=== PATIENT | male | born 1970 | race Caucasian/White ===

== ENCOUNTER 2016-10-31 03:50 | Inpatient (IN) | payer BC ==
[~2016-10-31] VITALS: Ht 185.4 cm; Wt 98.5 kg
[2016-10-31] VITALS (13 sets, daily range): BP systolic 110–151; BP diastolic 73–96; PULSE 68–102; RESP 16–20; TEMP 98.3–99.1; O2SAT 96–99
[~2016-10-31 03:50] MED LIST: BENZ100 PO; LISI-519 PO; METO-309 PO; NICO21DI2 T-DERMAL; TYLELIQ PO; VENTAER2 INH; ZITHTAB PO
--- NOTE | 2016-10-31 04:39 | PD ---
HPI Chief Complaint: right leg pain Time Seen by Provider: 04:28 Travel History International Travel<30 days: No Contact w/Intl Traveler<30days: No Traveled to known affect area: No History of Present Illness HPI The patient is a 46-year-old male that complains of progressive pain and numbness in the right lower extremity below the knee for approximately 24 hours. He is a pack and half smoker. He has never had similar episodes before. He also noted that he cannot wiggle his toes on the right foot. His pain is an 8/10 and a burning sensation. On the calf it is a cramp. PFSH Past Medical History Heart Rhythm Problems: No Cancer: No Cardiovascular Problems: Yes High Cholesterol: No Chemotherapy: No Chest Pain: No Congestive Heart Failure: No Endocrine: No Genitourinary: No Hypertension: Yes Immune Disorder: No Musculoskeletal: No Neurologic: No Psychiatric: No Reproductive: No Respiratory: No Radiation Therapy: No Sickle Cell Disease: No Social History Tobacco Use: Yes Substance Use: No Allergies-Medications (Allergen,Severity, Reaction): Coded Allergies: No Known Allergies (Unverified , 10/31/16) Reported Meds & Prescriptions Reported Meds & Active Scripts Active Lopressor (Metoprolol Tartrate) 50 Mg Tab 50 Mg PO BID 30 Days Review of Systems Except as stated in HPI: all other systems reviewed are Neg Physical Exam Narrative GENERAL: The patient is alert, oriented 3, he smells strongly of tobacco, in moderate apparent distress with his right lower leg pain. His vital signs are normal. SKIN: Focused skin assessment warm/dry. The skin is cool and pale below the knee. HEAD: Atraumatic. Normocephalic. EYES: Pupils equal and round. No scleral icterus. No injection or drainage. ENT: No nasal bleeding or discharge. Mucous membranes pink and moist. NECK: Trachea midline. No JVD. CARDIOVASCULAR: Regular rate and rhythm. No murmur appreciated. RESPIRATORY: No accessory muscle use. Clear to auscultation. Breath sounds equal bilaterally. GASTROINTESTINAL: Abdomen soft, non-tender, nondistended. Hepatic and splenic margins not palpable. MUSCULOSKELETAL: No obvious deformities. No clubbing. No cyanosis. No edema. NEUROLOGICAL: Awake and alert. No obvious cranial nerve deficits. Motor grossly normal except the patient cannot move his right toes and has somewhat limited movement of his ankle.. Normal speech. PSYCHIATRIC: Appropriate mood and affect; insight and judgment normal. Data Data Last Documented VS Vital Signs Date Time Temp Pulse Resp B/P Pulse Ox O2 Delivery O2 Flow Rate FiO2 10/31/16 05:24 78 18 129/75 Nasal Cannula 2 10/31/16 05:00 96 10/31/16 03:58 98.4 Orders Cta Runoff W Iv Contrast W 3d (10/31/16 ) Electrocardiogram (10/31/16 04:31) Complete Blood Count With Diff (10/31/16 04:31) Comprehensive Metabolic Panel (10/31/16 04:31) Prothrombin Time / Inr (Pt) (10/31/16 04:31) Act Partial Throm Time (Ptt) (10/31/16 04:31) Magnesium (Mg) (10/31/16 04:31) Sodium Chlor 0.9% 1000 Ml Inj (Ns 1000 M (10/31/16 04:45) Ondansetron Inj (Zofran Inj) (10/31/16 05:00) Hydromorphone Pf Inj (Dilaudid Pf Inj) (10/31/16 05:00) Prednisone (Deltasone) (10/31/16 05:15) Heparin Infusion LISA.Q1H (10/31/16 05:34) Heparin Inj (Heparin Inj) (10/31/16 05:45) Heparin-D5w Inj (Heparin-D5w Inj) (10/31/16 05:45) Cbc No Diff, Includes Plts (11/03/16 06:00) Ecg Monitoring (10/31/16 05:36) Iv Access Insert/Monitor (10/31/16 05:36) Oximetry (10/31/16 05:36) Sodium Chloride 0.9% Flush (Ns Flush) (10/31/16 05:45) Type And Screen (10/31/16 05:36) Admit Order (Ed Use Only) (10/31/16 05:38) Labs Laboratory Tests Test 10/31/16 04:35 White Blood Count 9.3 TH/MM3 Red Blood Count 4.84 MIL/MM3 Hemoglobin 15.3 GM/DL Hematocrit 46.2 % Mean Corpuscular Volume 95.5 FL Mean Corpuscular Hemoglobin 31.7 PG Mean Corpuscular Hemoglobin 33.2 % Concent Red Cell Distribution Width 14.0 % Platelet Count 113 TH/MM3 Mean Platelet Volume 9.4 FL Neutrophils (%) (Auto) 77.6 % Lymphocytes (%) (Auto) 14.7 % Monocytes (%) (Auto) 6.6 % Eosinophils (%) (Auto) 0.4 % Basophils (%) (Auto) 0.7 % Neutrophils # (Auto) 7.2 TH/MM3 Lymphocytes # (Auto) 1.4 TH/MM3 Monocytes # (Auto) 0.6 TH/MM3 Eosinophils # (Auto) 0.0 TH/MM3 Basophils # (Auto) 0.1 TH/MM3 CBC Comment DIFF FINAL Differential Comment Prothrombin Time 10.8 SEC Prothromb Time International 1.0 RATIO Ratio Activated Partial 22.7 SEC Thromboplast Time Sodium Level 141 MEQ/L Potassium Level 4.5 MEQ/L Chloride Level 106 MEQ/L Carbon Dioxide Level 20.8 MEQ/L Anion Gap 14 MEQ/L Blood Urea Nitrogen 15 MG/DL Creatinine 0.98 MG/DL Estimat Glomerular Filtration 82 ML/MIN Rate Random Glucose 105 MG/DL Calcium Level 8.3 MG/DL Magnesium Level 1.8 MG/DL Total Bilirubin 0.6 MG/DL Aspartate Amino Transf 77 U/L (AST/SGOT) Alanine Aminotransferase 66 U/L (ALT/SGPT) Alkaline Phosphatase 49 U/L Total Protein 6.9 GM/DL Albumin 3.7 GM/DL [facility] Medical Decision Making Medical Screen Exam Complete: Yes Emergency Medical Condition: Yes Medical Record Reviewed: Yes Differential Diagnosis Acute arterial occlusion, cardiac dysrhythmia, electrolyte disorder Narrative Course The CTA with runoff shows occlusion at the SFA on the right. This is just above the popliteal artery. This could've been initially an embolus but now is likely thrombotic. The patient is a admitted to the [facility] service, put on heparin bolus and drip and the vascular surgeon was consulted and will take the patient to surgery. Diagnosis Primary Impression: Arterial embolism and thrombosis of lower extremity Additional Impression: Paroxysmal atrial fibrillation Admitting Information Admitting Physician Requests: Luis Moore MD Oct 31, 2016 04:39
[2016-10-31] MEDS ORDERED: SODIUM CHLOR 0.9% 1000 ML INJ 1,000 ML IV SCH (04:45)
[2016-10-31] MEDS ORDERED: predniSONE 20 MG TAB PO ONE ×2 (04:45→05:15)
[2016-10-31 04:51] LABS: AUTOMATED NEUTROPHIL # 7.2 TH/MM3 (1.8-7.7); BASOPHIL # 0.1 TH/MM3 (0-0.2); BASOPHIL % 0.7 % (0.0-2.0); EOSINOPHIL % 0.4 % (0.0-4.0); HEMATOCRIT 46.2 % (39.0-51.0); LYMPH % 14.7 % (9.0-44.0); LYMPHOCYTE # 1.4 TH/MM3 (1.0-4.8); MEAN CELL VOLUME 95.5 FL (80.0-100.0); MEAN CORPUSCULAR HEMOGLOBIN 31.7 PG (27.0-34.0); MEAN CORPUSCULAR HGB CONC 33.2 % (32.0-36.0); MONO % 6.6 % (0.0-8.0); NEUT % 77.6 % (16.0-70.0); PLATELET COUNT 113 TH/MM3 (150-450); RED BLOOD COUNT 4.84 MIL/MM3 (4.50-5.90); WHITE BLOOD COUNT 9.3 TH/MM3 (4.0-11.0)
[2016-10-31 04:57] LABS: HEMO FLAGS DIFF FINAL
[2016-10-31 04:58] LABS: CHLORIDE 106 MEQ/L (98-107); POTASSIUM 4.5 MEQ/L (3.5-5.1); SODIUM (NA) 141 MEQ/L (136-145)
[2016-10-31] MEDS ORDERED: ONDANSETRON HCL 4 MG/2 ML VIAL IVP ONE (05:00)
[2016-10-31] MEDS ORDERED: HYDROmorphone HCL PF 1 MG/ML VIAL IVS ONE (05:00)
[2016-10-31 05:02] LABS: ANION GAP 14 MEQ/L (5-15); BICARBONATE 20.8 MEQ/L (21.0-32.0)
[2016-10-31 05:03] LABS: BLOOD UREA NITROGEN 15 MG/DL (7-18); MAGNESIUM 1.8 MG/DL (1.5-2.5)
[2016-10-31 05:06] LABS: ALT (GPT) 66 U/L (12-78); APTT (PATIENT) 22.7 SEC (24.3-30.1); AST (GOT) 77 U/L (15-37); GLOMERULAR FILTRATION RATE 82 ML/MIN (>89); PROTHROMBIN TIME - PATIENT 10.8 SEC (9.8-11.6)
[2016-10-31 05:07] LABS: TOTAL BILIRUBIN ADULT 0.6 MG/DL (0.2-1.0)
[2016-10-31 05:08] LABS: ALKALINE PHOSPHATASE 49 U/L (45-117)
[2016-10-31] MEDS ORDERED: NALOXONE HCL 0.4 MG/ML AMP IV PRN (05:45)
[2016-10-31] MEDS ORDERED: HEPARIN SODIUM - IV 10,000 UNITS/10 ML VIAL IV ONE ×3 (05:45→09:38)
[2016-10-31] MEDS ORDERED: HEPARIN-D5W INJ 250 ML IV SCH (05:45)
[2016-10-31] MEDS ORDERED: SODIUM CHLORIDE 0.9% FLUSH 10 ML FLUSH IVF PRN (05:45)
[2016-10-31] MEDS ORDERED: SODIUM CHLORIDE 0.9% FLUSH 10 ML FLUSH IV FLUSH PRN ×2 (05:45→11:30)
[2016-10-31] MEDS ORDERED: IOHEXOL 350 MG/ML 10 ML VIAL (for RAD DIAG) IV ONE (06:21)
--- NOTE | 2016-10-31 06:40 | RADHPO ---
EXAM DATE/TIME: 10/31/2016 05:00 [place] COMPARISON: No previous studies available for comparison. INDICATIONS : Right foot pain with numbness and cold. IV CONTRAST: 100 cc Omnipaque 350 (iohexol) IV RADIATION DOSE: 12.0 CTDIvol (mGy) MEDICAL HISTORY : Hypertension. SURGICAL HISTORY : None. ENCOUNTER: Initial ACUITY: 2 days PAIN SCALE: 6/10 LOCATION: Right lower extremity. TECHNIQUE: Volumetric scanning was performed using a multi-row detector CT scanner. The data was post processed with a variety of visualization algorithms including full volume maximum intensity projection, multi -planar sliding thin slab reformation, curved planar reformation, and surface rendering techniques. Using automated exposure control and adjustment of the mA and/or kV according to patient size, radiat ion dose was kept as low as reasonably achievable to obtain optimal diagnostic quality images. FINDINGS: ABDOMINAL AORTA: Atherosclerotic changes are noted throughout the abdominal aorta. No aneurysmal dilatation. The bandar c artery, SMA and renal arteries are patent. BIFURCATION: Atherosclerotic changes at the bifurcation. RIGHT PELVIS: The right common iliac, internal iliac, and external iliac vessels are patent with atherosclerotic ch anges. No high-grade stenosis.. LEFT PELVIS: The left common iliac, internal iliac, and external iliac vessels are patent and with atherosclerotic changes. No high-grade stenosis.. RIGHT LEG: The right common femoral artery is patent. The proximal right SFA is patent. However, there is a comp lete arterial occlusion involving the distal right SFA at the level of the adductor canal. No distal runoff is seen beyond this point. LEFT LEG: The left common femoral artery is patent. The left SFA is patent throughout its extent. There are pilar e mild atherosclerotic changes. The left popliteal artery is patent. However there appears to be some focal moderate stenosis involving the left popliteal artery. There is a three-vessel runoff down to the left ankle. There is fatty infiltration liver. 6.1 cm left renal cyst along the upper pole. 2 cm cyst midpole right kidney. Scattered diverticulosis of the descending and sigmoid colon without inflammatory changes. CONCLUSION: 1. There is a complete arterial occlusion involving the distal right SFA at the level of the adductor canal. 2. Focal moderate stenosis involving the left popliteal artery. There is a good runoff down to the le ft ankle. Alber Rubio MD on October 31, 2016 at 6:29 Board Certified Radiologist. This report was verified electronically.
[2016-10-31] MEDS ORDERED: DEXAMETHASONE SOD PHOS 4 MG/ML VIAL ONE (07:38)
[2016-10-31] MEDS ORDERED: FAMOTIDINE 20 MG/2 ML VIAL ONE (07:38)
[2016-10-31] MEDS ORDERED: VANCOMYCIN HCL 1000 MG VIAL ONE (07:51)
[2016-10-31] MEDS ORDERED: HEPARIN SODIUM - IV 10,000 UNITS/10 ML VIAL ONE (07:51)
[2016-10-31] MEDS ORDERED: BUPIVACAINE/EPINEPHRINE 0.5% PF 30 ML VIAL ONE (07:51)
--- NOTE | 2016-10-31 08:12 | PD.VS.CON ---
History of Present Illness Chief Complaint: 24 hour history of right calf pain that has progressed with numbness of the right foot. Consult Requested by: Dr. Pisano History of Present Illness This is a 46 year old white male with a hx of right calf pain that started yesterday morning. He denies ever having calf pain before this. His hx included hypertension and 30 pack yr smoking history. Found to have afib upon presentation by Dr. Pisano. Past/Family/Social History Past Medical History hypertension Past Surgical History Denies Social History 30 pack year Home Medications Active Scripts Metoprolol Tartrate (Lopressor)50 Mg Tab50 Mg PO BID 30 Days Prov:No High MD 05/19/16 Discontinued Scripts Lmnolxczjdoliyan-Lygfowydqogmq-Qntocbdz Liq (Tylenol Cold Multi-Symptom Liq)10-5 -325 Mg/15 Ml Liq15 Ml PO Q4H PRN (COUGH AND/OR COLD SYMPTOMS) #1 BOTTLE Ref 0 Prov:No High MD 05/19/16 Azithromycin (Zithromax Z-Sesar)250 Mg Lnna385 Mg PO DIRECTED #1 DSPK Ref 0 500 MG (2 tabs) day 1, then 1 tab days 2-5. Prov:No High MD 05/19/16 Albuterol 18 GM Inh (Albuterol Hfa 18 GM Inh)90 Mcg/Act Aer1 Puff INH Q4H PRN ( SHORTNESS OF BREATH) #1 INHALER Ref 0 Prov:No High MD 05/19/16 Benzonatate (Tessalon Perles)100 Mg [id number] Mg PO TID PRN (COUGH) #20 CAP Ref 0 Prov:No High MD 05/19/16 Nicotine Patch 21 Mg/24 Hr Patch21 Mg T-DERMAL DAILY #30 PATCH Ref 0 Prov:No High MD 05/19/16 Lisinopril 5 Mg Tab5 Mg PO DAILY 30 Days Prov:No High MD 05/19/16 Coded Allergies: No Known Allergies (Unverified , 10/31/16) Physical Exam Vitals/I&O Date Time Temp Pulse Resp B/P Pulse Ox O2 Delivery O2 Flow Rate FiO2 10/31/16 06:32 98.8 70 16 140/86 96 Room Air 10/31/16 06:15 78 20 110/78 96 10/31/16 05:55 78 17 110/78 96 Room Air 10/31/16 05:24 78 18 129/75 Nasal Cannula 2 10/31/16 05:15 78 20 10/31/16 05:00 76 20 129/80 96 Room Air 10/31/16 04:55 68 18 118/77 96 Room Air 10/31/16 04:34 68 18 129/80 96 Room Air 10/31/16 03:58 98.4 75 18 129/83 97 Room Air 10/31/16 10/31/16 10/31/16 07:00 15:00 23:00 Intake Total 500 ml Balance 500 ml Neuro: CN2-12 intact. Minimal dorisflexion and toe movement right lower extremity. Paresthesias right foot from ankle down. Right calf tender with dorsiflexion (writhing in pain) Neck: supple no carotids Heart: no murmurs. Lungs: CTA bilaterally. Vascular: palpable bilateral femoral and left DP. Absent pulses right pedal. Extremities: right foot cool. minimal dorsiflexion. Laboratory Tests Test 10/31/16 10/31/16 10/31/16 04:35 05:49 06:00 White Blood Count 9.3 Red Blood Count 4.84 Hemoglobin 15.3 Hematocrit 46.2 Mean Corpuscular Volume 95.5 Mean Corpuscular Hemoglobin 31.7 Mean Corpuscular Hemoglobin 33.2 Concent Red Cell Distribution Width 14.0 Platelet Count 113 Mean Platelet Volume 9.4 Neutrophils (%) (Auto) 77.6 Lymphocytes (%) (Auto) 14.7 Monocytes (%) (Auto) 6.6 Eosinophils (%) (Auto) 0.4 Basophils (%) (Auto) 0.7 Neutrophils # (Auto) 7.2 Lymphocytes # (Auto) 1.4 Monocytes # (Auto) 0.6 Eosinophils # (Auto) 0.0 Basophils # (Auto) 0.1 CBC Comment DIFF FINAL Differential Comment Prothrombin Time 10.8 Prothromb Time International 1.0 Ratio Activated Partial 22.7 Thromboplast Time Sodium Level 141 Potassium Level 4.5 Chloride Level 106 Carbon Dioxide Level 20.8 Anion Gap 14 Blood Urea Nitrogen 15 Creatinine 0.98 Estimat Glomerular Filtration 82 Rate Random Glucose 105 Calcium Level 8.3 Magnesium Level 1.8 Total Bilirubin 0.6 Aspartate Amino Transf 77 (AST/SGOT) Alanine Aminotransferase 66 (ALT/SGPT) Alkaline Phosphatase 49 Total Protein 6.9 Albumin 3.7 Blood Type A POSITIVE A POSITIVE Antibody Screen NEGATIVE Crossmatch Leukocyte-Reduced Red Blood Cells Blood Bank Comment Last 48 hours Impressions Aorta w/Runoff CTA 10/31/16 0000 Signed Impressions: Service Date/Time: Monday, October 31, 2016 05:00 - CONCLUSION: 1. There is a complete arterial occlusion involving the distal right SFA at the level of the adductor canal. 2. Focal moderate stenosis involving the left popliteal artery. There is a good runoff down to the left ankle. Alber Rubio MD Assessment and Plan Assessment: (1) Arterial embolism and thrombosis of lower extremity Status: Acute Plan This is a 46 year old male with a threatened right lower extremity with substantial paresthesias and pain with coolness. In ER, [facility], was not able to move toes prior to heparinization. I supsect acute arterial occlusion. Will perform arterial embolectomy and fasciotomies (symptoms for 24 hours). This appears to be an acute arterial occlusion from embolic source. Appears to have some contralateral disease in the area of his popliteal artery so may be progression to an acute arterial occlusion from chronic disease as well. Discussed risk of limb loss, foot drop and CT, stroke and as well with parents and the patient. Ward Blanchard DO, FACS [employer] Tender of Vascular Surgery /Ward Pacheco DO Oct 31, 2016 08:12
--- NOTE | 2016-10-31 10:28 | EKG ---
Date Performed: 10/31/2016 Time Performed: 04:47:50 PTAGE: 46 years EKG: Atrial fibrillation. Poor R wave progression - probable normal variant High lateral ST-T ch anges may be due to myocardial ischemia Possible inferior infarct, age undetermined Abnormal ECG PREVIOUS TRACING : 05/18/2016 06.48 Compared to previous tracing, atrial fibrillation has repla darrick Sinus rhythm , high lateral T wave inversion is more pronounced. DOCTOR: Eugenio Zambrano Interpretating Date/Time 10/31/2016 10:27:18
[2016-10-31] MEDS ORDERED: THROMBIN (TOPICAL) 20,000 UNIT SPRAY KIT ONE (10:30)
[2016-10-31] MEDS ORDERED: DO NOT ADM ANY ANTICOAGULANT DRUGS PRN (11:23)
--- NOTE | 2016-10-31 11:27 | HHI.PR ---
Immediate Post Op Note Procedure Date: Oct 31, 2016 Pre Op Diagnosis: (1) Arterial embolism and thrombosis of lower extremity Post Op Diagnosis: (1) Arterial embolism and thrombosis of lower extremity Surgeon: Ward Blanchard Chief Chemist(s): Sierra Ocampo Procedure: Right lower extremity embolectomy and fasciotomy Findings: Copious clot from SFA/POP. Complications: None Specimen(s) removed: Clot Right lower extremity Estimated blood loss: 450 cc Anesthesia: General Drains: None Fluids: 1500 cc xl IVF Tourniquet time (min at mmHg) NA Patient to: PACU Patient Condition: Fair Implant/Devices: Other Date/Time of Procedure: Other Ward Blanchard DO Oct 31, 2016 11:27
[2016-10-31] MEDS ORDERED: POTASSIUM CHLOR 20 MEQ PREMIX 100 ML IV PRN (11:30)
[2016-10-31] MEDS ORDERED: ONDANSETRON HCL 4 MG/2 ML VIAL IV PUSH PRN ×2 (11:30→14:45)
[2016-10-31] MEDS ORDERED: Post-op Orders (for Pharmacy) MISC OTHER ONE (11:30)
[2016-10-31] MEDS ORDERED: MAGNESIUM SULFATE 1 GM PREMIX 200 ML IV PRN (11:30)
[2016-10-31] MEDS ORDERED: POTASSIUM PHOSPHATE INJ 21 MMOL in SODIUM CHLOR 0.9% 250 ML INJ 250 ML IV PRN (11:30)
[2016-10-31] MEDS: HEPARIN-D5W INJ 250 ML IV SCH (11:50)
[2016-10-31] MEDS ORDERED: NEOSTIGMINE 3 MG/3 ML SYR IV ONE (12:00)
[2016-10-31] MEDS ORDERED: PROPOFOL 200 MG/20 ML AMP IV ONE (12:00)
[2016-10-31] MEDS ORDERED: SODIUM CHLOR 0.9% 250 ML INJ 500 ML IV ONE (12:00)
[2016-10-31] MEDS ORDERED: PHENYLEPHRINE HCL 10 MG/ML VIAL IV ONE (12:00)
[2016-10-31] MEDS ORDERED: LACTATED RINGER'S 1000 ML INJ 2,000 ML IV ONE (12:00)
[2016-10-31] MEDS ORDERED: PHENYLEPH/NS 1000 MCG/10 ML SYR IV ONE (12:00)
[2016-10-31] MEDS ORDERED: ONDANSETRON HCL 4 MG/2 ML VIAL IV PUSH ONE (12:00)
[2016-10-31] MEDS ORDERED: MIDAZOLAM HCL 2 MG/2 ML VIAL ONE (12:05)
[2016-10-31] MEDS ORDERED: fentaNYL CITRATE 250 MCG/5 ML AMP ONE (12:05)
[2016-10-31] MEDS: ASPIRIN EC 81 MG TABEC PO SCH (12:49)
--- NOTE | 2016-10-31 13:05 | HHI.HP ---
[facility] Service [facility] Primary Care Physician No Primary Care Physician Admission Diagnosis acute arterial occlusion right leg Diagnoses: Chief Complaint: Right leg pain Travel History International Travel<30 Days: No Contact w/Intl Traveler <30 Da: No Traveled to Known Affected Are: No History of Present Illness This is a pleasant 46 y/o male with CAD, Severe Tobacco dependence and Alcohol abuse, as per patient he continue Smoking 1 and a half packs of cigarettes daily, recent admission due to Atypical chest pain and Shortness of breath in April last year with diagnosis of STEMI he had recent Cardiac Catheterization by Doctor Becky with no Stents, as we know he has Hypertension on this opportunity came due to Progressive pain and numbness in the right lower extremity below the knee, for the last 24 hours never had similar episodes in the past, He also noted that he cannot wiggle his toes on the right foot. His pain is an 8/10 and a burning sensation. On the calf it is a cramp. I came early to see the patient but he was in Operating room at this time he is in Recovery room and Dewaxer will take the case for today and will sign out for tomorrow. performed an Aorta with Runoff Showed complete Arterial Occlusion involving the distal Right SFA at the level of the adductor canal, Focal moderate Stenosis involving the left popliteal artery. had Atrial Fibrillation on presentation from Emergency medicine, With Diagnosis of Arterial Embolism and Thrombosis of the lower extremity, started on Heparin drip and performed Embolectomy and Fasciotomies, 10/31/16 by Doctor Ward Blanchard. Past Family Social History Past Medical History Hypertension CAD Past Surgical History Tonsillectomy PCI and no stents. Reported Medications Reported Meds & Active Scripts Active Lopressor (Metoprolol Tartrate) 50 Mg Tab 50 Mg PO BID 30 Days Allergies: Coded Allergies: No Known Allergies (Unverified , 10/31/16) Active Ordered Medications Current Medications Medications (Trade) Dose Ordered Sig/Santos Route Start Time Stop Time Status Last Admin (NS Flush) 2 ml UNSCH PRN IV FLUSH 10/31/16 05:45 (NS Flush) 2 ml BID IV FLUSH 10/31/16 09:00 Naloxone HCl 0.4 mg 0.4 mg UNSCH PRN IV 10/31/16 05:45 Potassium Chloride 100 ml @ 50 mls/hr UNSCH PRN IV 10/31/16 11:30 Potassium Phosphate 21 mmol/ Sodium Chloride 257 ml @ 41.7 mls/hr UNSCH PRN IV 10/31/16 11:30 (Magnesium Sulfate 1 Gm Premix) 200 ml @ 100 mls/hr UNSCH PRN IV 10/31/16 11:30 (Zofran Inj) 4 mg Q6H PRN IV PUSH 10/31/16 11:30 (Fields 5-325 Mg) 1 tab Q4H PRN PO 10/31/16 11:30 (Roxicodone) 7.5 mg Q4H PRN PO 10/31/16 11:30 (Morphine Inj) 2 mg Q1H PRN IV 10/31/16 11:30 (Morphine Inj) 4 mg Q1H PRN IV 10/31/16 11:30 Aspirin 81 mg 81 mg DAILY PO 10/31/16 12:00 Vancomycin HCl 1000 mg/Sodium Chloride 250 ml @ 250 mls/hr Q12H IV 10/31/16 20:00 11/01/16 08:59 (Heparin-D5W Inj) 250 ml @ 0 mls/hr TITRATE IV 10/31/16 12:30 Family History Father and Sister with Hypertension Mother with Breast Cancer. Social History Tobacco dependence Alcohol abuse Physical Exam Vital Signs Vital Signs Date Time Temp Pulse Resp B/P Pulse Ox O2 Delivery O2 Flow Rate FiO2 10/31/16 12:30 98.3 85 14 131/97 96 Nasal Cannula 3 10/31/16 12:15 100 18 145/86 96 Nasal Cannula 3 10/31/16 12:00 84 15 142/74 94 Nasal Cannula 3 10/31/16 11:45 82 14 129/71 93 Nasal Cannula 3 10/31/16 11:30 81 14 116/79 95 Simple Mask 6 10/31/16 11:25 99.9 80 12 123/78 95 Simple Mask 6 10/31/16 06:32 98.8 70 16 140/86 96 Room Air 10/31/16 06:15 78 20 110/78 96 10/31/16 05:55 78 17 110/78 96 Room Air 10/31/16 05:24 78 18 129/75 Nasal Cannula 2 10/31/16 05:15 78 20 10/31/16 05:00 76 20 129/80 96 Room Air 10/31/16 04:55 68 18 118/77 96 Room Air 10/31/16 04:34 68 18 129/80 96 Room Air 10/31/16 03:58 98.4 75 18 129/83 97 Room Air Physical Exam GENERAL: The patient is alert, oriented 3, he smells strongly of tobacco, in moderate apparent distress with his right lower leg pain. His vital signs are normal. SKIN: Focused skin assessment warm/dry. The skin is cool and pale below the knee. HEAD: Atraumatic. Normocephalic. EYES: Pupils equal and round. No scleral icterus. No injection or drainage. ENT: No nasal bleeding or discharge. Mucous membranes pink and moist. NECK: Trachea midline. No JVD. CARDIOVASCULAR: Regular rate and rhythm. No murmur appreciated. RESPIRATORY: No accessory muscle use. Clear to auscultation. Breath sounds equal bilaterally. GASTROINTESTINAL: Abdomen soft, non-tender, nondistended. Hepatic and splenic margins not palpable. MUSCULOSKELETAL: No obvious deformities. No clubbing. No cyanosis. No edema. NEUROLOGICAL: Awake and alert. No obvious cranial nerve deficits. Motor grossly normal except the patient cannot move his right toes and has somewhat limited movement of his ankle.. Normal speech. PSYCHIATRIC: Appropriate mood and affect; insight and judgment normal. Acute arterial occlusion, cardiac dysrhythmia, electrolyte disorder Laboratory Laboratory Tests Test 10/31/16 10/31/16 10/31/16 04:35 05:49 06:00 White Blood Count 9.3 Red Blood Count 4.84 Hemoglobin 15.3 Hematocrit 46.2 Mean Corpuscular Volume 95.5 Mean Corpuscular Hemoglobin 31.7 Mean Corpuscular Hemoglobin 33.2 Concent Red Cell Distribution Width 14.0 Platelet Count 113 Mean Platelet Volume 9.4 Neutrophils (%) (Auto) 77.6 Lymphocytes (%) (Auto) 14.7 Monocytes (%) (Auto) 6.6 Eosinophils (%) (Auto) 0.4 Basophils (%) (Auto) 0.7 Neutrophils # (Auto) 7.2 Lymphocytes # (Auto) 1.4 Monocytes # (Auto) 0.6 Eosinophils # (Auto) 0.0 Basophils # (Auto) 0.1 CBC Comment DIFF FINAL Differential Comment Prothrombin Time 10.8 Prothromb Time International 1.0 Ratio Activated Partial 22.7 Thromboplast Time Sodium Level 141 Potassium Level 4.5 Chloride Level 106 Carbon Dioxide Level 20.8 Anion Gap 14 Blood Urea Nitrogen 15 Creatinine 0.98 Estimat Glomerular Filtration 82 Rate Random Glucose 105 Calcium Level 8.3 Magnesium Level 1.8 Total Bilirubin 0.6 Aspartate Amino Transf 77 (AST/SGOT) Alanine Aminotransferase 66 (ALT/SGPT) Alkaline Phosphatase 49 Total Protein 6.9 Albumin 3.7 Blood Type A POSITIVE A POSITIVE Antibody Screen NEGATIVE Crossmatch Leukocyte-Reduced Red Blood Cells Blood Bank Comment Result Diagram: 10/31/16 0435 10/31/16 0435 Imaging Last Impressions Aorta w/Runoff CTA 10/31/16 0000 Signed Impressions: Service Date/Time: Thursday, October 31, 2016 05:00 - CONCLUSION: 1. There is a complete arterial occlusion involving the distal right SFA at the level of the adductor canal. 2. Focal moderate stenosis involving the left popliteal artery. There is a good runoff down to the left ankle. Alber Rubio MD Assessment and Plan Assessment and Plan 1. Acute Arterial Embolism and Thrombosis of the Right lower extremity Aorta with Runoff Showed complete Arterial Occlusion involving the distal Right SFA at the level of the adductor canal, Focal moderate Stenosis involving the left popliteal artery. Status post Embolectomy and Fasciotomies 10/31/16 [address] Ward Blanchard Receiving Heparin Drip. will go to Intensive Care Unit at this time Dewaxer Doctor Ivan in to evaluate the patient. perioperative Vancomycin given Complete laboratory ANCA, ANTELMO, Anti-Thrombin III, Anti-phospholipid antibodies, Protein C Protein S, CRP. 2. Atrial Fibrillation continue Beta Blockers will get Echocardiogram, Cardiology consult he is well known to Doctor Julian Ramos 3. Severe Tobacco dependence strongly recommended to stop smoking, may be associated with his actual pathology, No Nicotine replacement at this time due to Atrial Fibrillation. 4. Alcohol abuse strongly recommended to stop this behavior 5. Hypertension will continue Beta Blockers, DVT prophylaxis on Heparin Drip at this time will go to intensive Care unit and follow recommendations. by Dewaxer and Vascular sales recruitment specialist. Code Status Full Code. Discussed Condition With Patient and Collarette Separator Doctor Moncho Physician Certification 2 Midnight Certification Type: Admission for Inpatient Services Order for Inpatient Services The services are ordered in accordance with Medicare regulations or non- Medicare payer requirements, as applicable. In the case of services not specified as inpatient-only, they are appropriately provided as inpatient services in accordance with the 2-midnight benchmark. Estimated LOS (days): 4 days is the estimated time the patient will need to remain in the hospital, assuming treatment plan goals are met and no additional complications. Post-Hospital Plan: Home Hermann Ribeiro MD Oct 31, 2016 13:05
[2016-10-31] MEDS: SODIUM CHLOR 0.9% 1000 ML INJ 1,000 ML IV SCH ×2 (14:00→22:00)
--- NOTE | 2016-10-31 14:33 | PD.CONS ---
[facility] Service Critical Care Medicine Consult Requested By Ward Blanchard M.D. Reason for Consult HTN, new onset Afib, S/P Embolectomy RLE Primary Care Physician No Primary Care Physician History of Present Illness 46-year-old male that presented to the ED with complaints of paresthesia, pain and paralysis of the right lower extremity. The patient was also noted to be in atrial fibrillation. The patient's past medical history significant for uncontrolled hypertension secondary to noncompliance, and tobacco abuse in which he smokes 1.5 packs a day for greater than 20 years. Imaging studies performed revealed a complete arterial occlusion of the right SFA at the level of the adductor canal and moderate stenosis in the left popliteal artery. Today the patient underwent an embolectomy and fasciotomy of the right lower extremity. Upon examining the patient in PACU, right lower extremity noted to be pink with brisk capillary refill less than 2 seconds, good motor movement, palpable pulses dorsalis pedis and posterior tibial. The patient is noted to be in atrial fibrillation with a heart rate of 70. Critical care medicine has been consulted. Review of Systems Cardiovascular: COMPLAINS OF: Palpitations, Lower Extremity Edema Past Family Social History Allergies: Coded Allergies: No Known Allergies (Unverified , 10/31/16) Past Medical History Hypertension with diastolic dysfunction Past Surgical History Cardiac catheterization Reported Medications see MAR Active Ordered Medications see MAR Social History Tobacco-smoke 1.5 packs/day 20 years, denies alcohol or illicit drug use Physical Exam Vital Signs Vital Signs Date Time Temp Pulse Resp B/P Pulse Ox O2 Delivery O2 Flow Rate FiO2 10/31/16 13:00 79 14 133/89 94 Nasal Cannula 3 10/31/16 12:30 98.3 85 14 131/97 96 Nasal Cannula 3 10/31/16 12:15 100 18 145/86 96 Nasal Cannula 3 10/31/16 12:00 84 15 142/74 94 Nasal Cannula 3 10/31/16 11:45 82 14 129/71 93 Nasal Cannula 3 10/31/16 11:30 81 14 116/79 95 Simple Mask 6 10/31/16 11:25 99.9 80 12 123/78 95 Simple Mask 6 10/31/16 06:32 98.8 70 16 140/86 96 Room Air 10/31/16 06:15 78 20 110/78 96 10/31/16 05:55 78 17 110/78 96 Room Air 10/31/16 05:24 78 18 129/75 Nasal Cannula 2 10/31/16 05:15 78 20 10/31/16 05:00 76 20 129/80 96 Room Air 10/31/16 04:55 68 18 118/77 96 Room Air 10/31/16 04:34 68 18 129/80 96 Room Air 10/31/16 03:58 98.4 75 18 129/83 97 Room Air Physical Exam GENERAL: Well-developed well-nourished male sitting semi-recumbent in bed in PACU, lethargic SKIN: Warm and dry. HEAD: Atraumatic. Normocephalic. EYES: Pupils equal and round. No scleral icterus. No injection or drainage. ENT: No nasal bleeding or discharge. Mucous membranes pink and moist. NECK: Trachea midline. No JVD. CARDIOVASCULAR: Normal rate, telemetry showing irregular rhythm. RESPIRATORY: No accessory muscle use. Clear to auscultation. Breath sounds equal bilaterally. GASTROINTESTINAL: Abdomen soft, non-tender, nondistended. No guarding. MUSCULOSKELETAL: Extremities without clubbing, cyanosis, or edema. Right lower extremity dressing clean dry and intact. Dorsalis pedis and posterior tibial pulses intact, capillary refill brisk, movement of toes NEUROLOGICAL: Awake and alert. RASS 0. No gross focal/sensory deficits. Follows commands in all 4 extremities. Laboratory Laboratory Tests Test 10/31/16 10/31/16 10/31/16 04:35 05:49 06:00 White Blood Count 9.3 Red Blood Count 4.84 Hemoglobin 15.3 Hematocrit 46.2 Mean Corpuscular Volume 95.5 Mean Corpuscular Hemoglobin 31.7 Mean Corpuscular Hemoglobin 33.2 Concent Red Cell Distribution Width 14.0 Platelet Count 113 Mean Platelet Volume 9.4 Neutrophils (%) (Auto) 77.6 Lymphocytes (%) (Auto) 14.7 Monocytes (%) (Auto) 6.6 Eosinophils (%) (Auto) 0.4 Basophils (%) (Auto) 0.7 Neutrophils # (Auto) 7.2 Lymphocytes # (Auto) 1.4 Monocytes # (Auto) 0.6 Eosinophils # (Auto) 0.0 Basophils # (Auto) 0.1 CBC Comment DIFF FINAL Differential Comment Prothrombin Time 10.8 Prothromb Time International 1.0 Ratio Activated Partial 22.7 Thromboplast Time Sodium Level 141 Potassium Level 4.5 Chloride Level 106 Carbon Dioxide Level 20.8 Anion Gap 14 Blood Urea Nitrogen 15 Creatinine 0.98 Estimat Glomerular Filtration 82 Rate Random Glucose 105 Calcium Level 8.3 Magnesium Level 1.8 Total Bilirubin 0.6 Aspartate Amino Transf 77 (AST/SGOT) Alanine Aminotransferase 66 (ALT/SGPT) Alkaline Phosphatase 49 Total Protein 6.9 Albumin 3.7 Blood Type A POSITIVE A POSITIVE Antibody Screen NEGATIVE Crossmatch Leukocyte-Reduced Red Blood Cells Blood Bank Comment Result Diagram: 10/31/16 0435 10/31/16 0435 Imaging Last Impressions Aorta w/Runoff CTA 10/31/16 0000 Signed Impressions: Service Date/Time: Monday, October 31, 2016 05:00 - CONCLUSION: 1. There is a complete arterial occlusion involving the distal right SFA at the level of the adductor canal. 2. Focal moderate stenosis involving the left popliteal artery. There is a good runoff down to the left ankle. Alber Rubio MD Septic Shock Reassessment Heart: Regular rate and rhythm Lungs: Clear Skin: Warm Peripheral Pulses: Bounding Right Radial Bounding Left Radial Bounding Right Dorsalis Pedis Bounding Left Dorsalis Pedis Bounding Right Posterior Tibial Bounding Left Posterior Tibial Capillary Refill: <2 seconds Assessment and Plan Assessment and Plan Plan by systems: Neurologic: Postoperative pain GCS 15 Utilize Multimodal pain analgesia Ofirmev 1 g every 6 hours 24 hours, Roxicodone, morphine, and [place] Neurochecks per ICU protocol-monitor right lower extremity Respiratory: Tobacco abuse Nicotine patch-21 mg/high dose x 7days Patient counseled on smoking cessation Incentive spirometry Bronchodilators every 4 hours when necessary Cardiovascular: Atrial fibrillation Arterial occlusive disease Hypertension Diastolic dysfunction Heparin infusion protocol Continue metoprolol 50 mg twice a day (home med) Cardiology consulted Last admission 05/20/16-EKG normal sinus rhythm 05/20/16 ECHO-EF 6065 percent severe LVH, no RWMA, LAE moderately dilated, tricuspid valve trace regurgitation, mitral valve with trace regurgitation. PA peak press 45 mmHg 05/18/16-cardiac catheterization-EF 60%, diastolic dysfunction, normal coronary arteries, RCA dominant-mid and distal 40% plaque, left circ-OM1 80% lesion noted Renal: Monitor BMP DC Mcrae -- Strict I/Os FEN/GI: Heart healthy diet Zofran for nausea No GI prophylaxis indicated Heme/ID: Hypercoagulable state Monitor CBC Hematology consult-appreciate recommendations Hypercoagulable labs [id number] results Endocrine: Glucose monitoring per ICU protocol -- SSI Prophylaxis: GI Prophylaxis The patient does not meet criteria for GI prophylaxis DVT Prophylaxis -- SCDs Heparin infusion Lines: Peripheral IVs Dispo: This patient remains critically ill with one or more organ systems which are or may become a threat to life. I have spent in excess of 47 minutes discontinuously in the care and management of this patient. This time is exclusive of procedures, and includes, but is not limited to, evaluation of the patient, review of the medical record, discussions with family, consultants, nursing staff, or respiratory therapy, and documentation in the medical record. Code Status Full Discussed Condition With Patient and [employer] Karen Ivan MD Oct 31, 2016 14:33
[2016-10-31] MEDS ORDERED: RESP: ALBUTEROL 2.5 MG/IPRATROPIUM 0.5 MG NEB (PRN) NEB (14:45)
[2016-10-31] MEDS ORDERED: GLUCAGON 1 MG/ML VIAL OTHER PRN (14:45)
[2016-10-31] MEDS ORDERED: DEXTROSE 50% IN WATER 50 ML VIAL(D50) IV PUSH PRN (14:45)
[2016-10-31] MEDS ORDERED: ACETAMINOPHEN 1000 MG/100 ML VIAL IV SCH (15:00)
--- NOTE | 2016-10-31 15:04 | EC ---
Study Study Date:10/31/2016 STUDY CONCLUSIONS SUMMARY - Procedure narrative: Transthoracic echocardiography. Image quality was fair. Scanning was performed from the parasternal, apical, and subcostal acoustic windows. - Left ventricle: The cavity size was normal. Wall thickness was increased in a pattern of moderate LVH. Systolic function was normal. The estimated ejection fraction was in the range of 60% to 65%. Wall motion was normal; there were no regional wall motion abnormalities. - Mitral valve: Trace regurgitation. If LV function is below 40, please consider prescribing an ACEI or ARB or document rationale for non-use. PROCEDURE DATA STUDY STATUS: Elective. Procedure: Transthoracic echocardiography. Image quality was fair. Scanning was performed from the parasternal, apical, and subcostal acoustic windows. Study completion: The patient tolerated the procedure well. Transthoracic echocardiography. M-mode, complete 2D, complete spectral Doppler, and color Doppler. Height: Height: 73in. Weight: Weight: 225.5lb. Body mass index: BMI: 29.8kg/m^2. Body surface area: BSA: 2.27m^2. Patient status: Inpatient. CARDIAC ANATOMY LEFT VENTRICLE: The cavity size was normal. Wall thickness was increased in a pattern of moderate LVH. Systolic function was normal. The estimated ejection fraction was in the range of 60% to 65%. Wall motion was normal; there were no regional wall motion abnormalities. AORTIC VALVE: Trileaflet; normal thickness leaflets. Doppler: Transvalvular velocity was within the normal range. There was no stenosis. No regurgitation. Valve area: 1.56cm^2 (Vmax). Indexed valve area: 0.69cm^2/m^2 (Vmax). Peak gradient: 37mm Hg (S). AORTA: Aortic root: The aortic root was normal in size. MITRAL VALVE: Structurally normal valve. Doppler: Transvalvular velocity was within the normal range. There was no evidence for stenosis. Trace regurgitation. LEFT ATRIUM: The atrium was normal in size. RIGHT VENTRICLE: The cavity size was normal. Wall thickness was normal. PULMONIC VALVE: Doppler: Transvalvular velocity was within the normal range. There was no evidence for stenosis. No regurgitation. TRICUSPID VALVE: Structurally normal valve. Doppler: Transvalvular velocity was within the normal range. No regurgitation. PULMONARY ARTERY: The main pulmonary artery was normal-sized. Systolic pressure was within the normal range. RIGHT ATRIUM: The atrium was normal in size. PERICARDIUM: There was no pericardial effusion. SYSTEMIC VEINS: Inferior vena cava: The vessel was normal in size. Patient weight: 225.5lb _Ejection fraction:_ 65-75% _Fractional shortening:_ 32% up to 5Kg 5-11.5Kg 11.6-22.9Kg 23-45Kg 45-57Kg Aortic Root 7-13 <17 13-22 17-27 17-27 LA diam 6-13 <23 24-38 33-47 37-40 RVID 10-17 7-15 7-15 7-18 8-17 LVIDd 12-22 <32 24-38 33-47 37-40 LVPW 2-4 3-6 5-7 6-8 7-8 IVS 2-4 3-6 5-7 6-8 7-8 BASIC MEASUREMENTS ADULT NORMAL Left ventricle LV internal dimension, ED, chordal 47.7 mm 43-52 level, PLAX LV internal dimension, ES, chordal 36.5 mm 23-38 level, PLAX Fractional shortening, chordal level, *23 % >29 PLAX LV posterior wall thickness, ED 11.4 mm IVS/LVPW ratio, ED 1 <1.3 Ventricular septum Septal thickness, ED 11.4 mm Aortic valve Leaflet separation 20 mm 15-26 BASIC MEASUREMENTS ADULT NORMAL Aortic valve Leaflet separation 20 mm 15-26 Aorta Root diameter, ED 36 mm 20-37 Left atrium Anterior-posterior dimension, ES *44 mm 19-40 Anterior-posterior dimension index, ES 1.94 cm/m^2 <2.2 LA/aortic root ratio 1.22 DOPPLER MEASUREMENTS ADULT NORMAL Aortic valve Peak velocity, S 306 cm/s Peak gradient, S 37 mm Hg Valve area, Vmax 1.56 cm^2 Valve area index, Vmax 0.69 cm^2/m^2 Mitral valve Maximal regurgitant velocity 616 cm/s Pulmonic valve Peak velocity, S 149 cm/s LEGEND: Mean values are shown as u=mean value. Asterisk (*) gil values outside specified normal range. Prepared and signed by Eugenio Zambrano [id number]
--- NOTE | 2016-10-31 15:19 | PD.VS.PN ---
Subjective Subjective/Hospital Course status post right lower extremity embolectomy and fasciotomies. Objective Vitals/I&O Date Time Temp Pulse Resp B/P Pulse Ox O2 Delivery O2 Flow Rate FiO2 10/31/16 14:00 85 14 149/86 95 Nasal Cannula 3 10/31/16 13:00 79 14 133/89 94 Nasal Cannula 3 10/31/16 12:30 98.3 85 14 131/97 96 Nasal Cannula 3 10/31/16 12:15 100 18 145/86 96 Nasal Cannula 3 10/31/16 12:00 84 15 142/74 94 Nasal Cannula 3 10/31/16 11:45 82 14 129/71 93 Nasal Cannula 3 10/31/16 11:30 81 14 116/79 95 Simple Mask 6 10/31/16 11:25 99.9 80 12 123/78 95 Simple Mask 6 10/31/16 06:32 98.8 70 16 140/86 96 Room Air 10/31/16 06:15 78 20 110/78 96 10/31/16 05:55 78 17 110/78 96 Room Air 10/31/16 05:24 78 18 129/75 Nasal Cannula 2 10/31/16 05:15 78 20 10/31/16 05:00 76 20 129/80 96 Room Air 10/31/16 04:55 68 18 118/77 96 Room Air 10/31/16 04:34 68 18 129/80 96 Room Air 10/31/16 03:58 98.4 75 18 129/83 97 Room Air 10/31/16 10/31/16 10/31/16 07:00 15:00 23:00 Intake Total 500 ml 1605 ml Output Total 950 ml Balance 500 ml 655 ml Physical Exam Right dressing with some drainage medial aspect. Right DP palpable and right PT biphasic. Foot is warm. Motor intact but proprioreception below the ankle is decreased. Laboratory Laboratory Tests Test 10/31/16 10/31/16 10/31/16 04:35 05:49 06:00 White Blood Count 9.3 Red Blood Count 4.84 Hemoglobin 15.3 Hematocrit 46.2 Mean Corpuscular Volume 95.5 Mean Corpuscular Hemoglobin 31.7 Mean Corpuscular Hemoglobin 33.2 Concent Red Cell Distribution Width 14.0 Platelet Count 113 Mean Platelet Volume 9.4 Neutrophils (%) (Auto) 77.6 Lymphocytes (%) (Auto) 14.7 Monocytes (%) (Auto) 6.6 Eosinophils (%) (Auto) 0.4 Basophils (%) (Auto) 0.7 Neutrophils # (Auto) 7.2 Lymphocytes # (Auto) 1.4 Monocytes # (Auto) 0.6 Eosinophils # (Auto) 0.0 Basophils # (Auto) 0.1 CBC Comment DIFF FINAL Differential Comment Prothrombin Time 10.8 Prothromb Time International 1.0 Ratio Activated Partial 22.7 Thromboplast Time Sodium Level 141 Potassium Level 4.5 Chloride Level 106 Carbon Dioxide Level 20.8 Anion Gap 14 Blood Urea Nitrogen 15 Creatinine 0.98 Estimat Glomerular Filtration 82 Rate Random Glucose 105 Calcium Level 8.3 Magnesium Level 1.8 Total Bilirubin 0.6 Aspartate Amino Transf 77 (AST/SGOT) Alanine Aminotransferase 66 (ALT/SGPT) Alkaline Phosphatase 49 Total Protein 6.9 Albumin 3.7 Blood Type A POSITIVE A POSITIVE Antibody Screen NEGATIVE Crossmatch Leukocyte-Reduced Red Blood Cells Blood Bank Comment Imaging Last 48 hours Impressions Aorta w/Runoff CTA 10/31/16 0000 Signed Impressions: Service Date/Time: Monday, October 31, 2016 05:00 - CONCLUSION: 1. There is a complete arterial occlusion involving the distal right SFA at the level of the adductor canal. 2. Focal moderate stenosis involving the left popliteal artery. There is a good runoff down to the left ankle. Alber Rubio MD Assessment and Plan Assessment: (1) Arterial embolism and thrombosis of lower extremity Status: Acute Plan Acute arterial emboli status post embolectomy and fasciotomy (right lower extremity) Previously untreated afib. 1. On anticoagulation. 2. Advance diet. 3. Wet-to-dry dressing with possible closure of fasciotomy sites early next week ? 4. Discontinue waddell in am. 5. Critical care consulted. 6 Cardiology consulted (source of emboli)/Cardiac function. 7. COPD (IS) and nebs prn. Ward Blanchard DO, FACS [facility] [employer] [facility] ANDRA/Ward Pacheco DO Oct 31, 2016 15:19
[2016-10-31] MEDS: INSULIN NovoLIN REGULAR SUPPLEMENTAL SCALE SQ SCH ×2 (17:24→20:48)
--- NOTE | 2016-10-31 17:40 | MB ---
cc: MONIE COTTRELL M.D. DATE OF CONSULTATION: 10/31/2016 REASON FOR CONSULTATION: Atrial fibrillation. HISTORY OF PRESENT ILLNESS The patient is a 46-year-old white male, previously evaluated by Dr. Julian Pena last fall, with a history of pericarditis, hypertension, peripheral vascular disease who presented to the hospital with severe right lower extremity pain. Workup revealed occlusion of the distal right superficial femoral artery and he underwent embolectomy and fasciotomy. The patient states his right lower extremity pain has markedly improved. He denies palpitations, chest pain, shortness of breath, pedal edema. Two days ago he did feel "weird" mainly with lightheadedness throughout the day. He also denies paroxysmal nocturnal dyspnea, orthopnea, fevers. PAST MEDICAL HISTORY 1. Hypertension 2. Pericarditis April 2016. During that admission he did undergo cardiac catheterization showing normal coronary arteries with ejection fraction of 60%. 3. Peripheral vascular disease with CT angiogram early this morning showing complete arterial occlusion of the distal right superficial femoral artery and focal moderate stenosis involving the left popliteal artery. CURRENT CARDIAC MEDICATIONS 1. Metoprolol 50 mg p.o. b.i.d. 2. Heparin drip. 3. Aspirin 81 mg p.o. daily. ALLERGIES NO KNOWN DRUG ALLERGIES. FAMILY HISTORY There is no significant family history of early myocardial infarction. The patient's brother and father have hypertension. His mother has breast cancer. SOCIAL HISTORY The patient smokes about a pack and half of cigarettes per day. He also has three to five drinks, three nights a week on average. REVIEW OF SYSTEMS As in the history of present illness otherwise negative or noncontributory. He also denies headache, visual changes, unilateral weakness or numbness, speech disturbances, melena, dyspepsia, bright red blood per rectum. PHYSICAL EXAMINATION VITAL SIGNS: Blood pressure 142/71 with a pulse of 89, respirations 14. IN GENERAL: In general he is a well-developed, well-nourished white male in no acute distress HEAD, EYES, EARS, NOSE, AND THROAT: Jugular venous pressure is normal. Carotid pulses are 2+ bilaterally and without bruits. CHEST: Examination of the chest reveals clear lung arciniega CARDIAC: On cardiac examination he has an irregularly irregular rhythm without S3 or murmur. ABDOMEN: On abdominal examination he has a soft, nontender abdomen. Bowel sounds are present. There is no definite hepatosplenomegaly. EXTREMITIES: Examination of the extremities reveals no clubbing, cyanosis or edema. His right lower extremity below the knee is in wraps. LABORATORY DATA: Laboratory data includes WBC 9.3, platelets 113, hemoglobin 15.3, potassium 4.5, BUN 15, creatinine 0.98, CK 311 with 2.3% MB fraction. Troponin 0.07, INR 1.0. RADIOLOGIC: Chest x-ray shows pulmonary venous congestion. EKG shows atrial fibrillation, poor R-wave progression, high lateral ST and T-wave abnormalities consider ischemia, possible inferior infarct age undetermined. IMPRESSION Newly diagnosed atrial fibrillation, probable embolic phenomenon to the right lower extremity in this 46-year-old white male with a history of hypertension, pericarditis, peripheral vascular disease. At this time he remains in atrial fibrillation with controlled heart rates on oral metoprolol. He has no significant cardiac symptoms at present. I suspect his right superficial femoral artery occlusion is due to thromboembolic phenomenon. The nature of atrial fibrillation, potential treatment options, thromboembolic risks were discussed with the patient and his family. Overall there is no definite evidence for acute coronary syndrome. The slightly elevated troponin level could be due to the arrhythmia. He had normal coronary arteries with normal ejection fraction on cardiac catheterization 05/18/2016. RECOMMENDATIONS 1. Continue oral metoprolol. 2. In the future he could be considered for ablation of the atrial fibrillation. 3. Consider changing his anticoagulation therapy to oral Xarelto 20 mg daily. MD ANA Holder/zohra /5:17 PM /5:30 PM CHUCHO
[2016-10-31 18:08] LABS: APTT (PATIENT) 77.7 SEC (24.3-30.1)
[2016-10-31] MEDS: VANCOMYCIN INJ 1,000 MG in SODIUM CHLOR 0.9% 250 ML INJ 250 ML IV SCH (20:47)
[2016-10-31] MEDS: METOPROLOL TARTRATE 50 MG TAB PO SCH (20:47)
[2016-10-31] MEDS: ACETAMINOPHEN/HYDROcodone 325 MG/5 MG TAB PO PRN (20:53)
[2016-10-31] MEDS: SODIUM CHLORIDE 0.9% FLUSH 10 ML FLUSH IV FLUSH SCH (21:00)
[2016-10-31] MEDS: REMOVE OLD NICODERM (NICOTINE) PATCH T-DERMAL SCH (21:00)
[2016-10-31] MEDS: ACETAMINOPHEN 1000 MG/100 ML VIAL IV SCH (23:00)
[2016-11-01] VITALS (14 sets, daily range): BP systolic 111–152; BP diastolic 65–98; PULSE 70–89; RESP 18–22; TEMP 97.7–98.7; O2SAT 94–99
[2016-11-01 00:49] LABS: APTT (PATIENT) 54.1 SEC (24.3-30.1)
[2016-11-01] MEDS: HEPARIN-D5W INJ 250 ML IV SCH (03:05)
[2016-11-01] MEDS: ACETAMINOPHEN 1000 MG/100 ML VIAL IV SCH ×2 (04:05→11:00)
[2016-11-01] MEDS: SODIUM CHLOR 0.9% 1000 ML INJ 1,000 ML IV SCH ×3 (06:00→20:34)
[2016-11-01] MEDS: INSULIN NovoLIN REGULAR SUPPLEMENTAL SCALE SQ SCH ×4 (06:13→20:33)
--- NOTE | 2016-11-01 06:20 | MB ---
cc: REBECCA RAMEY Corrected Copy: 11/13/16 DATE OF CONSULTATION: 10/31/2016 DATE OF : 1970 REASON FOR CONSULTATION: Patient with unprovoked acute arterial thrombosis involving the right SSA and partial thrombus in the left popliteal artery. CHIEF COMPLAINT Her MCV is an leg and pain in the right lower extremity. HISTORY OF PRESENT ILLNESS: This is a 46-year-old male who presented to the emergency department with complaints of right lower extremity pain and paresthesias and unable to bear weight on the leg due to pain. PAST MEDICAL HISTORY: His past medical history includes; Uncontrolled hypertension due to the noncompliance Tobacco abuse of greater than 30 pack-years. He was found to be in atrial fibrillation however his rate was in the 70s to 80s on presentation. He had imaging studies. Including an earlier CTA, there was a complete arterial occlusion involving the distal right SFA at the level of the adductor canal. There was also moderate stenosis involving the left popliteal artery. The patient underwent embolectomy and fasciotomy in the right lower extremity. He is currently in Post-Anesthesia Care Unit. His pain in the right lower extremity has resolved. He has good capillary refill in the right lower extremity. This thrombotic event appeared to have occurred in a unprovoked situation. He does not have any known history of underlying hypercoagulable disorder. He is relatively young. He does not have any family history of thrombotic disorders either. He has had cardiac workup in the past including a cardiac cath which did not require any intervention. I have been consulted to make recommendations in this patient who has an arterial thrombosis without any underlying cause other than the fact that the patient has a history of tobacco abuse. REVIEW OF SYSTEMS A comprehensive 14-point review of systems was completed which is negative except as described in the HPI. PAST MEDICAL HISTORY 1. Hypertension 2. Tobacco abuse. PAST SURGICAL HISTORY 1. Embolectomy and fasciotomy of right lower extremity. 2. Cardiac catheterization. MEDICATIONS: 1. Medications were reviewed in the EMR he is currently on nicotine patches 2. metoprolol 50 mg tablet p.o. b.i.d. 3. vancomycin 1000 mg IV q.12 h, 4. sliding scale insulin 5. Zofran 4 mg IV q.6 h p.r.n. 6. DuoNeb's q.6 h p.r.n., 7. aspirin 81 mg p.o. daily 8. [place] 5-FU 25 1 tablet p.o. q.4 h p.r.n. 9. Oxycodone 7.5 mg tablet p.o. q.4 h 10. Currently on heparin GTT. ALLERGIES NO KNOWN DRUG ALLERGIES. PHYSICAL EXAMINATION VITAL SIGNS: Blood pressure is 128/96, pulse is in the 80s, temperature is 99, O2 sat showed an oxygen saturation of 96% on 2 liters of nasal cannula. IN GENERAL: Well-developed, well-nourished male in no apparent distress. HEAD, EYES, EARS, NOSE, AND THROAT: Pupils are equal, round, reactive to light. EOMI. No oral thrush. No oral lesions. NECK: Neck is supple. No JVD, no bruits. No lymphadenopathy. CHEST: Clear to auscultation bilaterally. CARDIAC: Irregularly irregular. No murmurs heard. ABDOMEN: Soft, nontender, nondistended. Bowel sounds are present. EXTREMITIES: No edema, erythema or cyanosis. Right lower extremity dressing in place. NEUROLOGIC: No focal deficits. PSYCHIATRIC: Psychiatric mood and affect is appropriate. LABORATORY DATA WBCs 9.3, hemoglobin 15.3, platelet count is 113, hematocrit is 46.2. Serum chemistries show sodium 141, potassium 4.5, chloride 106, CO2 20.8, anion gap is 14, BUN is 15, creatinine 0.98, GFR is 82, glucose is 105, calcium is 8.3, magnesium is 1.8, total bilirubin is 0.6, AST 77, ALT 66, alk phos 49, CRP is 0.61, total protein is 6.9, albumin is 3.7. IMAGING STUDIES Was reviewed in the EMR ASSESSMENT/PLAN This is a 46-year-old male with a past medical history of uncontrolled hypertension and tobacco abuse of greater than 30 pack-years who presents with right lower extremity pain, paresthesias and weakness. He was found to have an extensive thrombosis in the distal right SFA a as well as partial thrombosis in the left popliteal artery. Additional right SFA thrombosis / left popliteal moderate stenosis. He has undergone embolectomy, his symptoms of paresthesias and pain have resolved. He has thrombosis in an unprovoked situation. He does have risk factors which include tobacco abuse. I agree with obtaining a hypercoagulable workup. This will not change our management. This patient will require indefinite anticoagulation. He is currently on heparin. I would recommend starting him on oral anticoagulants. I discussed the risks and benefits of these agents. He is agreeable to starting treatment with Xarelto. I would recommend starting Xarelto 15 mg p.o. b.i.d. times 21 days followed by Xarelto 20 mg p.o. daily. We can start Xarelto a.m. Heparin GTT will be discontinued. If the patient continues to do well. He can be discharged with followup in the hematology clinic. Thank you for allowing me to participate in the care of this patient. I will continue to follow this patient along. MD BENOIT Flowers/zohra /12:25 AM /9:18 AM
[2016-11-01 06:29] LABS: REVIEW FLAG FINAL
[2016-11-01 06:46] LABS: BICARBONATE 29.5 MEQ/L (21.0-32.0); MAGNESIUM 1.9 MG/DL (1.5-2.5)
[2016-11-01 06:51] LABS: APTT (PATIENT) 54.5 SEC (24.3-30.1)
[2016-11-01] MEDS ORDERED: REMOVE OLD PATCH T-DERMAL SCH (09:00)
[2016-11-01] MEDS ORDERED: NICOTINE 21 MG/24 HR PATCH T-DERMAL SCH (09:00)
[2016-11-01] MEDS: VANCOMYCIN INJ 1,000 MG in SODIUM CHLOR 0.9% 250 ML INJ 250 ML IV SCH (09:25)
[2016-11-01] MEDS: SODIUM CHLORIDE 0.9% FLUSH 10 ML FLUSH IV FLUSH SCH ×2 (09:27→20:33)
[2016-11-01] MEDS: ASPIRIN EC 81 MG TABEC PO SCH (09:27)
[2016-11-01] MEDS: METOPROLOL TARTRATE 50 MG TAB PO SCH ×2 (09:27→20:33)
[2016-11-01] MEDS: NICOTINE 21 MG/24 HR PATCH T-DERMAL SCH (09:28)
--- NOTE | 2016-11-01 09:29 | PD.VS.PN ---
Subjective POD #: 1 Procedure(s): R LE embolectomy, fasciotomy Subjective/Hospital Course Doing well, "pins and needles" in leg but foot feels ok Pain controlled. Objective Vitals/I&O Date Time Temp Pulse Resp B/P Pulse Ox O2 Delivery O2 Flow Rate FiO2 11/01/16 08:23 94 Nasal Cannula 2.00 11/01/16 03:00 75 11/01/16 03:00 98 Nasal Cannula 2.00 11/01/16 03:00 97.7 75 20 136/87 98 152/86 10/31/16 23:00 96 Nasal Cannula 2.00 10/31/16 23:00 99.1 75 20 126/73 97 132/78 10/31/16 23:00 75 10/31/16 19:00 96 Nasal Cannula 2.00 10/31/16 19:00 82 10/31/16 19:00 99.0 91 18 128/96 96 137/74 10/31/16 17:00 98.3 102 18 151/80 99 10/31/16 15:57 97 Nasal Cannula 2.00 10/31/16 15:30 98.3 97 18 134/83 97 10/31/16 15:30 97 10/31/16 15:30 97 Nasal Cannula 2.00 10/31/16 15:00 89 14 142/71 96 Nasal Cannula 2 10/31/16 14:00 85 14 149/86 95 Nasal Cannula 3 10/31/16 13:00 79 14 133/89 94 Nasal Cannula 3 10/31/16 12:30 98.3 85 14 131/97 96 Nasal Cannula 3 10/31/16 12:15 100 18 145/86 96 Nasal Cannula 3 10/31/16 12:00 84 15 142/74 94 Nasal Cannula 3 10/31/16 11:45 82 14 129/71 93 Nasal Cannula 3 10/31/16 11:30 81 14 116/79 95 Simple Mask 6 10/31/16 11:27 10/31/16 11:25 99.9 80 12 123/78 95 Simple Mask 6 11/01/16 11/01/16 11/01/16 07:00 15:00 23:00 Intake Total 1462 ml Output Total 1450 ml Balance 12 ml Exam: R LE wound taken down today - fasciotomoies viable, mild oozing Pulses: palpable DP Laboratory Laboratory Tests Test 10/31/16 10/31/16 10/31/16 11/01/16 14:47 17:40 23:30 05:49 C-Reactive Protein 0.61 Activated Partial 77.7 54.1 Thromboplast Time Hemoglobin 12.3 Hematocrit 36.0 Sodium Level 140 Potassium Level 4.0 Chloride Level 104 Carbon Dioxide Level 29.5 Anion Gap 7 Blood Urea Nitrogen 12 Creatinine 0.82 Estimat Glomerular Filtration 101 Rate Random Glucose 131 Calcium Level 8.0 Phosphorus Level 3.3 Magnesium Level 1.9 Test 11/01/16 06:00 Activated Partial 54.5 Thromboplast Time Assessment and Plan Assessment: (1) Arterial embolism and thrombosis of lower extremity Status: Acute Plan Successful embolectomy, palpable DP 1. Likely cardiac etiology; needs TTE; await pathology from embolus extracted; continue anticoagulation and will need outpatient anticoagulation 2. BID W to D wound care 3. PT/OOB; WBAT on RLE 4. Ok to transfer from ICU Tavo Waters MD FACS director of reservations [facility] - Heart [facility] V[facility] at [facility] Tavo Waters MD Nov 01, 2016 09:29
--- NOTE | 2016-11-01 09:47 | PD.CARD.PN ---
Subjective Subjective Remarks Right leg pain improving overall. No CP, dyspnea, palpitations, dizziness. Objective Medications Item Value Date Time Metoprolol 50 mg 10/31/16 2100 Tartrate BID/PO 11/01/16 0927 (Lopressor) Heparin Sodium/ 250 ml @ 0 mls/hr 10/31/16 1230 Dextrose TITRATE/IV 11/01/16 0305 Aspirin 81 mg 10/31/16 1200 (Ecotrin Ec) DAILY/PO 11/01/16 0927 Vital Signs / I&O Vital Signs Date Time Temp Pulse Resp B/P Pulse Ox O2 Delivery O2 Flow Rate FiO2 11/01/16 08:23 94 Nasal Cannula 2.00 11/01/16 03:00 75 11/01/16 03:00 98 Nasal Cannula 2.00 11/01/16 03:00 97.7 75 20 136/87 98 152/86 10/31/16 23:00 96 Nasal Cannula 2.00 10/31/16 23:00 99.1 75 20 126/73 97 132/78 10/31/16 23:00 75 10/31/16 19:00 96 Nasal Cannula 2.00 10/31/16 19:00 82 10/31/16 19:00 99.0 91 18 128/96 96 137/74 10/31/16 17:00 98.3 102 18 151/80 99 10/31/16 15:57 97 Nasal Cannula 2.00 10/31/16 15:30 98.3 97 18 134/83 97 10/31/16 15:30 97 10/31/16 15:30 97 Nasal Cannula 2.00 10/31/16 15:00 89 14 142/71 96 Nasal Cannula 2 10/31/16 14:00 85 14 149/86 95 Nasal Cannula 3 10/31/16 13:00 79 14 133/89 94 Nasal Cannula 3 10/31/16 12:30 98.3 85 14 131/97 96 Nasal Cannula 3 10/31/16 12:15 100 18 145/86 96 Nasal Cannula 3 10/31/16 12:00 84 15 142/74 94 Nasal Cannula 3 10/31/16 11:45 82 14 129/71 93 Nasal Cannula 3 10/31/16 11:30 81 14 116/79 95 Simple Mask 6 10/31/16 11:27 10/31/16 11:25 99.9 80 12 123/78 95 Simple Mask 6 I/O 10/31/16 10/31/16 10/31/16 11/01/16 11/01/16 11/01/16 07:00 15:00 23:00 07:00 15:00 23:00 Intake Total 500 ml 1605 ml 1263 ml 1462 ml Output Total 950 ml 900 ml 1450 ml Balance 500 ml 655 ml 363 ml 12 ml Intake Oral 30 ml 1040 ml 720 ml IV Total 500 ml 75 ml 223 ml 742 ml Other 1500 ml Output Urine Total 500 ml 900 ml 1450 ml Estimated Blood Loss 450 ml # Bowel Movements 0 Physical Exam GENERAL: Well developed, well nourished. No acute distress. HEENT: Jugular venous pressure is normal. CHEST: Lungs clear to auscultation bilaterally. Unlabored respiratory effort. CARDIAC: Irregular rate and rhythm without S3, S4, or murmur. ABDOMEN: Soft, nontender, no hepatosplenomegaly. Bowel sounds present. EXTREMITIES: No clubbing, cyanosis, or edema. Right lower leg in wraps. Laboratory Laboratory Tests Test 10/31/16 10/31/16 10/31/16 11/01/16 14:47 17:40 23:30 05:49 C-Reactive Protein 0.61 MG/DL Activated Partial 77.7 SEC 54.1 SEC Thromboplast Time Hemoglobin 12.3 GM/DL Hematocrit 36.0 % Sodium Level 140 MEQ/L Potassium Level 4.0 MEQ/L Chloride Level 104 MEQ/L Carbon Dioxide Level 29.5 MEQ/L Anion Gap 7 MEQ/L Blood Urea Nitrogen 12 MG/DL Creatinine 0.82 MG/DL Estimat Glomerular Filtration 101 ML/MIN Rate Random Glucose 131 MG/DL Calcium Level 8.0 MG/DL Phosphorus Level 3.3 MG/DL Magnesium Level 1.9 MG/DL Test 11/01/16 06:00 Activated Partial 54.5 SEC Thromboplast Time Assessment and Plan Problem List: (1) Arterial embolism and thrombosis of lower extremity Assessment and Plan: Stable s/p embolectomy, fasciotomy of right leg. Continues on heparin. Agree with transition to Xarelto. (2) Paroxysmal atrial fibrillation Assessment and Plan: Remains in atrial fib, controlled HR's, no associated symptoms. Agree with Xarelto. Can stop aspirin from a cardiac standpoint. Continue metoprolol. Consider ablation procedure in the future. (3) History of pericarditis Code Status full code Discussed Condition With patient Eugenio Zambrano MD Nov 01, 2016 09:47
--- NOTE | 2016-11-01 10:22 | PD.ONC.PN ---
Subjective Subjective Remarks resting comfortable no pain. LE swelling better Objective Data Date Time Temp Pulse Resp B/P Pulse Ox O2 Delivery O2 Flow Rate FiO2 11/01/16 08:23 94 Nasal Cannula 2.00 11/01/16 03:00 75 11/01/16 03:00 98 Nasal Cannula 2.00 11/01/16 03:00 97.7 75 20 136/87 98 152/86 10/31/16 23:00 96 Nasal Cannula 2.00 10/31/16 23:00 99.1 75 20 126/73 97 132/78 10/31/16 23:00 75 10/31/16 19:00 96 Nasal Cannula 2.00 10/31/16 19:00 82 10/31/16 19:00 99.0 91 18 128/96 96 137/74 10/31/16 17:00 98.3 102 18 151/80 99 10/31/16 15:57 97 Nasal Cannula 2.00 10/31/16 15:30 98.3 97 18 134/83 97 10/31/16 15:30 97 10/31/16 15:30 97 Nasal Cannula 2.00 10/31/16 15:00 89 14 142/71 96 Nasal Cannula 2 10/31/16 14:00 85 14 149/86 95 Nasal Cannula 3 10/31/16 13:00 79 14 133/89 94 Nasal Cannula 3 10/31/16 12:30 98.3 85 14 131/97 96 Nasal Cannula 3 10/31/16 12:15 100 18 145/86 96 Nasal Cannula 3 10/31/16 12:00 84 15 142/74 94 Nasal Cannula 3 10/31/16 11:45 82 14 129/71 93 Nasal Cannula 3 10/31/16 11:30 81 14 116/79 95 Simple Mask 6 10/31/16 11:27 10/31/16 11:25 99.9 80 12 123/78 95 Simple Mask 6 11/01/16 11/01/16 11/01/16 07:00 15:00 23:00 Intake Total 1462 ml Output Total 1450 ml Balance 12 ml Result Diagram: 11/01/16 0549 11/01/16 0549 Laboratory Results Laboratory Tests Test 10/31/16 10/31/16 10/31/16 11/01/16 14:47 17:40 23:30 05:49 C-Reactive Protein 0.61 MG/DL Activated Partial 77.7 SEC 54.1 SEC Thromboplast Time Hemoglobin 12.3 GM/DL Hematocrit 36.0 % Sodium Level 140 MEQ/L Potassium Level 4.0 MEQ/L Chloride Level 104 MEQ/L Carbon Dioxide Level 29.5 MEQ/L Anion Gap 7 MEQ/L Blood Urea Nitrogen 12 MG/DL Creatinine 0.82 MG/DL Estimat Glomerular Filtration 101 ML/MIN Rate Random Glucose 131 MG/DL Calcium Level 8.0 MG/DL Phosphorus Level 3.3 MG/DL Magnesium Level 1.9 MG/DL Test 11/01/16 06:00 Activated Partial 54.5 SEC Thromboplast Time Administered Medications Medications (Trade) Dose Ordered Sig/Santos Route PRN Reason Start Time Stop Time Status Last Admin Dose Admin Sodium Chloride (NS Flush) 2 ml BID IV FLUSH 10/31/16 09:00 11/01/16 09:27 Acetaminophen/ Hydrocodone Bitart (Tubac 5-325 Mg) 1 tab Q4H PRN PO PAIN LESS THAN 5 ON SCALE 10/31/16 11:30 10/31/16 20:53 Aspirin 81 mg 81 mg DAILY PO 10/31/16 12:00 11/01/16 09:27 Heparin Sodium/ Dextrose (Heparin-D5W Inj) 250 ml @ 0 mls/hr TITRATE IV 10/31/16 12:30 11/01/16 03:05 Metoprolol Tartrate 50 mg 50 mg BID PO 10/31/16 21:00 11/01/16 09:27 Sodium Chloride (NS 1000 ml Inj) 1,000 ml @ 125 mls/hr Q8H IV 10/31/16 14:00 10/31/16 14:00 Nicotine (Habitrol 21 Mg Patch.24 Hr) 1 patch DAILY T-DERMAL 11/01/16 09:00 11/01/16 09:28 Miscellaneous Information 1 HS T-DERMAL 10/31/16 21:00 10/31/16 21:00 Acetaminophen (Ofirmev Inj) 1,000 mg Q6H IV 10/31/16 23:00 11/01/16 11:01 11/01/16 04:05 Objective Remarks GENERAL: Well-nourished, well-developed patient. SKIN: Warm and dry. HEAD: Normocephalic. EYES: No scleral icterus. No injection or drainage. NECK: Supple, trachea midline. No JVD or lymphadenopathy. LYMPHATIC: No adenopathy. CARDIOVASCULAR: Regular rate and rhythm without murmurs. RESPIRATORY: Breath sounds equal bilaterally. No accessory muscle use. GASTROINTESTINAL: Abdomen soft, non-tender, nondistended. EXTREMITIES: No cyanosis, or edema. MUSCULOSKELETAL: Adequate muscle tone. NEUROLOGICAL: No obvious focal deficit. Awake, alert, and oriented x3. PSYCHIATRIC: Appropriate mood and affect; insight and judgment normal. Assessment/Plan Problem List: (1) Chest pain Status: Acute (2) Arterial embolism and thrombosis of lower extremity Status: Acute (3) Paroxysmal atrial fibrillation Status: Acute Assessment 46-year-old male with a past medical history of uncontrolled hypertension and tobacco abuse of greater than 30 pack-years who presents with right lower extremity pain, paresthesias and weakness. He was found to have an extensive thrombosis in the distal right SFA a as well as partial thrombosis in the left popliteal artery. Right SFA thrombosis / left popliteal moderate stenosis. s/p embolectomy. - starting Xarelto 15 mg p.o. b.i.d. times 21 days followed by Xarelto 20 mg p.o. daily. - Stop Heparin GTT - indefinite anticoagulation - F/U in outpatient clinic in 4-6 weeks. - Hypercoagulable w/u pending. - OK to d/c from hematology standpoint - d/w Theodore Browning MD Nov 01, 2016 10:22
[2016-11-01] MEDS: RIVAROXABAN 15 MG TAB PO SCH ×2 (10:30→20:33)
--- NOTE | 2016-11-01 11:13 | HHI.CCPN ---
Subjective Remarks/Hospital Course 46-year-old male that presented to the ED with complaints of paresthesia, pain and paralysis of the right lower extremity. The patient was also noted to be in atrial fibrillation. The patient's past medical history significant for uncontrolled hypertension secondary to noncompliance, and tobacco abuse in which he smokes 1.5 packs a day for greater than 20 years. Imaging studies performed revealed a complete arterial occlusion of the right SFA at the level of the adductor canal and moderate stenosis in the left popliteal artery. Today the patient underwent an embolectomy and fasciotomy of the right lower extremity. Upon examining the patient in PACU, right lower extremity noted to be pink with brisk capillary refill less than 2 seconds, good motor movement, palpable pulses dorsalis pedis and posterior tibial. The patient is noted to be in atrial fibrillation with a heart rate of 70. Critical care medicine has been consulted. Subjective 11/01: The patient states he's regaining full movement of right foot however he still is experiencing paresthesias. Pulses strong and palpable. Fasciotomy site draining. Patient continues on heparin cardiology has been consulted regarding the atrial fibrillation that is rate controlled. Objective Vital Signs Date Time Temp Pulse Resp B/P Pulse Ox O2 Delivery O2 Flow Rate FiO2 11/01/16 08:23 94 Nasal Cannula 2.00 11/01/16 03:00 75 11/01/16 03:00 97.7 20 136/87 152/86 Intake and Output 10/31/16 10/31/16 11/01/16 08:00 16:00 00:00 Intake Total 500 ml 1605 ml 1263 ml Output Total 950 ml 900 ml Balance 500 ml 655 ml 363 ml Result Diagram: 11/01/16 0549 11/01/16 0549 Imaging Last Impressions Aorta w/Runoff CTA 10/31/16 0000 Signed Impressions: Service Date/Time: Monday, October 31, 2016 05:00 - CONCLUSION: 1. There is a complete arterial occlusion involving the distal right SFA at the level of the adductor canal. 2. Focal moderate stenosis involving the left popliteal artery. There is a good runoff down to the left ankle. Alber Rubio MD Objective Remarks GENERAL: Well-developed well-nourished male sitting semi-recumbent in bed SKIN: Warm and dry. HEAD: Atraumatic. Normocephalic. EYES: Pupils equal and round. No scleral icterus. No injection or drainage. ENT: No nasal bleeding or discharge. Mucous membranes pink and moist. NECK: Trachea midline. No JVD. CARDIOVASCULAR: Normal rate, telemetry showing irregular rhythm. RESPIRATORY: No accessory muscle use. Clear to auscultation. Breath sounds equal bilaterally. GASTROINTESTINAL: Abdomen soft, non-tender, nondistended. No guarding. MUSCULOSKELETAL: Extremities without clubbing, cyanosis, or edema. Right lower extremity dressing clean dry and intact. Dorsalis pedis and posterior tibial pulses intact, capillary refill brisk, movement of toes NEUROLOGICAL: Awake and alert. RASS 0. No gross focal/sensory deficits. Follows commands in all 4 extremities. A/P Assessment and Plan Plan by systems: Neurologic: Postoperative pain GCS 15 Utilize Multimodal pain analgesia Roxicodone, morphine, and [place]-pain well controlled Neurochecks per ICU protocol-monitor right lower extremity Respiratory: Tobacco abuse Nicotine patch-21 mg/high dose x 7days Patient counseled on smoking cessation Incentive spirometry Bronchodilators every 4 hours when necessary Cardiovascular: Atrial fibrillation Arterial occlusive disease Hypertension Diastolic dysfunction Heparin infusion protocol Continue metoprolol 50 mg twice a day (home med) Cardiology Dr. Zambrano. Plan for transition to Xarelto Last admission 05/20/16-EKG normal sinus rhythm 05/20/16 ECHO-EF 6065 percent severe LVH, no RWMA, LAE moderately dilated, tricuspid valve trace regurgitation, mitral valve with trace regurgitation. PA peak press 45 mmHg 05/18/16-cardiac catheterization-EF 60%, diastolic dysfunction, normal coronary arteries, RCA dominant-mid and distal 40% plaque, left circ-OM1 80% lesion noted Renal: Monitor BMP -- Strict I/Os FEN/GI: Heart healthy diet Zofran for nausea No GI prophylaxis indicated Heme/ID: Hypercoagulable state Monitor CBC Hematology consult-appreciate recommendations Hypercoagulable labs [id number] results Endocrine: Glucose monitoring per ICU protocol -- SSI Prophylaxis: GI Prophylaxis The patient does not meet criteria for GI prophylaxis DVT Prophylaxis -- SCDs Heparin infusion Lines: Peripheral IVs Dispo: Patient will be transferred to the floor, progressing well. Critical care medicine will sign off. Thank you for the consult. Level 3 Discussed with SENIOR ADMINISTRATIVE ASSISTANT and patient. Physician Karen Montaño MD Nov 01, 2016 11:13
--- NOTE | 2016-11-01 15:22 | MP ---
cc: JOSEPHINE BLANCHARD DATE OF SURGERY 11/01/[address] 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 POSTOPERATIVE DIAGNOSIS Acute ischemia right lower extremity. Procedure 1. Right lower extremity embolectomy (Popliteal, SFA and tibial vessels) 2. 4 compartment fasciotomies FINDINGS Clot. PROCEDURE The patient was prepped, draped in the sterile fashion from the umbilicus down to the toes. It should be noted that due to the patient having a history of reaction to penicillin in the past so we gave the patient 1 gram of IV vancomycin. The patient was under general endotracheal anesthesia. IV FLUIDS 1500 cc of crystalloid. ESTIMATED BLOOD LOSS 450 cc. URINE OUTPUT 400 cc. PROCEDURE IN DETAIL The patient after he was prepped from the umbilicus down to the lower extremities. It should be noted clot in the right SFA. Incision was made over the medial aspect of the calf below the level of the knee. Showed that this was made about two fingerbreadths posterior to the tibia. This was made with a scalpel and electrocautery. The saphenous vein was divided with medium clips superiorly and inferiorly. I cut through the fascia over the gastroc and soleus. Then I used electrocautery to dissect down through the deep muscle layers. I found the popliteal artery and a takeoff of the anterior tibial artery. It should be noted I divided one of the inferior posterior tibial veins and one of the anterior tibial veins and crossing over the level where the anterior tibial veins crossed over the anterior tibial artery. I used 2-0 ties and medium and small clips as needed for side branches. I then isolated the popliteal artery which was non-pulsatile. I then mobilized the tibioperoneal trunk and the anterior tibial artery trunks. I then heparinized the patient to an ACT of greater than 200 and then placed vessel loops around the anterior tibial and posterior tibioperoneal trunk as well as the popliteal artery for control. I made a transverse arteriotomy with an 11 blade. The Marshall ____ I initially used a 3-0 Vidhya balloon and advanced it down the anterior tibial artery, I got no clot, but initially there was no blood return and after I passed the catheter I was Able to get blood turn. I was not able to pass the Vidhya balloon more than a few centimeters around the turn into the tibioperoneal trunk as it appeared to be caught on something. Based on this I removed that and then I used 4-0 and then a 6-0 Vidhya balloon proximally, initially with my 4-0 Vidhya balloon. There was really only a small piece of fragmented clot and not a good pulsatile flow. Then whenever I advanced my 6-0 Vidhya balloon proximally. It took me three attempts to remove clot as there was clot on each one and then essentially there was pulsatile flow afterwards. I then irrigated the area proximally and distally with heparinized saline and then I closed it with interrupted 5-0 Prolene sutures. Afterwards there was a strong signal of my dorsalis pedis but the posterior tibial did not have an absent signal. I then isolated the takeoff of the peroneal and posterior tibial vessels. It should be noted that what I believed was the peroneal artery I was able to advance the balloon but i would not advance more than a centimeter then I used a #1 coronary dilator and I was able to advance that, approximately 2 to 3 cm. There was no clot that came back but there was a blood return with the posterior tibial I was able to with some resistance advance the 2-0 Vidhya balloon and was able to get a blood return as well. It should be noted that this arteriotomy was made with an 11-blade and Marshall scissors in a babita fashion right over the takeoff of the two vessels. I closed it with a running interrupted 5-0 Prolene suture. Afterwards there was a least a monophasic signal in the right posterior tibial distribution. It should be noted that I did use Gelfoam and Surgicel at the end and then packed the area. It should be noted I did extend my incision underneath the skin along the fascial plane to further open up the fascia distally with Foster scissors. It should be noted that then I made an incision laterally by one to two fingerbreadths below the tibia with scalpel and electrocautery I dissected down and identified the anterior and lateral compartments. I advanced my Foster scissors proximally and distally. It should be noted that the posterior compartment had much more extensive swelling than the anterior and lateral compartments, although, the tissue appeared to be viable in both. I irrigated the areas with heparinized saline. I closed with Kerlix and ABD pads that were impregnated in povidone solution. It should be noted that I used a Kerlix over this area. ___ for compartment fasciotomy as well. The patient tolerated the procedure well, was extubated at the end of the case. DO IVONE Viveros/ABBY /11:05 AM /2:51 PM [id number]
[2016-11-01 19:32] LABS: HEMATOCRIT 32.8 % (39.0-51.0); MEAN CELL VOLUME 97.8 FL (80.0-100.0); MEAN CORPUSCULAR HEMOGLOBIN 33.4 PG (27.0-34.0); MEAN CORPUSCULAR HGB CONC 34.1 % (32.0-36.0); PLATELET COUNT 100 TH/MM3 (150-450); RED BLOOD COUNT 3.35 MIL/MM3 (4.50-5.90); RED CELL DISTRIBUTION WIDTH 14.7 % (11.6-17.2); REVIEW FLAG FINAL; WHITE BLOOD COUNT 9.7 TH/MM3 (4.0-11.0)
[2016-11-01] MEDS: REMOVE OLD NICODERM (NICOTINE) PATCH T-DERMAL SCH (20:33)
[2016-11-01] MEDS: MORPHINE SULFATE 4 MG/ML INJ IV PRN (21:22)
[2016-11-01] MEDS: ACETAMINOPHEN/HYDROcodone 325 MG/5 MG TAB PO PRN (21:51)
[2016-11-02] VITALS (28 sets, daily range): BP systolic 112–151; BP diastolic 66–93; PULSE 55–82; RESP 16–20; TEMP 97.8–98.8; O2SAT 93–99
[2016-11-02] MEDS: SODIUM CHLOR 0.9% 1000 ML INJ 1,000 ML IV SCH ×4 (04:04→23:54)
[2016-11-02] MEDS: INSULIN NovoLIN REGULAR SUPPLEMENTAL SCALE SQ SCH ×4 (06:17→21:00)
--- NOTE | 2016-11-02 08:10 | HHI.PR ---
Subjective Remarks This is a pleasant 46 y/o male with CAD, Severe Tobacco dependence and Alcohol abuse, as per patient he continue Smoking 1 and a half packs of cigarettes daily, recent admission due to Atypical chest pain and Shortness of breath in April last year with diagnosis of STEMI he had recent Cardiac Catheterization by Doctor Pena with no Stents, as we know he has Hypertension on this opportunity came due to Progressive pain and numbness in the right lower extremity below the knee, for the last 24 hours never had similar episodes in the past, He also noted that he cannot wiggle his toes on the right foot. His pain is an 8/10 and a burning sensation. On the calf it is a cramp. I came early to see the patient but he was in Operating room at this time he is in Recovery room and Md Physician Dermatologist will take the case for today and will sign out for tomorrow. performed an Aorta with Runoff Showed complete Arterial Occlusion involving the distal Right SFA at the level of the adductor canal, Focal moderate Stenosis involving the left popliteal artery. had Atrial Fibrillation on presentation from Emergency medicine, With Diagnosis of Arterial Embolism and Thrombosis of the lower extremity, started on Heparin drip and performed Embolectomy and Fasciotomies, 10/31/16 [address] Doctor Ward Blanchard. Md Physician Dermatologist notes: 11/01: The patient states he's regaining full movement of right foot however he still is experiencing paresthesias. Pulses strong and palpable. Fasciotomy site draining. Patient continues on heparin cardiology has been consulted regarding the atrial fibrillation that is rate controlled. Hospitalist Notes: 11/02: seen in his bedroom in the presence of nurse Miss Sierra, no nausea, vomit or diarrhea, as per Vascular contract law specialist probable Vacuum in am tomorrow. Objective Vital Signs Date Time Temp Pulse Resp B/P Pulse Ox O2 Delivery O2 Flow Rate FiO2 11/02/16 06:00 67 11/02/16 05:00 64 11/02/16 04:00 64 11/02/16 04:00 98.8 62 18 119/75 97 11/02/16 03:00 62 11/02/16 02:00 64 11/02/16 01:00 64 11/02/16 00:00 67 11/02/16 00:00 98.1 76 20 112/80 93 11/01/16 23:00 70 11/01/16 22:00 74 11/01/16 21:00 80 11/01/16 20:00 98.6 77 22 143/98 97 11/01/16 20:00 70 11/01/16 19:00 72 11/01/16 18:00 85 11/01/16 17:00 78 11/01/16 16:00 75 20 150/89 99 11/01/16 16:00 75 11/01/16 16:00 99 Room Air 11/01/16 14:30 98.7 89 18 112/66 98 11/01/16 11:47 98.7 89 18 118/77 98 11/01/16 11:00 74 11/01/16 11:00 98 Nasal Cannula 2.00 11/01/16 08:23 94 Nasal Cannula 2.00 I/O 11/01/16 11/01/16 11/01/16 11/02/16 11/02/16 11/02/16 07:00 15:00 23:00 07:00 15:00 23:00 Intake Total 1462 ml 480 ml Output Total 1450 ml 950 ml Balance 12 ml -470 ml Intake Oral 720 ml 480 ml IV Total 742 ml 0 ml Output Urine Total 1450 ml 950 ml # Bowel Movements 1 Result Diagram: 11/01/16 1918 11/01/16 0549 Imaging Last Impressions Aorta w/Runoff CTA 10/31/16 0000 Signed Impressions: Service Date/Time: Monday, October 31, 2016 05:00 - CONCLUSION: 1. There is a complete arterial occlusion involving the distal right SFA at the level of the adductor canal. 2. Focal moderate stenosis involving the left popliteal artery. There is a good runoff down to the left ankle. Alber Rubio MD Procedures Status post Embolectomy and Fasciotomies 10/31/16 by Doctor Ward Blanchard Other Results Laboratory Tests Test 10/31/16 10/31/16 10/31/16 11/01/16 04:35 06:00 14:47 05:49 Neutrophils (%) (Auto) 77.6 % Lymphocytes (%) (Auto) 14.7 % Monocytes (%) (Auto) 6.6 % Eosinophils (%) (Auto) 0.4 % Basophils (%) (Auto) 0.7 % Neutrophils # (Auto) 7.2 TH/MM3 Lymphocytes # (Auto) 1.4 TH/MM3 Monocytes # (Auto) 0.6 TH/MM3 Eosinophils # (Auto) 0.0 TH/MM3 Basophils # (Auto) 0.1 TH/MM3 CBC Comment DIFF FINAL Differential Comment Prothrombin Time 10.8 SEC Prothromb Time International 1.0 RATIO Ratio Total Bilirubin 0.6 MG/DL Aspartate Amino Transf 77 U/L (AST/SGOT) Alanine Aminotransferase 66 U/L (ALT/SGPT) Alkaline Phosphatase 49 U/L Total Protein 6.9 GM/DL Albumin 3.7 GM/DL Blood Type A POSITIVE Antibody Screen NEGATIVE Crossmatch Leukocyte-Reduced Red Blood Cells Blood Bank Comment C-Reactive Protein 0.61 MG/DL Sodium Level 140 MEQ/L Potassium Level 4.0 MEQ/L Chloride Level 104 MEQ/L Carbon Dioxide Level 29.5 MEQ/L Anion Gap 7 MEQ/L Blood Urea Nitrogen 12 MG/DL Creatinine 0.82 MG/DL Estimat Glomerular Filtration 101 ML/MIN Rate Random Glucose 131 MG/DL Calcium Level 8.0 MG/DL Phosphorus Level 3.3 MG/DL Magnesium Level 1.9 MG/DL Test 11/01/16 11/01/16 06:00 19:18 Activated Partial 54.5 SEC Thromboplast Time White Blood Count 9.7 TH/MM3 Red Blood Count 3.35 MIL/MM3 Hemoglobin 11.2 GM/DL Hematocrit 32.8 % Mean Corpuscular Volume 97.8 FL Mean Corpuscular Hemoglobin 33.4 PG Mean Corpuscular Hemoglobin 34.1 % Concent Red Cell Distribution Width 14.7 % Platelet Count 100 TH/MM3 Mean Platelet Volume 9.8 FL Objective Remarks GENERAL: No acute distress. SKIN: Warm and dry. HEAD: Atraumatic. Normocephalic. EYES: Pupils equal and round. No scleral icterus. No injection or drainage. ENT: No nasal bleeding or discharge. Mucous membranes pink and moist. NECK: Trachea midline. No JVD. CARDIOVASCULAR: Normal rate, telemetry showing irregular rhythm. RESPIRATORY: No accessory muscle use. Clear to auscultation. Breath sounds equal bilaterally. GASTROINTESTINAL: Abdomen soft, non-tender, nondistended. No guarding. MUSCULOSKELETAL: Extremities without clubbing, cyanosis, or edema. Right lower extremity dressing clean dry and intact. Dorsalis pedis and posterior tibial pulses intact, capillary refill brisk, movement of toes NEUROLOGICAL: Awake and alert. RASS 0. No gross focal/sensory deficits. Follows commands in all 4 extremities. Medications and IVs Current Medications Medications (Trade) Dose Ordered Sig/Santos Route Start Time Stop Time Status Last Admin (NS Flush) 2 ml UNSCH PRN IV FLUSH 10/31/16 05:45 (NS Flush) 2 ml BID IV FLUSH 10/31/16 09:00 11/01/16 20:33 Naloxone HCl 0.4 mg 0.4 mg UNSCH PRN IV 10/31/16 05:45 Potassium Chloride 100 ml @ 50 mls/hr UNSCH PRN IV 10/31/16 11:30 Potassium Phosphate 21 mmol/ Sodium Chloride 257 ml @ 41.7 mls/hr UNSCH PRN IV 10/31/16 11:30 (Magnesium Sulfate 1 Gm Premix) 200 ml @ 100 mls/hr UNSCH PRN IV 10/31/16 11:30 ([place] 5-325 Mg) 1 tab Q4H PRN PO 10/31/16 11:30 11/01/16 21:51 (Roxicodone) 7.5 mg Q4H PRN PO 10/31/16 11:30 (Morphine Inj) 2 mg Q1H PRN IV 10/31/16 11:30 (Morphine Inj) 4 mg Q1H PRN IV 10/31/16 11:30 11/01/16 21:22 (Ecotrin Ec) 81 mg DAILY PO 10/31/16 12:00 11/01/16 09:27 Metoprolol Tartrate 50 mg 50 mg BID PO 10/31/16 21:00 11/01/16 20:33 (NS 1000 ml Inj) 1,000 ml @ 125 mls/hr Q8H IV 10/31/16 14:00 10/31/16 14:00 (Zofran Inj) 4 mg Q6HR PRN IV PUSH 10/31/16 14:45 (D50w (Vial) Inj) 25 ml UNSCH PRN IV PUSH 10/31/16 14:45 (Glucagon Inj) 1 mg UNSCH PRN OTHER 10/31/16 14:45 (Habitrol 21 Mg Patch.24 Hr) 1 patch DAILY T-DERMAL 11/01/16 09:00 11/07/16 08:59 11/01/16 09:28 Miscellaneous Information 1 HS T-DERMAL 10/31/16 21:00 11/07/16 20:59 11/01/16 20:33 (Xarelto) 15 mg BID PO 11/01/16 10:30 11/01/16 20:33 A/P Assessment and Plan 1. Acute Arterial Embolism and Thrombosis of the Right lower extremity Aorta with Runoff Showed complete Arterial Occlusion involving the distal Right SFA at the level of the adductor canal, Focal moderate Stenosis involving the left popliteal artery. Status post Embolectomy and Fasciotomies 10/31/16 [address] Doctor Ward Blanchard Receiving Heparin Drip. will go to Intensive Care Unit at this time Md Physician Dermatologist Doctor Moncho in to evaluate the patient. perioperative Vancomycin given foreclosure specialist consulted and cleared for discharge. may have a Vacuum placement by tomorrow. 2. Atrial Fibrillation/Arterial Occlusive disease continue Beta Blockers will get Echocardiogram, Cardiology consult he is well known to Doctor Julian Ramos, on Heparin Infusion protocol, Transition to Xarelto by nail specialist, Diastolic dysfunction 05/20/16 ECHO-EF 6065 percent severe LVH, no RWMA, LAE moderately dilated, tricuspid valve trace regurgitation, mitral valve with trace regurgitation. PA peak press 45 mmHg 05/18/16-cardiac catheterization-EF 60%, diastolic dysfunction, normal coronary arteries, RCA dominant-mid and distal 40% plaque, left circ-OM1 80% lesion noted nail specialist following. recommended to stop Aspirin and continue Xarelto 3. Severe Tobacco dependence strongly recommended to stop smoking, may be associated with his actual pathology, No Nicotine replacement at this time due to Atrial Fibrillation. 4. Alcohol abuse strongly recommended to stop this behavior 5. Hypertension will continue Beta Blockers, DVT prophylaxis on Xarelto. Code Status Full Code. Discussed Condition With Discharge Planning Expected in one to two days. Hermann Ribeiro MD Nov 02, 2016 08:10
[2016-11-02] MEDS: NICOTINE 21 MG/24 HR PATCH T-DERMAL SCH (09:00)
[2016-11-02] MEDS: SODIUM CHLORIDE 0.9% FLUSH 10 ML FLUSH IV FLUSH SCH ×2 (09:00→21:00)
[2016-11-02 09:01] LABS: HEMATOCRIT 31.5 % (39.0-51.0)
[2016-11-02 09:04] LABS: REVIEW FLAG FINAL
[2016-11-02] MEDS: METOPROLOL TARTRATE 50 MG TAB PO SCH ×2 (09:09→21:43)
[2016-11-02] MEDS: ASPIRIN EC 81 MG TABEC PO SCH (09:09)
[2016-11-02] MEDS: RIVAROXABAN 15 MG TAB PO SCH ×2 (09:09→21:43)
[2016-11-02] MEDS: ACETAMINOPHEN/HYDROcodone 325 MG/5 MG TAB PO PRN ×3 (09:10→17:37)
--- NOTE | 2016-11-02 09:47 | PD.CARD.PN ---
Subjective Subjective Remarks Mild right leg pain. No CP, dizziness, palpitations, dyspnea. Objective Medications Item Value Date Time Rivaroxaban 15 mg 11/01/16 1030 (Xarelto) BID/PO 11/02/16 0909 Metoprolol 50 mg 10/31/16 2100 Tartrate BID/PO 11/02/16 0909 (Lopressor) Aspirin 81 mg 10/31/16 1200 (Ecotrin Ec) DAILY/PO 11/02/16 0909 Vital Signs / I&O Vital Signs Date Time Temp Pulse Resp B/P Pulse Ox O2 Delivery O2 Flow Rate FiO2 11/02/16 08:00 97.8 73 16 140/93 97 11/02/16 08:00 55 11/02/16 06:00 67 11/02/16 05:00 64 11/02/16 04:00 64 11/02/16 04:00 98.8 62 18 119/75 97 11/02/16 03:00 62 11/02/16 02:00 64 11/02/16 01:00 64 11/02/16 00:00 67 11/02/16 00:00 98.1 76 20 112/80 93 11/01/16 23:00 70 11/01/16 22:00 74 11/01/16 21:00 80 11/01/16 20:00 98.6 77 22 143/98 97 11/01/16 20:00 70 11/01/16 19:00 72 11/01/16 18:00 85 11/01/16 17:00 78 11/01/16 16:00 75 20 150/89 99 11/01/16 16:00 75 11/01/16 16:00 99 Room Air 11/01/16 14:30 98.7 89 18 112/66 98 11/01/16 11:47 98.7 89 18 118/77 98 11/01/16 11:00 74 11/01/16 11:00 98 Nasal Cannula 2.00 I/O 11/01/16 11/01/16 11/01/16 11/02/16 11/02/16 11/02/16 07:00 15:00 23:00 07:00 15:00 23:00 Intake Total 1462 ml 480 ml Output Total 1450 ml 950 ml Balance 12 ml -470 ml Intake Oral 720 ml 480 ml IV Total 742 ml 0 ml Output Urine Total 1450 ml 950 ml # Bowel Movements 1 Physical Exam GENERAL: Well developed, well nourished. No acute distress. HEENT: Jugular venous pressure is normal. CHEST: Lungs clear to auscultation bilaterally. Unlabored respiratory effort. CARDIAC: Irregular rate and rhythm without S3, S4, or murmur. ABDOMEN: Soft, nontender, no hepatosplenomegaly. Bowel sounds present. EXTREMITIES: No clubbing, cyanosis, or edema. Right lower leg in wraps. Laboratory Laboratory Tests Test 11/01/16 11/02/16 19:18 07:38 White Blood Count 9.7 TH/MM3 Red Blood Count 3.35 MIL/MM3 Hemoglobin 11.2 GM/DL 10.5 GM/DL Hematocrit 32.8 % 31.5 % Mean Corpuscular Volume 97.8 FL Mean Corpuscular Hemoglobin 33.4 PG Mean Corpuscular Hemoglobin 34.1 % Concent Red Cell Distribution Width 14.7 % Platelet Count 100 TH/MM3 Mean Platelet Volume 9.8 FL Assessment and Plan Problem List: (1) Arterial embolism and thrombosis of lower extremity Assessment and Plan: Stable s/p embolectomy, fasciotomy of right leg. Agree with Xarelto as ordered. (2) Paroxysmal atrial fibrillation Assessment and Plan: Remains in atrial fib, controlled HR's, no associated symptoms. Agree with Xarelto. Can stop aspirin from a cardiac standpoint. Continue metoprolol. Consider ablation procedure in the future. (3) History of pericarditis Code Status full code Discussed Condition With patient Eugenio Zambrano MD Nov 02, 2016 09:47
--- NOTE | 2016-11-02 11:00 | PD.VS.PN ---
Subjective POD #: 2 Procedure(s): R LE embolectomy, fasciotomy Subjective/Hospital Course walking with walker getting wound care on anticoagulation. Objective Vitals/I&O Date Time Temp Pulse Resp B/P Pulse Ox O2 Delivery O2 Flow Rate FiO2 11/02/16 10:10 18 11/02/16 08:00 97.8 73 16 140/93 97 11/02/16 08:00 55 11/02/16 06:00 67 11/02/16 05:00 64 11/02/16 04:00 64 11/02/16 04:00 98.8 62 18 119/75 97 11/02/16 03:00 62 11/02/16 02:00 64 11/02/16 01:00 64 11/02/16 00:00 67 11/02/16 00:00 98.1 76 20 112/80 93 11/01/16 23:00 70 11/01/16 22:00 74 11/01/16 21:00 80 11/01/16 20:00 98.6 77 22 143/98 97 11/01/16 20:00 70 11/01/16 19:00 72 11/01/16 18:00 85 11/01/16 17:00 78 11/01/16 16:00 75 20 150/89 99 11/01/16 16:00 75 11/01/16 16:00 99 Room Air 11/01/16 14:30 98.7 89 18 112/66 98 11/01/16 11:47 98.7 89 18 118/77 98 11/01/16 11:00 74 11/01/16 11:00 98 Nasal Cannula 2.00 11/02/16 11/02/16 11/02/16 07:00 15:00 23:00 Intake Total 480 ml Output Total 950 ml Balance -470 ml Exam: R LE dressed - will take down when pt not eating palpable DP Laboratory Laboratory Tests Test 11/01/16 11/02/16 19:18 07:38 White Blood Count 9.7 Red Blood Count 3.35 Hemoglobin 11.2 10.5 Hematocrit 32.8 31.5 Mean Corpuscular Volume 97.8 Mean Corpuscular Hemoglobin 33.4 Mean Corpuscular Hemoglobin 34.1 Concent Red Cell Distribution Width 14.7 Platelet Count 100 Mean Platelet Volume 9.8 Assessment and Plan Assessment: (1) Arterial embolism and thrombosis of lower extremity Status: Acute Plan Successful embolectomy, palpable DP 1. Likely cardiac etiology; needs TTE; await pathology from embolus extracted; continue anticoagulation and will need outpatient anticoagulation 2. BID W to D wound care; potential VAC in a.m. 3. PT/OOB; WBAT on RLE Tavo Waters MD FACS rhythmic gymnastics coach [facility] Tavo Waters MD Nov 02, 2016 11:00
[2016-11-02] MEDS: MORPHINE SULFATE 4 MG/ML INJ IV PRN ×3 (11:45→21:47)
[2016-11-02] MEDS: REMOVE OLD NICODERM (NICOTINE) PATCH T-DERMAL SCH (21:00)
[2016-11-03] VITALS (28 sets, daily range): BP systolic 107–137; BP diastolic 65–86; PULSE 60–88; RESP 16–18; TEMP 97.9–99.1; O2SAT 92–97
[2016-11-03 04:54] LABS: HEMATOCRIT 29.9 % (39.0-51.0); MEAN CELL VOLUME 98.2 FL (80.0-100.0); MEAN CORPUSCULAR HGB CONC 34.6 % (32.0-36.0); PLATELET COUNT 89 TH/MM3 (150-450); RED BLOOD COUNT 3.04 MIL/MM3 (4.50-5.90); RED CELL DISTRIBUTION WIDTH 14.6 % (11.6-17.2); WHITE BLOOD COUNT 8.1 TH/MM3 (4.0-11.0)
[2016-11-03 05:00] LABS: REVIEW FLAG FINAL
[2016-11-03] MEDS: INSULIN NovoLIN REGULAR SUPPLEMENTAL SCALE SQ SCH ×4 (05:44→21:00)
--- NOTE | 2016-11-03 07:34 | HHI.PR ---
Subjective Remarks This is a pleasant 46 y/o male with CAD, Severe Tobacco dependence and Alcohol abuse, as per patient he continue Smoking 1 and a half packs of cigarettes daily, recent admission due to Atypical chest pain and Shortness of breath in April last year with diagnosis of STEMI he had recent Cardiac Catheterization by Doctor Becky with no Stents, as we know he has Hypertension on this opportunity came due to Progressive pain and numbness in the right lower extremity below the knee, for the last 24 hours never had similar episodes in the past, He also noted that he cannot wiggle his toes on the right foot. His pain is an 8/10 and a burning sensation. On the calf it is a cramp. I came early to see the patient but he was in Operating room at this time he is in Recovery room and Senior Research Consultant will take the case for today and will sign out for tomorrow. performed an Aorta with Runoff Showed complete Arterial Occlusion involving the distal Right SFA at the level of the adductor canal, Focal moderate Stenosis involving the left popliteal artery. had Atrial Fibrillation on presentation from Emergency medicine, With Diagnosis of Arterial Embolism and Thrombosis of the lower extremity, started on Heparin drip and performed Embolectomy and Fasciotomies, 10/31/16 by Doctor Ward Blanchard. Senior Research Consultant notes: 11/01: The patient states he's regaining full movement of right foot however he still is experiencing paresthesias. Pulses strong and palpable. Fasciotomy site draining. Patient continues on heparin cardiology has been consulted regarding the atrial fibrillation that is rate controlled. Hospitalist Notes: 11/02: seen in his bedroom in the presence of nurse Miss Sierra, no nausea, vomit or diarrhea, as per Vascular neurosurgery physician probable Vacuum in am tomorrow. 11/03: Back to Sinus rhythm, occasional Wenckebach phenomena, as per system specialist, recommended to continue Metoprolol and Xarelto, wound Vac today. Seen in the presence of his Father and Mother , all questions answered, no nausea, vomit or diarrhea Objective Vital Signs Date Time Temp Pulse Resp B/P Pulse Ox O2 Delivery O2 Flow Rate FiO2 11/03/16 06:00 68 11/03/16 05:00 62 11/03/16 04:18 68 16 137/79 95 11/03/16 04:00 70 11/03/16 03:00 63 11/03/16 02:00 60 11/03/16 01:00 60 11/03/16 00:00 66 11/02/16 23:02 82 16 151/81 96 11/02/16 23:00 75 11/02/16 22:00 72 11/02/16 21:00 72 11/02/16 20:50 97 21 11/02/16 20:00 76 11/02/16 19:30 97.8 71 18 145/78 97 11/02/16 19:00 68 11/02/16 18:10 18 11/02/16 18:00 66 11/02/16 17:00 64 11/02/16 16:00 67 11/02/16 16:00 97.9 68 18 115/66 97 11/02/16 15:09 96 21 11/02/16 15:00 68 11/02/16 14:00 70 11/02/16 13:00 72 11/02/16 12:00 66 11/02/16 12:00 97.8 65 18 132/78 99 11/02/16 11:54 16 11/02/16 11:00 66 11/02/16 10:00 64 11/02/16 09:00 74 11/02/16 08:00 97.8 73 16 140/93 97 11/02/16 08:00 55 I/O 11/02/16 11/02/16 11/02/16 11/03/16 11/03/16 11/03/16 07:00 15:00 23:00 07:00 15:00 23:00 Intake Total 480 ml 900 ml 240 ml Output Total 950 ml 750 ml 1300 ml Balance -470 ml 150 ml -1060 ml Intake Oral 480 ml 900 ml 240 ml IV Total 0 ml Output Urine Total 950 ml 750 ml 1300 ml # Voids 1 # Bowel Movements 1 1 0 Result Diagram: 11/03/16 0354 11/01/16 0549 Imaging Last Impressions Aorta w/Runoff CTA 10/31/16 0000 Signed Impressions: Service Date/Time: Monday, October 31, 2016 05:00 - CONCLUSION: 1. There is a complete arterial occlusion involving the distal right SFA at the level of the adductor canal. 2. Focal moderate stenosis involving the left popliteal artery. There is a good runoff down to the left ankle. Alber Rubio MD Procedures Status post Embolectomy and Fasciotomies 10/31/16 by Doctor Ward Blanchard Other Results Laboratory Tests Test 10/31/16 10/31/16 10/31/16 11/01/16 04:35 06:00 14:47 05:49 Neutrophils (%) (Auto) 77.6 % Lymphocytes (%) (Auto) 14.7 % Monocytes (%) (Auto) 6.6 % Eosinophils (%) (Auto) 0.4 % Basophils (%) (Auto) 0.7 % Neutrophils # (Auto) 7.2 TH/MM3 Lymphocytes # (Auto) 1.4 TH/MM3 Monocytes # (Auto) 0.6 TH/MM3 Eosinophils # (Auto) 0.0 TH/MM3 Basophils # (Auto) 0.1 TH/MM3 CBC Comment DIFF FINAL Differential Comment Prothrombin Time 10.8 SEC Prothromb Time International 1.0 RATIO Ratio Total Bilirubin 0.6 MG/DL Aspartate Amino Transf 77 U/L (AST/SGOT) Alanine Aminotransferase 66 U/L (ALT/SGPT) Alkaline Phosphatase 49 U/L Total Protein 6.9 GM/DL Albumin 3.7 GM/DL Blood Type A POSITIVE Antibody Screen NEGATIVE Crossmatch Leukocyte-Reduced Red Blood Cells Blood Bank Comment C-Reactive Protein 0.61 MG/DL Sodium Level 140 MEQ/L Potassium Level 4.0 MEQ/L Chloride Level 104 MEQ/L Carbon Dioxide Level 29.5 MEQ/L Anion Gap 7 MEQ/L Blood Urea Nitrogen 12 MG/DL Creatinine 0.82 MG/DL Estimat Glomerular Filtration 101 ML/MIN Rate Random Glucose 131 MG/DL Calcium Level 8.0 MG/DL Phosphorus Level 3.3 MG/DL Magnesium Level 1.9 MG/DL Test 11/01/16 11/03/16 06:00 03:54 Activated Partial 54.5 SEC Thromboplast Time White Blood Count 8.1 TH/MM3 Red Blood Count 3.04 MIL/MM3 Hemoglobin 10.3 GM/DL Hematocrit 29.9 % Mean Corpuscular Volume 98.2 FL Mean Corpuscular Hemoglobin 34.0 PG Mean Corpuscular Hemoglobin 34.6 % Concent Red Cell Distribution Width 14.6 % Platelet Count 89 TH/MM3 Mean Platelet Volume 10.2 FL Objective Remarks GENERAL: No acute distress. SKIN: Warm and dry. HEAD: Atraumatic. Normocephalic. EYES: Pupils equal and round. No scleral icterus. No injection or drainage. ENT: No nasal bleeding or discharge. Mucous membranes pink and moist. NECK: Trachea midline. No JVD. CARDIOVASCULAR: Normal rate, telemetry showing irregular rhythm. RESPIRATORY: No accessory muscle use. Clear to auscultation. Breath sounds equal bilaterally. GASTROINTESTINAL: Abdomen soft, non-tender, nondistended. No guarding. MUSCULOSKELETAL: Extremities without clubbing, cyanosis, Right leg dressed not yet placed the Vacuum. NEUROLOGICAL: Awake and alert. Medications and IVs Current Medications Medications (Trade) Dose Ordered Sig/Santos Route Start Time Stop Time Status Last Admin (NS Flush) 2 ml UNSCH PRN IV FLUSH 10/31/16 05:45 (NS Flush) 2 ml BID IV FLUSH 10/31/16 09:00 11/02/16 21:00 Naloxone HCl 0.4 mg 0.4 mg UNSCH PRN IV 10/31/16 05:45 Potassium Chloride 100 ml @ 50 mls/hr UNSCH PRN IV 10/31/16 11:30 Potassium Phosphate 21 mmol/ Sodium Chloride 257 ml @ 41.7 mls/hr UNSCH PRN IV 10/31/16 11:30 (Magnesium Sulfate 1 Gm Premix) 200 ml @ 100 mls/hr UNSCH PRN IV 10/31/16 11:30 ([place] 5-325 Mg) 1 tab Q4H PRN PO 10/31/16 11:30 11/02/16 17:37 (Roxicodone) 7.5 mg Q4H PRN PO 10/31/16 11:30 11/03/16 03:55 (Morphine Inj) 2 mg Q1H PRN IV 10/31/16 11:30 (Morphine Inj) 4 mg Q1H PRN IV 10/31/16 11:30 11/02/16 21:47 Metoprolol Tartrate 50 mg 50 mg BID PO 10/31/16 21:00 11/02/16 21:43 (NS 1000 ml Inj) 1,000 ml @ 125 mls/hr Q8H IV 10/31/16 14:00 10/31/16 14:00 (Zofran Inj) 4 mg Q6HR PRN IV PUSH 10/31/16 14:45 (D50w (Vial) Inj) 25 ml UNSCH PRN IV PUSH 10/31/16 14:45 (Glucagon Inj) 1 mg UNSCH PRN OTHER 10/31/16 14:45 (Habitrol 21 Mg Patch.24 Hr) 1 patch DAILY T-DERMAL 11/01/16 09:00 11/07/16 08:59 11/01/16 09:28 Miscellaneous Information 1 HS T-DERMAL 10/31/16 21:00 11/07/16 20:59 11/01/16 20:33 (Xarelto) 15 mg BID PO 11/01/16 10:30 11/02/16 21:43 A/P Assessment and Plan 1. Acute Arterial Embolism and Thrombosis of the Right lower extremity Aorta with Runoff Showed complete Arterial Occlusion involving the distal Right SFA at the level of the adductor canal, Focal moderate Stenosis involving the left popliteal artery. Status post Embolectomy and Fasciotomies 10/31/16 [address] Doctor Ward Blanchard On Xarealto. Probable Vacuum later today 2. Atrial Fibrillation/Arterial Occlusive disease continue Beta Blockers will get Echocardiogram, Cardiology consult he is well known to Doctor Julian Ramos, on Heparin Infusion protocol, Transition to Xarelto by system specialist, Diastolic dysfunction 05/20/16 ECHO-EF 6065 percent severe LVH, no RWMA, LAE moderately dilated, tricuspid valve trace regurgitation, mitral valve with trace regurgitation. PA peak press 45 mmHg 05/18/16-cardiac catheterization-EF 60%, diastolic dysfunction, normal coronary arteries, RCA dominant-mid and distal 40% plaque, left circ-OM1 80% lesion noted system specialist following. recommended to stop Aspirin and continue Xarelto, now sinus rhythm, started Propafenone by system specialist. 3. Severe Tobacco dependence strongly recommended to stop smoking, may be associated with his actual pathology, No Nicotine replacement at this time due to Atrial Fibrillation. 4. Alcohol abuse strongly recommended to stop this behavior 5. Hypertension Controlled. DVT prophylaxis on Xarelto. Code Status Full Code. Discussed Condition With Patient, his Father and Mother in the room. Discharge Planning Once cleared by Specialists. Hermann Ribeiro MD Nov 03, 2016 07:34
[2016-11-03] MEDS: NICOTINE 21 MG/24 HR PATCH T-DERMAL SCH (09:00)
[2016-11-03] MEDS: RIVAROXABAN 15 MG TAB PO SCH ×2 (09:15→21:44)
[2016-11-03] MEDS: METOPROLOL TARTRATE 50 MG TAB PO SCH ×2 (09:15→21:45)
--- NOTE | 2016-11-03 09:15 | PD.CARD.PN ---
Subjective Subjective Remarks No CP, dyspnea, dizziness, palpitations. Slight productive cough. Objective Medications Item Value Date Time Rivaroxaban 15 mg 11/01/16 1030 (Xarelto) BID/PO 11/02/162142 Metoprolol 50 mg 10/31/16 2100 Tartrate BID/PO 11/02/162142 (Lopressor) Vital Signs / I&O Vital Signs Date Time Temp Pulse Resp B/P Pulse Ox O2 Delivery O2 Flow Rate FiO2 11/03/16 07:00 88 11/03/16 06:00 68 11/03/16 05:00 62 11/03/16 04:18 68 16 137/79 95 11/03/16 04:00 70 11/03/16 03:00 63 11/03/16 02:00 60 11/03/16 01:00 60 11/03/16 00:00 66 11/02/16 23:02 82 16 151/81 96 11/02/16 23:00 75 11/02/16 22:00 72 11/02/16 21:00 72 11/02/16 20:50 97 21 11/02/16 20:00 76 11/02/16 19:30 97.8 71 18 145/78 97 11/02/16 19:00 68 11/02/16 18:10 18 11/02/16 18:00 66 11/02/16 17:00 64 11/02/16 16:00 67 11/02/16 16:00 97.9 68 18 115/66 97 11/02/16 15:09 96 21 11/02/16 15:00 68 11/02/16 14:00 70 11/02/16 13:00 72 11/02/16 12:00 66 11/02/16 12:00 97.8 65 18 132/78 99 11/02/16 11:54 16 11/02/16 11:00 66 11/02/16 10:00 64 I/O 11/02/16 11/02/16 11/02/16 11/03/16 11/03/16 11/03/16 07:00 15:00 23:00 07:00 15:00 23:00 Intake Total 480 ml 900 ml 240 ml Output Total 950 ml 750 ml 1300 ml Balance -470 ml 150 ml -1060 ml Intake Oral 480 ml 900 ml 240 ml IV Total 0 ml Output Urine Total 950 ml 750 ml 1300 ml # Voids 1 # Bowel Movements 1 1 0 Physical Exam GENERAL: Well developed, well nourished. No acute distress. HEENT: Jugular venous pressure is normal. CHEST: Lungs clear to auscultation bilaterally. Unlabored respiratory effort. CARDIAC: Regular rate and rhythm without S3, S4, or murmur. ABDOMEN: Soft, nontender, no hepatosplenomegaly. Bowel sounds present. EXTREMITIES: No clubbing, cyanosis, or edema. Right lower leg in wraps. Laboratory Laboratory Tests Test 11/03/16 03:54 White Blood Count 8.1 TH/MM3 Red Blood Count 3.04 MIL/MM3 Hemoglobin 10.3 GM/DL Hematocrit 29.9 % Mean Corpuscular Volume 98.2 FL Mean Corpuscular Hemoglobin 34.0 PG Mean Corpuscular Hemoglobin 34.6 % Concent Red Cell Distribution Width 14.6 % Platelet Count 89 TH/MM3 Mean Platelet Volume 10.2 FL Assessment and Plan Problem List: (1) Paroxysmal atrial fibrillation Assessment and Plan: Appears to be back in NSR, occasional Wenckebach phenomena. Continue metoprolol, Xarelto. Will add propafenone to help maintain NSR. Patient also with one 4 beat run of wide complex tachycardia, asymptomatic, possibly aberrantly conducted atrial fib. (2) Arterial embolism and thrombosis of lower extremity Assessment and Plan: Stable s/p embolectomy, fasciotomy of right leg. Continue Xarelto. (3) History of pericarditis Code Status full code Discussed Condition With patient Eugenio Zambrano MD Nov 03, 2016 09:14
[2016-11-03] MEDS: SODIUM CHLORIDE 0.9% FLUSH 10 ML FLUSH IV FLUSH SCH ×2 (09:16→21:45)
--- NOTE | 2016-11-03 11:28 | PD.VS.PN ---
Subjective POD #: 3 Procedure(s): R LE embolectomy, fasciotomy Subjective/Hospital Course Pt resting on st alert and in NAD Pt reported he has been ambulating with walker Objective Vitals/I&O Date Time Temp Pulse Resp B/P Pulse Ox O2 Delivery O2 Flow Rate FiO2 11/03/16 07:00 88 11/03/16 06:00 68 11/03/16 05:00 62 11/03/16 04:18 68 16 137/79 95 11/03/16 04:00 70 11/03/16 03:00 63 11/03/16 02:00 60 11/03/16 01:00 60 11/03/16 00:00 66 11/02/16 23:02 82 16 151/81 96 11/02/16 23:00 75 11/02/16 22:00 72 11/02/16 21:00 72 11/02/16 20:50 97 21 11/02/16 20:00 76 11/02/16 19:30 97.8 71 18 145/78 97 11/02/16 19:00 68 11/02/16 18:10 18 11/02/16 18:00 66 11/02/16 17:00 64 11/02/16 16:00 67 11/02/16 16:00 97.9 68 18 115/66 97 11/02/16 15:09 96 21 11/02/16 15:00 68 11/02/16 14:00 70 11/02/16 13:00 72 11/02/16 12:00 66 11/02/16 12:00 97.8 65 18 132/78 99 11/02/16 11:54 16 11/03/16 11/03/16 11/03/16 07:00 15:00 23:00 Intake Total 240 ml Output Total 1300 ml Balance -1060 ml Exam: GENERAL: A&OX3, NAD, GCS15 SKIN: Warm and dry. dressing C/D/I to RLE NECK: Supple, No JVD CARDIOVASCULAR: +S1,S2 RESPIRATORY: Breath sounds equal bilaterally GASTROINTESTINAL: Abdomen soft, non-tender, nondistended. MUSCULOSKELETAL: No cyanosis, or edema. Bilat Strong palpable DP present Pulses: Bilat DP palpable Incisions: clean and dry Laboratory Laboratory Tests Test 11/03/16 03:54 White Blood Count 8.1 Red Blood Count 3.04 Hemoglobin 10.3 Hematocrit 29.9 Mean Corpuscular Volume 98.2 Mean Corpuscular Hemoglobin 34.0 Mean Corpuscular Hemoglobin 34.6 Concent Red Cell Distribution Width 14.6 Platelet Count 89 Mean Platelet Volume 10.2 Assessment and Plan Assessment: (1) Arterial embolism and thrombosis of lower extremity Status: Acute Plan Successful embolectomy, palpable DP Plan Wound care consult Wound Vac placement today to RLE Continue PT/OOB with weight bearing as tolerated Brigida STEPHENS [facility] [place] [phone] Brigida Armijo Nov 03, 2016 11:13
[2016-11-03] MEDS: MORPHINE SULFATE 4 MG/ML INJ IV PRN (11:51)
[2016-11-03] MEDS ORDERED: PROPAFENONE HCL 150 MG TAB PO SCH (13:00)
[2016-11-03] MEDS: SODIUM CHLOR 0.9% 1000 ML INJ 1,000 ML IV SCH ×2 (14:00→21:57)
[2016-11-03] MEDS: REMOVE OLD NICODERM (NICOTINE) PATCH T-DERMAL SCH (21:00)
[2016-11-03] MEDS: PROPAFENONE HCL 150 MG TAB PO SCH (21:44)
[2016-11-04] VITALS (27 sets, daily range): BP systolic 135–156; BP diastolic 80–93; PULSE 60–80; RESP 14–20; TEMP 97.3–98.8; O2SAT 95–99
[2016-11-04] MEDS: SODIUM CHLOR 0.9% 1000 ML INJ 1,000 ML IV SCH ×3 (05:41→22:00)
[2016-11-04] MEDS: INSULIN NovoLIN REGULAR SUPPLEMENTAL SCALE SQ SCH ×4 (06:16→21:00)
[2016-11-04] MEDS: PROPAFENONE HCL 150 MG TAB PO SCH ×3 (06:16→22:14)
[2016-11-04] MEDS: RIVAROXABAN 15 MG TAB PO SCH ×2 (08:23→21:00)
[2016-11-04] MEDS: METOPROLOL TARTRATE 50 MG TAB PO SCH ×2 (08:23→21:00)
[2016-11-04] MEDS: ACETAMINOPHEN/HYDROcodone 325 MG/5 MG TAB PO PRN ×4 (08:23→21:37)
[2016-11-04] MEDS: SODIUM CHLORIDE 0.9% FLUSH 10 ML FLUSH IV FLUSH SCH ×2 (08:24→21:00)
--- NOTE | 2016-11-04 08:24 | PD.CARD.PN ---
Subjective Subjective Remarks Denies dizziness, nausea, CP, dyspnea, palpitations. Objective Vital Signs / I&O Vital Signs Date Time Temp Pulse Resp B/P Pulse Ox O2 Delivery O2 Flow Rate FiO2 11/04/16 07:37 61 11/04/16 06:22 60 11/04/16 05:31 63 11/04/16 04:02 64 11/04/16 03:45 98.8 70 18 135/80 99 11/04/16 03:17 72 11/04/16 02:14 66 11/04/16 01:03 69 11/04/16 00:12 69 11/03/16 23:45 65 11/03/16 23:45 97.9 67 18 107/68 92 11/03/16 22:08 78 11/03/16 21:54 96 21 11/03/16 21:00 72 11/03/16 20:00 76 11/03/16 19:45 98.0 75 18 137/75 95 11/03/16 19:45 79 11/03/16 18:00 70 11/03/16 17:00 72 11/03/16 16:00 72 11/03/16 15:00 99.1 73 18 118/65 97 11/03/16 15:00 69 11/03/16 13:00 66 11/03/16 12:31 96 21 11/03/16 12:00 64 11/03/16 11:10 98.3 68 18 132/86 97 11/03/16 11:00 64 11/03/16 10:00 72 11/03/16 09:00 80 I/O 11/03/16 11/03/16 11/03/16 11/04/16 11/04/16 11/04/16 07:00 15:00 23:00 07:00 15:00 23:00 Intake Total 240 ml 480 ml 240 ml Output Total 1300 ml 675 ml 1400 ml Balance -1060 ml -195 ml -1160 ml Intake Oral 240 ml 480 ml 240 ml Output Urine Total 1300 ml 675 ml 1400 ml Drainage Total 0 ml # Bowel Movements 0 0 Physical Exam GENERAL: Well developed, well nourished. No acute distress. HEENT: Jugular venous pressure is normal. CHEST: Lungs clear to auscultation bilaterally. Unlabored respiratory effort. CARDIAC: Regular rate and rhythm without S3, S4, or murmur. ABDOMEN: Soft, nontender, no hepatosplenomegaly. Bowel sounds present. EXTREMITIES: No clubbing, cyanosis, or edema. Assessment and Plan Problem List: (1) Paroxysmal atrial fibrillation Assessment and Plan: Remains predominantly in NSR. Continue metoprolol, Xarelto. Propafenone added to help maintain NSR. No further wide complex tachycardia, asymptomatic, possibly aberrantly conducted atrial fib. OK for discharge from a cardiac standpoint on current medications. (2) Arterial embolism and thrombosis of lower extremity Assessment and Plan: Stable s/p embolectomy, fasciotomy of right leg. Continue Xarelto. (3) History of pericarditis Code Status full code Discussed Condition With patient Eugenio Zambrano MD Nov 04, 2016 08:24
[2016-11-04] MEDS: NICOTINE 21 MG/24 HR PATCH T-DERMAL SCH ×2 (09:00→12:15)
--- NOTE | 2016-11-04 09:14 | PD.VS.PN ---
Subjective POD #: 4 Procedure(s): R LE embolectomy, fasciotomy Subjective/Hospital Course Pt in bed Alert and in NAD Reported RLE feels better this am Pain controlled with medication Strong palpable DP's Bilat Objective Vitals/I&O Date Time Temp Pulse Resp B/P Pulse Ox O2 Delivery O2 Flow Rate FiO2 11/04/16 08:31 97.3 76 18 140/87 95 11/04/16 08:29 64 11/04/16 07:37 61 11/04/16 06:22 60 11/04/16 05:31 63 11/04/16 04:02 64 11/04/16 03:45 98.8 70 18 135/80 99 11/04/16 03:17 72 11/04/16 02:14 66 11/04/16 01:03 69 11/04/16 00:12 69 11/03/16 23:45 65 11/03/16 23:45 97.9 67 18 107/68 92 11/03/16 22:08 78 11/03/16 21:54 96 21 11/03/16 21:00 72 11/03/16 20:00 76 11/03/16 19:45 98.0 75 18 137/75 95 11/03/16 19:45 79 11/03/16 18:00 70 11/03/16 17:00 72 11/03/16 16:00 72 11/03/16 15:00 99.1 73 18 118/65 97 11/03/16 15:00 69 11/03/16 13:00 66 11/03/16 12:31 96 21 11/03/16 12:00 64 11/03/16 11:10 98.3 68 18 132/86 97 11/03/16 11:00 64 11/03/16 10:00 72 11/04/16 11/04/16 11/04/16 07:00 15:00 23:00 Intake Total 240 ml Output Total 1400 ml Balance -1160 ml Exam: GENERAL: Pleasant 46/M, A&OX3, NAD, GCS15 SKIN: Warm and dry. Wound vac in place to RLE (medial/lateral) NECK: Supple,No JVD CARDIOVASCULAR: RRR, +S1,S2 RESPIRATORY: Breath sounds equal and clear bilaterally. No accessory muscle use. MUSCULOSKELETAL: No cyanosis, or edema. Bilat feet warm with motor intact Cap refill < 3sec Strong R/L Palpable DP's present Pulses: Strong Palpable DP Incisions: Wound vac placed and intact/RLE Assessment and Plan Assessment: (1) Arterial embolism and thrombosis of lower extremity Status: Acute Plan Successful embolectomy, palpable DP Plan PT/OOB with weight bearing as tolerated Continue wound vac regimen Brigida STEPHENS [facility] [phone] Brigida Armijo Nov 04, 2016 09:14
--- NOTE | 2016-11-04 09:37 | HHI.PR ---
Subjective Remarks This is a pleasant 46 y/o male with CAD, Severe Tobacco dependence and Alcohol abuse, as per patient he continue Smoking 1 and a half packs of cigarettes daily, recent admission due to Atypical chest pain and Shortness of breath in April last year with diagnosis of STEMI he had recent Cardiac Catheterization by Doctor Becky with no Stents, as we know he has Hypertension on this opportunity came due to Progressive pain and numbness in the right lower extremity below the knee, for the last 24 hours never had similar episodes in the past, He also noted that he cannot wiggle his toes on the right foot. His pain is an 8/10 and a burning sensation. On the calf it is a cramp. I came early to see the patient but he was in Operating room at this time he is in Recovery room and Overlock Operator will take the case for today and will sign out for tomorrow. performed an Aorta with Runoff Showed complete Arterial Occlusion involving the distal Right SFA at the level of the adductor canal, Focal moderate Stenosis involving the left popliteal artery. had Atrial Fibrillation on presentation from Emergency medicine, With Diagnosis of Arterial Embolism and Thrombosis of the lower extremity, started on Heparin drip and performed Embolectomy and Fasciotomies, 10/31/16 by Doctor Ward Blanchard. Overlock Operator notes: 11/01: The patient states he's regaining full movement of right foot however he still is experiencing paresthesias. Pulses strong and palpable. Fasciotomy site draining. Patient continues on heparin cardiology has been consulted regarding the atrial fibrillation that is rate controlled. Hospitalist Notes: 11/02: seen in his bedroom in the presence of nurse Mariela, no nausea, vomit or diarrhea, as per Vascular neurosurgery spine physician probable Vacuum in am tomorrow. 11/03: Back to Sinus rhythm, occasional Wenckebach phenomena, as per charge master specialist, recommended to continue Metoprolol and Xarelto, wound Vac today. Seen in the presence of his Father and Mother. 11/04: continue in sinus rhythm, seen by charge master specialist signed off the case, Vacuum placed on his right leg and will continue wound care in house probably will be changed the Vacuum next Thursday or Thursday. No Nausea, vomit or diarrhea, all questions answered to the best of my abilities. Objective Vital Signs Date Time Temp Pulse Resp B/P Pulse Ox O2 Delivery O2 Flow Rate FiO2 11/04/16 08:31 97.3 76 18 140/87 95 11/04/16 08:29 64 11/04/16 07:37 61 11/04/16 06:22 60 11/04/16 05:31 63 11/04/16 04:02 64 11/04/16 03:45 98.8 70 18 135/80 99 11/04/16 03:17 72 11/04/16 02:14 66 11/04/16 01:03 69 11/04/16 00:12 69 11/03/16 23:45 65 11/03/16 23:45 97.9 67 18 107/68 92 11/03/16 22:08 78 11/03/16 21:54 96 21 11/03/16 21:00 72 11/03/16 20:00 76 11/03/16 19:45 98.0 75 18 137/75 95 11/03/16 19:45 79 11/03/16 18:00 70 11/03/16 17:00 72 11/03/16 16:00 72 11/03/16 15:00 99.1 73 18 118/65 97 11/03/16 15:00 69 11/03/16 13:00 66 11/03/16 12:31 96 21 11/03/16 12:00 64 11/03/16 11:10 98.3 68 18 132/86 97 11/03/16 11:00 64 11/03/16 10:00 72 I/O 11/03/16 11/03/16 11/03/16 11/04/16 11/04/16 11/04/16 07:00 15:00 23:00 07:00 15:00 23:00 Intake Total 240 ml 480 ml 240 ml Output Total 1300 ml 675 ml 1400 ml Balance -1060 ml -195 ml -1160 ml Intake Oral 240 ml 480 ml 240 ml Output Urine Total 1300 ml 675 ml 1400 ml Drainage Total 0 ml # Bowel Movements 0 0 Result Diagram: 11/03/16 0354 11/01/16 0549 Imaging Last Impressions Aorta w/Runoff CTA 10/31/16 0000 Signed Impressions: Service Date/Time: Monday, October 31, 2016 05:00 - CONCLUSION: 1. There is a complete arterial occlusion involving the distal right SFA at the level of the adductor canal. 2. Focal moderate stenosis involving the left popliteal artery. There is a good runoff down to the left ankle. Alber Rubio MD Procedures Status post Embolectomy and Fasciotomies 10/31/16 by Doctor Ward Blanchard Other Results Laboratory Tests Test 10/31/16 10/31/16 10/31/16 11/01/16 04:35 06:00 14:47 05:49 Neutrophils (%) (Auto) 77.6 % Lymphocytes (%) (Auto) 14.7 % Monocytes (%) (Auto) 6.6 % Eosinophils (%) (Auto) 0.4 % Basophils (%) (Auto) 0.7 % Neutrophils # (Auto) 7.2 TH/MM3 Lymphocytes # (Auto) 1.4 TH/MM3 Monocytes # (Auto) 0.6 TH/MM3 Eosinophils # (Auto) 0.0 TH/MM3 Basophils # (Auto) 0.1 TH/MM3 CBC Comment DIFF FINAL Differential Comment Prothrombin Time 10.8 SEC Prothromb Time International 1.0 RATIO Ratio Total Bilirubin 0.6 MG/DL Aspartate Amino Transf 77 U/L (AST/SGOT) Alanine Aminotransferase 66 U/L (ALT/SGPT) Alkaline Phosphatase 49 U/L Total Protein 6.9 GM/DL Albumin 3.7 GM/DL Blood Type A POSITIVE Antibody Screen NEGATIVE Crossmatch Leukocyte-Reduced Red Blood Cells Blood Bank Comment C-Reactive Protein 0.61 MG/DL Hexagonal Phase Confirmation Protein C Activity 78 % Protein S Activity 132 % Anti-Nuclear Antibody Screen NEG Sodium Level 140 MEQ/L Potassium Level 4.0 MEQ/L Chloride Level 104 MEQ/L Carbon Dioxide Level 29.5 MEQ/L Anion Gap 7 MEQ/L Blood Urea Nitrogen 12 MG/DL Creatinine 0.82 MG/DL Estimat Glomerular Filtration 101 ML/MIN Rate Random Glucose 131 MG/DL Calcium Level 8.0 MG/DL Phosphorus Level 3.3 MG/DL Magnesium Level 1.9 MG/DL Test 11/01/16 11/03/16 06:00 03:54 Activated Partial 54.5 SEC Thromboplast Time White Blood Count 8.1 TH/MM3 Red Blood Count 3.04 MIL/MM3 Hemoglobin 10.3 GM/DL Hematocrit 29.9 % Mean Corpuscular Volume 98.2 FL Mean Corpuscular Hemoglobin 34.0 PG Mean Corpuscular Hemoglobin 34.6 % Concent Red Cell Distribution Width 14.6 % Platelet Count 89 TH/MM3 Mean Platelet Volume 10.2 FL Objective Remarks GENERAL: No acute distress. SKIN: Warm and dry. HEAD: Atraumatic. Normocephalic. EYES: Pupils equal and round. No scleral icterus. No injection or drainage. ENT: No nasal bleeding or discharge. Mucous membranes pink and moist. NECK: Trachea midline. No JVD. CARDIOVASCULAR: Normal rate, telemetry showing irregular rhythm. RESPIRATORY: No accessory muscle use. Clear to auscultation. Breath sounds equal bilaterally. GASTROINTESTINAL: Abdomen soft, non-tender, nondistended. No guarding. MUSCULOSKELETAL: Extremities without clubbing, cyanosis, Right leg with Vacuum on place working fine. NEUROLOGICAL: Awake and alert. Medications and IVs Current Medications Medications (Trade) Dose Ordered Sig/Santos Route Start Time Stop Time Status Last Admin (NS Flush) 2 ml UNSCH PRN IV FLUSH 10/31/16 05:45 (NS Flush) 2 ml BID IV FLUSH 10/31/16 09:00 11/04/16 08:24 Naloxone HCl 0.4 mg 0.4 mg UNSCH PRN IV 10/31/16 05:45 Potassium Chloride 100 ml @ 50 mls/hr UNSCH PRN IV 10/31/16 11:30 Potassium Phosphate 21 mmol/ Sodium Chloride 257 ml @ 41.7 mls/hr UNSCH PRN IV 10/31/16 11:30 (Magnesium Sulfate 1 Gm Premix) 200 ml @ 100 mls/hr UNSCH PRN IV 10/31/16 11:30 ([place] 5-325 Mg) 1 tab Q4H PRN PO 10/31/16 11:30 11/04/16 08:23 (Roxicodone) 7.5 mg Q4H PRN PO 10/31/16 11:30 11/04/16 03:48 (Morphine Inj) 2 mg Q1H PRN IV 10/31/16 11:30 (Morphine Inj) 4 mg Q1H PRN IV 10/31/16 11:30 11/02/16 14:00 Metoprolol Tartrate 50 mg 50 mg BID PO 10/31/16 21:00 11/04/16 08:23 (NS 1000 ml Inj) 1,000 ml @ 125 mls/hr Q8H IV 10/31/16 14:00 10/31/16 14:00 (Zofran Inj) 4 mg Q6HR PRN IV PUSH 10/31/16 14:45 (D50w (Vial) Inj) 25 ml UNSCH PRN IV PUSH 10/31/16 14:45 (Glucagon Inj) 1 mg UNSCH PRN OTHER 10/31/16 14:45 (Habitrol 21 Mg Patch.24 Hr) 1 patch DAILY T-DERMAL 11/01/16 09:00 11/07/16 08:59 11/01/16 09:28 Miscellaneous Information 1 HS T-DERMAL 10/31/16 21:00 11/07/16 20:59 11/01/16 20:33 (Xarelto) 15 mg BID PO 11/01/16 10:30 11/04/16 08:23 (Rythmol) 150 mg Q8HR PO 11/03/16 22:00 11/04/16 06:16 A/P Assessment and Plan 1. Acute Arterial Embolism and Thrombosis of the Right lower extremity Aorta with Runoff Showed complete Arterial Occlusion involving the distal Right SFA at the level of the adductor canal, Focal moderate Stenosis involving the left popliteal artery. Status post Embolectomy and Fasciotomies 10/31/[address] Ward Blanchard On Xarealto. status post Vacuum placement. Wound care following. 2. Atrial Fibrillation/Arterial Occlusive disease continue Beta Blockers will get Echocardiogram, Cardiology consult he is well known to Doctor Julian Ramos, on Heparin Infusion protocol, Transition to Xarelto by charge master specialist, Diastolic dysfunction 05/20/16 ECHO-EF 6065 percent severe LVH, no RWMA, LAE moderately dilated, tricuspid valve trace regurgitation, mitral valve with trace regurgitation. PA peak press 45 mmHg 05/18/16-cardiac catheterization-EF 60%, diastolic dysfunction, normal coronary arteries, RCA dominant-mid and distal 40% plaque, left circ-OM1 80% lesion noted charge master specialist signed off the case. 3. Severe Tobacco dependence strongly recommended to stop smoking, may be associated with his actual pathology, No Nicotine replacement at this time due to Atrial Fibrillation. 4. Alcohol abuse strongly recommended to stop this behavior 5. Hypertension Controlled. DVT prophylaxis on Xarelto. Code Status Full Code. Discussed Condition With Patient in the room. Discharge Planning Once cleared by Specialists. Hermann Ribeiro MD Nov 04, 2016 09:37
--- NOTE | 2016-11-04 11:52 | PD.ONC.PN ---
Subjective Subjective Remarks doing okay wants PT no pain/swelling Objective Data Date Time Temp Pulse Resp B/P Pulse Ox O2 Delivery O2 Flow Rate FiO2 11/04/16 10:14 96 21 11/04/16 09:47 71 11/04/16 08:31 97.3 76 18 140/87 95 11/04/16 08:29 64 11/04/16 07:37 61 11/04/16 06:22 60 11/04/16 05:31 63 11/04/16 04:02 64 11/04/16 03:45 98.8 70 18 135/80 99 11/04/16 03:17 72 11/04/16 02:14 66 11/04/16 01:03 69 11/04/16 00:12 69 11/03/16 23:45 65 11/03/16 23:45 97.9 67 18 107/68 92 11/03/16 22:08 78 11/03/16 21:54 96 21 11/03/16 21:00 72 11/03/16 20:00 76 11/03/16 19:45 98.0 75 18 137/75 95 11/03/16 19:45 79 11/03/16 18:00 70 11/03/16 17:00 72 11/03/16 16:00 72 11/03/16 15:00 99.1 73 18 118/65 97 11/03/16 15:00 69 11/03/16 13:00 66 11/03/16 12:31 96 21 11/03/16 12:00 64 11/04/16 11/04/16 11/04/16 07:00 15:00 23:00 Intake Total 240 ml Output Total 1400 ml Balance -1160 ml Result Diagram: 11/03/16 0354 11/01/16 0549 Administered Medications Medications (Trade) Dose Ordered Sig/Santos Route PRN Reason Start Time Stop Time Status Last Admin Dose Admin Sodium Chloride (NS Flush) 2 ml BID IV FLUSH 10/31/16 09:00 11/04/16 08:24 Acetaminophen/ Hydrocodone Bitart ([place] 5-325 Mg) 1 tab Q4H PRN PO PAIN LESS THAN 5 ON SCALE 10/31/16 11:30 11/04/16 08:23 Oxycodone HCl (Roxicodone) 7.5 mg Q4H PRN PO PAIN SCALE 5 TO 10 10/31/16 11:30 11/04/16 03:48 Morphine Sulfate (Morphine Inj) 4 mg Q1H PRN IV PAIN SCALE 5 TO 10 10/31/16 11:30 11/02/16 14:00 Metoprolol Tartrate 50 mg 50 mg BID PO 10/31/16 21:00 11/04/16 08:23 Sodium Chloride (NS 1000 ml Inj) 1,000 ml @ 125 mls/hr Q8H IV 10/31/16 14:00 10/31/16 14:00 Nicotine (Habitrol 21 Mg Patch.24 Hr) 1 patch DAILY T-DERMAL 11/01/16 09:00 11/07/16 08:59 11/01/16 09:28 Miscellaneous Information 1 HS T-DERMAL 10/31/16 21:00 11/07/16 20:59 11/01/16 20:33 Rivaroxaban (Xarelto) 15 mg BID PO 11/01/16 10:30 11/04/16 08:23 Propafenone HCl (Rythmol) 150 mg Q8HR PO 11/03/16 22:00 11/04/16 06:16 Objective Remarks GENERAL: nad SKIN: Warm and dry. NECK: Supple, trachea midline. No JVD or lymphadenopathy. LYMPHATIC: No adenopathy. CARDIOVASCULAR: Regular rate and rhythm without murmurs. RESPIRATORY: Breath sounds equal bilaterally. No accessory muscle use. GASTROINTESTINAL: Abdomen soft, non-tender, nondistended. EXTREMITIES: No cyanosis, or edema. Assessment/Plan Problem List: (1) Chest pain Status: Acute (2) Arterial embolism and thrombosis of lower extremity Status: Acute (3) Paroxysmal atrial fibrillation Status: Acute Assessment 46-year-old male with a past medical history of uncontrolled hypertension and tobacco abuse of greater than 30 pack-years who presents with right lower extremity pain, paresthesias and weakness. He was found to have an extensive thrombosis in the distal right SFA a as well as partial thrombosis in the left popliteal artery. Right SFA thrombosis / left popliteal moderate stenosis. s/p embolectomy. - Xarelto 15 mg p.o. b.i.d. times 21 days followed by Xarelto 20 mg p.o. daily. - F/U in Hematology clinic in 4-6 weeks - consult PT Theodore Ring MD Nov 04, 2016 11:52
[2016-11-04] MEDS: REMOVE OLD NICODERM (NICOTINE) PATCH T-DERMAL SCH (21:00)
[2016-11-04] MEDS: MORPHINE SULFATE 4 MG/ML INJ IV PRN (22:27)
[2016-11-05] VITALS (28 sets, daily range): BP systolic 107–132; BP diastolic 65–87; PULSE 61–79; RESP 12–18; TEMP 97.9–98.5; O2SAT 93–98
[2016-11-05] MEDS: SODIUM CHLOR 0.9% 1000 ML INJ 1,000 ML IV SCH ×3 (02:07→22:00)
[2016-11-05] MEDS: PROPAFENONE HCL 150 MG TAB PO SCH ×3 (06:11→21:14)
[2016-11-05] MEDS: INSULIN NovoLIN REGULAR SUPPLEMENTAL SCALE SQ SCH ×4 (06:13→21:00)
[2016-11-05] MEDS: ACETAMINOPHEN/HYDROcodone 325 MG/5 MG TAB PO PRN ×2 (06:16→13:46)
--- NOTE | 2016-11-05 07:54 | HHI.PR ---
Subjective Remarks This is a pleasant 46 y/o male with CAD, Severe Tobacco dependence and Alcohol abuse, as per patient he continue Smoking 1 and a half packs of cigarettes daily, recent admission due to Atypical chest pain and Shortness of breath in April last year with diagnosis of STEMI he had recent Cardiac Catheterization by Doctor Becky with no Stents, as we know he has Hypertension on this opportunity came due to Progressive pain and numbness in the right lower extremity below the knee, for the last 24 hours never had similar episodes in the past, He also noted that he cannot wiggle his toes on the right foot. His pain is an 8/10 and a burning sensation. On the calf it is a cramp. I came early to see the patient but he was in Operating room at this time he is in Recovery room and Dentist will take the case for today and will sign out for tomorrow. performed an Aorta with Runoff Showed complete Arterial Occlusion involving the distal Right SFA at the level of the adductor canal, Focal moderate Stenosis involving the left popliteal artery. had Atrial Fibrillation on presentation from Emergency medicine, With Diagnosis of Arterial Embolism and Thrombosis of the lower extremity, started on Heparin drip and performed Embolectomy and Fasciotomies, 10/31/16 by Doctor Ward Blanchard. Dentist notes: 11/01: The patient states he's regaining full movement of right foot however he still is experiencing paresthesias. Pulses strong and palpable. Fasciotomy site draining. Patient continues on heparin cardiology has been consulted regarding the atrial fibrillation that is rate controlled. Hospitalist Notes: 11/02: seen in his bedroom in the presence of nurse Mariela, no nausea, vomit or diarrhea, as per Vascular field service specialist probable Vacuum in am tomorrow. 11/03: Back to Sinus rhythm, occasional Wenckebach phenomena, as per loan specialist, recommended to continue Metoprolol and Xarelto, wound Vac today. Seen in the presence of his Father and Mother. 11/04: continue in sinus rhythm, seen by loan specialist signed off the case, Vacuum placed on his right leg and will continue wound care in house probably will be changed the Vacuum and discharge home awaiting final by Surgery. 11/05: Seen in his bedroom, no Nausea, vomit or diarrhea, no complaint, Vacuum working fine. Objective Vital Signs Date Time Temp Pulse Resp B/P Pulse Ox O2 Delivery O2 Flow Rate FiO2 11/05/16 06:00 66 11/05/16 05:00 62 11/05/16 04:00 65 12 132/79 97 11/05/16 04:00 67 11/05/16 03:00 66 11/05/16 02:00 70 11/05/16 01:00 66 11/05/16 00:51 98.3 70 14 120/73 96 11/05/16 00:00 68 11/04/16 23:00 68 11/04/16 22:00 78 11/04/16 21:00 76 11/04/16 20:00 98.1 76 14 149/89 96 11/04/16 20:00 75 11/04/16 19:00 80 11/04/16 18:00 67 11/04/16 17:00 67 11/04/16 16:00 69 11/04/16 15:00 98.0 69 16 140/90 98 11/04/16 15:00 66 11/04/16 14:00 79 11/04/16 13:00 79 11/04/16 12:00 77 11/04/16 11:00 97.7 71 20 156/93 97 11/04/16 11:00 73 11/04/16 10:14 96 21 11/04/16 10:00 74 11/04/16 09:47 71 11/04/16 08:31 97.3 76 18 140/87 95 11/04/16 08:29 64 I/O 11/04/16 11/04/16 11/04/16 11/05/16 11/05/16 11/05/16 07:00 15:00 23:00 07:00 15:00 23:00 Intake Total 240 ml 1000 ml 960 ml Output Total 1400 ml 1601 ml 1600 ml Balance -1160 ml -601 ml -640 ml Intake Oral 240 ml 1000 ml 960 ml IV Total 0 ml 0 ml Output Urine Total 1400 ml 1600 ml 1600 ml Stool Total 1 ml # Bowel Movements 0 Result Diagram: 11/03/16 0354 11/01/16 0549 Imaging Last Impressions Aorta w/Runoff CTA 10/31/16 0000 Signed Impressions: Service Date/Time: Monday, October 31, 2016 05:00 - CONCLUSION: 1. There is a complete arterial occlusion involving the distal right SFA at the level of the adductor canal. 2. Focal moderate stenosis involving the left popliteal artery. There is a good runoff down to the left ankle. Alber Rubio MD Procedures Status post Embolectomy and Fasciotomies 10/31/16 by Doctor Ward Blanchard Other Results Laboratory Tests Test 10/31/16 10/31/16 11/01/16 11/01/16 06:00 14:47 05:49 06:00 Blood Type A POSITIVE Antibody Screen NEGATIVE Crossmatch Leukocyte-Reduced Red Blood Cells Blood Bank Comment Anti-Nuclear Antibody Screen NEG Protein C Activity 78 % Protein S Activity 132 % Anti-Thrombin III Activity 68 Lupus Anticoagulant Lupus Anticoagulant APTT 113.0 seconds Dilute Garcia Viper Venom 38.0 seconds (Lupus) DRVVT Confirmation Interpretation Mix DRVV Patient/Normal 1:1 dRVVT Mix Interpretation Hexagonal Phase Confirmation NEGATIVE Sodium Level 140 MEQ/L Potassium Level 4.0 MEQ/L Chloride Level 104 MEQ/L Carbon Dioxide Level 29.5 MEQ/L Anion Gap 7 MEQ/L Blood Urea Nitrogen 12 MG/DL Creatinine 0.82 MG/DL Estimat Glomerular Filtration 101 ML/MIN Rate Random Glucose 131 MG/DL Calcium Level 8.0 MG/DL Phosphorus Level 3.3 MG/DL Magnesium Level 1.9 MG/DL Activated Partial 54.5 SEC Thromboplast Time Test 11/03/16 03:54 White Blood Count 8.1 TH/MM3 Red Blood Count 3.04 MIL/MM3 Hemoglobin 10.3 GM/DL Hematocrit 29.9 % Mean Corpuscular Volume 98.2 FL Mean Corpuscular Hemoglobin 34.0 PG Mean Corpuscular Hemoglobin 34.6 % Concent Red Cell Distribution Width 14.6 % Platelet Count 89 TH/MM3 Mean Platelet Volume 10.2 FL Objective Remarks GENERAL: No acute distress. SKIN: Warm and dry. HEAD: Atraumatic. Normocephalic. EYES: Pupils equal and round. No scleral icterus. No injection or drainage. ENT: No nasal bleeding or discharge. Mucous membranes pink and moist. NECK: Trachea midline. No JVD. CARDIOVASCULAR: Normal rate, telemetry showing irregular rhythm. RESPIRATORY: No accessory muscle use. Clear to auscultation. Breath sounds equal bilaterally. GASTROINTESTINAL: Abdomen soft, non-tender, nondistended. No guarding. MUSCULOSKELETAL: Extremities without clubbing, cyanosis, Right leg with Vacuum on place working fine. NEUROLOGICAL: Awake and alert. Medications and IVs Current Medications Medications (Trade) Dose Ordered Sig/Santos Route Start Time Stop Time Status Last Admin (NS Flush) 2 ml UNSCH PRN IV FLUSH 10/31/16 05:45 (NS Flush) 2 ml BID IV FLUSH 10/31/16 09:00 11/04/16 21:00 Naloxone HCl 0.4 mg 0.4 mg UNSCH PRN IV 10/31/16 05:45 Potassium Chloride 100 ml @ 50 mls/hr UNSCH PRN IV 10/31/16 11:30 Potassium Phosphate 21 mmol/ Sodium Chloride 257 ml @ 41.7 mls/hr UNSCH PRN IV 10/31/16 11:30 (Magnesium Sulfate 1 Gm Premix) 200 ml @ 100 mls/hr UNSCH PRN IV 10/31/16 11:30 ([place] 5-325 Mg) 1 tab Q4H PRN PO 10/31/16 11:30 11/05/16 06:16 (Roxicodone) 7.5 mg Q4H PRN PO 10/31/16 11:30 11/04/16 03:48 (Morphine Inj) 2 mg Q1H PRN IV 10/31/16 11:30 11/04/16 22:27 (Morphine Inj) 4 mg Q1H PRN IV 10/31/16 11:30 11/02/16 14:00 Metoprolol Tartrate 50 mg 50 mg BID PO 10/31/16 21:00 11/04/16 21:00 (NS 1000 ml Inj) 1,000 ml @ 125 mls/hr Q8H IV 10/31/16 14:00 10/31/16 14:00 (Zofran Inj) 4 mg Q6HR PRN IV PUSH 10/31/16 14:45 (D50w (Vial) Inj) 25 ml UNSCH PRN IV PUSH 10/31/16 14:45 (Glucagon Inj) 1 mg UNSCH PRN OTHER 10/31/16 14:45 (Habitrol 21 Mg Patch.24 Hr) 1 patch DAILY T-DERMAL 11/01/16 09:00 11/07/16 08:59 11/04/16 12:15 Miscellaneous Information 1 HS T-DERMAL 10/31/16 21:00 11/07/16 20:59 11/04/16 21:00 (Xarelto) 15 mg BID PO 11/01/16 10:30 11/04/16 21:00 (Rythmol) 150 mg Q8HR PO 11/03/16 22:00 11/05/16 06:11 A/P Assessment and Plan 1. Acute Arterial Embolism and Thrombosis of the Right lower extremity Aorta with Runoff Showed complete Arterial Occlusion involving the distal Right SFA at the level of the adductor canal, Focal moderate Stenosis involving the left popliteal artery. Status post Embolectomy and Fasciotomies 10/31/[address] Ward Blanchard On Xarealto. status post Vacuum placement. Wound care following. 2. Atrial Fibrillation/Arterial Occlusive disease continue Beta Blockers, initially on Heparin then started on Xarelto Echocardiogram 05/20/16 EF 6065 percent severe LVH, no RWMA, LAE moderately dilated, tricuspid valve trace regurgitation, mitral valve with trace regurgitation. PA peak press 45 mmHg 05/18/16-cardiac catheterization EF 60%, diastolic dysfunction, normal coronary arteries, RCA dominant-mid and distal 40% plaque, left circ-OM1 80% lesion noted loan specialist signed off the case. Continue Propafenone to maintain NSR. 3. Severe Tobacco dependence strongly recommended to stop smoking, may be associated with his actual pathology, No Nicotine replacement at this time due to Atrial Fibrillation. 4. Alcohol abuse strongly recommended to stop this behavior 5. Hypertension Controlled. DVT prophylaxis on Xarelto. Code Status Full Code. Discussed Condition With Patient in the room. Discharge Planning Once cleared by Vascular Surgery Hermann Ribeiro MD Nov 05, 2016 07:54
[2016-11-05] MEDS: NICOTINE 21 MG/24 HR PATCH T-DERMAL SCH ×2 (09:00→13:43)
[2016-11-05] MEDS: METOPROLOL TARTRATE 50 MG TAB PO SCH ×2 (09:08→21:15)
[2016-11-05] MEDS: RIVAROXABAN 15 MG TAB PO SCH ×2 (09:08→21:14)
[2016-11-05] MEDS: SODIUM CHLORIDE 0.9% FLUSH 10 ML FLUSH IV FLUSH SCH ×2 (09:09→21:00)
[2016-11-05] MEDS: MORPHINE SULFATE 4 MG/ML INJ IV PRN ×2 (09:37→14:15)
[2016-11-05 11:50] LABS: MYELOPEROXIDASE LESS THAN 1.0 AI (<1.0); PROTEINASE-3 LESS THAN 1.0 AI (<1.0)
--- NOTE | 2016-11-05 14:50 | PD.VS.PN ---
Subjective POD #: 5 Procedure(s): R LE embolectomy, fasciotomy Subjective/Hospital Course Pt in bed Alert and in NAD, Mother at the BS Pt reported he has improved RLE pain Pt ambulated the hallway with PT Strong palpable DP's Bilat Wound vac dressing changed this afternoon (Brigida Armijo) Objective Vitals/I&O Date Time Temp Pulse Resp B/P Pulse Ox O2 Delivery O2 Flow Rate FiO2 11/05/16 13:00 66 11/05/16 12:00 64 11/05/16 11:45 97.9 61 18 119/69 97 11/05/16 11:00 66 11/05/16 10:00 74 11/05/16 09:00 62 11/05/16 08:48 93 21 11/05/16 08:00 62 11/05/16 07:42 98.2 67 16 129/83 97 11/05/16 07:42 67 11/05/16 06:00 66 11/05/16 05:00 62 11/05/16 04:00 65 12 132/79 97 11/05/16 04:00 67 11/05/16 03:00 66 11/05/16 02:00 70 11/05/16 01:00 66 11/05/16 00:51 98.3 70 14 120/73 96 11/05/16 00:00 68 11/04/16 23:00 68 11/04/16 22:00 78 11/04/16 21:00 76 11/04/16 20:00 98.1 76 14 149/89 96 11/04/16 20:00 75 11/04/16 19:00 80 11/04/16 18:00 67 11/04/16 17:00 67 11/04/16 16:00 69 11/04/16 15:00 98.0 69 16 140/90 98 11/04/16 15:00 66 11/05/16 11/05/16 11/05/16 07:00 15:00 23:00 Intake Total 960 ml Output Total 1600 ml Balance -640 ml Exam: GENERAL: A&OX3, NAD SKIN: Warm and dry. Wound vac intact to lateral/medial aspect of RLE CARDIOVASCULAR: RRR without murmurs, gallops, or rubs. +S1, S2 RESPIRATORY: Breath sounds equal and clear bilaterally. No accessory muscle use. GASTROINTESTINAL: Abdomen soft, non-tender, nondistended. MUSCULOSKELETAL: No cyanosis, RLE swelling present + Strong palpable DP bilat Bilat feet warm with motor intact Cap refill <3 sec BLE Pulses: + strong palpable DP Bilat Incisions: Wound vac intact to medial/lateral aspect Fasciotomy to medial and lateral aspect of RLE looks good with out odor or redness. (Brigida Armijo) Assessment and Plan Assessment: (1) Arterial embolism and thrombosis of lower extremity Status: Acute Plan Successful embolectomy, palpable DP Plan PT/OOB with weight bearing as tolerated Continue wound vac regimen Brigida STEPHENS [facility] [phone] Discharge Planning Pt requesting out patient wound vac therapy Discussed with patient and Mother the option to continue wound vac regimen as an out patient Pt Ok to continue therapy at home (Brigida Armijo) Plan ATTENDING NOTE: Wounds look great. Continue VAC and will need Home Health RN for VAC changes. From vas surgery standpoint, can be d/c when leyla dressing changes with po pain meds. Tavo Waters MD FACS auctioneer [employer] [facility] - Heart and Vascular Surgery at [facility] [phone] (Tavo Waters MD) Brigida Armijo Nov 05, 2016 14:50 Tavo Waters MD Nov 05, 2016 20:59
[2016-11-05] MEDS: REMOVE OLD NICODERM (NICOTINE) PATCH T-DERMAL SCH (21:00)
[2016-11-06] VITALS (28 sets, daily range): BP systolic 103–132; BP diastolic 60–82; PULSE 56–107; RESP 16–20; TEMP 97.9–99.1; O2SAT 95–99
[2016-11-06] MEDS: ACETAMINOPHEN/HYDROcodone 325 MG/5 MG TAB PO PRN (01:26)
[2016-11-06] MEDS: PROPAFENONE HCL 150 MG TAB PO SCH ×3 (05:48→21:42)
[2016-11-06] MEDS: SODIUM CHLOR 0.9% 1000 ML INJ 1,000 ML IV SCH ×3 (05:48→21:42)
[2016-11-06] MEDS: INSULIN NovoLIN REGULAR SUPPLEMENTAL SCALE SQ SCH ×4 (06:44→19:54)
[2016-11-06 07:04] LABS: HEMATOCRIT 31.7 % (39.0-51.0); MEAN CELL VOLUME 97.7 FL (80.0-100.0); MEAN CORPUSCULAR HEMOGLOBIN 32.3 PG (27.0-34.0); PLATELET COUNT 139 TH/MM3 (150-450); RED BLOOD COUNT 3.24 MIL/MM3 (4.50-5.90); RED CELL DISTRIBUTION WIDTH 14.2 % (11.6-17.2); REVIEW FLAG FINAL; WHITE BLOOD COUNT 8.2 TH/MM3 (4.0-11.0)
[2016-11-06] MEDS: SODIUM CHLORIDE 0.9% FLUSH 10 ML FLUSH IV FLUSH SCH ×2 (08:54→19:54)
[2016-11-06] MEDS: METOPROLOL TARTRATE 50 MG TAB PO SCH ×2 (08:55→19:53)
[2016-11-06] MEDS: RIVAROXABAN 15 MG TAB PO SCH ×2 (08:55→19:53)
--- NOTE | 2016-11-06 12:54 | PD.VS.PN ---
Subjective Subjective/Hospital Course Pt sitting up in the chair, reported he ambulated and went up 1 flight of stairs with PT Strong palpable DP's Bilat Pain improving per pt Objective Vitals/I&O Date Time Temp Pulse Resp B/P Pulse Ox O2 Delivery O2 Flow Rate FiO2 11/06/16 12:00 70 11/06/16 11:00 63 11/06/16 11:00 97.9 63 16 119/73 95 11/06/16 10:00 61 11/06/16 09:00 70 11/06/16 08:32 99 21 11/06/16 08:00 74 11/06/16 07:00 67 11/06/16 07:00 98.2 68 16 124/78 98 11/06/16 06:00 65 11/06/16 05:00 60 11/06/16 04:00 59 11/06/16 03:00 60 11/06/16 03:00 98.3 60 16 120/68 98 11/06/16 02:00 59 11/06/16 01:00 69 11/06/16 00:00 56 11/05/16 23:00 98.5 79 18 123/77 97 11/05/16 23:00 79 11/05/16 22:00 70 11/05/16 21:00 66 11/05/16 20:52 98 21 11/05/16 20:00 78 11/05/16 19:00 98.2 76 18 127/87 98 11/05/16 19:00 75 11/05/16 18:05 76 11/05/16 17:00 76 11/05/16 16:12 67 11/05/16 15:30 67 11/05/16 15:30 98.0 67 18 107/65 96 11/05/16 14:00 76 11/05/16 13:00 66 11/06/16 11/06/16 11/06/16 07:00 15:00 23:00 Intake Total 240 ml Output Total 1300 ml Balance -1060 ml Physical Exam Strong palpable DP BLE warm with motor intact Cap refill <3sec Laboratory Laboratory Tests Test 11/06/16 05:40 White Blood Count 8.2 Red Blood Count 3.24 Hemoglobin 10.5 Hematocrit 31.7 Mean Corpuscular Volume 97.7 Mean Corpuscular Hemoglobin 32.3 Mean Corpuscular Hemoglobin 33.0 Concent Red Cell Distribution Width 14.2 Platelet Count 139 Mean Platelet Volume 10.7 Assessment and Plan Assessment: (1) Arterial embolism and thrombosis of lower extremity Status: Acute Plan Plan Continue VAC When ready case management to arrange Home Health RN for VAC changes (M,W and F ) From [facility] surgery standpoint, can be d/c when leyla dressing changes with po pain meds. Brigida STEPHENS [facility]/[place] [phone] Discharge Planning Brigida Armijo Nov 06, 2016 12:54
--- NOTE | 2016-11-06 13:00 | HHI.FF ---
Face to Face Verification Diagnosis: (1) Arterial embolism and thrombosis of lower extremity Physical Therapy Order: Evaluate and Treat, Improve ambulation, Strength and gait training I have seen patient Ramiro Valencia on 11/06/16. My clinical findings support the need for the requested home health care services because: Pt will need to continue PT 2-3/week for 2 weeks due to his post operative RLE medial and lateral fasciotomies. Also pt will need Home health care for (M,W and F) wound vac changes and management. Ltd mobility - disease progression High risk of falls I certify that my clinical findings support that this patient is homebound because: Pt is stable and OK for D/C but will need the assistance while at home to properly care for his lateral and medial fasciotomies to RLE Post-op weakness Unsteady gait/balance Brigida Armijo Nov 06, 2016 13:00
--- NOTE | 2016-11-06 13:03 | HHI.PR ---
Subjective Remarks This is a pleasant 46 y/o male with CAD, Severe Tobacco dependence and Alcohol abuse, as per patient he continue Smoking 1 and a half packs of cigarettes daily, recent admission due to Atypical chest pain and Shortness of breath in April last year with diagnosis of STEMI he had recent Cardiac Catheterization by Doctor Becky with no Stents, as we know he has Hypertension on this opportunity came due to Progressive pain and numbness in the right lower extremity below the knee, for the last 24 hours never had similar episodes in the past, He also noted that he cannot wiggle his toes on the right foot. His pain is an 8/10 and a burning sensation. On the calf it is a cramp. I came early to see the patient but he was in Operating room at this time he is in Recovery room and Steam Frame Operator will take the case for today and will sign out for tomorrow. performed an Aorta with Runoff Showed complete Arterial Occlusion involving the distal Right SFA at the level of the adductor canal, Focal moderate Stenosis involving the left popliteal artery. had Atrial Fibrillation on presentation from Emergency medicine, With Diagnosis of Arterial Embolism and Thrombosis of the lower extremity, started on Heparin drip and performed Embolectomy and Fasciotomies, 10/31/16 by Doctor Ward Blanchard. Steam Frame Operator notes: 11/01: The patient states he's regaining full movement of right foot however he still is experiencing paresthesias. Pulses strong and palpable. Fasciotomy site draining. Patient continues on heparin cardiology has been consulted regarding the atrial fibrillation that is rate controlled. Hospitalist Notes: 11/02: seen in his bedroom in the presence of nurse Miss Sierra, no nausea, vomit or diarrhea, as per Vascular rn surgery probable Vacuum in am tomorrow. 11/03: Back to Sinus rhythm, occasional Wenckebach phenomena, as per business employment specialist, recommended to continue Metoprolol and Xarelto, wound Vac today. Seen in the presence of his Father and Mother. 11/04: continue in sinus rhythm, seen by business employment specialist signed off the case, Vacuum placed on his right leg and will continue wound care in house probably will be changed the Vacuum and discharge home awaiting final by Surgery. 11/05: Seen in his bedroom, Vacuum working fine. 11/06: Patient in his bedroom, No Nausea, vomit or diarrhea, normal sinus rhythm , as per Vascular rn surgery okay to discharge home on HHC, continue Vacuum with changes M,W and F, arrangements performed by Assembler Molded Frames probable will be discharged later today, Face to Face performed by Vascular surgery, Medication Reconciliation performed and scripts given to Color Maker Dyer on the floor, discussed with patient. Objective Vital Signs Date Time Temp Pulse Resp B/P Pulse Ox O2 Delivery O2 Flow Rate FiO2 11/06/16 12:00 70 11/06/16 11:00 63 11/06/16 11:00 97.9 63 16 119/73 95 11/06/16 10:00 61 11/06/16 09:00 70 11/06/16 08:32 99 21 11/06/16 08:00 74 11/06/16 07:00 67 11/06/16 07:00 98.2 68 16 124/78 98 11/06/16 06:00 65 11/06/16 05:00 60 11/06/16 04:00 59 11/06/16 03:00 60 11/06/16 03:00 98.3 60 16 120/68 98 11/06/16 02:00 59 11/06/16 01:00 69 11/06/16 00:00 56 11/05/16 23:00 98.5 79 18 123/77 97 11/05/16 23:00 79 11/05/16 22:00 70 11/05/16 21:00 66 11/05/16 20:52 98 21 11/05/16 20:00 78 11/05/16 19:00 98.2 76 18 127/87 98 11/05/16 19:00 75 11/05/16 18:05 76 11/05/16 17:00 76 11/05/16 16:12 67 11/05/16 15:30 67 11/05/16 15:30 98.0 67 18 107/65 96 11/05/16 14:00 76 I/O 11/05/16 11/05/16 11/05/16 11/06/16 11/06/16 11/06/16 07:00 15:00 23:00 07:00 15:00 23:00 Intake Total 960 ml 1200 ml 240 ml Output Total 1600 ml 750 ml 1300 ml Balance -640 ml 450 ml -1060 ml Intake Oral 960 ml 1200 ml 240 ml IV Total 0 ml Output Urine Total 1600 ml 750 ml 1300 ml # Voids 1 # Bowel Movements 0 1 Result Diagram: 11/06/16 0540 Imaging Last Impressions Aorta w/Runoff CTA 10/31/16 0000 Signed Impressions: Service Date/Time: Monday, October 31, 2016 05:00 - CONCLUSION: 1. There is a complete arterial occlusion involving the distal right SFA at the level of the adductor canal. 2. Focal moderate stenosis involving the left popliteal artery. There is a good runoff down to the left ankle. Alber Rubio MD Procedures Status post Embolectomy and Fasciotomies 10/31/16 by Doctor Ward Blanchard Other Results Laboratory Tests Test 10/31/16 10/31/16 11/03/16 11/06/16 06:00 14:47 03:54 05:40 Blood Type A POSITIVE Antibody Screen NEGATIVE Crossmatch Leukocyte-Reduced Red Blood Cells Blood Bank Comment Anti-Nuclear Antibody Screen NEG Protein C Activity 78 % Protein S Activity 132 % Anti-Thrombin III Activity 68 Lupus Anticoagulant Lupus Anticoagulant APTT 113.0 seconds Dilute Garcia Viper Venom 38.0 seconds (Lupus) DRVVT Confirmation Interpretation Mix DRVV Patient/Normal 1:1 dRVVT Mix Interpretation Hexagonal Phase Confirmation NEGATIVE Anti-Proteinase 3 (c-ANCA) LESS THAN 1.0 AI Anti-Myeloperoxidase Ab LESS THAN 1.0 (p-ANCA) AI Activated Protein C Resistance 5.2 ratio Coagulation Factor VIII 167 Activity MTHFR C677T Mutation Prothrombin Gene Mutation Factor V Leiden Mutation Negative Factor V Leiden Interpretation . Factor V Leiden Reviewed By SEE BELOW White Blood Count 8.2 TH/MM3 Red Blood Count 3.24 MIL/MM3 Hemoglobin 10.5 GM/DL Hematocrit 31.7 % Mean Corpuscular Volume 97.7 FL Mean Corpuscular Hemoglobin 32.3 PG Mean Corpuscular Hemoglobin 33.0 % Concent Red Cell Distribution Width 14.2 % Platelet Count 139 TH/MM3 Mean Platelet Volume 10.7 FL Objective Remarks GENERAL: No acute distress. SKIN: Warm and dry. HEAD: Atraumatic. Normocephalic. EYES: Pupils equal and round. No scleral icterus. No injection or drainage. ENT: No nasal bleeding or discharge. Mucous membranes pink and moist. NECK: Trachea midline. No JVD. CARDIOVASCULAR: Normal rate, telemetry showing irregular rhythm. RESPIRATORY: No accessory muscle use. Clear to auscultation. Breath sounds equal bilaterally. GASTROINTESTINAL: Abdomen soft, non-tender, nondistended. No guarding. MUSCULOSKELETAL: Extremities without clubbing, cyanosis, Right leg with Vacuum on place working fine. NEUROLOGICAL: Awake and alert. Medications and IVs Current Medications Medications (Trade) Dose Ordered Sig/Santos Route Start Time Stop Time Status Last Admin (NS Flush) 2 ml UNSCH PRN IV FLUSH 10/31/16 05:45 (NS Flush) 2 ml BID IV FLUSH 10/31/16 09:00 11/06/16 08:54 Naloxone HCl 0.4 mg 0.4 mg UNSCH PRN IV 10/31/16 05:45 Potassium Chloride 100 ml @ 50 mls/hr UNSCH PRN IV 10/31/16 11:30 Potassium Phosphate 21 mmol/ Sodium Chloride 257 ml @ 41.7 mls/hr UNSCH PRN IV 10/31/16 11:30 (Magnesium Sulfate 1 Gm Premix) 200 ml @ 100 mls/hr UNSCH PRN IV 10/31/16 11:30 ([place] 5-325 Mg) 1 tab Q4H PRN PO 10/31/16 11:30 11/06/16 01:26 (Roxicodone) 7.5 mg Q4H PRN PO 10/31/16 11:30 11/06/16 08:55 (Morphine Inj) 2 mg Q1H PRN IV 10/31/16 11:30 11/05/16 09:37 (Morphine Inj) 4 mg Q1H PRN IV 10/31/16 11:30 11/05/16 14:15 Metoprolol Tartrate 50 mg 50 mg BID PO 10/31/16 21:00 11/06/16 08:55 (NS 1000 ml Inj) 1,000 ml @ 125 mls/hr Q8H IV 10/31/16 14:00 10/31/16 14:00 (Zofran Inj) 4 mg Q6HR PRN IV PUSH 10/31/16 14:45 (D50w (Vial) Inj) 25 ml UNSCH PRN IV PUSH 10/31/16 14:45 (Glucagon Inj) 1 mg UNSCH PRN OTHER 10/31/16 14:45 (Habitrol 21 Mg Patch.24 Hr) 1 patch DAILY T-DERMAL 11/01/16 09:00 11/07/16 08:59 11/05/16 13:43 Miscellaneous Information 1 HS T-DERMAL 10/31/16 21:00 11/07/16 20:59 11/05/16 21:00 (Xarelto) 15 mg BID PO 11/01/16 10:30 11/06/16 08:55 (Rythmol) 150 mg Q8HR PO 11/03/16 22:00 11/06/16 05:48 A/P Assessment and Plan 1. Acute Arterial Embolism and Thrombosis of the Right lower extremity Aorta with Runoff Showed complete Arterial Occlusion involving the distal Right SFA at the level of the adductor canal, Focal moderate Stenosis involving the left popliteal artery. Status post Embolectomy and Fasciotomies 10/31/16 [address] Doctor Ward Blanchard On Xarealto. status post Vacuum placement. Wound care following. 2. Atrial Fibrillation/Arterial Occlusive disease continue Beta Blockers, initially on Heparin then started on Xarelto Echocardiogram 05/20/16 EF 6065 percent severe LVH, no RWMA, LAE moderately dilated, tricuspid valve trace regurgitation, mitral valve with trace regurgitation. PA peak press 45 mmHg 05/18/16-cardiac catheterization EF 60%, diastolic dysfunction, normal coronary arteries, RCA dominant-mid and distal 40% plaque, left circ-OM1 80% lesion noted business employment specialist signed off the case. Continue Propafenone to maintain NSR. 3. Severe Tobacco dependence strongly recommended to stop smoking, may be associated with his actual pathology, No Nicotine replacement at this time due to Atrial Fibrillation. 4. Alcohol abuse strongly recommended to stop this behavior 5. Hypertension Controlled. DVT prophylaxis on Xarelto. Code Status Full Code. Discussed Condition With Patient in the room and nurse okay to discharge Home on [facility] Discharge Planning Discharge Home on [facility] Hermann Ribeiro MD Nov 06, 2016 13:03
[2016-11-06] MEDS ORDERED: OXYC-392 PO (14:22)
[2016-11-06] MEDS ORDERED: PROP150T PO (14:22)
[2016-11-06] MEDS ORDERED: METO-309 PO (14:22)
[2016-11-06] MEDS ORDERED: XARE15TA PO (14:30)
[2016-11-06] MEDS ORDERED: XARE20TA PO (14:30)
[2016-11-06] MEDS ORDERED: WALKER WHEELS/F1 MIS (14:33)
--- NOTE | 2016-11-06 15:09 | HHI.DS ---
Discharge Summary Admission Date Oct 31, 2016 at 05:41 Discharge Date: Nov 06, 2016 Admitting Diagnosis acute arterial occlusion right leg (1) Arterial embolism and thrombosis of lower extremity ICD Code: I74.3 Diagnosis: Principal (2) Paroxysmal atrial fibrillation ICD Code: I48.0 Diagnosis: Principal (3) Hypertension ICD Code: I10 Diagnosis: Principal Procedures With Diagnosis of Arterial Embolism and Thrombosis of the lower extremity, started on Heparin drip and performed Embolectomy and Fasciotomies, 10/31/16 by Doctor Ward Blanchard. Brief History - From Admission This is a pleasant 46 y/o male with CAD, Severe Tobacco dependence and Alcohol abuse, as per patient he continue Smoking 1 and a half packs of cigarettes daily, recent admission due to Atypical chest pain and Shortness of breath in April last year with diagnosis of STEMI he had recent Cardiac Catheterization by Doctor Pena with no Stents, as we know he has Hypertension on this opportunity came due to Progressive pain and numbness in the right lower extremity below the knee, for the last 24 hours never had similar episodes in the past, He also noted that he cannot wiggle his toes on the right foot. His pain is an 8/10 and a burning sensation. On the calf it is a cramp. I came early to see the patient but he was in Operating room at this time he is in Recovery room and Hall Supervisor will take the case for today and will sign out for tomorrow. performed an Aorta with Runoff Showed complete Arterial Occlusion involving the distal Right SFA at the level of the adductor canal, Focal moderate Stenosis involving the left popliteal artery. had Atrial Fibrillation on presentation from Emergency medicine, With Diagnosis of Arterial Embolism and Thrombosis of the lower extremity, started on Heparin drip and performed Embolectomy and Fasciotomies, 10/31/16 by Doctor Ward Blanchard. CBC/BMP: 11/06/16 0540 Significant Findings Laboratory Tests Test 11/06/16 05:40 Red Blood Count 3.24 MIL/MM3 (4.50-5.90) Hemoglobin 10.5 GM/DL (13.0-17.0) Hematocrit 31.7 % (39.0-51.0) Platelet Count 139 TH/MM3 (150-450) Imaging Last Impressions Aorta w/Runoff CTA 10/31/16 0000 Signed Impressions: Service Date/Time: Monday, October 31, 2016 05:00 - CONCLUSION: 1. There is a complete arterial occlusion involving the distal right SFA at the level of the adductor canal. 2. Focal moderate stenosis involving the left popliteal artery. There is a good runoff down to the left ankle. Alber Rubio MD PE at Discharge GENERAL: No acute distress. SKIN: Warm and dry. HEAD: Atraumatic. Normocephalic. EYES: Pupils equal and round. No scleral icterus. No injection or drainage. ENT: No nasal bleeding or discharge. Mucous membranes pink and moist. NECK: Trachea midline. No JVD. CARDIOVASCULAR: Normal rate, telemetry showing irregular rhythm. RESPIRATORY: No accessory muscle use. Clear to auscultation. Breath sounds equal bilaterally. GASTROINTESTINAL: Abdomen soft, non-tender, nondistended. No guarding. MUSCULOSKELETAL: Extremities without clubbing, cyanosis, Right leg with Vacuum on place working fine. NEUROLOGICAL: Awake and alert. Hospital Course This is a pleasant 46 y/o male with CAD, Severe Tobacco dependence and Alcohol abuse, as per patient he continue Smoking 1 and a half packs of cigarettes daily, recent admission due to Atypical chest pain and Shortness of breath in April last year with diagnosis of STEMI he had recent Cardiac Catheterization by Doctor Pena with no Stents, as we know he has Hypertension on this opportunity came due to Progressive pain and numbness in the right lower extremity below the knee, for the last 24 hours never had similar episodes in the past, He also noted that he cannot wiggle his toes on the right foot. His pain is an 8/10 and a burning sensation. On the calf it is a cramp. I came early to see the patient but he was in Operating room at this time he is in Recovery room and Hall Supervisor will take the case for today and will sign out for tomorrow. performed an Aorta with Runoff Showed complete Arterial Occlusion involving the distal Right SFA at the level of the adductor canal, Focal moderate Stenosis involving the left popliteal artery. had Atrial Fibrillation on presentation from Emergency medicine, With Diagnosis of Arterial Embolism and Thrombosis of the lower extremity, started on Heparin drip and performed Embolectomy and Fasciotomies, 10/31/16 by Doctor Ward Blanchard. Hall Supervisor notes: 11/01: The patient states he's regaining full movement of right foot however he still is experiencing paresthesias. Pulses strong and palpable. Fasciotomy site draining. Patient continues on heparin cardiology has been consulted regarding the atrial fibrillation that is rate controlled. Hospitalist Notes: 11/02: seen in his bedroom in the presence of nurse Miss Sierra, no nausea, vomit or diarrhea, as per Vascular um specialist probable Vacuum in am tomorrow. 11/03: Back to Sinus rhythm, occasional Wenckebach phenomena, as per clinical application specialist, recommended to continue Metoprolol and Xarelto, wound Vac today. Seen in the presence of his Father and Mother. 11/04: continue in sinus rhythm, seen by clinical application specialist signed off the case, Vacuum placed on his right leg and will continue wound care in house probably will be changed the Vacuum and discharge home awaiting final by Surgery. 11/05: Seen in his bedroom, Vacuum working fine. 11/06: Patient in his bedroom, No Nausea, vomit or diarrhea, normal sinus rhythm , as per Vascular um specialist okay to discharge home on [facility], continue Vacuum with changes M,W and F, arrangements performed by Field Agent probable will be discharged later today, Face to Face performed by Vascular surgery, Medication Reconciliation performed and scripts given to Warehouse Picker on the floor, discussed with patient. Assessment and Plan 1. Acute Arterial Embolism and Thrombosis of the Right lower extremity Aorta with Runoff Showed complete Arterial Occlusion involving the distal Right SFA at the level of the adductor canal, Focal moderate Stenosis involving the left popliteal artery. Status post Embolectomy and Fasciotomies 10/31/16 by Doctor Ward Blanchard On [facility]. status post Vacuum placement. Wound care following. 2. Atrial Fibrillation/Arterial Occlusive disease continue Beta Blockers, initially on Heparin then started on Xarelto Echocardiogram 05/20/16 EF 6065 percent severe LVH, no RWMA, LAE moderately dilated, tricuspid valve trace regurgitation, mitral valve with trace regurgitation. PA peak press 45 mmHg 05/18/16-cardiac catheterization EF 60%, diastolic dysfunction, normal coronary arteries, RCA dominant-mid and distal 40% plaque, left circ-OM1 80% lesion noted clinical application specialist signed off the case. Continue Propafenone to maintain NSR. 3. Severe Tobacco dependence strongly recommended to stop smoking, may be associated with his actual pathology, No Nicotine replacement at this time due to Atrial Fibrillation. 4. Alcohol abuse strongly recommended to stop this behavior 5. Hypertension Controlled. DVT prophylaxis on Xarelto. Code Status Full Code. Discussed Condition With Patient in the room and nurse okay to discharge Home on [facility] Discharge Planning Discharge Home on [facility] Pt Condition on Discharge: Good Discharge Disposition: Disch w/ Home Health Serv Discharge Time: > 30 minutes Discharge Instructions DIET: Follow Instructions for: Heart Healthy Diet Activities you can perform: Regular-No Restrictions Hermann Ribeiro MD Nov 06, 2016 15:09
[2016-11-06] MEDS: REMOVE OLD NICODERM (NICOTINE) PATCH T-DERMAL SCH (19:58)
[2016-11-07] VITALS (17 sets, daily range): BP systolic 114–132; BP diastolic 73–81; PULSE 60–72; RESP 18–20; TEMP 97.6–98.8; O2SAT 96–97
[2016-11-07 03:51] LABS: BETA2 GLYCOPROTEIN I AB IGA LESS THAN 9.0 SAU (< OR = 20)
[2016-11-07] MEDS: SODIUM CHLOR 0.9% 1000 ML INJ 1,000 ML IV SCH (05:35)
[2016-11-07] MEDS: PROPAFENONE HCL 150 MG TAB PO SCH (05:36)
[2016-11-07] MEDS: INSULIN NovoLIN REGULAR SUPPLEMENTAL SCALE SQ SCH ×2 (06:04→11:00)
[2016-11-07] MEDS: RIVAROXABAN 15 MG TAB PO SCH (08:51)
[2016-11-07] MEDS: METOPROLOL TARTRATE 50 MG TAB PO SCH (08:52)
[2016-11-07] MEDS: SODIUM CHLORIDE 0.9% FLUSH 10 ML FLUSH IV FLUSH SCH (08:53)
[2016-11-07] MEDS: MORPHINE SULFATE 4 MG/ML INJ IV PRN (09:30)
[2016-11-07 19:50] LABS: PHOSPHATIDYLSERINE AB IGA LESS THAN 20.0 U/mL (()); PHOSPHATIDYLSERINE AB IGM LESS THAN 25.0 U/mL (())
== END 2016-11-07 13:16 | disposition home health service (06) | DRG 272 ==
LOC: PHED 03:50 → PHEDA 05:41 → HPAC 07:40 → HCVR 15:34 → HCIN 11-01 16:01
PROVIDERS: ADMIT Internal Medicine; ATTEND Internal Medicine
PROC: 04CR3ZZ Extirpation of Matter from Right Posterior Tibial Artery, Percutaneous Approach (ICD-10-PCS; 2016-10-31)
PROC: 0J8N0ZZ Division of Right Lower Leg Subcutaneous Tissue and Fascia, Open Approach (ICD-10-PCS; 2016-10-31)
PROC: 04CK3ZZ Extirpation of Matter from Right Femoral Artery, Percutaneous Approach (ICD-10-PCS; principal; 2016-10-31 07:42)
DX: I74.3 Embolism and thrombosis of arteries of the lower extremities (principal); I08.1 Rheumatic disorders of both mitral and tricuspid valves; I10 Essential (primary) hypertension; I48.0 Paroxysmal atrial fibrillation; F17.210 Nicotine dependence, cigarettes, uncomplicated; F10.10 Alcohol abuse, uncomplicated; I25.10 Atherosclerotic heart disease of native coronary artery without angina pectoris; I25.2 Old myocardial infarction; R20.0 Anesthesia of skin; Z91.19 Patient's noncompliance with other medical treatment and regimen; Z79.899 Other long term (current) drug therapy; R11.0 Nausea; Z88.0 Allergy status to penicillin; R00.0 Tachycardia, unspecified
CPT/HCPCS: 75635; 76937; 80048; 80053; 81240; 81241; 81291; 82948; 83735; 84100; 85014; 85018; 85025; 85027; 85240; 85300; 85303; 85306; 85307; 85598; 85610; 85613; 85730; 86021; 86038; 86140; 86147; 86148; 86850; 86900; 86901; 86920; 88304; 88307; 88311; 93005; 93306; 94150; 96361; 96374; 96375; C1757; J0131; J1100; J1170; J1644; J2250; J2270; J2370; J2405; J2710; J3010; J3370; J7030; J7050; J7120; J7512; Q9967

== ENCOUNTER 2016-11-19 13:07 | Inpatient (IN) | payer BC ==
[~2016-11-19] VITALS: Ht 185.4 cm; Wt 108.0 kg
[~2016-11-19 13:07] MED LIST changes: -BENZ100 PO; -LISI-519 PO; -NICO21DI2 T-DERMAL; +OXYC-392 PO; +PROP150T PO; -TYLELIQ PO; -VENTAER2 INH; +WALKER WHEELS/F1 MIS; +XARE15TA PO; +XARE20TA PO; -ZITHTAB PO
[2016-11-19 13:30] VITALS: BP 127/71; PULSE 65; RESP 20; TEMP 97.6; O2SAT 92
[2016-11-19] MEDS ORDERED: SODIUM CHLORIDE 0.9% FLUSH 10 ML FLUSH IV FLUSH PRN (13:45)
[2016-11-19] MEDS ORDERED: ACETAMINOPHEN 325 MG TAB PO PRN (13:45)
[2016-11-19] MEDS ORDERED: NALOXONE HCL 0.4 MG/ML AMP IV PRN (13:45)
[2016-11-19] MEDS ORDERED: ONDANSETRON HCL 4 MG/2 ML VIAL IVP PRN (13:45)
[2016-11-19] MEDS ORDERED: PILL SPLITTER OTHER PRN (13:45)
[2016-11-19] MEDS ORDERED: BISACODYL 10 MG SUPP RECTAL PRN (13:45)
--- NOTE | 2016-11-19 13:49 | HHI.HP ---
[facility]ician No Primary Care Physician Admission Diagnosis Diagnoses: Chief Complaint: Direct admit as per Doctor Ward Blanchard Travel History International Travel<30 Days: No Contact w/Intl Traveler <30 Da: No Traveled to Known Affected Are: No History of Present Illness This is a pleasant 46 y/o Male who was admitted on October 31 and Discharged on November 06 with Diagnosis of Acute arterial Occlusion of the Right Leg, Well known to me I was Attending physician on last admission and discharged him, he has Atrial Fibrillation, Hypertension, with Thrombosis of the Right lower extremity was started on Heparin drip and Performed Embolectomy and Fasciotomies 10/31/16. Notes from last admission: This is a pleasant 46 y/o male with CAD, Severe Tobacco dependence and Alcohol abuse, as per patient he continue Smoking 1 and a half packs of cigarettes daily, recent admission due to Atypical chest pain and Shortness of breath in April last year with diagnosis of STEMI he had recent Cardiac Catheterization by Doctor Pena with no Stents, as we know he has Hypertension on this opportunity came due to Progressive pain and numbness in the right lower extremity below the knee, not able to wiggle his toes on the right foot. Pain and burning sensation. On the calf it is a cramp. I came early to see the patient but he was in was transferred to Intensive Care unit, then transferred to Hospitalist team, performed an Aorta with Runoff Showed complete Arterial Occlusion involving the distal Right SFA at the level of the adductor canal, Focal moderate Stenosis involving the left popliteal artery. had Atrial Fibrillation on presentation from Emergency medicine, With Diagnosis of Arterial Embolism and Thrombosis of the lower extremity, started on Heparin drip and performed Embolectomy and Fasciotomies, 10/31/16 by Doctor Ward Blanchard. Last Hemoglobin 10.5 on discharge, had Vacuum placement and discharged home on Xarelto, he was in sinus rhythm on Discharge home on [facility]. Today I was called by Doctor Blanchard's Nurse Miss Mosley on Follow up today seen with Cellulitis of the right leg asked for admission place him Nothing by mouth tonight and he will have I and D tomorrow, start IV antibiotics, Vancomycin and Zosyn, Wound care follow specialist recommendations. Past Family Social History Past Medical History Hypertension CAD atrial Fibrillation Past Surgical History Tonsillectomy PCI and no stents. Reported Medications Reported Meds & Active Scripts Active Walker with Front Wheels (Device) 1 Mis Mis 1 Ea .ROUTE DIRECTED Xarelto (Rivaroxaban) 20 Mg Tab 20 Mg PO DAILY Xarelto (Rivaroxaban) 15 Mg Tab 15 Mg PO BID TAKE ONE TABLET EVERY 12 HOURS UNTIL 10/23/16 THEN START TAKING ONE TABLET OF XARELTO(RIVAROXABAN) 20 MG DAILY FOR LIFE. Propafenone (Propafenone HCl) 150 Mg Tab 150 Mg PO Q8HR Oxycodone (Oxycodone HCl) 5 Mg Tab 7.5 Mg PO Q4H PRN DO NOT TAKE THIS MEDICINE IF YOU WILL DRIVE A CAR OR USE A MACHINE ONLY TAKE IT WHEN RESTING AT HOME. Lopressor (Metoprolol Tartrate) 50 Mg Tab 50 Mg PO BID Allergies: Coded Allergies: No Known Allergies (Unverified , 10/31/16) Active Ordered Medications Current Medications Medications (Trade) Dose Ordered Sig/Santos Route Start Time Stop Time Status Last Admin (Lopressor) 50 mg BID PO 11/19/16 21:00 (Roxicodone) 7.5 mg Q4H PRN PO 11/19/16 14:00 (Rythmol) 150 mg Q8HR PO 11/19/16 14:00 Miscellaneous 1 ea 1 ea UNSCH PRN OTHER 11/19/16 13:45 (NS 1000 ml Inj) 1,000 ml @ 100 mls/hr Q10H IV 11/19/16 14:00 (NS Flush) 2 ml UNSCH PRN IV FLUSH 11/19/16 13:45 (NS Flush) 2 ml BID IV FLUSH 11/19/16 21:00 (Tylenol) 650 mg Q4H PRN PO 11/19/16 13:45 (Zofran Inj) 4 mg Q6H PRN IVP 11/19/16 13:45 (Dulcolax Supp) 10 mg DAILY PRN RECTAL 11/19/16 13:45 (Colace) 100 mg Q12HR PO 11/19/16 14:15 (Narcan Inj) 0.4 mg UNSCH PRN IV 11/19/16 13:45 (Morphine Inj) 2 mg Q3H PRN IV PUSH 11/19/16 14:00 (Heparin Inj) 5,000 units UNSCH PRN IV 11/19/16 20:00 Heparin Sodium (Porcine) 2500 units 2,500 units UNSCH PRN IV 11/19/16 20:00 Heparin Sodium/ Dextrose 250 ml @ 0 mls/hr TITRATE IV 11/19/16 14:15 Vancomycin HCl 1500 mg/Sodium Chloride 515 ml @ 257.5 mls/ hr Q12H IV 11/19/16 16:00 (Vancomycin Consult Pharmacy) 0 ml @ 0 mls/hr UNSCH OTHER 11/19/16 14:15 Miscellaneous Information SPECIFIC LAB TO BE DRAWN:VANCOMYCIN TROUGH DATE TO... ONCE ONCE .XX 11/21/16 03:45 11/21/16 03:46 (Zosyn 3.375 Gm Premix) 50 ml @ 100 mls/hr Q6H IV 11/19/16 14:45 UNV Family History Father and Sister with Hypertension Mother with Breast Cancer. Social History Tobacco dependence Alcohol abuse Physical Exam Physical Exam GENERAL: Alert and oriented, no distress. SKIN: Focused skin assessment warm/dry. The skin is cool and pale below the knee. HEAD: Atraumatic. Normocephalic. EYES: Pupils equal and round. No scleral icterus. No injection or drainage. ENT: No nasal bleeding or discharge. Mucous membranes pink and moist. NECK: Trachea midline. No JVD. CARDIOVASCULAR: Regular rate and rhythm. No murmur appreciated. RESPIRATORY: No accessory muscle use. Clear to auscultation. Breath sounds equal bilaterally. GASTROINTESTINAL: Abdomen soft, non-tender, nondistended. Hepatic and splenic margins not palpable. MUSCULOSKELETAL: Right leg dressed. NEUROLOGICAL: Awake and alert. No focal deficits. PSYCHIATRIC: Appropriate mood and affect; insight and judgment normal. Imaging No Imaging studies performed. Assessment and Plan Assessment and Plan 1. Acute Arterial Embolism and Thrombosis of the Right lower extremity Aorta with Runoff Showed complete Arterial Occlusion involving the distal Right SFA at the level of the adductor canal, Focal moderate Stenosis involving the left popliteal artery. Status post Embolectomy and Fasciotomies 10/31/16 by Doctor Ward Blanchard On [facility]. status post Vacuum placement. Wound care following. Readmission due to probable abscess, Vancomycin, Zosyn, wound care, NPO at midnight Vascular human resources support specialist will perform I and D tomorrow. blood culture and follow wound culture after procedure tomorrow. 2. Atrial Fibrillation/Arterial Occlusive disease continue Beta Blockers, initially on Heparin then started on Xarelto Echocardiogram 05/20/16 EF 6065 percent severe LVH, no RWMA, LAE moderately dilated, tricuspid valve trace regurgitation, mitral valve with trace regurgitation. PA peak press 45 mmHg 05/18/16-cardiac catheterization EF 60%, diastolic dysfunction, normal coronary arteries, RCA dominant-mid and distal 40% plaque, left circ-OM1 80% lesion noted Continue Propafenone to maintain NSR. 3. Severe Tobacco dependence strongly recommended to stop smoking, may be associated with his actual pathology, as per patient not smoking anymore. 4. Alcohol abuse strongly recommended to stop this behavior, continue drinking wine but one glass socially. 5. Hypertension Controlled. DVT prophylaxis Heparin drip Code Status Full Code. Discussed Condition With Patient in the room and nurse Code Status Full Code. Discussed Condition With Physician Certification 2 Midnight Certification Type: Admission for Inpatient Services Order for Inpatient Services The services are ordered in accordance with Medicare regulations or non- Medicare payer requirements, as applicable. In the case of services not specified as inpatient-only, they are appropriately provided as inpatient services in accordance with the 2-midnight benchmark. Estimated LOS (days): 3 days is the estimated time the patient will need to remain in the hospital, assuming treatment plan goals are met and no additional complications. Post-Hospital Plan: Home Health Hermann Ribeiro MD November 19, 2016 13:49
[2016-11-19] MEDS ORDERED: SODIUM CHLOR 0.9% 1000 ML INJ 1,000 ML IV SCH (14:00)
[2016-11-19] MEDS ORDERED: ACETAMINOPHEN/HYDROcodone 325 MG/7.5 MG TAB PO PRN (14:00)
[2016-11-19] MEDS ORDERED: HEPARIN SODIUM - IV 10,000 UNITS/10 ML VIAL IV ONE (14:15)
[2016-11-19] MEDS ORDERED: Vancomycin Consult Pharmacy 1 EA OTHER SCH (14:15)
[2016-11-19] MEDS: DOCUSATE SODIUM 100 MG CAP PO SCH ×2 (14:15→21:22)
[2016-11-19] MEDS: PROPAFENONE HCL 150 MG TAB PO SCH ×2 (14:39→21:22)
[2016-11-19] MEDS ORDERED: GABA300C5 PO (14:44)
--- NOTE | 2016-11-19 15:03 | PD.VS.CON ---
History of Present Illness Chief Complaint: hx of right lower extremity embolectomy and four compartment fasciotomy with foul smelling odor and drainage from medial fasciotomy site. Consult Requested by: History of Present Illness Pleasant 46 year old male with hx of right lower extremity embolectomy and 4 compartment fasciotomy with infected abscess right lower extremity. Will make NPO after midnight for I&D with irrigation in AM. Start IV antibiotics and hold xarelto. Ward Blanchard DO, FACS Bid Analyst of Vascular Surgery /[place]. Past/Family/Social History Home Medications Active Scripts Walker with Front Wheels 1 Mis Mis #1 EA .ROUTE DIRECTED Ref 0 Prov:Hermann Ribeiro MD 11/06/16 Rivaroxaban (Xarelto)20 Mg Tab20 Mg PO DAILY #30 TAB Ref 0 Prov:Hermann Ribeiro MD 11/06/16 Rivaroxaban (Xarelto)15 Mg Tab15 Mg PO BID #32 TAB Ref 0 TAKE ONE TABLET EVERY 12 HOURS UNTIL 10/23/16 THEN START TAKING ONE TABLET OF XARELTO(RIVAROXABAN) 20 MG DAILY FOR LIFE. Prov:Hermann Ribeiro MD 11/06/16 Propafenone 150 Mg [id number] Mg PO Q8HR #90 TAB Ref 0 Prov:Hermann Ribeiro MD 11/06/16 Oxycodone 5 Mg Tab7.5 Mg PO Q4H PRN (PAIN SCALE 4 TO 10) #20 TAB Ref 0 DO NOT TAKE THIS MEDICINE IF YOU WILL DRIVE A CAR OR USE A MACHINE ONLY TAKE IT WHEN RESTING AT HOME. Prov:Hermann Ribeiro MD 11/06/16 Metoprolol Tartrate (Lopressor)50 Mg Tab50 Mg PO BID #60 TAB Ref 0 Prov:Hermann Ribeiro MD 11/06/16 Reported Medications Gabapentin 300 Mg [id number] Mg PO TID #90 CAP Ref 0 11/19/16 Coded Allergies: No Known Allergies (Unverified , 10/31/16) Ward Blanchard DO November 19, 2016 15:03
[2016-11-19 15:22] LABS: AUTOMATED NEUTROPHIL # 5.3 TH/MM3 (1.8-7.7); BASOPHIL # 0.1 TH/MM3 (0-0.2); BASOPHIL % 0.7 % (0.0-2.0); EOSINOPHIL # 0.4 TH/MM3 (0-0.4); EOSINOPHIL % 4.3 % (0.0-4.0); HEMATOCRIT 30.9 % (39.0-51.0); HEMO FLAGS DIFF FINAL; LYMPH % 28.4 % (9.0-44.0); LYMPHOCYTE # 2.6 TH/MM3 (1.0-4.8); MEAN CELL VOLUME 92.5 FL (80.0-100.0); MEAN CORPUSCULAR HGB CONC 33.5 % (32.0-36.0); MONO % 9.6 % (0.0-8.0); PLATELET COUNT 317 TH/MM3 (150-450); RED BLOOD COUNT 3.34 MIL/MM3 (4.50-5.90); RED CELL DISTRIBUTION WIDTH 15.9 % (11.6-17.2); WHITE BLOOD COUNT 9.2 TH/MM3 (4.0-11.0)
[2016-11-19 15:33] LABS: APTT (PATIENT) 30.5 SEC (24.3-30.1); INTERNATIONAL NORMALIZED RATIO 1.2 RATIO; PROTHROMBIN TIME - PATIENT 13.4 SEC (9.8-11.6)
[2016-11-19 15:59] LABS: ALT (GPT) 23 U/L (12-78); ANION GAP 5 MEQ/L (5-15); AST (GOT) 14 U/L (15-37); BICARBONATE 28.6 MEQ/L (21.0-32.0); BLOOD UREA NITROGEN 16 MG/DL (7-18); CHLORIDE 103 MEQ/L (98-107); GLOMERULAR FILTRATION RATE 77 ML/MIN (>89); POTASSIUM 4.5 MEQ/L (3.5-5.1); SODIUM (NA) 137 MEQ/L (136-145)
[2016-11-19 16:01] LABS: ALKALINE PHOSPHATASE 65 U/L (45-117); TOTAL BILIRUBIN ADULT 0.3 MG/DL (0.2-1.0)
[2016-11-19] MEDS: PIPERACIL-TAZO 3.375 GM PREMIX 50 ML IV SCH ×2 (17:50→21:22)
[2016-11-19] MEDS: HEPARIN-D5W INJ 250 ML IV SCH (18:00)
[2016-11-19] MEDS: VANCOMYCIN INJ 1,500 MG in SODIUM CHLORID 0.9% 500 ML INJ 500 ML IV SCH (18:30)
[2016-11-19 20:00] VITALS: BP 143/72; PULSE 59; PULSE 80; RESP 18; TEMP 97.2; O2SAT 97
[2016-11-19] MEDS ORDERED: HEPARIN SODIUM - IV 10,000 UNITS/10 ML VIAL IV PRN (20:00)
[2016-11-19] MEDS: SODIUM CHLORIDE 0.9% FLUSH 10 ML FLUSH IV FLUSH SCH (21:22)
[2016-11-19] MEDS: METOPROLOL TARTRATE 50 MG TAB PO SCH (21:22)
[2016-11-19] MEDS: MORPHINE SULFATE 4 MG/ML INJ IV PUSH PRN (21:38)
[2016-11-19] MEDS ORDERED: DEXT 5%-NACL 0.45% 1000 ML INJ 1,000 ML IV SCH (23:00)
[2016-11-20] VITALS (8 sets, daily range): BP systolic 111–123; BP diastolic 60–70; PULSE 62–68; RESP 18–20; TEMP 97–99.5; O2SAT 94–98
[2016-11-20] MEDS: MORPHINE SULFATE 4 MG/ML INJ IV PUSH PRN ×3 (04:34→19:57)
[2016-11-20] MEDS: PIPERACIL-TAZO 3.375 GM PREMIX 50 ML IV SCH ×5 (04:35→22:01)
[2016-11-20] MEDS: VANCOMYCIN INJ 1,500 MG in SODIUM CHLORID 0.9% 500 ML INJ 500 ML IV SCH ×2 (04:35→16:25)
[2016-11-20] MEDS: PROPAFENONE HCL 150 MG TAB PO SCH ×3 (04:42→22:01)
--- NOTE | 2016-11-20 08:05 | HHI.PR ---
Subjective Remarks This is a pleasant 46 y/o Male who was admitted on October 31 and Discharged on November 06 with Diagnosis of Acute arterial Occlusion of the Right Leg, Well known to me I was Attending physician on last admission and discharged him, he has Atrial Fibrillation, Hypertension, with Thrombosis of the Right lower extremity was started on Heparin drip and Performed Embolectomy and Fasciotomies 10/31/16. Notes from last admission: This is a pleasant 46 y/o male with CAD, Severe Tobacco dependence and Alcohol abuse, as per patient he continue Smoking 1 and a half packs of cigarettes daily, recent admission due to Atypical chest pain and Shortness of breath in April last year with diagnosis of STEMI he had recent Cardiac Catheterization by Doctor Pena with no Stents, as we know he has Hypertension on this opportunity came due to Progressive pain and numbness in the right lower extremity below the knee, not able to wiggle his toes on the right foot. Pain and burning sensation. On the calf it is a cramp. I came early to see the patient but he was in was transferred to Intensive Care unit, then transferred to Hospitalist team, performed an Aorta with Runoff Showed complete Arterial Occlusion involving the distal Right SFA at the level of the adductor canal, Focal moderate Stenosis involving the left popliteal artery. had Atrial Fibrillation on presentation from Emergency medicine, With Diagnosis of Arterial Embolism and Thrombosis of the lower extremity, started on Heparin drip and performed Embolectomy and Fasciotomies, 10/31/16 by Doctor Ward Blanchard. Last Hemoglobin 10.5 on discharge, had Vacuum placement and discharged home on Xarelto, he was in sinus rhythm on Discharge home on HHC. 11/19: Readmission Today I was called by Doctor Blanchard's Nurse Miss Mosley on Follow up today seen with Cellulitis of the right leg asked for admission place him Nothing by mouth tonight and he will have I and D tomorrow, start IV antibiotics, Vancomycin and Zosyn, Wound care follow specialist recommendations. 11/20: Stable seen in the room, will have I and D later today, discussed yesterday afternoon with education program specialist, discussed with patient who wants a Nicotine patch he states he is not been smoking for the last three weeks, his father and Mother in the room no nausea, vomit or diarrhea. Objective Vital Signs Date Time Temp Pulse Resp B/P Pulse Ox O2 Delivery O2 Flow Rate FiO2 11/20/16 04:38 98.3 68 18 118/66 94 11/20/16 00:00 99.5 68 18 118/60 96 11/19/16 22:07 21 11/19/16 21:00 Room Air 11/19/16 20:00 59 11/19/16 20:00 97.2 80 18 143/72 97 11/19/16 13:30 97.6 65 20 127/71 92 I/O 11/19/16 11/19/16 11/19/16 11/20/16 11/20/16 11/20/16 07:00 15:00 23:00 07:00 15:00 23:00 Intake Total 979 ml 989 ml Output Total 500 ml 800 ml Balance 479 ml 189 ml Intake Oral 380 ml 360 ml IV Total 599 ml 629 ml Output Urine Total 500 ml 800 ml Result Diagram: 11/19/16 1506 11/20/16 0605 Imaging No new imaging studies. Procedures No procedures performed. Other Results Laboratory Tests Test 11/19/16 11/20/16 15:06 06:05 White Blood Count 9.2 TH/MM3 Red Blood Count 3.34 MIL/MM3 Hemoglobin 10.4 GM/DL Hematocrit 30.9 % Mean Corpuscular Volume 92.5 FL Mean Corpuscular Hemoglobin 31.0 PG Mean Corpuscular Hemoglobin 33.5 % Concent Red Cell Distribution Width 15.9 % Platelet Count 317 TH/MM3 Mean Platelet Volume 9.5 FL Neutrophils (%) (Auto) 57.0 % Lymphocytes (%) (Auto) 28.4 % Monocytes (%) (Auto) 9.6 % Eosinophils (%) (Auto) 4.3 % Basophils (%) (Auto) 0.7 % Neutrophils # (Auto) 5.3 TH/MM3 Lymphocytes # (Auto) 2.6 TH/MM3 Monocytes # (Auto) 0.9 TH/MM3 Eosinophils # (Auto) 0.4 TH/MM3 Basophils # (Auto) 0.1 TH/MM3 CBC Comment DIFF FINAL Differential Comment Prothrombin Time 13.4 SEC Prothromb Time International 1.2 RATIO Ratio Sodium Level 137 MEQ/L Potassium Level 4.5 MEQ/L Chloride Level 103 MEQ/L Carbon Dioxide Level 28.6 MEQ/L Anion Gap 5 MEQ/L Blood Urea Nitrogen 16 MG/DL Random Glucose 91 MG/DL Calcium Level 8.8 MG/DL Total Bilirubin 0.3 MG/DL Aspartate Amino Transf 14 U/L (AST/SGOT) Alanine Aminotransferase 23 U/L (ALT/SGPT) Alkaline Phosphatase 65 U/L Total Protein 6.5 GM/DL Albumin 2.9 GM/DL Activated Partial 42.0 SEC Thromboplast Time Creatinine 1.11 MG/DL Estimat Glomerular Filtration 71 ML/MIN Rate Objective Remarks GENERAL: Alert and oriented, no distress. SKIN: Focused skin assessment warm/dry. The skin is cool and pale below the knee. HEAD: Atraumatic. Normocephalic. EYES: Pupils equal and round. No scleral icterus. No injection or drainage. ENT: No nasal bleeding or discharge. Mucous membranes pink and moist. NECK: Trachea midline. No JVD. CARDIOVASCULAR: Regular rate and rhythm. No murmur appreciated. RESPIRATORY: No accessory muscle use. Clear to auscultation. Breath sounds equal bilaterally. GASTROINTESTINAL: Abdomen soft, non-tender, nondistended. Hepatic and splenic margins not palpable. MUSCULOSKELETAL: Right leg dressed. NEUROLOGICAL: Awake and alert. No focal deficits. PSYCHIATRIC: Appropriate mood and affect; insight and judgment normal. Medications and IVs Current Medications Medications (Trade) Dose Ordered Sig/Santos Route Start Time Stop Time Status Last Admin (Lopressor) 50 mg BID PO 11/19/16 21:00 11/19/16 21:22 (Roxicodone) 7.5 mg Q4H PRN PO 11/19/16 14:00 11/20/16 06:19 (Rythmol) 150 mg Q8HR PO 11/19/16 14:00 11/20/16 04:42 (Pill Splitter) 1 ea UNSCH PRN OTHER 11/19/16 13:45 (NS Flush) 2 ml UNSCH PRN IV FLUSH 11/19/16 13:45 (NS Flush) 2 ml BID IV FLUSH 11/19/16 21:00 11/19/16 21:22 (Tylenol) 650 mg Q4H PRN PO 11/19/16 13:45 (Zofran Inj) 4 mg Q6H PRN IVP 11/19/16 13:45 (Dulcolax Supp) 10 mg DAILY PRN RECTAL 11/19/16 13:45 (Colace) 100 mg Q12HR PO 11/19/16 14:15 11/19/16 21:22 (Narcan Inj) 0.4 mg UNSCH PRN IV 11/19/16 13:45 (Morphine Inj) 2 mg Q3H PRN IV PUSH 11/19/16 14:00 11/20/16 04:34 (Heparin Inj) 5,000 units UNSCH PRN IV 11/19/16 20:00 Heparin Sodium (Porcine) 2500 units 2,500 units UNSCH PRN IV 11/19/16 20:00 Heparin Sodium/ Dextrose 250 ml @ 0 mls/hr TITRATE IV 11/19/16 14:15 11/19/16 18:00 Vancomycin HCl 1500 mg/Sodium Chloride 515 ml @ 257.5 mls/ hr Q12H IV 11/19/16 16:00 11/20/16 04:35 (Vancomycin Consult Pharmacy) 0 ml @ 0 mls/hr UNSCH OTHER 11/19/16 14:15 Miscellaneous Information SPECIFIC LAB TO BE DRAWN:VANCOMYCIN TROUGH DATE TO... ONCE ONCE .XX 11/21/16 03:45 11/21/16 03:46 Piperacillin Sod/ Tazobactam Sod 50 ml @ 100 mls/hr Q6H IV 11/19/16 16:00 11/20/16 04:35 (D5W-1/2 NS 1000 ml Inj) 1,000 ml @ 42 mls/hr [id number] IV 11/19/16 23:00 11/19/16 22:22 A/P Assessment and Plan 1. Acute Arterial Embolism and Thrombosis of the Right lower extremity Aorta with Runoff Showed complete Arterial Occlusion involving the distal Right SFA at the level of the adductor canal, Focal moderate Stenosis involving the left popliteal artery. Status post Embolectomy and Fasciotomies 10/31/16 [address] Doctor Ward Blanchard On Xarealto. status post Vacuum placement. Wound care following. Readmission due to probable abscess, Vancomycin, Zosyn, wound care, NPO at midnight Vascular machine specialist will perform I and D tomorrow. blood culture and follow wound culture after procedure tomorrow. 2. Atrial Fibrillation/Arterial Occlusive disease continue Beta Blockers, initially on Heparin then started on Xarelto Echocardiogram 05/20/16 EF 6065 percent severe LVH, no RWMA, LAE moderately dilated, tricuspid valve trace regurgitation, mitral valve with trace regurgitation. PA peak press 45 mmHg 05/18/16-cardiac catheterization EF 60%, diastolic dysfunction, normal coronary arteries, RCA dominant-mid and distal 40% plaque, left circ-OM1 80% lesion noted Continue Propafenone to maintain NSR. 3. Severe Tobacco dependence strongly recommended to stop smoking, may be associated with his actual pathology, as per patient not smoking for the last three weeks asked for Nicotine patch placed. 4. Alcohol abuse strongly recommended to stop this behavior, continue drinking wine but one glass socially. 5. Hypertension Controlled. DVT prophylaxis Heparin drip Code Status Full Code. Discussed Condition With Patient in the room and nurse Miss Zurita and with His Father and Mother in the room, all questions answered to the best of my abilities. Code Status Full Code. Special attention to the Surgical Team to hold Heparin before procedure. recommended to hold heparin at 1100 hours today Discharge Planning Once Cleared by Specialist. Hermann Ribeiro MD November 20, 2016 08:05
[2016-11-20] MEDS: SODIUM CHLORIDE 0.9% FLUSH 10 ML FLUSH IV FLUSH SCH ×2 (08:23→19:57)
[2016-11-20] MEDS: METOPROLOL TARTRATE 50 MG TAB PO SCH ×2 (09:07→19:59)
[2016-11-20] MEDS: DOCUSATE SODIUM 100 MG CAP PO SCH ×2 (09:07→19:56)
[2016-11-20] MEDS: NICOTINE 14 MG/24 HR PATCH T-DERMAL SCH (10:30)
[2016-11-20] MEDS ORDERED: ONDANSETRON HCL 4 MG/2 ML VIAL IV PUSH ONE (12:00)
[2016-11-20] MEDS ORDERED: PHENYLEPH/NS 1000 MCG/10 ML SYR IV ONE (12:00)
[2016-11-20] MEDS ORDERED: PROPOFOL 200 MG/20 ML AMP IV ONE (12:00)
[2016-11-20] MEDS ORDERED: ePHEDrine/NS 25 MG/5 ML SYR IV ONE (12:00)
[2016-11-20] MEDS ORDERED: LACTATED RINGER'S 1000 ML INJ 1,000 ML IV ONE (12:00)
[2016-11-20] MEDS ORDERED: MIDAZOLAM HCL 2 MG/2 ML VIAL ONE (13:27)
[2016-11-20] MEDS ORDERED: FAMOTIDINE 20 MG/2 ML VIAL ONE (13:27)
[2016-11-20] MEDS ORDERED: GENTAMICIN SULFATE 80 MG/2 ML VIAL ONE (14:00)
[2016-11-20] MEDS ORDERED: fentaNYL CITRATE 250 MCG/5 ML AMP ONE ×2 (14:11→15:35)
[2016-11-20] MEDS ORDERED: THROMBIN (TOPICAL) 20,000 UNIT SPRAY KIT ONE (14:53)
[2016-11-20] MEDS ORDERED: DO NOT ADM ANY ANTICOAGULANT DRUGS PRN (15:34)
[2016-11-20] MEDS ORDERED: *morphine SULFATE 8 MG/ML PERIprocedure ONLY ONE (16:24)
--- NOTE | 2016-11-20 16:57 | EKG ---
Date Performed: 11/19/2016 Time Performed: 15:51:17 PTAGE: 46 years EKG: SINUS BRADYCARDIA WITH FIRST DEGREE AV BLOCK ABNORMAL ECG Compared to PREVIOUS TRACING of 10/31/2016, sinus arrhythmia has replaced atrial fibrillation. PREVI OUS TRACIN10/31/2016 04.47 DOCTOR: Reji Bryson Interpretating Date/Time 11/20/2016 16:56:56
[2016-11-20] MEDS: SODIUM CHLOR 0.9% 1000 ML INJ 1,000 ML IV SCH (17:15)
[2016-11-20] MEDS: HEPARIN-D5W INJ 250 ML IV SCH (17:24)
--- NOTE | 2016-11-20 17:26 | HHI.PR ---
Immediate Post Op Note Procedure Date: November 20, 2016 Pre Op Diagnosis: (1) H/O fasciotomy Post Op Diagnosis: (1) H/O fasciotomy Surgeon: Ward Blanchard Special Warfare Operator(s): [place] Procedure: right lower extremity I&D and placement of wound vac. Findings: clean tissue with fibrinous exudate, no purulence. Complications: none Specimen(s) removed: na Estimated blood loss: minimal Anesthesia: General Drains: None Fluids: NA IVF Tourniquet time (min at mmHg) NA Patient to: PACU Patient Condition: Good Implant/Devices: Other Date/Time of Procedure: Other Ward Blanchard DO November 20, 2016 17:26
--- NOTE | 2016-11-20 17:32 | PD.VS.PN ---
Subjective Subjective/Hospital Course good. Objective Vitals/I&O Date Time Temp Pulse Resp B/P Pulse Ox O2 Delivery O2 Flow Rate FiO2 11/20/16 11:37 98.3 62 20 120/70 95 11/20/16 08:10 Room Air 11/20/16 08:10 66 11/20/16 08:00 98.6 65 20 122/65 96 11/20/16 04:38 98.3 68 18 118/66 94 11/20/16 00:00 99.5 68 18 118/60 96 11/19/16 22:07 21 11/19/16 21:00 Room Air 11/19/16 20:00 59 11/19/16 20:00 97.2 80 18 143/72 97 11/20/16 11/20/16 11/20/16 07:00 15:00 23:00 Intake Total 989 ml Output Total 800 ml 250 ml Balance 189 ml -250 ml Physical Exam wound vac right lower extremity. Motor function intact RLE. Palpable DP right lower extremity. Laboratory Laboratory Tests Test 11/19/16 11/20/16 22:49 06:05 Activated Partial 49.0 42.0 Thromboplast Time Creatinine 1.11 Estimat Glomerular Filtration 71 Rate Date/Time Procedure Status Source Growth 11/19/16 15:05 Aerobic Blood Culture - Preliminary Resulted Blood Peripheral NO GROWTH IN 1 DAY 11/19/16 15:05 Anaerobic Blood Culture - Preliminary Resulted Blood Peripheral NO GROWTH IN 1 DAY Assessment and Plan Assessment: (1) H/O fasciotomy Status: Acute Plan Status post I and D of fasciotomy right lower extremity. No purulence noted and tissue viable right medial fasciotomy site. No foul smell. On IV antibiotics. Plan for low dose anticoagulation tonight and resum full dose anticoagulation in AM if not bleeding from surgical site. Most likely discharged thursday on PO antibiotics and with continued wound vac changes. Case management can help arrange. Home wound nurse MUST pack deep wounds to prevent " space" .. Ward Blanchard DO, FACS Residential [employer] Se[employer] Technician of Vascular Surgery ANDRA/Ward Pacheco DO November 20, 2016 17:32
--- NOTE | 2016-11-20 19:33 | MP ---
cc: JOSEPHINE OBRIEN DATE OF SURGERY 11/20/16 Pre-op diagnosis. Seroma vs abscess right lower extremity. Post-op diagnosis. Incision and debridement with wound vac to right lower extremity fasciotomy ( medial calf). This is a pleasant 46-year-old gentleman who had a history of right lower extremity ischemia and had embolectomy and fasciotomies. He came in and had what appeared to be a medial posterior compartment abscess. It should be noted that in the office it was drained and he was started on IV antibiotics, but came to the OR to have an official incision and debridement. We prepped and draped this patient's right lower extremity and administered Zosyn around the time of surgery to coincide with his timing of antibiotics. We irrigated with three liters with gentamicin to the right lower extremity over the medial fasciotomy sites. It should be noted I broke up any septations, but I did not really see any purulence and just really minimal oozing and fluid in the right lower extremity. Te patient had some mild oozing at the end of the case which we injected some spray thrombin over the muscle and used electrocautery as needed. We then placed two large wound VAC sponges to the medial and lateral fasciotomy site. It should be noted that we had to place two sponges medially, one between the gastroc and soleus and one more superficial with the bandage over top. At the end of the procedure, there was minimal oozing and the wound VAC appeared to be holding suction. MH TEACHER Simon Bartholomew COMPLICATIONS None. DISPOSITION To PACU DO IVONE Viveros/ /2:57 PM /7:21 PM CHUCHO
[2016-11-21] VITALS (7 sets, daily range): BP systolic 102–123; BP diastolic 56–76; PULSE 61–81; RESP 16–18; TEMP 97.9–99.9; O2SAT 95–98
[2016-11-21] MEDS: MORPHINE SULFATE 4 MG/ML INJ IV PRN ×2 (00:11→11:54)
[2016-11-21] MEDS: VANCOMYCIN INJ 1,500 MG in SODIUM CHLORID 0.9% 500 ML INJ 500 ML IV SCH ×3 (03:30→16:17)
[2016-11-21] MEDS: PIPERACIL-TAZO 3.375 GM PREMIX 50 ML IV SCH ×4 (03:30→22:45)
[2016-11-21] MEDS: SODIUM CHLOR 0.9% 1000 ML INJ 1,000 ML IV SCH ×3 (03:31→22:45)
[2016-11-21] MEDS ORDERED: PHARMACY ORDERED LAB ONE (03:45)
[2016-11-21] MEDS: PROPAFENONE HCL 150 MG TAB PO SCH ×3 (05:25→20:26)
[2016-11-21] MEDS: MORPHINE SULFATE 4 MG/ML INJ IV PUSH PRN ×4 (05:50→22:48)
[2016-11-21] MEDS: METOPROLOL TARTRATE 50 MG TAB PO SCH ×2 (08:04→20:28)
[2016-11-21] MEDS: DOCUSATE SODIUM 100 MG CAP PO SCH ×2 (08:04→20:28)
[2016-11-21] MEDS: NICOTINE 14 MG/24 HR PATCH T-DERMAL SCH (08:04)
[2016-11-21] MEDS: SODIUM CHLORIDE 0.9% FLUSH 10 ML FLUSH IV FLUSH SCH ×2 (08:09→20:33)
[2016-11-21] MEDS: REMOVE OLD PATCH T-DERMAL SCH (08:09)
--- NOTE | 2016-11-21 08:35 | HHI.PR ---
Subjective Remarks This is a pleasant 46 y/o Male who was admitted on October 31 and Discharged on November 06 with Diagnosis of Acute arterial Occlusion of the Right Leg, Well known to me I was Attending physician on last admission and discharged him, he has Atrial Fibrillation, Hypertension, with Thrombosis of the Right lower extremity was started on Heparin drip and Performed Embolectomy and Fasciotomies 10/31/16. Notes from last admission: This is a pleasant 46 y/o male with CAD, Severe Tobacco dependence and Alcohol abuse, as per patient he continue Smoking 1 and a half packs of cigarettes daily, recent admission due to Atypical chest pain and Shortness of breath in April last year with diagnosis of STEMI he had recent Cardiac Catheterization by Doctor Pena with no Stents, as we know he has Hypertension on this opportunity came due to Progressive pain and numbness in the right lower extremity below the knee, not able to wiggle his toes on the right foot. Pain and burning sensation. On the calf it is a cramp. I came early to see the patient but he was in was transferred to Intensive Care unit, then transferred to Hospitalist team, performed an Aorta with Runoff Showed complete Arterial Occlusion involving the distal Right SFA at the level of the adductor canal, Focal moderate Stenosis involving the left popliteal artery. had Atrial Fibrillation on presentation from Emergency medicine, With Diagnosis of Arterial Embolism and Thrombosis of the lower extremity, started on Heparin drip and performed Embolectomy and Fasciotomies, 10/31/16 by Doctor Ward Blanchard. Last Hemoglobin 10.5 on discharge, had Vacuum placement and discharged home on Xarelto, he was in sinus rhythm on Discharge home on HHC. 11/19: Readmission Today I was called by Doctor Blanchard's Nurse Miss Mosley on Follow up today seen with Cellulitis of the right leg asked for admission place him Nothing by mouth tonight and he will have I and D tomorrow, start IV antibiotics, Vancomycin and Zosyn, Wound care follow specialist recommendations. 11/20: Stable seen in the room, will have I and D later today. 11/21: Status post Right Lower extremity I and D and Placement of Wound Vac. by Doctor Ward Blanchard. on my evaluation Vascular Specialist in the room with patient, I had the opportunity to talk to him and receive input and recommendations recommended Physical Therapy, not able to discharge during the Weekend the patient will need to get Wound care today because will be difficult during the weekend, also find the right antibiotic for discharge, no nausea, vomit or diarrhea. Objective Vital Signs Date Time Temp Pulse Resp B/P Pulse Ox O2 Delivery O2 Flow Rate FiO2 11/21/16 08:00 98.0 61 18 112/56 95 11/21/16 04:00 98.3 67 16 107/63 96 11/21/16 00:00 98.3 67 16 115/76 98 11/20/16 20:15 64 11/20/16 20:15 Room Air 11/20/16 20:00 98.2 67 18 123/67 98 11/20/16 17:50 21 11/20/16 17:36 97.0 68 20 111/66 98 11/20/16 16:30 64 14 109/59 96 Room Air 11/20/16 16:15 65 14 116/63 96 Room Air 11/20/16 16:00 65 14 116/60 96 Nasal Cannula 2 11/20/16 15:45 66 14 109/57 96 Nasal Cannula 2 11/20/16 15:31 98.0 67 14 128/68 100 Nasal Cannula 2 11/20/16 11:37 98.3 62 20 120/70 95 I/O 11/20/16 11/20/16 11/20/16 11/21/16 11/21/16 11/21/16 07:00 15:00 23:00 07:00 15:00 23:00 Intake Total 989 ml 2330 ml 1048 ml Output Total 800 ml 250 ml 550 ml 200 ml Balance 189 ml -250 ml 1780 ml 848 ml Intake Oral 360 ml 360 ml 240 ml IV Total 629 ml 720 ml 808 ml Other 1250 ml Output Urine Total 800 ml 250 ml 500 ml 200 ml Estimated Blood Loss 50 ml # Bowel Movements 0 0 Result Diagram: 11/19/16 1506 11/20/16 0605 Imaging NO Imaging studies performed. Procedures No procedures performed. Other Results Laboratory Tests Test 11/19/16 11/20/16 11/21/16 15:06 06:05 04:34 White Blood Count 9.2 TH/MM3 Red Blood Count 3.34 MIL/MM3 Hemoglobin 10.4 GM/DL Hematocrit 30.9 % Mean Corpuscular Volume 92.5 FL Mean Corpuscular Hemoglobin 31.0 PG Mean Corpuscular Hemoglobin 33.5 % Concent Red Cell Distribution Width 15.9 % Platelet Count 317 TH/MM3 Mean Platelet Volume 9.5 FL Neutrophils (%) (Auto) 57.0 % Lymphocytes (%) (Auto) 28.4 % Monocytes (%) (Auto) 9.6 % Eosinophils (%) (Auto) 4.3 % Basophils (%) (Auto) 0.7 % Neutrophils # (Auto) 5.3 TH/MM3 Lymphocytes # (Auto) 2.6 TH/MM3 Monocytes # (Auto) 0.9 TH/MM3 Eosinophils # (Auto) 0.4 TH/MM3 Basophils # (Auto) 0.1 TH/MM3 CBC Comment DIFF FINAL Differential Comment Prothrombin Time 13.4 SEC Prothromb Time International 1.2 RATIO Ratio Sodium Level 137 MEQ/L Potassium Level 4.5 MEQ/L Chloride Level 103 MEQ/L Carbon Dioxide Level 28.6 MEQ/L Anion Gap 5 MEQ/L Blood Urea Nitrogen 16 MG/DL Random Glucose 91 MG/DL Calcium Level 8.8 MG/DL Total Bilirubin 0.3 MG/DL Aspartate Amino Transf 14 U/L (AST/SGOT) Alanine Aminotransferase 23 U/L (ALT/SGPT) Alkaline Phosphatase 65 U/L Total Protein 6.5 GM/DL Albumin 2.9 GM/DL Activated Partial 42.0 SEC Thromboplast Time Creatinine 1.11 MG/DL Estimat Glomerular Filtration 71 ML/MIN Rate Vancomycin Level Trough 11.6 MCG/ML Objective Remarks GENERAL: Alert and oriented, no distress. SKIN: Focused skin assessment warm/dry. The skin is cool and pale below the knee. HEAD: Atraumatic. Normocephalic. EYES: Pupils equal and round. No scleral icterus. No injection or drainage. ENT: No nasal bleeding or discharge. Mucous membranes pink and moist. NECK: Trachea midline. No JVD. CARDIOVASCULAR: Regular rate and rhythm. No murmur appreciated. RESPIRATORY: No accessory muscle use. Clear to auscultation. Breath sounds equal bilaterally. GASTROINTESTINAL: Abdomen soft, non-tender, nondistended. Hepatic and splenic margins not palpable. MUSCULOSKELETAL: Right leg with Vacuum in place. NEUROLOGICAL: Awake and alert. No focal deficits. PSYCHIATRIC: Appropriate mood and affect; insight and judgment normal. Medications and IVs Current Medications Medications (Trade) Dose Ordered Sig/Santos Route Start Time Stop Time Status Last Admin (Lopressor) 50 mg BID PO 11/19/16 21:00 11/21/16 08:04 (Roxicodone) 7.5 mg Q4H PRN PO 11/19/16 14:00 11/21/16 08:04 (Rythmol) 150 mg Q8HR PO 11/19/16 14:00 11/21/16 05:25 (Pill Splitter) 1 ea UNSCH PRN OTHER 11/19/16 13:45 (NS Flush) 2 ml UNSCH PRN IV FLUSH 11/19/16 13:45 (NS Flush) 2 ml BID IV FLUSH 11/19/16 21:00 11/20/16 19:57 (Tylenol) 650 mg Q4H PRN PO 11/19/16 13:45 (Zofran Inj) 4 mg Q6H PRN IVP 11/19/16 13:45 (Dulcolax Supp) 10 mg DAILY PRN RECTAL 11/19/16 13:45 (Colace) 100 mg Q12HR PO 11/19/16 14:15 11/21/16 08:04 (Narcan Inj) 0.4 mg UNSCH PRN IV 11/19/16 13:45 (Morphine Inj) 2 mg Q3H PRN IV PUSH 11/19/16 14:00 11/21/16 05:50 (Heparin Inj) 5,000 units UNSCH PRN IV 11/19/16 20:00 Heparin Sodium (Porcine) 2500 units 2,500 units UNSCH PRN IV 11/19/16 20:00 Heparin Sodium/ Dextrose 250 ml @ 0 mls/hr TITRATE IV 11/19/16 14:15 11/20/16 17:24 Vancomycin HCl 1500 mg/Sodium Chloride 515 ml @ 257.5 mls/ hr Q12H IV 11/19/16 16:00 11/21/16 04:35 Pharmacy Profile Note 0 ml @ 0 mls/hr UNSCH OTHER 11/19/16 14:15 (Zosyn 3.375 Gm Premix) 50 ml @ 100 mls/hr Q6H IV 11/19/16 16:00 11/21/16 08:04 (Habitrol 14 Mg Patch.24 Hr) 1 patch DAILY T-DERMAL 11/20/16 10:15 11/21/16 08:04 Miscellaneous Information 1 DAILY T-DERMAL 11/21/16 09:00 11/21/16 08:09 (Morphine Inj) 2 mg Q1H PRN IV 11/20/16 10:15 11/21/16 00:11 Miscellaneous Information ALL NURSING DEPARTME... UNSCH PRN .XX 11/20/16 15:34 11/21/16 15:33 (NS 1000 ml Inj) 1,000 ml @ 100 mls/hr Q10H IV 11/20/16 17:15 11/21/16 03:31 A/P Assessment and Plan 1. Acute Arterial Embolism and Thrombosis of the Right lower extremity Aorta with Runoff Showed complete Arterial Occlusion involving the distal Right SFA at the level of the adductor canal, Focal moderate Stenosis involving the left popliteal artery. Status post Embolectomy and Fasciotomies 10/31/16 [address] Doctor Ward Blanchard On Xarealto. status post Vacuum placement. Readmission due to probable abscess, Vancomycin, Zosyn, wound care following , status post I and D and Vacuum placement yesterday. 2. Atrial Fibrillation/Arterial Occlusive disease continue Beta Blockers, initially on Heparin then started on Xarelto Echocardiogram 05/20/16 EF 6065 percent severe LVH, no RWMA, LAE moderately dilated, tricuspid valve trace regurgitation, mitral valve with trace regurgitation. PA peak press 45 mmHg 05/18/16-cardiac catheterization EF 60%, diastolic dysfunction, normal coronary arteries, RCA dominant-mid and distal 40% plaque, left circ-OM1 80% lesion noted Continue Propafenone to maintain NSR. 3. Severe Tobacco dependence strongly recommended to stop smoking, may be associated with his actual pathology, as per patient not smoking for the last three weeks asked for Nicotine patch placed. 4. Alcohol abuse strongly recommended to stop this behavior, continue drinking wine but one glass socially. 5. Hypertension Controlled. DVT prophylaxis Heparin drip Code Status Full Code. Discussed Condition With Patient in the room and nurse Miss Zurita, all questions answered to the best of my abilities. As always a pleasure to talk about cases with Vascular [facility]oe Turner Doctor Ward Blanchard Input and Recommendations highly appreciated. Code Status Full Code. Discharge Planning Once Cleared by Specialist. Hermann Ribeiro MD November 21, 2016 08:35
[2016-11-21 08:56] LABS: APTT (PATIENT) 32.2 SEC (24.3-30.1)
--- NOTE | 2016-11-21 11:24 | PD.VS.PN ---
Subjective Subjective/Hospital Course good. Objective Vitals/I&O Date Time Temp Pulse Resp B/P Pulse Ox O2 Delivery O2 Flow Rate FiO2 11/21/16 08:00 67 11/21/16 08:00 Room Air 11/21/16 08:00 98.0 61 18 112/56 95 11/21/16 04:00 98.3 67 16 107/63 96 11/21/16 00:00 98.3 67 16 115/76 98 11/20/16 20:15 64 11/20/16 20:15 Room Air 11/20/16 20:00 98.2 67 18 123/67 98 11/20/16 17:50 21 11/20/16 17:36 97.0 68 20 111/66 98 11/20/16 16:30 64 14 109/59 96 Room Air 11/20/16 16:15 65 14 116/63 96 Room Air 11/20/16 16:00 65 14 116/60 96 Nasal Cannula 2 11/20/16 15:45 66 14 109/57 96 Nasal Cannula 2 11/20/16 15:31 98.0 67 14 128/68 100 Nasal Cannula 2 11/20/16 11:37 98.3 62 20 120/70 95 11/21/16 11/21/16 11/21/16 07:00 15:00 23:00 Intake Total 1048 ml Output Total 200 ml Balance 848 ml Physical Exam Right foot with palpable pedal pulse and wound vac in place. 350 cc of dark blood in wound vac. Laboratory Laboratory Tests Test 11/21/16 11/21/16 04:34 07:32 Vancomycin Level Trough 11.6 Activated Partial 32.2 Thromboplast Time Date/Time Procedure Status Source Growth 11/19/16 15:05 Aerobic Blood Culture - Preliminary Resulted Blood Peripheral NO GROWTH IN 2 DAYS 11/19/16 15:05 Anaerobic Blood Culture - Preliminary Resulted Blood Peripheral NO GROWTH IN 2 DAYS Assessment and Plan Assessment: (1) H/O fasciotomy Status: Acute Plan Status post I and D of fasciotomy right lower extremity. Some bleeding overnight on 500 untis/hr of heparin. Wound vac intact. Wound care to change today and xarelta to be started with increasing heparin drip. Should work with PT. Possible discharge over weekend with antibiotics but want to make sure no bleeding and that patient can ambulate with minimal pain. Case management can help arrange. Home wound nurse MUST pack deep wounds to prevent " space" . I spoke with wound care nurse, Carol. Ward Blanchard DO, FACS [employer] /Ward Pacheco DO November 21, 2016 11:24
[2016-11-21] MEDS ORDERED: HYDROmorphone HCL PF 1 MG/ML VIAL IV ONE (12:45)
[2016-11-21] MEDS: HEPARIN-D5W INJ 250 ML IV SCH (14:59)
[2016-11-22] VITALS (11 sets, daily range): BP systolic 114–136; BP diastolic 57–78; PULSE 61–83; RESP 18; TEMP 97.9–98.8; O2SAT 94–97
[2016-11-22] MEDS: PIPERACIL-TAZO 3.375 GM PREMIX 50 ML IV SCH ×4 (03:12→20:42)
[2016-11-22] MEDS: VANCOMYCIN INJ 1,500 MG in SODIUM CHLORID 0.9% 500 ML INJ 500 ML IV SCH ×2 (03:12→16:48)
[2016-11-22 03:41] LABS: HEMATOCRIT 24.9 % (39.0-51.0); MEAN CELL VOLUME 90.7 FL (80.0-100.0); MEAN CORPUSCULAR HEMOGLOBIN 30.9 PG (27.0-34.0); PLATELET COUNT 218 TH/MM3 (150-450); RED BLOOD COUNT 2.74 MIL/MM3 (4.50-5.90); RED CELL DISTRIBUTION WIDTH 16.5 % (11.6-17.2); REVIEW FLAG FINAL; WHITE BLOOD COUNT 7.2 TH/MM3 (4.0-11.0)
[2016-11-22] MEDS: HEPARIN SODIUM - IV 10,000 UNITS/10 ML VIAL IV PRN ×2 (06:05→22:34)
[2016-11-22] MEDS: PROPAFENONE HCL 150 MG TAB PO SCH ×3 (06:07→20:40)
--- NOTE | 2016-11-22 08:59 | HHI.PR ---
Subjective Remarks This is a pleasant 46 y/o Male who was admitted on October 31 and Discharged on November 06 with Diagnosis of Acute arterial Occlusion of the Right Leg, Well known to me I was Attending physician on last admission and discharged him, he has Atrial Fibrillation, Hypertension, with Thrombosis of the Right lower extremity was started on Heparin drip and Performed Embolectomy and Fasciotomies 10/31/16. Notes from last admission: This is a pleasant 46 y/o male with CAD, Severe Tobacco dependence and Alcohol abuse, as per patient he continue Smoking 1 and a half packs of cigarettes daily, recent admission due to Atypical chest pain and Shortness of breath in April last year with diagnosis of STEMI he had recent Cardiac Catheterization by Doctor Pena with no Stents, as we know he has Hypertension on this opportunity came due to Progressive pain and numbness in the right lower extremity below the knee, not able to wiggle his toes on the right foot. Pain and burning sensation. On the calf it is a cramp. I came early to see the patient but he was in was transferred to Intensive Care unit, then transferred to Hospitalist team, performed an Aorta with Runoff Showed complete Arterial Occlusion involving the distal Right SFA at the level of the adductor canal, Focal moderate Stenosis involving the left popliteal artery. had Atrial Fibrillation on presentation from Emergency medicine, With Diagnosis of Arterial Embolism and Thrombosis of the lower extremity, started on Heparin drip and performed Embolectomy and Fasciotomies, 10/31/16 by Doctor Ward Blanchard. Last Hemoglobin 10.5 on discharge, had Vacuum placement and discharged home on Xarelto, he was in sinus rhythm on Discharge home on HHC. 11/19: Readmission Today I was called by Doctor Blanchard's Nurse Miss Mosley on Follow up today seen with Cellulitis of the right leg asked for admission place him Nothing by mouth tonight and he will have I and D tomorrow, start IV antibiotics, Vancomycin and Zosyn, Wound care follow specialist recommendations. 11/20: Stable seen in the room, will have I and D later today. 11/21: Status post Right Lower extremity I and D and Placement of Wound Vac. by Doctor Ward Blanchard. 11/22: Seen in the morning, stable, complaint of left Hallux pain and ankle pain , no clear diagnosis for Gout, asked for Uric Acid 3.4 discussed with Vascular Housekeeping Coordinator, given one dose of Prednisone as a Trial for probable Gout will follow Improvement may need to be given NSAIDs. No nausea, vomit or diarrhea. Objective Vital Signs Date Time Temp Pulse Resp B/P Pulse Ox O2 Delivery O2 Flow Rate FiO2 11/22/16 08:00 98.1 64 18 136/78 94 11/22/16 04:34 70 11/22/16 04:21 18 11/22/16 04:00 97.9 62 18 121/57 95 11/22/16 00:18 98.4 61 18 114/62 94 11/21/16 21:36 96 21 11/21/16 20:25 Room Air 11/21/16 20:00 99.9 81 16 110/56 95 11/21/16 16:00 97.9 66 18 102/56 97 11/21/16 12:00 98.6 65 18 123/71 95 I/O 11/21/16 11/21/16 11/21/16 11/22/16 11/22/16 11/22/16 07:00 15:00 23:00 07:00 15:00 23:00 Intake Total 1048 ml 480 ml Output Total 200 ml 850 ml 550 ml Balance 848 ml -370 ml -550 ml Intake Oral 240 ml 480 ml IV Total 808 ml Output Urine Total 200 ml 850 ml 550 ml # Bowel Movements 0 0 Result Diagram: 11/22/16 0322 11/22/16 0322 Imaging No new imaging studies. Procedures Status post I and D and Vacuum placed. Other Results Laboratory Tests Test 11/19/16 11/21/16 11/22/16 15:06 04:34 03:22 Neutrophils (%) (Auto) 57.0 % Lymphocytes (%) (Auto) 28.4 % Monocytes (%) (Auto) 9.6 % Eosinophils (%) (Auto) 4.3 % Basophils (%) (Auto) 0.7 % Neutrophils # (Auto) 5.3 TH/MM3 Lymphocytes # (Auto) 2.6 TH/MM3 Monocytes # (Auto) 0.9 TH/MM3 Eosinophils # (Auto) 0.4 TH/MM3 Basophils # (Auto) 0.1 TH/MM3 CBC Comment DIFF FINAL Differential Comment Prothrombin Time 13.4 SEC Prothromb Time International 1.2 RATIO Ratio Sodium Level 137 MEQ/L Potassium Level 4.5 MEQ/L Chloride Level 103 MEQ/L Carbon Dioxide Level 28.6 MEQ/L Anion Gap 5 MEQ/L Blood Urea Nitrogen 16 MG/DL Random Glucose 91 MG/DL Calcium Level 8.8 MG/DL Total Bilirubin 0.3 MG/DL Aspartate Amino Transf 14 U/L (AST/SGOT) Alanine Aminotransferase 23 U/L (ALT/SGPT) Alkaline Phosphatase 65 U/L Total Protein 6.5 GM/DL Albumin 2.9 GM/DL Vancomycin Level Trough 11.6 MCG/ML White Blood Count 7.2 TH/MM3 Red Blood Count 2.74 MIL/MM3 Hemoglobin 8.5 GM/DL Hematocrit 24.9 % Mean Corpuscular Volume 90.7 FL Mean Corpuscular Hemoglobin 30.9 PG Mean Corpuscular Hemoglobin 34.0 % Concent Red Cell Distribution Width 16.5 % Platelet Count 218 TH/MM3 Mean Platelet Volume 9.8 FL Activated Partial 31.0 SEC Thromboplast Time Creatinine 0.84 MG/DL Estimat Glomerular Filtration 98 ML/MIN Rate Objective Remarks GENERAL: Alert and oriented, no distress. SKIN: Focused skin assessment warm/dry. The skin is cool and pale below the knee. HEAD: Atraumatic. Normocephalic. EYES: Pupils equal and round. No scleral icterus. No injection or drainage. ENT: No nasal bleeding or discharge. Mucous membranes pink and moist. NECK: Trachea midline. No JVD. CARDIOVASCULAR: Regular rate and rhythm. No murmur appreciated. RESPIRATORY: No accessory muscle use. Clear to auscultation. Breath sounds equal bilaterally. GASTROINTESTINAL: Abdomen soft, non-tender, nondistended. Hepatic and splenic margins not palpable. MUSCULOSKELETAL: Right leg with Vacuum in place. mild pain on palpation of Left Hallux and ankle. NEUROLOGICAL: Awake and alert. No focal deficits. PSYCHIATRIC: Appropriate mood and affect; insight and judgment normal. Medications and IVs Current Medications Medications (Trade) Dose Ordered Sig/Santos Route Start Time Stop Time Status Last Admin (Lopressor) 50 mg BID PO 11/19/16 21:00 11/21/16 20:28 (Roxicodone) 7.5 mg Q4H PRN PO 11/19/16 14:00 11/22/16 07:37 (Rythmol) 150 mg Q8HR PO 11/19/16 14:00 11/22/16 06:07 (Pill Splitter) 1 ea UNSCH PRN OTHER 11/19/16 13:45 (NS Flush) 2 ml UNSCH PRN IV FLUSH 11/19/16 13:45 (NS Flush) 2 ml BID IV FLUSH 11/19/16 21:00 11/20/16 19:57 (Tylenol) 650 mg Q4H PRN PO 11/19/16 13:45 (Zofran Inj) 4 mg Q6H PRN IVP 11/19/16 13:45 (Dulcolax Supp) 10 mg DAILY PRN RECTAL 11/19/16 13:45 (Colace) 100 mg Q12HR PO 11/19/16 14:15 11/21/16 20:28 (Narcan Inj) 0.4 mg UNSCH PRN IV 11/19/16 13:45 (Morphine Inj) 2 mg Q3H PRN IV PUSH 11/19/16 14:00 11/21/16 22:48 (Heparin Inj) 5,000 units UNSCH PRN IV 11/19/16 20:00 Heparin Sodium (Porcine) 2500 units 2,500 units UNSCH PRN IV 11/19/16 20:00 11/22/16 06:05 Heparin Sodium/ Dextrose 250 ml @ 0 mls/hr TITRATE IV 11/19/16 14:15 11/21/16 14:59 Vancomycin HCl 1500 mg/Sodium Chloride 515 ml @ 257.5 mls/ hr Q12H IV 11/19/16 16:00 11/22/16 03:12 Pharmacy Profile Note 0 ml @ 0 mls/hr UNSCH OTHER 11/19/16 14:15 (Zosyn 3.375 Gm Premix) 50 ml @ 100 mls/hr Q6H IV 11/19/16 16:00 11/22/16 03:12 (Habitrol 14 Mg Patch.24 Hr) 1 patch DAILY T-DERMAL 11/20/16 10:15 11/21/16 08:04 Miscellaneous Information 1 DAILY T-DERMAL 11/21/16 09:00 11/21/16 08:09 Morphine Sulfate 2 mg 2 mg Q1H PRN IV 11/20/16 10:15 11/21/16 11:54 (NS 1000 ml Inj) 1,000 ml @ 100 mls/hr Q10H IV 11/20/16 17:15 11/21/16 22:45 A/P Assessment and Plan 1. Acute Arterial Embolism and Thrombosis of the Right lower extremity Aorta with Runoff Showed complete Arterial Occlusion involving the distal Right SFA at the level of the adductor canal, Focal moderate Stenosis involving the left popliteal artery. Status post Embolectomy and Fasciotomies 10/31/16 [address] Doctor Ward Blanchard On Xarealto. status post Vacuum placement. Readmission due to probable abscess, Vancomycin, Zosyn, wound care following , status post I and D and Vacuum placement. the patient showed me there's a leak from the Vacuum lines. 2. Atrial Fibrillation/Arterial Occlusive disease continue Beta Blockers, initially on Heparin then started on Xarelto Echocardiogram 05/20/16 EF 6065 percent severe LVH, no RWMA, LAE moderately dilated, tricuspid valve trace regurgitation, mitral valve with trace regurgitation. PA peak press 45 mmHg 05/18/16-cardiac catheterization EF 60%, diastolic dysfunction, normal coronary arteries, RCA dominant-mid and distal 40% plaque, left circ-OM1 80% lesion noted Continue Propafenone to maintain NSR. 3. Severe Tobacco dependence strongly recommended to stop smoking, may be associated with his actual pathology, as per patient not smoking for the last three weeks asked for Nicotine patch placed. 4. Alcohol abuse strongly recommended to stop this behavior, continue drinking wine but one glass socially. 5. Hypertension Controlled. 6. Questionable Gout given one dose of Prednisone as a Trial, Uric Acid 3.4 low probability for Gout. DVT prophylaxis Heparin drip Code Status Full Code. Discussed Condition With Patient in the room and nurse Miss Zurita, all questions answered to the best of my abilities. I had the pleasure to talk about cases with Vascular Housekeeping Coordinator Doctor Ward Blanchard appreciated. Code Status Full Code. Discharge Planning Once Cleared by Specialist. Hermann Ribeiro MD November 22, 2016 08:59
[2016-11-22] MEDS: SODIUM CHLORIDE 0.9% FLUSH 10 ML FLUSH IV FLUSH SCH ×2 (09:00→20:40)
[2016-11-22] MEDS: REMOVE OLD PATCH T-DERMAL SCH (09:00)
[2016-11-22] MEDS: SODIUM CHLOR 0.9% 1000 ML INJ 1,000 ML IV SCH (09:15)
[2016-11-22] MEDS: DOCUSATE SODIUM 100 MG CAP PO SCH ×2 (09:16→20:42)
[2016-11-22] MEDS: METOPROLOL TARTRATE 50 MG TAB PO SCH ×2 (09:18→20:41)
[2016-11-22] MEDS: NICOTINE 14 MG/24 HR PATCH T-DERMAL SCH (09:18)
[2016-11-22] MEDS: MORPHINE SULFATE 4 MG/ML INJ IV PRN ×2 (10:00→18:10)
[2016-11-22 11:20] LABS: APTT (PATIENT) 30.4 SEC (24.3-30.1)
--- NOTE | 2016-11-22 11:21 | PD.VS.PN ---
Subjective Subjective/Hospital Course good. Objective Vitals/I&O Date Time Temp Pulse Resp B/P Pulse Ox O2 Delivery O2 Flow Rate FiO2 11/22/16 10:59 96 11/22/16 08:00 98.1 64 18 136/78 94 11/22/16 04:34 70 11/22/16 04:21 18 11/22/16 04:00 97.9 62 18 121/57 95 11/22/16 00:18 98.4 61 18 114/62 94 11/21/16 21:36 96 21 11/21/16 20:25 Room Air 11/21/16 20:00 99.9 81 16 110/56 95 11/21/16 16:00 97.9 66 18 102/56 97 11/21/16 12:00 98.6 65 18 123/71 95 11/22/16 11/22/16 11/22/16 07:00 15:00 23:00 Output Total 550 ml Balance -550 ml Physical Exam wound vac intact right lower extremity. swollen around this area. left great toe swollen. Laboratory Laboratory Tests Test 11/22/16 03:22 White Blood Count 7.2 Red Blood Count 2.74 Hemoglobin 8.5 Hematocrit 24.9 Mean Corpuscular Volume 90.7 Mean Corpuscular Hemoglobin 30.9 Mean Corpuscular Hemoglobin 34.0 Concent Red Cell Distribution Width 16.5 Platelet Count 218 Mean Platelet Volume 9.8 Activated Partial 31.0 Thromboplast Time Creatinine 0.84 Estimat Glomerular Filtration 98 Rate Date/Time Procedure Status Source Growth 11/19/16 15:05 Aerobic Blood Culture - Preliminary Resulted Blood Peripheral NO GROWTH IN 3 DAYS 11/19/16 15:05 Anaerobic Blood Culture - Preliminary Resulted Blood Peripheral NO GROWTH IN 3 DAYS Assessment and Plan Assessment: (1) H/O fasciotomy Status: Acute Plan Status post I and D of fasciotomy right lower extremity. Patient with pain with ambulation. left great toe with possible gout attack. Case management can help arrange possible inpatient ([facility]) vs outpatient care. Ward Blanchard DO, FACS [employer] Developer of Vascular Surgery [facility]/Ward Pacheco DO November 22, 2016 11:21
[2016-11-22] MEDS: MORPHINE SULFATE 4 MG/ML INJ IV PUSH PRN ×2 (15:02→22:33)
[2016-11-22] MEDS ORDERED: predniSONE 20 MG TAB PO ONE (18:15)
[2016-11-22 20:51] LABS: APTT (PATIENT) 29.7 SEC (24.3-30.1)
[2016-11-23] VITALS (7 sets, daily range): BP systolic 116–140; BP diastolic 65–87; PULSE 56–89; RESP 16–18; TEMP 97.3–98.6; O2SAT 93–97
[2016-11-23] MEDS: MORPHINE SULFATE 4 MG/ML INJ IV PUSH PRN ×3 (03:14→10:19)
[2016-11-23] MEDS: PIPERACIL-TAZO 3.375 GM PREMIX 50 ML IV SCH ×3 (03:14→19:38)
[2016-11-23] MEDS: VANCOMYCIN INJ 1,500 MG in SODIUM CHLORID 0.9% 500 ML INJ 500 ML IV SCH ×2 (03:51→16:01)
[2016-11-23] MEDS: SODIUM CHLOR 0.9% 1000 ML INJ 1,000 ML IV SCH ×3 (04:38→20:58)
[2016-11-23] MEDS: PROPAFENONE HCL 150 MG TAB PO SCH ×3 (06:24→20:58)
[2016-11-23 06:41] LABS: APTT (PATIENT) 30.3 SEC (24.3-30.1)
[2016-11-23] MEDS: DOCUSATE SODIUM 100 MG CAP PO SCH ×2 (08:32→20:58)
[2016-11-23] MEDS: METOPROLOL TARTRATE 50 MG TAB PO SCH ×2 (08:33→20:58)
[2016-11-23] MEDS: HEPARIN-D5W INJ 250 ML IV SCH (08:46)
[2016-11-23] MEDS: REMOVE OLD PATCH T-DERMAL SCH (09:00)
[2016-11-23] MEDS: NICOTINE 14 MG/24 HR PATCH T-DERMAL SCH (09:00)
[2016-11-23] MEDS: SODIUM CHLORIDE 0.9% FLUSH 10 ML FLUSH IV FLUSH SCH ×2 (09:00→20:58)
[2016-11-23] MEDS ORDERED: HYDROmorphone HCL PF 1 MG/ML VIAL IV ONE (14:00)
--- NOTE | 2016-11-23 14:43 | PD.VS.PN ---
Subjective Subjective/Hospital Course good. Objective Vitals/I&O Date Time Temp Pulse Resp B/P Pulse Ox O2 Delivery O2 Flow Rate FiO2 11/23/16 12:00 98.6 65 16 126/78 95 11/23/16 11:52 21 11/23/16 08:00 56 11/23/16 08:00 98.1 61 16 130/76 95 11/23/16 07:00 Room Air 11/23/16 04:00 Room Air 11/23/16 04:00 97.3 57 18 124/70 97 11/23/16 00:00 98.3 66 18 134/75 94 11/23/16 00:00 Room Air 11/22/16 23:17 21 11/22/16 20:42 Room Air 11/22/16 20:00 98.3 81 18 122/58 94 11/22/16 19:08 68 11/22/16 16:00 98.8 63 18 125/73 97 11/23/16 11/23/16 11/23/16 07:00 15:00 23:00 Intake Total 1944 ml Output Total 1375 ml Balance 569 ml Physical Exam Right leg with pink and red tissues over the medial and lateral fasciotomy sites. Laboratory Laboratory Tests Test 11/22/16 11/23/16 20:06 06:13 Activated Partial 29.7 30.3 Thromboplast Time Uric Acid 3.4 Date/Time Procedure Status Source Growth 11/19/16 15:05 Aerobic Blood Culture - Preliminary Resulted Blood Peripheral NO GROWTH IN 4 DAYS 11/19/16 15:05 Anaerobic Blood Culture - Preliminary Resulted Blood Peripheral NO GROWTH IN 4 DAYS Assessment and Plan Assessment: (1) H/O fasciotomy Status: Acute Plan Status post I and D of fasciotomy right lower extremity. Patient with pain with ambulation. left great toe with possible gout attack. Today had failure of wound vac so will change to wet-to-dry for 24 hours and resume wound vac on thursday. Case management can help arrange possible inpatient ([facility]) vs outpatient care. If inpatient would be for IV antibiotics, wound care (wound vac) dressing changes with PO/IV pain meds and physical therapy to improve ambulation distance. Ward Blanchard DO, FACS [employer] Vascular Surgery /Ward Pacheco DO November 23, 2016 14:43
--- NOTE | 2016-11-23 16:40 | HHI.PR ---
Subjective Remarks This is a pleasant 46 y/o Male who was admitted on October 31 and Discharged on November 06 with Diagnosis of Acute arterial Occlusion of the Right Leg, Well known to me I was Attending physician on last admission and discharged him, he has Atrial Fibrillation, Hypertension, with Thrombosis of the Right lower extremity was started on Heparin drip and Performed Embolectomy and Fasciotomies 10/31/16. Notes from last admission: This is a pleasant 46 y/o male with CAD, Severe Tobacco dependence and Alcohol abuse, as per patient he continue Smoking 1 and a half packs of cigarettes daily, recent admission due to Atypical chest pain and Shortness of breath in April last year with diagnosis of STEMI he had recent Cardiac Catheterization by Doctor Pena with no Stents, as we know he has Hypertension on this opportunity came due to Progressive pain and numbness in the right lower extremity below the knee, not able to wiggle his toes on the right foot. Pain and burning sensation. On the calf it is a cramp. I came early to see the patient but he was in was transferred to Intensive Care unit, then transferred to Hospitalist team, performed an Aorta with Runoff Showed complete Arterial Occlusion involving the distal Right SFA at the level of the adductor canal, Focal moderate Stenosis involving the left popliteal artery. had Atrial Fibrillation on presentation from Emergency medicine, With Diagnosis of Arterial Embolism and Thrombosis of the lower extremity, started on Heparin drip and performed Embolectomy and Fasciotomies, 10/31/16 by Doctor Ward Blanchard. Last Hemoglobin 10.5 on discharge, had Vacuum placement and discharged home on Xarelto, he was in sinus rhythm on Discharge home on HHC. 11/19: Readmission Today I was called by Doctor Blanchard's Nurse Miss Mosley on Follow up today seen with Cellulitis of the right leg asked for admission place him Nothing by mouth tonight and he will have I and D tomorrow, start IV antibiotics, Vancomycin and Zosyn, Wound care follow specialist recommendations. 11/20: Stable seen in the room, will have I and D later today. 11/21: Status post Right Lower extremity I and D and Placement of Wound Vac. by Doctor Ward Blanchard. 11/22: Seen in the morning, stable, complaint of left Hallux pain and ankle pain , no clear diagnosis for Gout, asked for Uric Acid 3.4 discussed with Vascular Residential Green Building Designer. 11/23: Patient in his bedroom, no new complaint, mild improvement with Prednisone dose given yesterday and Low uric acid level may give NSAIDs has good renal function, No nausea, vomit or diarrhea, continue with Vacuum line leak. blood culture negative in four days, no BSI Objective Vital Signs Date Time Temp Pulse Resp B/P Pulse Ox O2 Delivery O2 Flow Rate FiO2 11/23/16 12:00 98.6 65 16 126/78 95 11/23/16 11:52 21 11/23/16 08:00 56 11/23/16 08:00 98.1 61 16 130/76 95 11/23/16 07:00 Room Air 11/23/16 04:00 Room Air 11/23/16 04:00 97.3 57 18 124/70 97 11/23/16 00:00 98.3 66 18 134/75 94 11/23/16 00:00 Room Air 11/22/16 23:17 21 11/22/16 20:42 Room Air 11/22/16 20:00 98.3 81 18 122/58 94 11/22/16 19:08 68 I/O 11/22/16 11/22/16 11/22/16 11/23/16 11/23/16 11/23/16 07:00 15:00 23:00 07:00 15:00 23:00 Intake Total 1517 ml 2473 ml 1944 ml 876 ml Output Total 550 ml 800 ml 700 ml 1375 ml Balance -550 ml 717 ml 1773 ml 569 ml 876 ml Intake Oral 480 ml 480 ml 480 ml IV Total 1037 ml 1993 ml 1464 ml 876 ml Output Urine Total 550 ml 800 ml 700 ml 1375 ml # Voids 1 # Bowel Movements 0 1 0 0 Result Diagram: 11/22/16 0322 11/22/16 0322 Imaging No Imaging studies performed. Procedures Status post I and D and Vacuum placed. Other Results Laboratory Tests Test 11/19/16 11/21/16 11/22/16 11/22/16 15:06 04:34 03:22 20:06 Neutrophils (%) (Auto) 57.0 % Lymphocytes (%) (Auto) 28.4 % Monocytes (%) (Auto) 9.6 % Eosinophils (%) (Auto) 4.3 % Basophils (%) (Auto) 0.7 % Neutrophils # (Auto) 5.3 TH/MM3 Lymphocytes # (Auto) 2.6 TH/MM3 Monocytes # (Auto) 0.9 TH/MM3 Eosinophils # (Auto) 0.4 TH/MM3 Basophils # (Auto) 0.1 TH/MM3 CBC Comment DIFF FINAL Differential Comment Prothrombin Time 13.4 SEC Prothromb Time International 1.2 RATIO Ratio Sodium Level 137 MEQ/L Potassium Level 4.5 MEQ/L Chloride Level 103 MEQ/L Carbon Dioxide Level 28.6 MEQ/L Anion Gap 5 MEQ/L Blood Urea Nitrogen 16 MG/DL Random Glucose 91 MG/DL Calcium Level 8.8 MG/DL Total Bilirubin 0.3 MG/DL Aspartate Amino Transf 14 U/L (AST/SGOT) Alanine Aminotransferase 23 U/L (ALT/SGPT) Alkaline Phosphatase 65 U/L Total Protein 6.5 GM/DL Albumin 2.9 GM/DL Vancomycin Level Trough 11.6 MCG/ML White Blood Count 7.2 TH/MM3 Red Blood Count 2.74 MIL/MM3 Hemoglobin 8.5 GM/DL Hematocrit 24.9 % Mean Corpuscular Volume 90.7 FL Mean Corpuscular Hemoglobin 30.9 PG Mean Corpuscular Hemoglobin 34.0 % Concent Red Cell Distribution Width 16.5 % Platelet Count 218 TH/MM3 Mean Platelet Volume 9.8 FL Creatinine 0.84 MG/DL Estimat Glomerular Filtration 98 ML/MIN Rate Uric Acid 3.4 MG/DL Test 11/23/16 06:13 Activated Partial 30.3 SEC Thromboplast Time Objective Remarks GENERAL: Alert and oriented, no distress. SKIN: Focused skin assessment warm/dry. The skin is cool and pale below the knee. HEAD: Atraumatic. Normocephalic. EYES: Pupils equal and round. No scleral icterus. No injection or drainage. ENT: No nasal bleeding or discharge. Mucous membranes pink and moist. NECK: Trachea midline. No JVD. CARDIOVASCULAR: Regular rate and rhythm. No murmur appreciated. RESPIRATORY: No accessory muscle use. Clear to auscultation. Breath sounds equal bilaterally. GASTROINTESTINAL: Abdomen soft, non-tender, nondistended. Hepatic and splenic margins not palpable. MUSCULOSKELETAL: Right leg with Vacuum in place. mild pain on palpation of Left Hallux and ankle. NEUROLOGICAL: Awake and alert. No focal deficits. PSYCHIATRIC: Appropriate mood and affect; insight and judgment normal. Medications and IVs Current Medications Medications (Trade) Dose Ordered Sig/Santos Route Start Time Stop Time Status Last Admin (Lopressor) 50 mg BID PO 11/19/16 21:00 11/23/16 08:33 (Roxicodone) 7.5 mg Q4H PRN PO 11/19/16 14:00 11/23/16 12:32 (Rythmol) 150 mg Q8HR PO 11/19/16 14:00 11/23/16 12:32 (Pill Splitter) 1 ea UNSCH PRN OTHER 11/19/16 13:45 (NS Flush) 2 ml UNSCH PRN IV FLUSH 11/19/16 13:45 (NS Flush) 2 ml BID IV FLUSH 11/19/16 21:00 11/23/16 09:00 (Tylenol) 650 mg Q4H PRN PO 11/19/16 13:45 (Zofran Inj) 4 mg Q6H PRN IVP 11/19/16 13:45 (Dulcolax Supp) 10 mg DAILY PRN RECTAL 11/19/16 13:45 (Colace) 100 mg Q12HR PO 11/19/16 14:15 11/23/16 08:32 (Narcan Inj) 0.4 mg UNSCH PRN IV 11/19/16 13:45 (Morphine Inj) 2 mg Q3H PRN IV PUSH 11/19/16 14:00 11/23/16 10:19 (Heparin Inj) 5,000 units UNSCH PRN IV 11/19/16 20:00 Heparin Sodium (Porcine) 2500 units 2,500 units UNSCH PRN IV 11/19/16 20:00 11/22/16 22:34 Heparin Sodium/ Dextrose 250 ml @ 0 mls/hr TITRATE IV 11/19/16 14:15 11/23/16 08:46 Vancomycin HCl 1500 mg/Sodium Chloride 515 ml @ 257.5 mls/ hr Q12H IV 11/19/16 16:00 11/23/16 16:01 Pharmacy Profile Note 0 ml @ 0 mls/hr UNSCH OTHER 11/19/16 14:15 (Zosyn 3.375 Gm Premix) 50 ml @ 100 mls/hr Q6H IV 11/19/16 16:00 11/23/16 10:19 (Habitrol 14 Mg Patch.24 Hr) 1 patch DAILY T-DERMAL 11/20/16 10:15 11/22/16 09:18 Miscellaneous Information 1 DAILY T-DERMAL 11/21/16 09:00 11/23/16 09:00 Morphine Sulfate 2 mg 2 mg Q1H PRN IV 11/20/16 10:15 11/22/16 18:10 (NS 1000 ml Inj) 1,000 ml @ 100 mls/hr Q10H IV 11/20/16 17:15 11/23/16 10:46 Miscellaneous Information SPECIFIC LAB TO BE JUDAH... ONCE ONCE .XX 11/24/16 03:45 11/24/16 03:46 A/P Assessment and Plan 1. Acute Arterial Embolism and Thrombosis of the Right lower extremity Aorta with Runoff Showed complete Arterial Occlusion involving the distal Right SFA at the level of the adductor canal, Focal moderate Stenosis involving the left popliteal artery. Status post Embolectomy and Fasciotomies 10/31/16 by Doctor Ward Blanchard On Xarealto. status post Vacuum placement. Readmission due to probable abscess, Vancomycin, Zosyn, wound care following , status post I and D and Vacuum placement. the patient showed me there's a leak from the Vacuum lines. 2. Atrial Fibrillation/Arterial Occlusive disease continue Beta Blockers, initially on Heparin then started on Xarelto Echocardiogram 05/20/16 EF 6065 percent severe LVH, no RWMA, LAE moderately dilated, tricuspid valve trace regurgitation, mitral valve with trace regurgitation. PA peak press 45 mmHg 05/18/16-cardiac catheterization EF 60%, diastolic dysfunction, normal coronary arteries, RCA dominant-mid and distal 40% plaque, left circ-OM1 80% lesion noted Continue Propafenone to maintain NSR. 3. Severe Tobacco dependence strongly recommended to stop smoking, may be associated with his actual pathology, as per patient not smoking for the last three weeks asked for Nicotine patch placed. 4. Alcohol abuse strongly recommended to stop this behavior, continue drinking wine but one glass socially. 5. Hypertension Controlled. 6. Questionable Gout given one dose of Prednisone as a Trial, Uric Acid 3.4 low probability for Gout. NSAIDs may be used as needed no complaint by patient he is been walking. DVT prophylaxis Heparin drip Code Status Full Code. Discussed Condition With Patient Code Status Full Code. Discharge Planning Once Cleared by Specialist. Hermann Ribeiro MD November 23, 2016 16:40
[2016-11-23 17:47] LABS: APTT (PATIENT) 30.6 SEC (24.3-30.1)
[2016-11-23] MEDS: MORPHINE SULFATE 4 MG/ML INJ IV PRN ×2 (18:20→23:05)
[2016-11-24] VITALS (7 sets, daily range): BP systolic 126–167; BP diastolic 80–94; PULSE 55–67; RESP 18; TEMP 97.3–98.3; O2SAT 97–100
[2016-11-24 00:27] LABS: APTT (PATIENT) 28.8 SEC (24.3-30.1)
[2016-11-24] MEDS: PIPERACIL-TAZO 3.375 GM PREMIX 50 ML IV SCH ×4 (01:03→20:36)
[2016-11-24] MEDS: SODIUM CHLOR 0.9% 1000 ML INJ 1,000 ML IV SCH ×2 (01:06→06:45)
[2016-11-24] MEDS: VANCOMYCIN INJ 1,500 MG in SODIUM CHLORID 0.9% 500 ML INJ 500 ML IV SCH (03:23)
[2016-11-24] MEDS: MORPHINE SULFATE 4 MG/ML INJ IV PUSH PRN ×3 (03:24→11:57)
[2016-11-24] MEDS ORDERED: PHARMACY ORDERED LAB ONE (03:45)
[2016-11-24 04:03] LABS: VANCOMYCIN TROUGH 15.6 MCG/ML (5.0-10.0)
[2016-11-24] MEDS: PROPAFENONE HCL 150 MG TAB PO SCH ×3 (05:07→22:52)
[2016-11-24] MEDS: DOCUSATE SODIUM 100 MG CAP PO SCH ×2 (08:26→20:35)
[2016-11-24] MEDS: METOPROLOL TARTRATE 50 MG TAB PO SCH ×2 (08:26→20:35)
[2016-11-24] MEDS: NICOTINE 14 MG/24 HR PATCH T-DERMAL SCH (08:26)
[2016-11-24] MEDS: REMOVE OLD PATCH T-DERMAL SCH (08:27)
[2016-11-24] MEDS: SODIUM CHLORIDE 0.9% FLUSH 10 ML FLUSH IV FLUSH SCH ×2 (08:27→20:35)
[2016-11-24] MEDS: HEPARIN-D5W INJ 250 ML IV SCH (09:45)
[2016-11-24] MEDS ORDERED: HYDROmorphone HCL PF 1 MG/ML VIAL IV ONE (12:00)
--- NOTE | 2016-11-24 13:51 | PD.VS.PN ---
Subjective Subjective/Hospital Course Pt sitting in chair with parents at the BS Pt reported he feels good today Pain controlled Swelling to RLE improved Wound Vac placed today w/o difficulty (Brigida Armijo) Objective Vitals/I&O Date Time Temp Pulse Resp B/P Pulse Ox O2 Delivery O2 Flow Rate FiO2 11/24/16 12:00 98.3 63 18 135/82 97 11/24/16 08:00 58 11/24/16 08:00 97.3 58 18 167/92 98 11/24/16 08:00 Room Air 11/24/16 04:00 97.7 59 18 132/89 98 11/24/16 04:00 Room Air 11/24/16 00:11 Room Air 11/24/16 00:00 97.6 55 18 135/80 100 11/23/16 20:00 98.2 89 18 140/87 97 11/23/16 20:00 Room Air 11/23/16 19:50 67 11/23/16 16:00 98.2 59 16 116/65 93 11/24/16 11/24/16 11/24/16 07:00 15:00 23:00 Intake Total 2586 ml Output Total 500 ml Balance 2086 ml Physical Exam GENERAL: A&OX3,GCS15,NAD, Pleasant 46/M patient SKIN: Warm and dry. Right LE swelling improved since previous assessment, Wound vac to RLE noted. Surrounding tissue near (medial and lateral) fasciotomy sites pink with NO erythema. NECK: Supple, No JVD CARDIOVASCULAR: +S1,S2 w/o M/G/R RESPIRATORY: CTA/BS equal bilaterally/No accessory muscle use. GASTROINTESTINAL: Abdomen S/NT MUSCULOSKELETAL: No cyanosis, or edema. R/L- Palpable DP/PT pulses noted Bilat LE warm with motor intact Cap refill <3 sec (Brigida Armijo) Laboratory Laboratory Tests Test 11/23/16 11/24/16 11/24/16 11/24/16 17:26 00:00 03:20 10:13 Activated Partial 30.6 28.8 28.0 Thromboplast Time Creatinine 0.92 Estimat Glomerular Filtration 88 Rate Vancomycin Level Trough 15.6 Date/Time Procedure Status Source Growth 11/19/16 15:05 Aerobic Blood Culture - Final Complete Blood Peripheral NO GROWTH IN 5 DAYS 11/19/16 15:05 Anaerobic Blood Culture - Final Complete Blood Peripheral NO GROWTH IN 5 DAYS (Brigida Armijo) Assessment and Plan Assessment: (1) H/O fasciotomy Status: Acute Plan Status post I and D of fasciotomy right lower extremity. Plan Case management can help arrange possible inpatient ([place]) vs outpatient care. Consult OT Continue wound vac management Brigida STEPHENS [facility]/[place] [phone] (Brigida Armijo) Plan I agree with above assessment and plan. Outpatient rehab is most appropriate. Ward Blanchard DO, FACS Ultrasound Specialist of Vascular Surgery /[place] (Ward Blanchard DO) Brigida Armijo November 24, 2016 13:51 Ward Blanchard DO November 24, 2016 15:55
--- NOTE | 2016-11-24 16:31 | HHI.PR ---
Subjective Remarks Follow up arterial occlusion of right leg, s/p embolectomy and fasciotomies on and incision and debridement on 11/20/16. Patient seen and examined today. Patient denies any acute complaints. Denies any fever, chills, cough, shortness of breath or chest pain. Has been tolerating PO diet. Pain well controlled. Has been out of bed to chair today. Objective Vitals Vital Signs Date Time Temp Pulse Resp B/P Pulse Ox O2 Delivery O2 Flow Rate FiO2 11/24/16 12:00 98.3 63 18 135/82 97 11/24/16 08:00 58 11/24/16 08:00 97.3 58 18 167/92 98 11/24/16 08:00 Room Air 11/24/16 04:00 97.7 59 18 132/89 98 11/24/16 04:00 Room Air 11/24/16 00:11 Room Air 11/24/16 00:00 97.6 55 18 135/80 100 11/23/16 20:00 98.2 89 18 140/87 97 11/23/16 20:00 Room Air 11/23/16 19:50 67 11/23/16 16:00 98.2 59 16 116/65 93 I/O 11/23/16 11/23/16 11/23/16 11/24/16 11/24/16 11/24/16 07:00 15:00 23:00 07:00 15:00 23:00 Intake Total 1944 ml 1496 ml 1710 ml 2586 ml 1000 ml Output Total 1375 ml 675 ml 875 ml 500 ml Balance 569 ml 821 ml 835 ml 2086 ml 1000 ml Intake Oral 480 ml 620 ml 480 ml 240 ml IV Total 1464 ml 876 ml 1230 ml 2346 ml 1000 ml Output Urine Total 1375 ml 675 ml 875 ml 500 ml # Bowel Movements 0 1 0 0 Result Diagram: 11/22/16 0322 11/24/16 0320 Objective Remarks GENERAL: Well-nourished, well-developed patient in NAD. SKIN: Warm and dry. No rash noted. Right lower leg wound vac in place, surrounding skin c/d/i. HEENT: Normocephalic. Atraumatic. Pupils equal and round. No scleral icterus. No injection or drainage. No nasal bleeding or discharge. Mucous membranes pink and moist. Supple. Trachea midline. CARDIOVASCULAR: Regular rate and rhythm. S1, S2 noted. No murmur appreciated. RESPIRATORY: No accessory muscle use. Clear to auscultation. Breath sounds equal bilaterally. GASTROINTESTINAL: Abdomen soft, non-tender, nondistended. Normoactive bowel sounds x4. MUSCULOSKELETAL: No obvious deformities. Extremities without clubbing, cyanosis , or edema. NEUROLOGICAL: Awake and alert. No obvious cranial nerve deficits. Motor grossly within normal limits. Normal speech. PSYCHIATRIC: Appropriate mood and affect; insight and judgment normal. Urinary Catheter: No Vascular Central Line Catheter: No A/P Assessment and Plan Mr. Valencia is a 46-year-old male with a known history of tobacco dependance, CAD, atrial fibrillation, hypertension, right lower extremity thrombosis s/p embolectomy and fasciotomies 10/31/16 and incision and debridement on 11/20/[address] Blanchard. Acute Arterial Embolism and Thrombosis of the right lower extremity - Aorta with runoff showed complete Arterial Occlusion involving the distal right SFA at the level of the adductor canal; focal moderate stenosis involving the left popliteal artery. - Status post Embolectomy and Fasciotomies 10/31/[address] Blanchard. Readmission due to probable abscess, Vancomycin, Zosyn, wound care following, status post I and D and Vacuum placement. - Continue Zosyn 3.375 mg IV Q6h and change Vancomycin to 1,250 mg IV Q12h. - Control pain: Roxicodone 10 mg PO Q4h PRN per pain scale. Atrial Fibrillation/Arterial Occlusive disease - Continue metoprolol, initially on Heparin then started on Xarelto. Will stop heparin drip tonight at 2100. Start Xarelto 15 mg PO BID tonight. - Echocardiogram 05/20/16 EF 6065 percent severe LVH, no RWMA, LAE moderately dilated, tricuspid valve trace regurgitation, mitral valve with trace regurgitation. PA peak press 45 mmHg. 05/18/16-cardiac catheterization EF 60, diastolic dysfunction, normal coronary arteries, RCA dominant-mid and distal 40% plaque, left circ-OM1 80% lesion noted - Continue Propafenone to maintain NSR. Severe Tobacco dependence: Encourage cessation. Continue Nicotine daily patch. Alcohol abuse: Encouraged cessation. Hypertension, controlled: Continue to monitor. Questionable gout - Status post Prednisone 40 mg PO x 1. Uric Acid 3.4. - Per patient, improved today. Will continue to monitor. DVT prophylaxis: Heparin drip. Discharge Planning Discussed with CM. Plan for discharge tomorrow to [facility] on Vanco and Levaquin. Awaiting OT and recommendations. Mary Ann Robins November 24, 2016 16:31 Mary Ann Robins November 24, 2016 16:31
[2016-11-24] MEDS: VANCOMYCIN INJ 1,250 MG in SODIUM CHLOR 0.9% 250 ML INJ 250 ML IV SCH (16:48)
[2016-11-24 17:52] LABS: APTT (PATIENT) 28.5 SEC (24.3-30.1)
[2016-11-24] MEDS: RIVAROXABAN 15 MG TAB PO SCH (20:35)
[2016-11-25] VITALS (7 sets, daily range): BP systolic 132–153; BP diastolic 56–95; PULSE 60–70; RESP 18–20; TEMP 97.6–98.8; O2SAT 95–98
[2016-11-25] MEDS: PIPERACIL-TAZO 3.375 GM PREMIX 50 ML IV SCH ×4 (01:14→20:59)
[2016-11-25] MEDS: VANCOMYCIN INJ 1,250 MG in SODIUM CHLOR 0.9% 250 ML INJ 250 ML IV SCH ×2 (04:19→17:03)
[2016-11-25] MEDS: PROPAFENONE HCL 150 MG TAB PO SCH ×3 (05:38→21:04)
[2016-11-25] MEDS ORDERED: DOCU1CAP39 PO (07:52)
[2016-11-25 08:15] LABS: HEMATOCRIT 24.4 % (39.0-51.0); MEAN CORPUSCULAR HEMOGLOBIN 30.9 PG (27.0-34.0); MEAN CORPUSCULAR HGB CONC 33.9 % (32.0-36.0); PLATELET COUNT 227 TH/MM3 (150-450); RED BLOOD COUNT 2.69 MIL/MM3 (4.50-5.90); RED CELL DISTRIBUTION WIDTH 17.4 % (11.6-17.2); REVIEW FLAG FINAL; WHITE BLOOD COUNT 6.9 TH/MM3 (4.0-11.0)
[2016-11-25] MEDS: DOCUSATE SODIUM 100 MG CAP PO SCH ×2 (09:02→20:59)
[2016-11-25] MEDS: METOPROLOL TARTRATE 50 MG TAB PO SCH ×2 (09:02→20:59)
[2016-11-25] MEDS: RIVAROXABAN 15 MG TAB PO SCH ×2 (09:02→20:59)
[2016-11-25] MEDS: SODIUM CHLORIDE 0.9% FLUSH 10 ML FLUSH IV FLUSH SCH ×2 (09:03→21:00)
[2016-11-25] MEDS: REMOVE OLD PATCH T-DERMAL SCH (09:03)
[2016-11-25] MEDS: NICOTINE 14 MG/24 HR PATCH T-DERMAL SCH (09:03)
[2016-11-25] MEDS ORDERED: OXYC-392 PO (09:20)
--- NOTE | 2016-11-25 09:22 | HHI.FF ---
Face to Face Verification Diagnosis: (1) Arterial embolism and thrombosis of lower extremity Physical Therapy Order: Evaluate and Treat, Improve ambulation, Strength and gait training Occupational Therapy Order: Evaluate and Treat, Gross motor coordination Home Health Nursing Order: Signs/symptoms of disease process Medication education-adverse effect Wound care and dressing changes Nursing assessment with vital signs IV medication administration I have seen patient Ramiro Valencia on 11/25/16. My clinical findings support the need for the requested home health care services because: Deconditioned w/ increased weakness High risk of falls I certify that my clinical findings support that this patient is homebound because: Unsteady gait/balance Addendum Remarks Spoke with Dr. Blanchard after performing face to face, he does not want patient to go home with home health care. Plan is for patient to discharge to [facility] or other Rehab facility. Mary Ann Robins November 25, 2016 09:22 Emily Hung MD Jan 17, 2017 12:21
--- NOTE | 2016-11-25 10:43 | PD.VS.PN ---
Subjective Subjective/Hospital Course Pt alert in NAD Pain controlled Pt reported RLE numbness has improved (Brigida Armijo) Objective Vitals/I&O Date Time Temp Pulse Resp B/P Pulse Ox O2 Delivery O2 Flow Rate FiO2 11/25/16 05:47 97.6 60 18 136/81 95 11/25/16 04:00 Room Air 11/25/16 00:00 Room Air 11/25/16 00:00 98.4 64 18 140/78 96 11/24/16 20:03 67 11/24/16 20:00 97.6 65 18 157/94 100 11/24/16 20:00 Room Air 11/24/16 16:00 98.2 60 18 126/80 98 11/24/16 12:00 98.3 63 18 135/82 97 11/25/16 11/25/16 11/25/16 07:00 15:00 23:00 Intake Total 426 ml Output Total 1250 ml Balance -824 ml Physical Exam GENERAL: Alert in NAD SKIN: Warm and dry. wound vac to RLE intact with 125mmhg/continuous suction, R leg with swelling noted, improved since last assessment CARDIOVASCULAR: RRR, +S1,S2 no M/G/R RESPIRATORY: BS CTA Palpable bialt DP/PT Feet warm with motor intact Cap refill <3 sec (Brigida Armijo) Laboratory Laboratory Tests Test 11/24/16 11/25/16 12:27 07:15 Activated Partial 28.5 Thromboplast Time White Blood Count 6.9 Red Blood Count 2.69 Hemoglobin 8.3 Hematocrit 24.4 Mean Corpuscular Volume 91.0 Mean Corpuscular Hemoglobin 30.9 Mean Corpuscular Hemoglobin 33.9 Concent Red Cell Distribution Width 17.4 Platelet Count 227 Mean Platelet Volume 10.2 (Brigida Armijo) Assessment and Plan Assessment: (1) H/O fasciotomy Status: Acute Plan Plan Pt doing well today Continue wound vac management Pt awaits OP Rehab placement Brigida STEPHENS [facility] [phone] (Brigida Armijo) Plan I agree with above assessment and plan. Plan for inpatient vs outpatient rehab pendig. Made progress with physical and occupational therapy. Concerns for home rehab.. 1. lives alone with roommate. Will someone always be available to help him with activities of daily living. 2. Uses walker to ambulate, question if needs more aggressive physical therapy. May become deconditioned. 3. IV antibiotics for another 2 weeks. 4. Wound care, wound vac already infected with previous home health care, hence I&D with more extensive wound management needed at this point. 5. Problems with wound vac (leaks and bleeding) may be excessive or neglected at home. 6. Pain management, multiple calls to office for additional pain medication the last time was discharged. For the above reasons some short term inpatient rehab may be beneficial over home health. Will have him assessed again by physical and occupational therapy on a wound vac change day (thu). I spoke with his hospitalist (Dr. Hung), physical/occupational therapy, case mgmt and the patient/mother about the plan in detail. Ward Blanchard DO, [employer] Attorney of Vascular Surgery (Ward Blanchard DO) Brigida Armijo November 25, 2016 10:43 Ward Blanchard DO November 25, 2016 16:16
--- NOTE | 2016-11-25 12:08 | HHI.PR ---
Subjective Remarks Follow up arterial occlusion of right leg, s/p embolectomy and fasciotomies on and incision and debridement on 11/20/16. Patient seen and examined today. Denies any new acute complaints. States that pain has been well controlled. Patient does complain of some intermittent numbness to right foot which is relieved with brooke medication. Tolerating diet. Denies any recent fever, chills , cough, shortness of breath, chest pain or nausea or vomiting. Objective Vitals Vital Signs Date Time Temp Pulse Resp B/P Pulse Ox O2 Delivery O2 Flow Rate FiO2 11/25/16 05:47 97.6 60 18 136/81 95 11/25/16 04:00 Room Air 11/25/16 00:00 Room Air 11/25/16 00:00 98.4 64 18 140/78 96 11/24/16 20:03 67 11/24/16 20:00 97.6 65 18 157/94 100 11/24/16 20:00 Room Air 11/24/16 16:00 98.2 60 18 126/80 98 11/24/16 12:00 98.3 63 18 135/82 97 I/O 11/24/16 11/24/16 11/24/16 11/25/16 11/25/16 11/25/16 07:00 15:00 23:00 07:00 15:00 23:00 Intake Total 2586 ml 1960 ml 1038 ml 426 ml Output Total 500 ml 1000 ml 1050 ml 1250 ml Balance 2086 ml 960 ml -12 ml -824 ml Intake Oral 240 ml 960 ml 360 ml 120 ml IV Total 2346 ml 1000 ml 678 ml 306 ml Output Urine Total 500 ml 1000 ml 1050 ml 1250 ml # Bowel Movements 0 0 0 0 Result Diagram: 11/25/16 0715 11/24/16 0320 Objective Remarks GENERAL: Well-nourished, well-developed patient in NAD. SKIN: Warm and dry. No rash noted. Right lower leg wound vac in place, surrounding skin c/d/i. HEENT: Normocephalic. Atraumatic. Pupils equal and round. No scleral icterus. No injection or drainage. No nasal bleeding or discharge. Mucous membranes pink and moist. Supple. Trachea midline. CARDIOVASCULAR: Regular rate and rhythm. S1, S2 noted. No murmur appreciated. RESPIRATORY: No accessory muscle use. Clear to auscultation. Breath sounds equal bilaterally. GASTROINTESTINAL: Abdomen soft, non-tender, nondistended. Normoactive bowel sounds x4. MUSCULOSKELETAL: No obvious deformities. Extremities without clubbing, cyanosis , or edema. NEUROLOGICAL: Awake and alert. No obvious cranial nerve deficits. Motor grossly within normal limits. Normal speech. PSYCHIATRIC: Appropriate mood and affect; insight and judgment normal. Urinary Catheter: No Vascular Central Line Catheter: No A/P Assessment and Plan Mr. Valencia is a 46-year-old male with a known history of tobacco dependance, CAD, atrial fibrillation, hypertension, right lower extremity thrombosis s/p embolectomy and fasciotomies 10/31/16 and incision and debridement on 11/20/[address] Blanchard. Acute Arterial Embolism and Thrombosis of the right lower extremity - Aorta with runoff showed complete Arterial Occlusion involving the distal right SFA at the level of the adductor canal; focal moderate stenosis involving the left popliteal artery. - Status post Embolectomy and Fasciotomies 10/31/[address] Blanchard. Readmission due to probable abscess, Vancomycin, Zosyn, wound care following, status post I and D and Vacuum placement. - Continue Zosyn 3.375 mg IV Q6h and change Vancomycin to 1,250 mg IV Q12h. Plan is to switch Zosyn IV to Levaquin PO when discharged. Monitor creatinine, redraw in am. - Control pain: Roxicodone 10 mg PO Q4h PRN per pain scale. - Spoke with Dr. Blanchard, plan will be to send patient to inpatient rehab or other rehab facility. facilities project manager updated. Atrial Fibrillation/Arterial Occlusive disease - Continue metoprolol, initially on Heparin then started on Xarelto. Heparin drip stopped. Xarelto started, 15 mg PO BID. - Echocardiogram 05/20/16 EF 6065 percent severe LVH, no RWMA, LAE moderately dilated, tricuspid valve trace regurgitation, mitral valve with trace regurgitation. PA peak press 45 mmHg. 05/18/16-cardiac catheterization EF 60, diastolic dysfunction, normal coronary arteries, RCA dominant-mid and distal 40% plaque, left circ-OM1 80% lesion noted - Continue Propafenone to maintain NSR. Normocytic, normochromic anemia: likely postoperative related, Initially 10.4 -- > 8.5 --> today 5/9, 8.3. Will continue to monitor. CBC in am. No signs of bleeding, monitor. Severe Tobacco dependence: Encourage cessation. Continue Nicotine daily patch. Alcohol abuse: Encouraged cessation. Hypertension, controlled: Continue to monitor. Questionable gout: Status post Prednisone 40 mg PO x 1. Uric Acid 3.4. Per patient, improved and asymptomatic. Will continue to monitor. DVT prophylaxis: DC heparin drip. Continue Xarelto. Discharge Planning Discussed with CM. Plan for discharge to [facility] or rehab facility. Mary Ann Robins November 25, 2016 12:08
[2016-11-26] VITALS: BP 136/80; PULSE 61; RESP 20; TEMP 97.4; O2SAT 96
[2016-11-26] MEDS: PIPERACIL-TAZO 3.375 GM PREMIX 50 ML IV SCH ×4 (01:21→20:17)
[2016-11-26] MEDS ORDERED: PHARMACY ORDERED LAB ONE (03:45)
[2016-11-26 04:00] VITALS: BP 139/69; PULSE 64; RESP 20; TEMP 97.9; O2SAT 95
[2016-11-26] MEDS: VANCOMYCIN INJ 1,250 MG in SODIUM CHLOR 0.9% 250 ML INJ 250 ML IV SCH (04:00)
[2016-11-26] MEDS: PROPAFENONE HCL 150 MG TAB PO SCH ×3 (05:30→22:32)
[2016-11-26 07:13] LABS: BASOPHIL % 0.6 % (0.0-2.0); EOSINOPHIL # 0.4 TH/MM3 (0-0.4); EOSINOPHIL % 4.5 % (0.0-4.0); HEMATOCRIT 24.5 % (39.0-51.0); HEMO FLAGS DIFF FINAL; LYMPH % 21.5 % (9.0-44.0); LYMPHOCYTE # 1.8 TH/MM3 (1.0-4.8); MEAN CELL VOLUME 89.8 FL (80.0-100.0); MEAN CORPUSCULAR HEMOGLOBIN 30.7 PG (27.0-34.0); MEAN CORPUSCULAR HGB CONC 34.2 % (32.0-36.0); MONO % 12.3 % (0.0-8.0); NEUT % 61.1 % (16.0-70.0); PLATELET COUNT 229 TH/MM3 (150-450); RED BLOOD COUNT 2.72 MIL/MM3 (4.50-5.90); RED CELL DISTRIBUTION WIDTH 17.9 % (11.6-17.2); WHITE BLOOD COUNT 8.2 TH/MM3 (4.0-11.0)
[2016-11-26 08:00] VITALS: BP 144/80; PULSE 57; RESP 18; TEMP 98.4; O2SAT 98
[2016-11-26] MEDS: DOCUSATE SODIUM 100 MG CAP PO SCH ×2 (08:26→20:16)
[2016-11-26] MEDS: METOPROLOL TARTRATE 50 MG TAB PO SCH ×2 (08:26→20:17)
[2016-11-26] MEDS: RIVAROXABAN 15 MG TAB PO SCH ×2 (08:26→20:17)
[2016-11-26] MEDS: REMOVE OLD PATCH T-DERMAL SCH (08:27)
[2016-11-26] MEDS: NICOTINE 14 MG/24 HR PATCH T-DERMAL SCH (08:27)
[2016-11-26] MEDS: SODIUM CHLORIDE 0.9% FLUSH 10 ML FLUSH IV FLUSH SCH ×2 (08:27→20:18)
[2016-11-26] MEDS: MORPHINE SULFATE 8 MG/ML INJ IV PUSH PRN (09:50)
[2016-11-26 12:00] VITALS: BP 143/74; PULSE 68; RESP 18; TEMP 98.7; O2SAT 97
--- NOTE | 2016-11-26 13:43 | PD.VS.PN ---
Subjective Subjective/Hospital Course Pt in NAD Wound Vac dressing changed this am Pt denies pain (Brigida Armijo) Objective Vitals/I&O Date Time Temp Pulse Resp B/P Pulse Ox O2 Delivery O2 Flow Rate FiO2 11/26/16 08:30 Room Air 11/26/16 08:00 98.4 57 18 144/80 98 11/26/16 04:00 97.9 64 20 139/69 95 11/26/16 00:00 97.4 61 20 136/80 96 11/25/16 20:00 98.8 69 20 132/66 95 11/25/16 19:45 Room Air 11/25/16 19:37 67 11/25/16 16:00 98.0 65 18 135/56 97 11/26/16 11/26/16 11/26/16 06:59 14:59 22:59 Intake Total 120 ml Output Total 1425 ml Balance -1305 ml Physical Exam GENERAL: NAD, A&OX3, GCS15 SKIN: Warm and dry. Bilat fasciotomy sites w/o odor/erythema. Granulation tissue present. Improved since last assessment. CARDIOVASCULAR: +S1,S2, RRR w/o M/G/R RESPIRATORY: BS CTA MUSCULOSKELETAL: No cyanosis/ RLE with edema present/Left hip discomfort upon palpation "improved" per pt Palpable bilat DP/PT BLE warm/motor intact (Brigida Armijo) Laboratory Laboratory Tests Test 11/26/16 11/26/16 11/26/16 03:55 06:30 06:50 Vancomycin Level Trough 17.7 Creatinine 1.00 Estimat Glomerular Filtration 80 Rate White Blood Count 8.2 Red Blood Count 2.72 Hemoglobin 8.4 Hematocrit 24.5 Mean Corpuscular Volume 89.8 Mean Corpuscular Hemoglobin 30.7 Mean Corpuscular Hemoglobin 34.2 Concent Red Cell Distribution Width 17.9 Platelet Count 229 Mean Platelet Volume 9.8 Neutrophils (%) (Auto) 61.1 Lymphocytes (%) (Auto) 21.5 Monocytes (%) (Auto) 12.3 Eosinophils (%) (Auto) 4.5 Basophils (%) (Auto) 0.6 Neutrophils # (Auto) 5.0 Lymphocytes # (Auto) 1.8 Monocytes # (Auto) 1.0 Eosinophils # (Auto) 0.4 Basophils # (Auto) 0.0 CBC Comment DIFF FINAL Differential Comment (Brigida Armijo) Assessment and Plan Assessment: (1) H/O fasciotomy Status: Acute Plan 11/25/16 Plan for inpatient vs outpatient rehab pending Made progress with physical and occupational therapy. Concerns for home rehab.. 1. lives alone with roommate. Will someone always be available to help him with activities of daily living. 2. Uses walker to ambulate, question if needs more aggressive physical therapy. May become deconditioned. 3. IV antibiotics for another 2 weeks. 4. Wound care, wound vac already infected with previous home health care, hence I&D with more extensive wound management needed at this point. 5. Problems with wound vac (leaks and bleeding) may be excessive or neglected at home. 6. Pain management, multiple calls to office for additional pain medication the last time was discharged. For the above reasons some short term inpatient rehab may be beneficial over home health. Will have him assessed again by physical and occupational therapy on a wound vac change day (thu). I spoke with his hospitalist (Dr. Hung), physical/occupational therapy, case mgmt and the patient/mother about the plan in detail. Ward Blanchard DO, FACS [employer] Director of Vascular Surgery 11/26/16 Plan Pt awaits out patient rehab placement PICC line ordered for OP IV antibiotic management Continue PT Brigida STEPHENS [facility] [phone] Discharge Planning Pt awaits Out Patient Rehab Placement (Brigida Armijo) Discharge Planning I agree with above assessment and plan. Awaiting PT input and PICC line. Wound looks encouraging. Ward Blanchard DO, FACS (Ward Blanchard DO) Brigida Armijo November 26, 2016 13:43 Ward Blanchard DO November 26, 2016 18:30
--- NOTE | 2016-11-26 14:29 | HHI.PR ---
Subjective Remarks Follow up arterial occlusion of right leg, s/p embolectomy and fasciotomies on and incision and debridement on 11/20/16. Patient seen and examined today. Patient complaint of left large toe aching and gout pain. Has been up out of bed walking the halls with PT. Wound change performed this am. Denies any new acute complaints. Awaiting plan for discharge. Denies any recent fever, chills, cough, shortness of breath or chest pain. Objective Vitals Vital Signs Date Time Temp Pulse Resp B/P Pulse Ox O2 Delivery O2 Flow Rate FiO2 11/26/16 08:30 Room Air 11/26/16 08:00 98.4 57 18 144/80 98 11/26/16 04:00 97.9 64 20 139/69 95 11/26/16 00:00 97.4 61 20 136/80 96 11/25/16 20:00 98.8 69 20 132/66 95 11/25/16 19:45 Room Air 11/25/16 19:37 67 11/25/16 16:00 98.0 65 18 135/56 97 I/O 11/25/16 11/25/16 11/25/16 11/26/16 11/26/16 11/26/16 07:00 15:00 23:00 07:00 15:00 23:00 Intake Total 426 ml 960 ml 240 ml 120 ml Output Total 1250 ml 1500 ml 750 ml 1425 ml Balance -824 ml -540 ml -510 ml -1305 ml Intake Oral 120 ml 960 ml 240 ml 120 ml IV Total 306 ml Output Urine Total 1250 ml 1500 ml 750 ml 1425 ml # Bowel Movements 0 1 1 Result Diagram: 11/26/16 0650 11/26/16 0630 Objective Remarks GENERAL: Well-nourished, well-developed patient in NAD. SKIN: Warm and dry. No rash noted. Right lower leg wound vac in place, surrounding skin c/d/i. HEENT: Normocephalic. Atraumatic. Pupils equal and round. No scleral icterus. No injection or drainage. No nasal bleeding or discharge. Mucous membranes pink and moist. Supple. Trachea midline. CARDIOVASCULAR: Regular rate and rhythm. S1, S2 noted. No murmur appreciated. RESPIRATORY: No accessory muscle use. Clear to auscultation. Breath sounds equal bilaterally. GASTROINTESTINAL: Abdomen soft, non-tender, nondistended. Normoactive bowel sounds x4. MUSCULOSKELETAL: No obvious deformities. Extremities without clubbing, cyanosis , or edema. NEUROLOGICAL: Awake and alert. No obvious cranial nerve deficits. Motor grossly within normal limits. Normal speech. PSYCHIATRIC: Appropriate mood and affect; insight and judgment normal. Urinary Catheter: No Vascular Central Line Catheter: No A/P Assessment and Plan Mr. Valencia is a 46-year-old male with a known history of tobacco dependance, CAD, atrial fibrillation, hypertension, right lower extremity thrombosis s/p embolectomy and fasciotomies 10/31/16 and incision and debridement on 11/20/[address] Blanchard. Acute Arterial Embolism and Thrombosis of the right lower extremity - Aorta with runoff showed complete Arterial Occlusion involving the distal right SFA at the level of the adductor canal; focal moderate stenosis involving the left popliteal artery. - Status post Embolectomy and Fasciotomies 10/31/[address] Blanchard. Readmission due to probable abscess, Vancomycin, Zosyn, wound care following, status post I and D and Vacuum placement. - Continue Zosyn 3.375 mg IV Q6h and change Vancomycin to 1,250 mg IV Q12h. Plan is to switch Zosyn IV to Levaquin PO when discharged. Monitor creatinine, redraw in am. - Control pain: Roxicodone 10 mg PO Q4h PRN per pain scale. Morphine 5 mg IV PRN for wound changes. - operations manager/coordinator updated. Awaiting discharge plans. Atrial Fibrillation/Arterial Occlusive disease - Continue metoprolol, initially on Heparin then started on Xarelto. Heparin drip stopped. Xarelto started, 15 mg PO BID. - Echocardiogram 05/20/16 EF 6065 percent severe LVH, no RWMA, LAE moderately dilated, tricuspid valve trace regurgitation, mitral valve with trace regurgitation. PA peak press 45 mmHg. 05/18/16-cardiac catheterization EF 60, diastolic dysfunction, normal coronary arteries, RCA dominant-mid and distal 40% plaque, left circ-OM1 80% lesion noted - Continue Propafenone to maintain NSR. Normocytic, normochromic anemia: likely postoperative related, Initially 10.4 -- > 8.5 --> 8.3 --> 8.4. Will continue to monitor. No signs of bleeding, monitor. Severe Tobacco dependence: Encourage cessation. Continue Nicotine daily patch. Alcohol abuse: Encouraged cessation. Hypertension, controlled: Continue to monitor. Questionable gout: Status post Prednisone 40 mg PO x 1. Uric Acid 3.4. Per patient, was improved yesterday now is having left big toe pain. Will try NSAID , DVT prophylaxis: DC heparin drip. Continue Xarelto. Discharge patient to home Condition on discharge: Improved Regular Diet as tolerated [employer] activity Rx written: Follow-up with primary care physician Discharge Planning Discussed with CM, waiting on Dr. Blanchard recommendations. Eduardo declined placement. Mary Ann Robins November 26, 2016 14:29
[2016-11-26 16:00] VITALS: BP 144/85; PULSE 68; RESP 18; TEMP 98.3; O2SAT 98
[2016-11-26 20:00] VITALS: BP 145/84; PULSE 69; RESP 18; TEMP 98.3; O2SAT 97
[2016-11-26] MEDS: INDOMETHACIN 50 MG CAP PO SCH (22:32)
[2016-11-26] MEDS: VANCOMYCIN INJ 1,500 MG in SODIUM CHLORID 0.9% 500 ML INJ 500 ML IV SCH (22:33)
[2016-11-27] VITALS (8 sets, daily range): BP systolic 137–155; BP diastolic 77–91; PULSE 51–61; RESP 18–20; TEMP 97.1–98.3; O2SAT 97–100
[2016-11-27] MEDS: PIPERACIL-TAZO 3.375 GM PREMIX 50 ML IV SCH ×4 (01:03→21:07)
[2016-11-27] MEDS: PROPAFENONE HCL 150 MG TAB PO SCH ×3 (05:12→21:07)
[2016-11-27] MEDS: INDOMETHACIN 50 MG CAP PO SCH ×3 (05:12→21:07)
[2016-11-27] MEDS ORDERED: INDO50CA PO (08:42)
[2016-11-27] MEDS ORDERED: OXYC-395 PO (08:42)
[2016-11-27] MEDS: REMOVE OLD PATCH T-DERMAL SCH (09:00)
[2016-11-27] MEDS: NICOTINE 14 MG/24 HR PATCH T-DERMAL SCH (09:14)
[2016-11-27] MEDS: DOCUSATE SODIUM 100 MG CAP PO SCH ×2 (09:15→21:08)
[2016-11-27] MEDS: SODIUM CHLORIDE 0.9% FLUSH 10 ML FLUSH IV FLUSH SCH ×2 (09:15→21:08)
[2016-11-27] MEDS: RIVAROXABAN 15 MG TAB PO SCH ×2 (09:15→21:07)
[2016-11-27] MEDS: METOPROLOL TARTRATE 50 MG TAB PO SCH ×2 (09:15→21:07)
--- NOTE | 2016-11-27 13:17 | HHI.DS ---
Discharge Summary Admission Date November 19, 2016 at 13:07 Discharge Date: December 02, 2016 Admitting Diagnosis Acute arterial occlusion of the right leg (1) Arterial embolism and thrombosis of lower extremity ICD Code: I74.3 Diagnosis: Principal (2) H/O fasciotomy ICD Code: Z98.890 Diagnosis: Principal Procedures I and D of fasciotomy right lower extremity. Brief History - From Admission This is a pleasant 46 y/o Male who was admitted on October 31 and Discharged on November 06 with Diagnosis of Acute arterial Occlusion of the Right Leg, Well known to me I was Attending physician on last admission and discharged him, he has Atrial Fibrillation, Hypertension, with Thrombosis of the Right lower extremity was started on Heparin drip and Performed Embolectomy and Fasciotomies 10/31/16. Notes from last admission: This is a pleasant 46 y/o male with CAD, Severe Tobacco dependence and Alcohol abuse, as per patient he continue Smoking 1 and a half packs of cigarettes daily, recent admission due to Atypical chest pain and Shortness of breath in April last year with diagnosis of STEMI he had recent Cardiac Catheterization by Doctor Pena with no Stents, as we know he has Hypertension on this opportunity came due to Progressive pain and numbness in the right lower extremity below the knee, not able to wiggle his toes on the right foot. Pain and burning sensation. On the calf it is a cramp. I came early to see the patient but he was in was transferred to Intensive Care unit, then transferred to Hospitalist team, performed an Aorta with Runoff Showed complete Arterial Occlusion involving the distal Right SFA at the level of the adductor canal, Focal moderate Stenosis involving the left popliteal artery. had Atrial Fibrillation on presentation from Emergency medicine, With Diagnosis of Arterial Embolism and Thrombosis of the lower extremity, started on Heparin drip and performed Embolectomy and Fasciotomies, 10/31/16 by Doctor Ward Blanchard. Last Hemoglobin 10.5 on discharge, had Vacuum placement and discharged home on Xarelto, he was in sinus rhythm on Discharge home on [facility]. Today I was called by Doctor Blanchard's Nurse Miss Mosley on Follow up today seen with Cellulitis of the right leg asked for admission place him Nothing by mouth tonight and he will have I and D tomorrow, start IV antibiotics, Vancomycin and Zosyn, Wound care follow specialist recommendations. CBC/BMP: 11/26/16 0650 11/26/16 0630 Significant Findings Laboratory Tests Test 11/25/16 11/26/16 11/26/16 11/26/16 07:15 03:55 06:30 06:50 Red Blood Count 2.69 MIL/MM3 2.72 MIL/MM3 (4.50-5.90) (4.50-5.90) Hemoglobin 8.3 GM/DL 8.4 GM/DL (13.0-17.0) (13.0-17.0) Hematocrit 24.4 % 24.5 % (39.0-51.0) (39.0-51.0) Red Cell Distribution Width 17.4 % 17.9 % (11.6-17.2) (11.6-17.2) Vancomycin Level Trough 17.7 MCG/ML (5.0-10.0) Estimat Glomerular Filtration 80 ML/MIN (>89) Rate Monocytes (%) (Auto) 12.3 % (0.0-8.0) Eosinophils (%) (Auto) 4.5 % (0.0-4.0) Monocytes # (Auto) 1.0 TH/MM3 (0-0.9) Imaging Last Impressions Chest X-Ray 11/27/16 0000 Signed Impressions: Service Date/Time: November 13:39 - CONCLUSION: Right upper terminate PICC line placement with tip in good position. Mild cardiomegaly. No acute cardiopulmonary process. Saad Donohue MD PE at Discharge GENERAL: Alert and oriented, no distress. SKIN: Focused skin assessment warm/dry. The skin is cool and pale below the knee. HEAD: Atraumatic. Normocephalic. EYES: Pupils equal and round. No scleral icterus. No injection or drainage. ENT: No nasal bleeding or discharge. Mucous membranes pink and moist. NECK: Trachea midline. No JVD. CARDIOVASCULAR: Regular rate and rhythm. No murmur appreciated. RESPIRATORY: No accessory muscle use. Clear to auscultation. Breath sounds equal bilaterally. GASTROINTESTINAL: Abdomen soft, non-tender, nondistended. Hepatic and splenic margins not palpable. MUSCULOSKELETAL: Right leg with open wound with excellent granulation no infection NEUROLOGICAL: Awake and alert. No focal deficits. PSYCHIATRIC: Appropriate mood and affect; insight and judgment normal. Pt update on day of discharge Follow up arterial occlusion of right leg, s/p embolectomy and fasciotomies on and incision and debridement on 11/20/16. Patient seen and examined today. Patient denies any new acute complaints, agreeable to SNF for discharge. Motivated with rehab and agreeable to plan. Denies any fever, chills, cough, shortness of breath, chest pain, nausea or vomiting. Hospital Course This is a pleasant 46 y/o Male who was admitted on October 31 and Discharged on November 06 with Diagnosis of Acute arterial Occlusion of the Right Leg, Well known to me I was Attending physician on last admission and discharged him, he has Atrial Fibrillation, Hypertension, with Thrombosis of the Right lower extremity was started on Heparin drip and Performed Embolectomy and Fasciotomies 10/31/16. Notes from last admission: This is a pleasant 46 y/o male with CAD, Severe Tobacco dependence and Alcohol abuse, as per patient he continue Smoking 1 and a half packs of cigarettes daily, recent admission due to Atypical chest pain and Shortness of breath in April last year with diagnosis of STEMI he had recent Cardiac Catheterization by Doctor Pena with no Stents, as we know he has Hypertension on this opportunity came due to Progressive pain and numbness in the right lower extremity below the knee, not able to wiggle his toes on the right foot. Pain and burning sensation. On the calf it is a cramp. I came early to see the patient but he was in was transferred to Intensive Care unit, then transferred to Hospitalist team, performed an Aorta with Runoff Showed complete Arterial Occlusion involving the distal Right SFA at the level of the adductor canal, Focal moderate Stenosis involving the left popliteal artery. had Atrial Fibrillation on presentation from Emergency medicine, With Diagnosis of Arterial Embolism and Thrombosis of the lower extremity, started on Heparin drip and performed Embolectomy and Fasciotomies, 10/31/16 by Doctor Ward Blanchard. Last Hemoglobin 10.5 on discharge, had Vacuum placement and discharged home on Xarelto, he was in sinus rhythm on Discharge home on [facility]. 11/19: Readmission Today I was called by Doctor Blanchard's Nurse Miss Mosley on Follow up today seen with Cellulitis of the right leg asked for admission place him Nothing by mouth tonight and he will have I and D tomorrow, start IV antibiotics, Vancomycin and Zosyn, Wound care follow specialist recommendations. 11/20: Stable seen in the room, will have I and D later today. 11/21: Status post Right Lower extremity I and D and Placement of Wound Vac. by Doctor Ward Blanchard. 11/22: Seen in the morning, stable, complaint of left Hallux pain and ankle pain , no clear diagnosis for Gout, asked for Uric Acid 3.4 discussed with Vascular Song And Dance Performer. 11/23: Patient in his bedroom, no new complaint, mild improvement with Prednisone dose given yesterday and Low uric acid level may give NSAIDs has good renal function, No nausea, vomit or diarrhea, continue with Vacuum line leak. blood culture negative in four days, no BSI 11/28: Seen in his bedroom and discussed at this time with Doctor Blanchard he does not believer in true reaction to Vancomycin he will receive Vancomycin and Benadryl and follow for probable reaction and discharge to Rehab facility 11/29: Stable no new issues, did not have any reaction to his Vancomycin yesterday, improving renal function. 11/30: Seen in his bedroom no complaint, he was discharged yesterday, no nausea, vomit or diarrhea, on Vancomycin and Zosyn Discussed yesterday afternoon with Scientific Database Curator she states the patient has been accepted by Rehab facility but not given authorization by his Insurance, explained that to the patient in the room and to his mother and Father, he states he wants to speak with his Primary Vascular Surgeon Doctor Blanchard and he wants to stay in house and be discharged directly to his home next Thursday. will wait for follow up in the morning by Vascular specialist. 12/01: Awaiting final by lead assistant manager and Vascular surgery for discharge, discussed in his bedroom in the presence of his Mother Wound care nurse, and KAT Miss Allred from Cardiovascular Surgery Office , she states the patient will have Vancomycin until tomorrow and will be discharged on by mouth Levaquin for five more days and continue wound care follow up with Doctor Blanchard's Office for 12/10/16. No nausea, vomit or diarrhea. 12/02: Stable in his bedroom, discussed with nurse Miss Cheek and with Doctor Blanchard's INSURANCE BILLING SPECIALIST Miss Allred okay to discharge home now on [facility] for PT and he will go for Wound care as outpatient, no nausea, vomit or diarrhea. Assessment and Plan 1. Acute Arterial Embolism and Thrombosis of the Right lower extremity Aorta with Runoff Showed complete Arterial Occlusion involving the distal Right SFA at the level of the adductor canal, Focal moderate Stenosis involving the left popliteal artery. Status post Embolectomy and Fasciotomies 10/31/16 [address] Doctor Ward Blanchard On Xarealto. status post Vacuum placement. Readmission due to cellulitis and abscess status post I and D, and Vacuum placement a per Vascular legal billing specialist will continue Vancomycin until tomorrow, discharge on Levaquin by mouth for five more days and follow in his office on next Thursday12/10/16 continue Wound Care. 2. Atrial Fibrillation/Arterial Occlusive disease continue Beta Blockers, initially on Heparin then started on Xarelto Echocardiogram 05/20/16 EF 6065 percent severe LVH, no RWMA, LAE moderately dilated, tricuspid valve trace regurgitation, mitral valve with trace regurgitation. PA peak press 45 mmHg 05/18/16-cardiac catheterization EF 60%, diastolic dysfunction, normal coronary arteries, RCA dominant-mid and distal 40% plaque, left circ-OM1 80% lesion noted Continue Propafenone to maintain NSR. 3. Severe Tobacco dependence strongly recommended to stop smoking, may be associated with his actual pathology, as per patient not smoking for the last three weeks asked for Nicotine patch placed. 4. Alcohol abuse strongly recommended to stop this behavior, continue drinking wine but one glass socially. 5. Hypertension Controlled. 6. Acute on chronic renal injury improving will continue present care and follow by Vascular Surgery Next 12/03/16 7. Anemia on acute blood loss, he has a vacuum in place, continue Iron by mouth DVT prophylaxis on Xarelto Code Status Full Code. Discussed with Doctor Bowen's INSURANCE BILLING SPECIALIST Miss Allred appreciated. Discussed Condition With Patient and nurse, in the room all questions answered to the best of my abilities Discharge Planning Discharge home now Pt Condition on Discharge: Good Discharge Disposition: Discharge to SNF Discharge Time: > 30 minutes Discharge Instructions DIET: Follow Instructions for: Heart Healthy Diet Activities you can perform: Regular-No Restrictions Follow up Referrals: SNF/MINE/HH with [facility] Vascular Surgery - 2-3 Days New Medications: Levofloxacin (Levaquin) 750 Mg Tab 750 MG PO DAILY Infection #10 Ref 0 TAB Vancomycin Inj (Vancomycin Inj) 1,000 Mg Inj 1500 MG IV q18h Infection #16 Ref 0 BAG Docusate Sodium (Dok) 100 Mg Cap 100 MG PO Q12HR constipation #60 CAP Indomethacin (Indomethacin) 50 Mg Cap 50 MG PO Q8HR gout #8 CAP Oxycodone (Oxycodone) 10 Mg Tab 10 MG PO Q4H PRN pain 4-10 #10 TAB Continued Medications: Gabapentin (Gabapentin) 300 Mg Cap 300 MG PO TID #90 Ref 0 CAP Metoprolol Tartrate (Lopressor) 50 Mg Tab 50 MG PO BID Hypertension #60 Ref 0 TAB Oxycodone (Oxycodone) 5 Mg Tab 7.5 MG PO Q4H DO NOT TAKE THIS MEDICINE IF YOU WILL DRIVE A CAR OR USE A MACHINE ONLY TAKE IT WHEN RESTING AT HOME. PRN PAIN SCALE 4 TO 10 #20 Ref 0 TAB (This prescription has been renewed) Propafenone (Propafenone) 150 Mg Tab 150 MG PO Q8HR ATRIAL FIBRILLATION #90 Ref 0 TAB Rivaroxaban (Xarelto) 15 Mg Tab 15 MG PO BID TAKE ONE TABLET EVERY 12 HOURS UNTIL 10/23/16 THEN START TAKING ONE TABLET OF XARELTO(RIVAROXABAN) 20 MG DAILY FOR LIFE. DVT #32 Ref 0 TAB Discontinued Medications: Rivaroxaban (Xarelto) 20 Mg Tab 20 MG PO DAILY Blood Clot Prevention #30 Ref 0 TAB Mary Ann Robins November 27, 2016 13:17 Hermann Ribeiro MD December 02, 2016 10:00
[2016-11-27] MEDS ORDERED: SODIUM CHLORIDE 0.9% FLUSH 10 ML FLUSH IV FLUSH PRN (14:15)
--- NOTE | 2016-11-27 14:15 | RADRPT ---
EXAM DATE/TIME: 11/27/2016 13:39 [facility] COMPARISON: CHEST SINGLE AP, May 18, 2016, 5:34. INDICATIONS : PICC line placement. MEDICAL HISTORY : Hypertension. SURGICAL HISTORY : None. ENCOUNTER: Initial ACUITY: 1 day PAIN SCORE: 0/10 LOCATION: Bilateral chest FINDINGS: A right upper extremity PICC line has been inserted. The tip appears to be in the proximal superior v levi cava. Heart is mildly enlarged. Lungs are well-expanded and clear. CONCLUSION: Right upper terminate PICC line placement with tip in good position. Mild cardiomegaly. No acute cardiopulmonary process. Saad Donohue MD on November 27, 2016 at 14:11 Board Certified Radiologist. This report was verified electronically.
[2016-11-27] MEDS: VANCOMYCIN INJ 1,500 MG in SODIUM CHLORID 0.9% 500 ML INJ 500 ML IV SCH (15:07)
[2016-11-27] MEDS ORDERED: diphenhydrAMINE HCL 50 MG/ML VIAL IM ONE (16:45)
[2016-11-27] MEDS ORDERED: diphenhydrAMINE HCL 50 MG/ML VIAL IV PUSH ONE (17:00)
--- NOTE | 2016-11-27 17:27 | HHI.PR ---
Subjective Remarks 0900 Follow up arterial occlusion of right leg, s/p embolectomy and fasciotomies on 10/31/16 and incision and debridement on 11/20/16. Patient seen and examined today. Patient denies any new acute complaints, agreeable to SNF for discharge. Motivated with rehab and agreeable to plan. Denies any fever, chills, cough, shortness of breath, chest pain, nausea or vomiting. 1620 Received call from RN regarding patient reaction when starting second dose of Vancomycin. Patient complaint of shortness of breath, feeling faint, dizzy and flushed. Vitals performed at time, all WNL. Ordered to immediately stop the infusion. Given IV Benadryl and placed on O2. 1700 Patient shortness of breath resolved, flushing resolved and patient feeling better. At this time have dc'd Vancomycin IV, put a call out to Lo to update on reaction and have held discharge, will assess patient overnight. Monitor tele. Objective Vitals Vital Signs Date Time Temp Pulse Resp B/P Pulse Ox O2 Delivery O2 Flow Rate FiO2 11/27/16 12:00 98.3 58 18 146/87 98 11/27/16 08:29 51 11/27/16 08:00 97.1 54 18 137/91 99 11/27/16 07:30 Room Air 11/27/16 04:00 97.2 54 19 140/77 100 11/27/16 00:00 97.9 61 19 140/77 98 11/26/16 20:00 69 11/26/16 20:00 98.3 69 18 145/84 97 11/26/16 19:45 Room Air I/O 11/26/16 11/26/16 11/26/16 11/27/16 11/27/16 11/27/16 07:00 15:00 23:00 07:00 15:00 23:00 Intake Total 120 ml 360 ml 360 ml 240 ml Output Total 1425 ml 800 ml 400 ml 1000 ml Balance -1305 ml -440 ml -40 ml -760 ml Intake Oral 120 ml 360 ml 360 ml 240 ml Output Urine Total 1425 ml 800 ml 400 ml 1000 ml # Bowel Movements 1 1 1 0 Result Diagram: 11/26/16 0650 11/26/16 0630 Imaging Last Impressions Chest X-Ray 11/27/16 0000 Signed Impressions: Service Date/Time: November 13:39 - CONCLUSION: Right upper terminate PICC line placement with tip in good position. Mild cardiomegaly. No acute cardiopulmonary process. Saad Donohue MD Objective Remarks GENERAL: Well-nourished, well-developed patient in NAD at this time. Did complain of previous sob with antibiotic infusion. No rash. Flushing resolved. On 2 L NC at this time. SKIN: Warm and dry. No rash noted. Right lower leg wound vac in place, surrounding skin c/d/i. HEENT: Normocephalic. Atraumatic. Pupils equal and round. No scleral icterus. No injection or drainage. No nasal bleeding or discharge. Mucous membranes pink and moist. Supple. Trachea midline. CARDIOVASCULAR: Regular rate and rhythm. S1, S2 noted. No murmur appreciated. RESPIRATORY: No accessory muscle use. Clear to auscultation. Breath sounds equal bilaterally. GASTROINTESTINAL: Abdomen soft, non-tender, nondistended. Normoactive bowel sounds x4. MUSCULOSKELETAL: No obvious deformities. Extremities without clubbing, cyanosis , or edema. NEUROLOGICAL: Awake and alert. No obvious cranial nerve deficits. Motor grossly within normal limits. Normal speech. PSYCHIATRIC: Appropriate mood and affect; insight and judgment normal. Procedures I and D of fasciotomy right lower extremity. A/P Assessment and Plan Mr. Valencia is a 46-year-old male with a known history of tobacco dependance, CAD, atrial fibrillation, hypertension, right lower extremity thrombosis s/p embolectomy and fasciotomies 10/31/16 and incision and debridement on 11/20/[address] Blanchard. Acute Arterial Embolism and Thrombosis of the right lower extremity - Aorta with runoff showed complete Arterial Occlusion involving the distal right SFA at the level of the adductor canal; focal moderate stenosis involving the left popliteal artery. - Status post Embolectomy and Fasciotomies 10/31/[address] Blanchard. Readmission due to probable abscess, Vancomycin, Zosyn, wound care following, status post I and D and Vacuum placement. - Continue Zosyn 3.375 mg IV Q6h, dc Vancomycin due to reaction. Plan, per Dr. Blanchard, is to switch Zosyn IV to Levaquin PO when discharged. Questioning plan for Vanco. - Control pain: Roxicodone 10 mg PO Q4h PRN per pain scale. Morphine 5 mg IV PRN for wound changes. - content creation manager working on authorization to SNF. Held discharge at this time, awaiting call back from Dr. Blanchard. Atrial Fibrillation/Arterial Occlusive disease - Continue metoprolol, initially on Heparin then started on Xarelto. Heparin drip stopped. Xarelto started, 15 mg PO BID. - Echocardiogram 05/20/16 EF 6065 percent severe LVH, no RWMA, LAE moderately dilated, tricuspid valve trace regurgitation, mitral valve with trace regurgitation. PA peak press 45 mmHg. 05/18/16-cardiac catheterization EF 60, diastolic dysfunction , normal coronary arteries, RCA dominant-mid and distal 40% plaque, left circ- OM1 80% lesion noted. - Continue Propafenone to maintain NSR. Normocytic, normochromic anemia: likely postoperative related, Initially 10.4 -- > 8.5 --> 8.3 --> 8.4. Will continue to monitor. No signs of bleeding, monitor. Severe Tobacco dependence: Encourage cessation. Continue Nicotine daily patch. Alcohol abuse: Encouraged cessation. Hypertension, controlled: Continue to monitor. Questionable gout: Status post Prednisone 40 mg PO x 1. Uric Acid 3.4. Continue Indomethacin for gout x 3 days. DVT prophylaxis: DC heparin drip. Continue Xarelto. Attestation Patient seen and examined with KAT Raymond. The exam, history, and the medical decision-making described in the above note were completed with the assistance of the dictating practitioner. I attest that I had a [id number] encounter with the patient on the same day, and personally performed all of the history, exam, or medical decision making. Discussed case with her thoroughly after seeing the patient, reviewed and agreed with the plan. Please see addendum in History, Physical examination. See below for any errata/additional input: Follow-up for RLE embolism This afternoon around 5 PM, patient had an episode of mild shortness of breath, chest discomfort, feeling of indigestion and dizziness while getting his vancomycin dose. This lasted for a few minutes and spontaneously resolved Presently, patient is asymptomatic. Vancomycin was stopped, patient was given Benadryl Not in distress Regular rate and rhythm, no murmurs 2 breath sounds Right lower extremity wound VAC in place Alert awake and oriented 3 Telemetry examined, around 5:44 PM, patient had an episode of sinus bradycardia , HR 44, also had a sinus pause several times Per patient, symptoms similar to prior to admission. Patient has been getting vancomycin since November 20, no rash, no wheezing. Doubt reaction to vancomycin. Possibly cardiac, check troponin 3, EKG, consult cardiology for sinus bradycardia, sinus pause. Discussed with Dr. Blanchard. Cancel discharge. Might need further workup with cardiology, arrhythmia possible causing clot that caused the embolism? Discharge Planning Discussed with , waiting on Dr. Blanchard recommendations. Eduardo declined placement. Mary Ann Robins November 27, 2016 17:27 Emily Hung MD November 27, 2016 19:01
--- NOTE | 2016-11-27 17:54 | PD.VS.PN ---
Subjective Subjective/Hospital Course Plan was for discharge to rehab. Pt had some headache, dyspepsia, mild S.O.B associated with the timing of vancomycin but patient has getting vancomycin for about a week now. Symptoms similar to before he had his embolic event a few weeks ago.. At bedside with Dr. Hung examining the patient. Objective Vitals/I&O Date Time Temp Pulse Resp B/P Pulse Ox O2 Delivery O2 Flow Rate FiO2 11/27/16 12:00 98.3 58 18 146/87 98 11/27/16 08:29 51 11/27/16 08:00 97.1 54 18 137/91 99 11/27/16 07:30 Room Air 11/27/16 04:00 97.2 54 19 140/77 100 11/27/16 00:00 97.9 61 19 140/77 98 11/26/16 20:00 69 11/26/16 20:00 98.3 69 18 145/84 97 11/26/16 19:45 Room Air 11/27/16 11/27/16 11/27/16 07:00 15:00 23:00 Intake Total 240 ml Output Total 1000 ml Balance -760 ml Physical Exam right DP palpable. Right wound vac in place. Imaging Last 48 hours Impressions Chest X-Ray 11/27/16 0000 Signed Impressions: Service Date/Time: November 13:39 - CONCLUSION: Right upper terminate PICC line placement with tip in good position. Mild cardiomegaly. No acute cardiopulmonary process. Saad Donohue MD Assessment and Plan Assessment: (1) H/O fasciotomy Status: Acute Plan Plan for discharge to rehab today. Patient noted some symptoms of dyspepsia, headache and mild shortness of breath that he attribute to vancomycin. Patient had similar symptoms pre-embolic event. Also, patient on vancomycin for a week now without these symptoms. Found to have some cardiac pauses and bradycardia on his telemetry strip. Dr. Hung will consult cardiology and work him up. May have a symptomatic cardiac etiology for these events. Will hold vancomycin as trough levels are therapeutic and will hold transfer to rehab to allow this to be addressed. Continue anticoagulation and Patient will need wound vac change 11/28/2016. Ward Blanchard DO, FACS [employer] Former of Vascular Surgery [phone] Discharge Planning I agree with above assessment and plan. Awaiting PT input and PICC line. Wound looks encouraging. Ward Blanchard DO, Ward Herrera DO November 27, 2016 17:54
--- NOTE | 2016-11-27 20:27 | EKG ---
Date Performed: 11/27/2016 Time Performed: 18:50:07 PTAGE: 46 years EKG: SINUS BRADYCARDIA WITH FIRST DEGREE AV BLOCK NONSPECIFIC T-WAVE ABNORMALITY ABNORMAL ECG NO SIGNIFICANT CHANGE FROM PRIOR ELECTROCARDIOGRAM. PREVIOUS TRACING : 11/19/2016 15.51 DOCTOR: Jhonatan Romero Interpretating Date/Time 11/27/2016 20:25:15
[2016-11-27 21:50] LABS: BICARBONATE 29.6 MEQ/L (21.0-32.0); MAGNESIUM 2.2 MG/DL (1.5-2.5); POTASSIUM 3.9 MEQ/L (3.5-5.1)
[2016-11-28] VITALS: BP 141/89; PULSE 56; RESP 18; TEMP 97.9; O2SAT 96
[2016-11-28] MEDS: PIPERACIL-TAZO 3.375 GM PREMIX 50 ML IV SCH ×4 (02:44→20:06)
[2016-11-28] MEDS ORDERED: POTASSIUM CHLORIDE 20 MEQ CONTROLLED RELEASE TAB PO ONE (03:30)
[2016-11-28 04:00] VITALS: BP 146/87; PULSE 51; RESP 18; TEMP 97.8; O2SAT 97
[2016-11-28] MEDS: PROPAFENONE HCL 150 MG TAB PO SCH ×3 (06:00→21:30)
[2016-11-28] MEDS: INDOMETHACIN 50 MG CAP PO SCH ×3 (06:00→21:30)
[2016-11-28 06:55] LABS: HEMATOCRIT 25.1 % (39.0-51.0); MEAN CELL VOLUME 88.9 FL (80.0-100.0); MEAN CORPUSCULAR HEMOGLOBIN 29.9 PG (27.0-34.0); MEAN CORPUSCULAR HGB CONC 33.6 % (32.0-36.0); PLATELET COUNT 255 TH/MM3 (150-450); RED BLOOD COUNT 2.83 MIL/MM3 (4.50-5.90); REVIEW FLAG FINAL; WHITE BLOOD COUNT 5.5 TH/MM3 (4.0-11.0)
[2016-11-28 08:00] VITALS: BP 137/99; PULSE 53; RESP 18; TEMP 97.5; O2SAT 96
--- NOTE | 2016-11-28 08:15 | EKG ---
Date Performed: 11/28/2016 Time Performed: 06:08:58 PTAGE: 46 years EKG: BASELINE ARTIFACT PRESENT. Sinus bradycardia with PAC(s) Prolonged QT interval Poor R wave progression - probable normal variant Lateral T wave changes are nonspecific Borderline ECG NO SIGNIF ICANT CHANGE FROM PRIOR ELECTROCARDIOGRAM. PREVIOUS TRACING : 11/27/2016 23.52 DOCTOR: Jhonatan Romero Interpretating Date/Time 11/28/2016 08:13:40
[2016-11-28] MEDS: SODIUM CHLORIDE 0.9% FLUSH 10 ML FLUSH IV FLUSH SCH ×3 (08:17→20:06)
--- NOTE | 2016-11-28 08:17 | EKG ---
Date Performed: 11/27/2016 Time Performed: 23:52:10 PTAGE: 46 years EKG: Irregular ectopic atrial bradycardia Abnormal ECG NO SIGNIFICANT CHANGE FROM PRIOR ELECTROC ARDIOGRAM. PREVIOUS TRACING : 11/27/2016 18.50 DOCTOR: Jhonatan Romero Interpretating Date/Time 11/28/2016 08:17:20
[2016-11-28] MEDS: DOCUSATE SODIUM 100 MG CAP PO SCH ×2 (08:18→20:06)
[2016-11-28] MEDS: NICOTINE 14 MG/24 HR PATCH T-DERMAL SCH (08:18)
[2016-11-28] MEDS: REMOVE OLD PATCH T-DERMAL SCH (08:18)
[2016-11-28] MEDS: METOPROLOL TARTRATE 50 MG TAB PO SCH ×2 (08:18→20:05)
[2016-11-28] MEDS: RIVAROXABAN 15 MG TAB PO SCH ×2 (08:18→20:05)
--- NOTE | 2016-11-28 09:28 | MB ---
cc: MONIE COTTRELL M.D. DATE OF CONSULTATION: 11/28/2016 REASON FOR CONSULTATION Bradycardia, pauses. HISTORY OF PRESENT ILLNESS The patient is a 46-year-old white male with a history of paroxysmal atrial fibrillation, pericarditis April 2016, hypertension, recent thromboembolic phenomenon to the right lower extremity necessitating embolectomy and fasciotomy of the right leg, who returned to the hospital due to infection of the surgical site. On 11/20/2016 he underwent irrigation and debridement of the surgery site. The patient denies dizziness, syncope, near-syncope, palpitations, chest pain, shortness of breath, paroxysmal nocturnal dyspnea. He has minimal right lower extremity pain. Twice during vancomycin infusions he noted episodes of feeling dizzy and slightly nauseated. PAST MEDICAL HISTORY 1. Paroxysmal atrial fibrillation. 2. Hypertension. 3. Pericarditis April 2016. At that time he also underwent cardiac catheterization showing normal coronary arteries with ejection fraction of 60%. 4. 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 At that time CT angiography also showed moderate focal stenosis of the left popliteal artery. MEDICATIONS His current cardiac medications: 1. Xarelto 15 mg p.o. b.i.d. 2. Propafenone 150 mg p.o. q.8h. ALLERGIES VANCOMYCIN. FAMILY HISTORY There is no significant family history of early myocardial infarction. The patient's brother and father have hypertension. His mother has breast cancer. SOCIAL HISTORY The patient smokes about a pack of cigarettes per day. He drinks occasional alcohol. REVIEW OF SYSTEMS As in the history of present illness, otherwise negative or noncontributory. He also denies unilateral weakness or numbness, melena, bright red blood per rectum, dyspepsia. PHYSICAL EXAMINATION VITAL SIGNS: On physical examination blood pressure is 146/87 with a pulse of 51, respirations 18. GENERAL: In general he is a well-developed, well-nourished white male in no acute distress. HEENT/NECK: Jugular venous pressure is normal. Carotid pulses are 2+ bilaterally and without bruits. CHEST: Examination of the chest reveals clear lung arciniega. CARDIAC: On cardiac examination he has a regular rhythm and rate without S3, S4, or murmur. ABDOMEN: On abdominal examination he has a soft, nontender abdomen. Bowel sounds are present. There is no definite hepatosplenomegaly. EXTREMITIES: Examination of extremities reveals no clubbing or cyanosis. There is trace pretibial edema. LABORATORY DATA Laboratory data includes WBC 5.5, hemoglobin 8.4, platelets 255, potassium 3.9, BUN 15, creatinine 1.46, troponin 0.02. EKG EKG shows sinus bradycardia, borderline poor R-wave progression, nonspecific lateral T-wave abnormality. IMPRESSION Overall stable cardiac status in this 46-year-old white male with a history of paroxysmal atrial fibrillation, hypertension, pericarditis, right lower extremity thromboembolism, status post recent embolectomy and fasciotomy, now admitted with infection of the surgery site in his right leg. I have been asked to see the patient for bradycardia and pauses. His numerous monitoring strips have been reviewed. No prolonged pauses are seen. There are short pauses, most of which appear to be due to blocked premature atrial complexes. No sustained severe bradycardia is seen. There is no evidence for high-degree AV block. He does have a few episodes of nonsustained wide complex tachycardia, the morphology of which is suggestive of aberrantly conducted atrial fibrillation or aberrantly conducted atrial tachycardia (The run begins with a long - short RR interval, the initial portion of the QRS complex during the tachycardia is similar to the initial portion of the QRS complex during sinus rhythm.) At this time he does not appear to have any significant symptomatology from mild sinus bradycardia. RECOMMENDATIONS 1. Continue Xarelto and propafenone. 2. He can be discharged home from a cardiac standpoint; in the future when his right lower extremity wounds have healed and he is stable, will refer him to Dr. Canales for atrial fibrillation ablation. MD ANA Holder/PLACIDO /8:37 AM /9:11 AM CHUCHO
--- NOTE | 2016-11-28 10:49 | PD.VS.PN ---
Subjective Subjective/Hospital Course Patient without complaints. Objective Vitals/I&O right leg wound vac in place. right foot swollen, right DP palpable. Date Time Temp Pulse Resp B/P Pulse Ox O2 Delivery O2 Flow Rate FiO2 11/28/16 09:04 Room Air 21 11/28/16 08:00 97.5 53 18 137/99 96 11/28/16 04:00 97.8 51 18 146/87 97 11/28/16 00:00 97.9 56 18 141/89 96 11/27/16 20:05 57 11/27/16 20:00 97.6 61 18 150/83 97 11/27/16 19:30 Room Air 11/27/16 16:10 95 Nasal Cannula 2.00 11/27/16 16:00 97.9 54 20 155/91 98 11/27/16 12:00 98.3 58 18 146/87 98 11/28/16 11/28/16 11/28/16 07:00 15:00 23:00 Intake Total 240 ml Output Total 300 ml Balance -60 ml Laboratory Laboratory Tests Test 11/27/16 11/28/16 11/28/16 19:27 00:00 06:15 Sodium Level 141 Potassium Level 3.9 Chloride Level 104 Carbon Dioxide Level 29.6 Anion Gap 7 Blood Urea Nitrogen 15 Creatinine 1.44 1.46 Estimat Glomerular Filtration 53 52 Rate Random Glucose 121 Calcium Level 8.5 Magnesium Level 2.2 Troponin I 0.02 0.02 0.02 White Blood Count 5.5 Red Blood Count 2.83 Hemoglobin 8.4 Hematocrit 25.1 Mean Corpuscular Volume 88.9 Mean Corpuscular Hemoglobin 29.9 Mean Corpuscular Hemoglobin 33.6 Concent Red Cell Distribution Width 17.0 Platelet Count 255 Mean Platelet Volume 9.8 Imaging Last 48 hours Impressions Chest X-Ray 11/27/16 0000 Signed Impressions: Service Date/Time: November 13:39 - CONCLUSION: Right upper terminate PICC line placement with tip in good position. Mild cardiomegaly. No acute cardiopulmonary process. Saad Donohue MD Assessment and Plan Assessment: (1) H/O fasciotomy Status: Acute Plan Plan for discharge to rehab today. Will give vancomycin with benadryl at bedside. If patient has symptoms with this will discontinue vancomycin. Otherwise, will follow up in one week in office. Ward Blanchard DO, FACS [employer] [facility] [employer] [phone] Discharge Planning I agree with above assessment and plan. Awaiting PT input and PICC line. Wound looks encouraging. ROXANNE Viveros DO, Ryan V. DO November 28, 2016 10:49
[2016-11-28] MEDS: MORPHINE SULFATE 8 MG/ML INJ IV PUSH PRN (10:56)
--- NOTE | 2016-11-28 11:10 | HHI.PR ---
Subjective Remarks This is a pleasant 46 y/o Male who was admitted on October 31 and Discharged on November 06 with Diagnosis of Acute arterial Occlusion of the Right Leg, Well known to me I was Attending physician on last admission and discharged him, he has Atrial Fibrillation, Hypertension, with Thrombosis of the Right lower extremity was started on Heparin drip and Performed Embolectomy and Fasciotomies 10/31/16. Notes from last admission: This is a pleasant 46 y/o male with CAD, Severe Tobacco dependence and Alcohol abuse, as per patient he continue Smoking 1 and a half packs of cigarettes daily, recent admission due to Atypical chest pain and Shortness of breath in April last year with diagnosis of STEMI he had recent Cardiac Catheterization by Doctor Pena with no Stents, as we know he has Hypertension on this opportunity came due to Progressive pain and numbness in the right lower extremity below the knee, not able to wiggle his toes on the right foot. Pain and burning sensation. On the calf it is a cramp. I came early to see the patient but he was in was transferred to Intensive Care unit, then transferred to Hospitalist team, performed an Aorta with Runoff Showed complete Arterial Occlusion involving the distal Right SFA at the level of the adductor canal, Focal moderate Stenosis involving the left popliteal artery. had Atrial Fibrillation on presentation from Emergency medicine, With Diagnosis of Arterial Embolism and Thrombosis of the lower extremity, started on Heparin drip and performed Embolectomy and Fasciotomies, 10/31/16 by Doctor Ward Blanchard. Last Hemoglobin 10.5 on discharge, had Vacuum placement and discharged home on Xarelto, he was in sinus rhythm on Discharge home on [facility]. 11/19: Readmission Today I was called by Doctor Blanchard's Nurse Miss Mosley on Follow up today seen with Cellulitis of the right leg asked for admission place him Nothing by mouth tonight and he will have I and D tomorrow, start IV antibiotics, Vancomycin and Zosyn, Wound care follow specialist recommendations. 11/20: Stable seen in the room, will have I and D later today. 11/21: Status post Right Lower extremity I and D and Placement of Wound Vac. by Doctor Ward Blanchard. 11/22: Seen in the morning, stable, complaint of left Hallux pain and ankle pain , no clear diagnosis for Gout, asked for Uric Acid 3.4 discussed with Vascular Freight Shipping Agent. 11/23: Patient in his bedroom, no new complaint, mild improvement with Prednisone dose given yesterday and Low uric acid level may give NSAIDs has good renal function, No nausea, vomit or diarrhea, continue with Vacuum line leak. blood culture negative in four days, no BSI 11/28: Seen in his bedroom and discussed at this time with Doctor Lo he does not believer in true reaction to Vancomycin he will receive Vancomycin and Benadryl and follow for probable reaction and discharge to Rehab facility Objective Vital Signs Date Time Temp Pulse Resp B/P Pulse Ox O2 Delivery O2 Flow Rate FiO2 11/28/16 09:04 Room Air 21 11/28/16 08:00 97.5 53 18 137/99 96 11/28/16 04:00 97.8 51 18 146/87 97 11/28/16 00:00 97.9 56 18 141/89 96 11/27/16 20:05 57 11/27/16 20:00 97.6 61 18 150/83 97 11/27/16 19:30 Room Air 11/27/16 16:10 95 Nasal Cannula 2.00 11/27/16 16:00 97.9 54 20 155/91 98 11/27/16 12:00 98.3 58 18 146/87 98 I/O 11/27/16 11/27/16 11/27/16 11/28/16 11/28/16 11/28/16 07:00 15:00 23:00 07:00 15:00 23:00 Intake Total 240 ml 320 ml 240 ml 240 ml Output Total 1000 ml 600 ml 300 ml Balance -760 ml 320 ml -360 ml -60 ml Intake Oral 240 ml 320 ml 240 ml 240 ml Output Urine Total 1000 ml 600 ml 300 ml # Voids 4 # Bowel Movements 0 0 0 0 Result Diagram: 11/28/16 0615 11/28/16 0615 Imaging Last Impressions Chest X-Ray 11/27/16 0000 Signed Impressions: Service Date/Time: November 13:39 - CONCLUSION: Right upper terminate PICC line placement with tip in good position. Mild cardiomegaly. No acute cardiopulmonary process. Saad Donohue MD Procedures Status post I and D and Vacuum placed. Other Results Laboratory Tests Test 11/24/16 11/26/16 11/26/16 11/27/16 12:27 03:55 06:50 19:27 Activated Partial 28.5 SEC Thromboplast Time Vancomycin Level Trough 17.7 MCG/ML Neutrophils (%) (Auto) 61.1 % Lymphocytes (%) (Auto) 21.5 % Monocytes (%) (Auto) 12.3 % Eosinophils (%) (Auto) 4.5 % Basophils (%) (Auto) 0.6 % Neutrophils # (Auto) 5.0 TH/MM3 Lymphocytes # (Auto) 1.8 TH/MM3 Monocytes # (Auto) 1.0 TH/MM3 Eosinophils # (Auto) 0.4 TH/MM3 Basophils # (Auto) 0.0 TH/MM3 CBC Comment DIFF FINAL Differential Comment Sodium Level 141 MEQ/L Potassium Level 3.9 MEQ/L Chloride Level 104 MEQ/L Carbon Dioxide Level 29.6 MEQ/L Anion Gap 7 MEQ/L Blood Urea Nitrogen 15 MG/DL Random Glucose 121 MG/DL Calcium Level 8.5 MG/DL Magnesium Level 2.2 MG/DL Test 11/28/16 06:15 White Blood Count 5.5 TH/MM3 Red Blood Count 2.83 MIL/MM3 Hemoglobin 8.4 GM/DL Hematocrit 25.1 % Mean Corpuscular Volume 88.9 FL Mean Corpuscular Hemoglobin 29.9 PG Mean Corpuscular Hemoglobin 33.6 % Concent Red Cell Distribution Width 17.0 % Platelet Count 255 TH/MM3 Mean Platelet Volume 9.8 FL Creatinine 1.46 MG/DL Estimat Glomerular Filtration 52 ML/MIN Rate Troponin I 0.02 NG/ML Objective Remarks GENERAL: Alert and oriented, no distress. SKIN: Focused skin assessment warm/dry. The skin is cool and pale below the knee. HEAD: Atraumatic. Normocephalic. EYES: Pupils equal and round. No scleral icterus. No injection or drainage. ENT: No nasal bleeding or discharge. Mucous membranes pink and moist. NECK: Trachea midline. No JVD. CARDIOVASCULAR: Regular rate and rhythm. No murmur appreciated. RESPIRATORY: No accessory muscle use. Clear to auscultation. Breath sounds equal bilaterally. GASTROINTESTINAL: Abdomen soft, non-tender, nondistended. Hepatic and splenic margins not palpable. MUSCULOSKELETAL: Right leg with Vacuum in place. mild pain on palpation of Left Hallux and ankle. NEUROLOGICAL: Awake and alert. No focal deficits. PSYCHIATRIC: Appropriate mood and affect; insight and judgment normal. Medications and IVs Current Medications Medications (Trade) Dose Ordered Sig/Santos Route Start Time Stop Time Status Last Admin (Lopressor) 50 mg BID PO 11/19/16 21:00 11/28/16 08:18 (Rythmol) 150 mg Q8HR PO 11/19/16 14:00 11/28/16 06:00 (Pill Splitter) 1 ea UNSCH PRN OTHER 11/19/16 13:45 (NS Flush) 2 ml UNSCH PRN IV FLUSH 11/19/16 13:45 (NS Flush) 2 ml BID IV FLUSH 11/19/16 21:00 11/28/16 08:17 (Tylenol) 650 mg Q4H PRN PO 11/19/16 13:45 (Zofran Inj) 4 mg Q6H PRN IVP 11/19/16 13:45 (Dulcolax Supp) 10 mg DAILY PRN RECTAL 11/19/16 13:45 (Colace) 100 mg Q12HR PO 11/19/16 14:15 11/28/16 08:18 (Narcan Inj) 0.4 mg UNSCH PRN IV 11/19/16 13:45 (Habitrol 14 Mg Patch.24 Hr) 1 patch DAILY T-DERMAL 11/20/16 10:15 11/28/16 08:18 Miscellaneous Information 1 1 DAILY T-DERMAL 11/21/16 09:00 11/28/16 08:18 (Zosyn 3.375 Gm Premix) 50 ml @ 100 mls/hr Q6H IV 11/24/16 02:00 11/28/16 08:17 (Roxicodone) 10 mg Q4H PRN PO 11/24/16 16:00 11/28/16 08:28 (Xarelto) 15 mg BID PO 11/24/16 21:00 11/28/16 08:18 Miscellaneous Information SPECIFIC LAB TO BE DRAWN:VANCOMYCIN TROUGH DATE TO... ONCE ONCE .XX 11/29/16 03:45 11/29/16 03:46 (Morphine Inj) 5 mg UNSCH PRN IV PUSH 11/26/16 09:45 11/28/16 10:56 (Indocin) 50 mg Q8HR PO 11/26/16 22:00 11/29/16 21:59 11/28/16 06:00 (NS Flush) See Protocol DAILY IV FLUSH 11/28/16 09:00 11/28/16 08:17 (NS Flush) See Protocol UNSCH PRN IV FLUSH 11/27/16 14:15 (Heparin Central Flush) See Protocol DAILY IV FLUSH 11/28/16 09:00 11/28/16 08:17 (Heparin Central Flush) See Protocol UNSCH PRN IV FLUSH 11/27/16 14:15 (NS Flush) UNSCH PRN IV FLUSH 11/27/16 14:15 A/P Assessment and Plan 1. Acute Arterial Embolism and Thrombosis of the Right lower extremity Aorta with Runoff Showed complete Arterial Occlusion involving the distal Right SFA at the level of the adductor canal, Focal moderate Stenosis involving the left popliteal artery. Status post Embolectomy and Fasciotomies 10/31/[address] Ward Blanchard On Xarealto. status post Vacuum placement. Readmission due to probable abscess, on Vancomycin and Zosyn, as per Vascular surgery he will have a dose of Vancomycin and Benadryl and discharge if no side effects. 2. Atrial Fibrillation/Arterial Occlusive disease continue Beta Blockers, initially on Heparin then started on Xarelto Echocardiogram 05/20/16 EF 6065 percent severe LVH, no RWMA, LAE moderately dilated, tricuspid valve trace regurgitation, mitral valve with trace regurgitation. PA peak press 45 mmHg 05/18/16-cardiac catheterization EF 60%, diastolic dysfunction, normal coronary arteries, RCA dominant-mid and distal 40% plaque, left circ-OM1 80% lesion noted Continue Propafenone to maintain NSR. 3. Severe Tobacco dependence strongly recommended to stop smoking, may be associated with his actual pathology, as per patient not smoking for the last three weeks asked for Nicotine patch placed. 4. Alcohol abuse strongly recommended to stop this behavior, continue drinking wine but one glass socially. 5. Hypertension Controlled. 6. worsening renal function will give IV fluids and follow in am tomorrow. 7. Anemia on acute blood loss, he has a vacuum in place and draining blood also. started Iron IV. DVT prophylaxis Heparin drip Code Status Full Code. Discussed Condition With Patient and his Mother in the room. Discharge Planning Expected tomorrow. Hermann Ribeiro MD November 28, 2016 11:09 Hermann Ribeiro MD November 28, 2016 11:09
[2016-11-28 12:00] VITALS: BP 135/80; PULSE 58; RESP 18; TEMP 97.8; O2SAT 95
[2016-11-28 16:00] VITALS: BP 141/84; PULSE 66; RESP 20; TEMP 97.3; O2SAT 95
[2016-11-28] MEDS ORDERED: VANCOMYCIN 1,000 MG/NS 250 ML IV ONE ×2 (16:00)
[2016-11-28] MEDS ORDERED: diphenhydrAMINE HCL 50 MG/ML VIAL IV ONE (16:00)
[2016-11-28] MEDS: SODIUM CHLOR 0.45% 1000 ML INJ 1,000 ML IV SCH (16:55)
[2016-11-28 20:00] VITALS: BP 155/90; PULSE 58; PULSE 61; RESP 20; TEMP 98.1; O2SAT 97
[2016-11-29 00:19] VITALS: BP 146/89; PULSE 56; RESP 19; TEMP 98.4; O2SAT 97
[2016-11-29] MEDS: SODIUM CHLOR 0.45% 1000 ML INJ 1,000 ML IV SCH ×3 (01:14→13:15)
[2016-11-29] MEDS: PIPERACIL-TAZO 3.375 GM PREMIX 50 ML IV SCH ×4 (01:16→20:03)
[2016-11-29] MEDS ORDERED: PHARMACY ORDERED LAB ONE (03:45)
[2016-11-29 04:36] VITALS: BP 161/94; PULSE 53; RESP 19; TEMP 98.1; O2SAT 96
[2016-11-29] MEDS: INDOMETHACIN 50 MG CAP PO SCH ×2 (05:42→13:14)
[2016-11-29] MEDS: PROPAFENONE HCL 150 MG TAB PO SCH ×3 (05:42→21:54)
[2016-11-29 06:06] LABS: AUTOMATED NEUTROPHIL # 3.3 TH/MM3 (1.8-7.7); BASOPHIL % 0.8 % (0.0-2.0); EOSINOPHIL # 0.5 TH/MM3 (0-0.4); EOSINOPHIL % 8.5 % (0.0-4.0); HEMATOCRIT 25.8 % (39.0-51.0); HEMO FLAGS DIFF FINAL; LYMPH % 26.2 % (9.0-44.0); LYMPHOCYTE # 1.6 TH/MM3 (1.0-4.8); MEAN CELL VOLUME 89.6 FL (80.0-100.0); MEAN CORPUSCULAR HEMOGLOBIN 29.3 PG (27.0-34.0); MEAN CORPUSCULAR HGB CONC 32.7 % (32.0-36.0); MONO % 11.1 % (0.0-8.0); NEUT % 53.4 % (16.0-70.0); PLATELET COUNT 257 TH/MM3 (150-450); RED BLOOD COUNT 2.88 MIL/MM3 (4.50-5.90); RED CELL DISTRIBUTION WIDTH 17.8 % (11.6-17.2); WHITE BLOOD COUNT 6.2 TH/MM3 (4.0-11.0)
[2016-11-29 06:55] LABS: BICARBONATE 28.8 MEQ/L (21.0-32.0); POTASSIUM 4.1 MEQ/L (3.5-5.1)
[2016-11-29 08:00] VITALS: BP 149/91; PULSE 52; RESP 16; TEMP 97.6; O2SAT 95
[2016-11-29] MEDS: SODIUM CHLORIDE 0.9% FLUSH 10 ML FLUSH IV FLUSH SCH ×3 (09:00→20:03)
[2016-11-29] MEDS: REMOVE OLD PATCH T-DERMAL SCH (09:00)
[2016-11-29] MEDS: DOCUSATE SODIUM 100 MG CAP PO SCH ×2 (10:31→20:03)
[2016-11-29] MEDS: METOPROLOL TARTRATE 50 MG TAB PO SCH ×2 (10:31→20:03)
[2016-11-29] MEDS: RIVAROXABAN 15 MG TAB PO SCH ×2 (10:31→20:03)
[2016-11-29] MEDS: NICOTINE 14 MG/24 HR PATCH T-DERMAL SCH (10:32)
--- NOTE | 2016-11-29 11:22 | HHI.PR ---
Subjective Remarks This is a pleasant 46 y/o Male who was admitted on October 31 and Discharged on November 06 with Diagnosis of Acute arterial Occlusion of the Right Leg, Well known to me I was Attending physician on last admission and discharged him, he has Atrial Fibrillation, Hypertension, with Thrombosis of the Right lower extremity was started on Heparin drip and Performed Embolectomy and Fasciotomies 10/31/16. Notes from last admission: This is a pleasant 46 y/o male with CAD, Severe Tobacco dependence and Alcohol abuse, as per patient he continue Smoking 1 and a half packs of cigarettes daily, recent admission due to Atypical chest pain and Shortness of breath in April last year with diagnosis of STEMI he had recent Cardiac Catheterization by Doctor Pena with no Stents, as we know he has Hypertension on this opportunity came due to Progressive pain and numbness in the right lower extremity below the knee, not able to wiggle his toes on the right foot. Pain and burning sensation. On the calf it is a cramp. I came early to see the patient but he was in was transferred to Intensive Care unit, then transferred to Hospitalist team, performed an Aorta with Runoff Showed complete Arterial Occlusion involving the distal Right SFA at the level of the adductor canal, Focal moderate Stenosis involving the left popliteal artery. had Atrial Fibrillation on presentation from Emergency medicine, With Diagnosis of Arterial Embolism and Thrombosis of the lower extremity, started on Heparin drip and performed Embolectomy and Fasciotomies, 10/31/16 by Doctor Ward Blanchard. Last Hemoglobin 10.5 on discharge, had Vacuum placement and discharged home on Xarelto, he was in sinus rhythm on Discharge home on [facility]. 11/19: Readmission Today I was called by Doctor Blanchard's Nurse Miss Mosley on Follow up today seen with Cellulitis of the right leg asked for admission place him Nothing by mouth tonight and he will have I and D tomorrow, start IV antibiotics, Vancomycin and Zosyn, Wound care follow specialist recommendations. 11/20: Stable seen in the room, will have I and D later today. 11/21: Status post Right Lower extremity I and D and Placement of Wound Vac. by Doctor Ward Blanchard. 11/22: Seen in the morning, stable, complaint of left Hallux pain and ankle pain , no clear diagnosis for Gout, asked for Uric Acid 3.4 discussed with Vascular [employer]ware Supplies Sales Representative. 11/23: Patient in his bedroom, no new complaint, mild improvement with Prednisone dose given yesterday and Low uric acid level may give NSAIDs has good renal function, No nausea, vomit or diarrhea, continue with Vacuum line leak. blood culture negative in four days, no BSI 11/28: Seen in his bedroom and discussed at this time with Doctor Lo he does not believer in true reaction to Vancomycin he will receive Vancomycin and Benadryl and follow for probable reaction and discharge to Rehab facility 11/29: Stable no new issues, did not have any reaction to his Vancomycin yesterday, improving renal function, no nausea, vomit or diarrhea, his Father and Mother in the room. Objective Vital Signs Date Time Temp Pulse Resp B/P Pulse Ox O2 Delivery O2 Flow Rate FiO2 11/29/16 10:56 Room Air 21 11/29/16 08:00 97.6 52 16 149/91 95 11/29/16 04:36 98.1 53 19 161/94 96 11/29/16 00:19 98.4 56 19 146/89 97 11/29/16 00:00 Room Air 11/28/16 20:00 98.1 58 20 155/90 97 11/28/16 20:00 61 11/28/16 19:35 Room Air 11/28/16 16:00 97.3 66 20 141/84 95 11/28/16 12:00 97.8 58 18 135/80 95 I/O 11/28/16 11/28/16 11/28/16 11/29/16 11/29/16 11/29/16 07:00 15:00 23:00 07:00 15:00 23:00 Intake Total 240 ml 600 ml 1598 ml 987 ml Output Total 300 ml 100 ml 700 ml Balance -60 ml 500 ml 898 ml 987 ml Intake Oral 240 ml 600 ml 800 ml IV Total 798 ml 987 ml Output Urine Total 300 ml 100 ml 700 ml # Voids 2 # Bowel Movements 0 1 0 Result Diagram: 11/29/16 0550 11/29/16 0550 Imaging Last Impressions Chest X-Ray 11/27/16 0000 Signed Impressions: Service Date/Time: November 13:39 - CONCLUSION: Right upper terminate PICC line placement with tip in good position. Mild cardiomegaly. No acute cardiopulmonary process. Saad Donohue MD Procedures Status post I and D and Vacuum placed. Other Results Laboratory Tests Test 11/26/16 11/27/16 11/28/16 11/29/16 03:55 19:27 06:15 05:50 Vancomycin Level Trough 17.7 MCG/ML Magnesium Level 2.2 MG/DL Troponin I 0.02 NG/ML White Blood Count 6.2 TH/MM3 Red Blood Count 2.88 MIL/MM3 Hemoglobin 8.4 GM/DL Hematocrit 25.8 % Mean Corpuscular Volume 89.6 FL Mean Corpuscular Hemoglobin 29.3 PG Mean Corpuscular Hemoglobin 32.7 % Concent Red Cell Distribution Width 17.8 % Platelet Count 257 TH/MM3 Mean Platelet Volume 9.5 FL Neutrophils (%) (Auto) 53.4 % Lymphocytes (%) (Auto) 26.2 % Monocytes (%) (Auto) 11.1 % Eosinophils (%) (Auto) 8.5 % Basophils (%) (Auto) 0.8 % Neutrophils # (Auto) 3.3 TH/MM3 Lymphocytes # (Auto) 1.6 TH/MM3 Monocytes # (Auto) 0.7 TH/MM3 Eosinophils # (Auto) 0.5 TH/MM3 Basophils # (Auto) 0.0 TH/MM3 CBC Comment DIFF FINAL Differential Comment Sodium Level 142 MEQ/L Potassium Level 4.1 MEQ/L Chloride Level 106 MEQ/L Carbon Dioxide Level 28.8 MEQ/L Anion Gap 7 MEQ/L Blood Urea Nitrogen 17 MG/DL Creatinine 1.40 MG/DL Estimat Glomerular Filtration 54 ML/MIN Rate Random Glucose 81 MG/DL Calcium Level 8.5 MG/DL Objective Remarks GENERAL: Alert and oriented, no distress. SKIN: Focused skin assessment warm/dry. The skin is cool and pale below the knee. HEAD: Atraumatic. Normocephalic. EYES: Pupils equal and round. No scleral icterus. No injection or drainage. ENT: No nasal bleeding or discharge. Mucous membranes pink and moist. NECK: Trachea midline. No JVD. CARDIOVASCULAR: Regular rate and rhythm. No murmur appreciated. RESPIRATORY: No accessory muscle use. Clear to auscultation. Breath sounds equal bilaterally. GASTROINTESTINAL: Abdomen soft, non-tender, nondistended. Hepatic and splenic margins not palpable. MUSCULOSKELETAL: Right leg with Vacuum in place. NEUROLOGICAL: Awake and alert. No focal deficits. PSYCHIATRIC: Appropriate mood and affect; insight and judgment normal. Medications and IVs Current Medications Medications (Trade) Dose Ordered Sig/Santos Route Start Time Stop Time Status Last Admin (Lopressor) 50 mg BID PO 11/19/16 21:00 11/29/16 10:31 (Rythmol) 150 mg Q8HR PO 11/19/16 14:00 11/29/16 05:42 (Pill Splitter) 1 ea UNSCH PRN OTHER 11/19/16 13:45 (NS Flush) 2 ml UNSCH PRN IV FLUSH 11/19/16 13:45 (NS Flush) 2 ml BID IV FLUSH 11/19/16 21:00 11/29/16 09:00 (Tylenol) 650 mg Q4H PRN PO 11/19/16 13:45 (Zofran Inj) 4 mg Q6H PRN IVP 11/19/16 13:45 (Dulcolax Supp) 10 mg DAILY PRN RECTAL 11/19/16 13:45 (Colace) 100 mg Q12HR PO 11/19/16 14:15 11/29/16 10:31 (Narcan Inj) 0.4 mg UNSCH PRN IV 11/19/16 13:45 (Habitrol 14 Mg Patch.24 Hr) 1 patch DAILY T-DERMAL 11/20/16 10:15 11/29/16 10:32 Miscellaneous Information 1 1 DAILY T-DERMAL 11/21/16 09:00 11/29/16 09:00 (Zosyn 3.375 Gm Premix) 50 ml @ 100 mls/hr Q6H IV 11/24/16 02:00 11/29/16 10:30 (Roxicodone) 10 mg Q4H PRN PO 11/24/16 16:00 11/29/16 10:32 (Xarelto) 15 mg BID PO 11/24/16 21:00 11/29/16 10:31 (Morphine Inj) 5 mg UNSCH PRN IV PUSH 11/26/16 09:45 11/28/16 10:56 (Indocin) 50 mg Q8HR PO 11/26/16 22:00 11/29/16 21:59 11/29/16 05:42 (NS Flush) See Protocol DAILY IV FLUSH 11/28/16 09:00 11/28/16 08:17 (NS Flush) See Protocol UNSCH PRN IV FLUSH 11/27/16 14:15 (Heparin Central Flush) See Protocol DAILY IV FLUSH 11/28/16 09:00 11/28/16 08:17 (Heparin Central Flush) See Protocol UNSCH PRN IV FLUSH 11/27/16 14:15 11/29/16 05:43 Sodium Chloride UNSCH PRN IV FLUSH 11/27/16 14:15 11/29/16 05:42 (1/2 NS 1000 ml Inj) 1,000 ml @ 125 mls/hr Q8H IV 11/28/16 17:00 11/29/16 10:32 A/P Assessment and Plan 1. Acute Arterial Embolism and Thrombosis of the Right lower extremity Aorta with Runoff Showed complete Arterial Occlusion involving the distal Right SFA at the level of the adductor canal, Focal moderate Stenosis involving the left popliteal artery. Status post Embolectomy and Fasciotomies 10/31/[address] Ward Blanchard On Xarealto. status post Vacuum placement. Readmission due to cellulitis and abscess status post I and D, and Vacuum placement a per Vascular sales and service specialist he is able to be discharged to Rehab and continue Vancomycin and Levaquin for seven more days. 2. Atrial Fibrillation/Arterial Occlusive disease continue Beta Blockers, initially on Heparin then started on Xarelto Echocardiogram 05/20/16 EF 6065 percent severe LVH, no RWMA, LAE moderately dilated, tricuspid valve trace regurgitation, mitral valve with trace regurgitation. PA peak press 45 mmHg 05/18/16-cardiac catheterization EF 60%, diastolic dysfunction, normal coronary arteries, RCA dominant-mid and distal 40% plaque, left circ-OM1 80% lesion noted Continue Propafenone to maintain NSR. 3. Severe Tobacco dependence strongly recommended to stop smoking, may be associated with his actual pathology, as per patient not smoking for the last three weeks asked for Nicotine patch placed. 4. Alcohol abuse strongly recommended to stop this behavior, continue drinking wine but one glass socially. 5. Hypertension Controlled. 6. Acute on chronic renal injury improving will continue present care and follow by Vascular Surgery Next 12/03/16 7. Anemia on acute blood loss, he has a vacuum in place, continue Iron by mouth / DVT prophylaxis on Xarelto Code Status Full Code. Discussed Condition With Patient and his Mother and Father in the room all questions answered to the best of my abilities Discharge Planning Discharge to Rehab today. Hermann Ribeiro MD November 29, 2016 11:22
[2016-11-29] MEDS ORDERED: VANC1000P IV (11:25)
[2016-11-29] MEDS ORDERED: LEVA750T PO (11:25)
--- NOTE | 2016-11-29 11:26 | HHI.DS ---
Discharge Summary Admission Date November 19, 2016 at 13:07 Discharge Date: November 29, 2016 Admitting Diagnosis Acute arterial occlusion of the right leg (1) Arterial embolism and thrombosis of lower extremity ICD Code: I74.3 Diagnosis: Principal (2) Paroxysmal atrial fibrillation ICD Code: I48.0 Diagnosis: Secondary (3) H/O fasciotomy ICD Code: Z98.890 Diagnosis: Principal Procedures I and D of fasciotomy right lower extremity. Brief History - From Admission This is a pleasant 46 y/o Male who was admitted on October 31 and Discharged on November 06 with Diagnosis of Acute arterial Occlusion of the Right Leg, Well known to me I was Attending physician on last admission and discharged him, he has Atrial Fibrillation, Hypertension, with Thrombosis of the Right lower extremity was started on Heparin drip and Performed Embolectomy and Fasciotomies 10/31/16. Notes from last admission: This is a pleasant 46 y/o male with CAD, Severe Tobacco dependence and Alcohol abuse, as per patient he continue Smoking 1 and a half packs of cigarettes daily, recent admission due to Atypical chest pain and Shortness of breath in April last year with diagnosis of STEMI he had recent Cardiac Catheterization by Doctor Pena with no Stents, as we know he has Hypertension on this opportunity came due to Progressive pain and numbness in the right lower extremity below the knee, not able to wiggle his toes on the right foot. Pain and burning sensation. On the calf it is a cramp. I came early to see the patient but he was in was transferred to Intensive Care unit, then transferred to Hospitalist team, performed an Aorta with Runoff Showed complete Arterial Occlusion involving the distal Right SFA at the level of the adductor canal, Focal moderate Stenosis involving the left popliteal artery. had Atrial Fibrillation on presentation from Emergency medicine, With Diagnosis of Arterial Embolism and Thrombosis of the lower extremity, started on Heparin drip and performed Embolectomy and Fasciotomies, 10/31/16 by Doctor Ward Blanchard. Last Hemoglobin 10.5 on discharge, had Vacuum placement and discharged home on Xarelto, he was in sinus rhythm on Discharge home on [facility]. Today I was called by Doctor Blanchard's Nurse Miss Mosley on Follow up today seen with Cellulitis of the right leg asked for admission place him Nothing by mouth tonight and he will have I and D tomorrow, start IV antibiotics, Vancomycin and Zosyn, Wound care follow specialist recommendations. CBC/BMP: 11/29/16 0550 11/29/16 0550 Significant Findings Laboratory Tests Test 11/27/16 11/28/16 11/29/16 19:27 06:15 05:50 Creatinine 1.44 MG/DL 1.46 MG/DL 1.40 MG/DL (0.60-1.30) (0.60-1.30) (0.60-1.30) Estimat Glomerular Filtration 53 ML/MIN (>89) 52 ML/MIN (>89) 54 ML/MIN (>89) Rate Random Glucose 121 MG/DL (74-106) Red Blood Count 2.83 MIL/MM3 2.88 MIL/MM3 (4.50-5.90) (4.50-5.90) Hemoglobin 8.4 GM/DL 8.4 GM/DL (13.0-17.0) (13.0-17.0) Hematocrit 25.1 % 25.8 % (39.0-51.0) (39.0-51.0) Red Cell Distribution Width 17.8 % (11.6-17.2) Monocytes (%) (Auto) 11.1 % (0.0-8.0) Eosinophils (%) (Auto) 8.5 % (0.0-4.0) Eosinophils # (Auto) 0.5 TH/MM3 (0-0.4) Imaging Last Impressions Chest X-Ray 11/27/16 0000 Signed Impressions: Service Date/Time: November 13:39 - CONCLUSION: Right upper terminate PICC line placement with tip in good position. Mild cardiomegaly. No acute cardiopulmonary process. Saad Donohue MD PE at Discharge GENERAL: Alert and oriented, no distress. SKIN: Focused skin assessment warm/dry. The skin is cool and pale below the knee. HEAD: Atraumatic. Normocephalic. EYES: Pupils equal and round. No scleral icterus. No injection or drainage. ENT: No nasal bleeding or discharge. Mucous membranes pink and moist. NECK: Trachea midline. No JVD. CARDIOVASCULAR: Regular rate and rhythm. No murmur appreciated. RESPIRATORY: No accessory muscle use. Clear to auscultation. Breath sounds equal bilaterally. GASTROINTESTINAL: Abdomen soft, non-tender, nondistended. Hepatic and splenic margins not palpable. MUSCULOSKELETAL: Right leg with Vacuum in place. NEUROLOGICAL: Awake and alert. No focal deficits. PSYCHIATRIC: Appropriate mood and affect; insight and judgment normal. Hospital Course This is a pleasant 46 y/o Male who was admitted on October 31 and Discharged on November 06 with Diagnosis of Acute arterial Occlusion of the Right Leg, Well known to me I was Attending physician on last admission and discharged him, he has Atrial Fibrillation, Hypertension, with Thrombosis of the Right lower extremity was started on Heparin drip and Performed Embolectomy and Fasciotomies 10/31/16. Notes from last admission: This is a pleasant 46 y/o male with CAD, Severe Tobacco dependence and Alcohol abuse, as per patient he continue Smoking 1 and a half packs of cigarettes daily, recent admission due to Atypical chest pain and Shortness of breath in April last year with diagnosis of STEMI he had recent Cardiac Catheterization by Doctor Pena with no Stents, as we know he has Hypertension on this opportunity came due to Progressive pain and numbness in the right lower extremity below the knee, not able to wiggle his toes on the right foot. Pain and burning sensation. On the calf it is a cramp. I came early to see the patient but he was in was transferred to Intensive Care unit, then transferred to Hospitalist team, performed an Aorta with Runoff Showed complete Arterial Occlusion involving the distal Right SFA at the level of the adductor canal, Focal moderate Stenosis involving the left popliteal artery. had Atrial Fibrillation on presentation from Emergency medicine, With Diagnosis of Arterial Embolism and Thrombosis of the lower extremity, started on Heparin drip and performed Embolectomy and Fasciotomies, 10/31/16 by Doctor Ward Blanchard. Last Hemoglobin 10.5 on discharge, had Vacuum placement and discharged home on Xarelto, he was in sinus rhythm on Discharge home on [facility]. 11/19: Readmission Today I was called by Doctor Blanchard's Nurse Miss Mosley on Follow up today seen with Cellulitis of the right leg asked for admission place him Nothing by mouth tonight and he will have I and D tomorrow, start IV antibiotics, Vancomycin and Zosyn, Wound care follow specialist recommendations. 11/20: Stable seen in the room, will have I and D later today. 11/21: Status post Right Lower extremity I and D and Placement of Wound Vac. by Doctor Ward Blanchard. 11/22: Seen in the morning, stable, complaint of left Hallux pain and ankle pain , no clear diagnosis for Gout, asked for Uric Acid 3.4 discussed with Vascular [employer] Layer. 11/23: Patient in his bedroom, no new complaint, mild improvement with Prednisone dose given yesterday and Low uric acid level may give NSAIDs has good renal function, No nausea, vomit or diarrhea, continue with Vacuum line leak. blood culture negative in four days, no BSI 11/28: Seen in his bedroom and discussed at this time with Doctor Blanchard he does not believer in true reaction to Vancomycin he will receive Vancomycin and Benadryl and follow for probable reaction and discharge to Rehab facility 11/29: Stable no new issues, did not have any reaction to his Vancomycin yesterday, improving renal function, no nausea, vomit or diarrhea, his Father and Mother in the room. Assessment and Plan 1. Acute Arterial Embolism and Thrombosis of the Right lower extremity Aorta with Runoff Showed complete Arterial Occlusion involving the distal Right SFA at the level of the adductor canal, Focal moderate Stenosis involving the left popliteal artery. Status post Embolectomy and Fasciotomies 10/31/[address] Ward Blanchard On Xarealto. status post Vacuum placement. Readmission due to cellulitis and abscess status post I and D, and Vacuum placement a per Vascular brand specialist he is able to be discharged to Rehab and continue Vancomycin and Levaquin for seven more days. 2. Atrial Fibrillation/Arterial Occlusive disease continue Beta Blockers, initially on Heparin then started on Xarelto Echocardiogram 05/20/16 EF 6065 percent severe LVH, no RWMA, LAE moderately dilated, tricuspid valve trace regurgitation, mitral valve with trace regurgitation. PA peak press 45 mmHg 05/18/16-cardiac catheterization EF 60%, diastolic dysfunction, normal coronary arteries, RCA dominant-mid and distal 40% plaque, left circ-OM1 80% lesion noted Continue Propafenone to maintain NSR. 3. Severe Tobacco dependence strongly recommended to stop smoking, may be associated with his actual pathology, as per patient not smoking for the last three weeks asked for Nicotine patch placed. 4. Alcohol abuse strongly recommended to stop this behavior, continue drinking wine but one glass socially. 5. Hypertension Controlled. 6. Acute on chronic renal injury improving will continue present care and follow by Vascular Surgery Next 12/03/16 7. Anemia on acute blood loss, he has a vacuum in place, continue Iron by mouth / DVT prophylaxis on Xarelto Code Status Full Code. Discussed Condition With Patient and his Mother and Father in the room all questions answered to the best of my abilities Discharge Planning Discharge to Rehab today. Pt Condition on Discharge: Good Discharge Disposition: Discharge to SNF Discharge Time: > 30 minutes Discharge Instructions DIET: Follow Instructions for: Heart Healthy Diet Activities you can perform: Regular-No Restrictions Hermann Ribeiro MD November 29, 2016 11:26
[2016-11-29 12:00] VITALS: BP 129/88; PULSE 65; RESP 16; TEMP 97.5; O2SAT 95
[2016-11-29 16:00] VITALS: BP 167/109; PULSE 56; RESP 16; TEMP 98.3; O2SAT 99
[2016-11-29 20:00] VITALS: BP 143/84; PULSE 58; PULSE 61; RESP 18; TEMP 97.6; O2SAT 97
[2016-11-30] VITALS (8 sets, daily range): BP systolic 146–170; BP diastolic 81–99; PULSE 55–63; RESP 18–20; TEMP 97.3–98.4; O2SAT 95–99
[2016-11-30] MEDS: SODIUM CHLOR 0.45% 1000 ML INJ 1,000 ML IV SCH ×3 (01:00→17:26)
[2016-11-30] MEDS: PIPERACIL-TAZO 3.375 GM PREMIX 50 ML IV SCH ×4 (01:46→20:16)
[2016-11-30] MEDS: PROPAFENONE HCL 150 MG TAB PO SCH ×3 (05:34→21:44)
--- NOTE | 2016-11-30 08:18 | HHI.PR ---
Subjective Remarks This is a pleasant 46 y/o Male who was admitted on October 31 and Discharged on November 06 with Diagnosis of Acute arterial Occlusion of the Right Leg, Well known to me I was Attending physician on last admission and discharged him, he has Atrial Fibrillation, Hypertension, with Thrombosis of the Right lower extremity was started on Heparin drip and Performed Embolectomy and Fasciotomies 10/31/16. Notes from last admission: This is a pleasant 46 y/o male with CAD, Severe Tobacco dependence and Alcohol abuse, as per patient he continue Smoking 1 and a half packs of cigarettes daily, recent admission due to Atypical chest pain and Shortness of breath in April last year with diagnosis of STEMI he had recent Cardiac Catheterization by Doctor Pena with no Stents, as we know he has Hypertension on this opportunity came due to Progressive pain and numbness in the right lower extremity below the knee, not able to wiggle his toes on the right foot. Pain and burning sensation. On the calf it is a cramp. I came early to see the patient but he was in was transferred to Intensive Care unit, then transferred to Hospitalist team, performed an Aorta with Runoff Showed complete Arterial Occlusion involving the distal Right SFA at the level of the adductor canal, Focal moderate Stenosis involving the left popliteal artery. had Atrial Fibrillation on presentation from Emergency medicine, With Diagnosis of Arterial Embolism and Thrombosis of the lower extremity, started on Heparin drip and performed Embolectomy and Fasciotomies, 10/31/16 by Doctor Ward Blanchard. Last Hemoglobin 10.5 on discharge, had Vacuum placement and discharged home on Xarelto, he was in sinus rhythm on Discharge home on [facility]HC. 11/19: Readmission Today I was called by Doctor Blanchard's Nurse Miss Mosley on Follow up today seen with Cellulitis of the right leg asked for admission place him Nothing by mouth tonight and he will have I and D tomorrow, start IV antibiotics, Vancomycin and Zosyn, Wound care follow specialist recommendations. 11/20: Stable seen in the room, will have I and D later today. 11/21: Status post Right Lower extremity I and D and Placement of Wound Vac. by Doctor Ward Blanchard. 11/22: Seen in the morning, stable, complaint of left Hallux pain and ankle pain , no clear diagnosis for Gout, asked for Uric Acid 3.4 discussed with Vascular Food Truck Caterer. 11/23: Patient in his bedroom, no new complaint, mild improvement with Prednisone dose given yesterday and Low uric acid level may give NSAIDs has good renal function, No nausea, vomit or diarrhea, continue with Vacuum line leak. blood culture negative in four days, no BSI 11/28: Seen in his bedroom and discussed at this time with Doctor Blanchard he does not believer in true reaction to Vancomycin he will receive Vancomycin and Benadryl and follow for probable reaction and discharge to Rehab facility 11/29: Stable no new issues, did not have any reaction to his Vancomycin yesterday, improving renal function. 11/30: Seen in his bedroom no complaint, he was discharged yesterday, no nausea, vomit or diarrhea, on Vancomycin and Zosyn Discussed yesterday afternoon with Mud Jack Nozzleman she states the patient has been accepted by Rehab facility but not given authorization by his Insurance, explained that to the patient in the room and to his mother and Father, he states he wants to speak with his Primary Vascular Surgeon Doctor Lo and he wants to stay in house and be discharged directly to his home next Thursday. will wait for follow up in the morning by Vascular specialist. Objective Vital Signs Date Time Temp Pulse Resp B/P Pulse Ox O2 Delivery O2 Flow Rate FiO2 11/30/16 04:00 97.6 57 18 146/96 96 11/30/16 04:00 Room Air 11/30/16 00:00 Room Air 11/30/16 00:00 97.6 57 18 155/95 95 11/29/16 20:00 Room Air 11/29/16 20:00 97.6 58 18 143/84 97 11/29/16 20:00 61 11/29/16 16:00 98.3 56 16 167/109 99 11/29/16 12:00 97.5 65 16 129/88 95 11/29/16 10:56 Room Air 21 I/O 11/29/16 11/29/16 11/29/16 11/30/16 11/30/16 11/30/16 07:00 15:00 23:00 07:00 15:00 23:00 Intake Total 987 ml 600 ml 848 ml 874 ml Output Total 1925 ml 750 ml 450 ml Balance 987 ml -1325 ml 98 ml 424 ml Intake Oral 600 ml IV Total 987 ml 848 ml 874 ml Output Urine Total 1925 ml 750 ml 450 ml # Bowel Movements 1 2 0 Result Diagram: 11/29/16 0550 11/29/16 0550 Imaging Last Impressions Chest X-Ray 11/27/16 0000 Signed Impressions: Service Date/Time: November 13:39 - CONCLUSION: Right upper terminate PICC line placement with tip in good position. Mild cardiomegaly. No acute cardiopulmonary process. Saad Donohue MD Procedures Status post I and D and Vacuum placed. Other Results Laboratory Tests Test 11/26/16 11/27/16 11/28/16 11/29/16 03:55 19:27 06:15 05:50 Vancomycin Level Trough 17.7 MCG/ML Magnesium Level 2.2 MG/DL Troponin I 0.02 NG/ML White Blood Count 6.2 TH/MM3 Red Blood Count 2.88 MIL/MM3 Hemoglobin 8.4 GM/DL Hematocrit 25.8 % Mean Corpuscular Volume 89.6 FL Mean Corpuscular Hemoglobin 29.3 PG Mean Corpuscular Hemoglobin 32.7 % Concent Red Cell Distribution Width 17.8 % Platelet Count 257 TH/MM3 Mean Platelet Volume 9.5 FL Neutrophils (%) (Auto) 53.4 % Lymphocytes (%) (Auto) 26.2 % Monocytes (%) (Auto) 11.1 % Eosinophils (%) (Auto) 8.5 % Basophils (%) (Auto) 0.8 % Neutrophils # (Auto) 3.3 TH/MM3 Lymphocytes # (Auto) 1.6 TH/MM3 Monocytes # (Auto) 0.7 TH/MM3 Eosinophils # (Auto) 0.5 TH/MM3 Basophils # (Auto) 0.0 TH/MM3 CBC Comment DIFF FINAL Differential Comment Sodium Level 142 MEQ/L Potassium Level 4.1 MEQ/L Chloride Level 106 MEQ/L Carbon Dioxide Level 28.8 MEQ/L Anion Gap 7 MEQ/L Blood Urea Nitrogen 17 MG/DL Creatinine 1.40 MG/DL Estimat Glomerular Filtration 54 ML/MIN Rate Random Glucose 81 MG/DL Calcium Level 8.5 MG/DL Objective Remarks GENERAL: Alert and oriented, no distress. SKIN: Focused skin assessment warm/dry. The skin is cool and pale below the knee. HEAD: Atraumatic. Normocephalic. EYES: Pupils equal and round. No scleral icterus. No injection or drainage. ENT: No nasal bleeding or discharge. Mucous membranes pink and moist. NECK: Trachea midline. No JVD. CARDIOVASCULAR: Regular rate and rhythm. No murmur appreciated. RESPIRATORY: No accessory muscle use. Clear to auscultation. Breath sounds equal bilaterally. GASTROINTESTINAL: Abdomen soft, non-tender, nondistended. Hepatic and splenic margins not palpable. MUSCULOSKELETAL: Right leg with Vacuum in place. NEUROLOGICAL: Awake and alert. No focal deficits. PSYCHIATRIC: Appropriate mood and affect; insight and judgment normal. Medications and IVs Current Medications Medications (Trade) Dose Ordered Sig/Santos Route Start Time Stop Time Status Last Admin (Lopressor) 50 mg BID PO 11/19/16 21:00 11/29/16 20:03 (Rythmol) 150 mg Q8HR PO 11/19/16 14:00 11/30/16 05:34 (Pill Splitter) 1 ea UNSCH PRN OTHER 11/19/16 13:45 (NS Flush) 2 ml UNSCH PRN IV FLUSH 11/19/16 13:45 (NS Flush) 2 ml BID IV FLUSH 11/19/16 21:00 11/29/16 09:00 (Tylenol) 650 mg Q4H PRN PO 11/19/16 13:45 (Zofran Inj) 4 mg Q6H PRN IVP 11/19/16 13:45 (Dulcolax Supp) 10 mg DAILY PRN RECTAL 11/19/16 13:45 (Colace) 100 mg Q12HR PO 11/19/16 14:15 11/29/16 20:03 (Narcan Inj) 0.4 mg UNSCH PRN IV 11/19/16 13:45 (Habitrol 14 Mg Patch.24 Hr) 1 patch DAILY T-DERMAL 11/20/16 10:15 11/29/16 10:32 Miscellaneous Information 1 1 DAILY T-DERMAL 11/21/16 09:00 11/29/16 09:00 (Zosyn 3.375 Gm Premix) 50 ml @ 100 mls/hr Q6H IV 11/24/16 02:00 11/30/16 01:46 (Roxicodone) 10 mg Q4H PRN PO 11/24/16 16:00 11/30/16 04:04 (Xarelto) 15 mg BID PO 11/24/16 21:00 11/29/16 20:03 (Morphine Inj) 5 mg UNSCH PRN IV PUSH 11/26/16 09:45 11/28/16 10:56 (NS Flush) See Protocol DAILY IV FLUSH 11/28/16 09:00 11/28/16 08:17 (NS Flush) See Protocol UNSCH PRN IV FLUSH 11/27/16 14:15 (Heparin Central Flush) See Protocol DAILY IV FLUSH 11/28/16 09:00 11/29/16 14:58 (Heparin Central Flush) See Protocol UNSCH PRN IV FLUSH 11/27/16 14:15 11/29/16 05:43 Sodium Chloride UNSCH PRN IV FLUSH 11/27/16 14:15 11/29/16 05:42 (1/2 NS 1000 ml Inj) 1,000 ml @ 125 mls/hr Q8H IV 11/28/16 17:00 11/30/16 01:00 A/P Assessment and Plan 1. Acute Arterial Embolism and Thrombosis of the Right lower extremity Aorta with Runoff Showed complete Arterial Occlusion involving the distal Right SFA at the level of the adductor canal, Focal moderate Stenosis involving the left popliteal artery. Status post Embolectomy and Fasciotomies 10/31/16 [address] Doctor Ward Blanchard On Xarealto. status post Vacuum placement. Readmission due to cellulitis and abscess status post I and D, and Vacuum placement a per Vascular physician assistant surgery he is able to be discharged to Rehab and continue Vancomycin and Levaquin for seven more days. 2. Atrial Fibrillation/Arterial Occlusive disease continue Beta Blockers, initially on Heparin then started on Xarelto Echocardiogram 05/20/16 EF 6065 percent severe LVH, no RWMA, LAE moderately dilated, tricuspid valve trace regurgitation, mitral valve with trace regurgitation. PA peak press 45 mmHg 05/18/16-cardiac catheterization EF 60%, diastolic dysfunction, normal coronary arteries, RCA dominant-mid and distal 40% plaque, left circ-OM1 80% lesion noted Continue Propafenone to maintain NSR. 3. Severe Tobacco dependence strongly recommended to stop smoking, may be associated with his actual pathology, as per patient not smoking for the last three weeks asked for Nicotine patch placed. 4. Alcohol abuse strongly recommended to stop this behavior, continue drinking wine but one glass socially. 5. Hypertension Controlled. 6. Acute on chronic renal injury improving will continue present care and follow by Vascular Surgery Next 12/03/16 7. Anemia on acute blood loss, he has a vacuum in place, continue Iron by mouth Patient discharged yesterday and was not able to be discharged due to Insurance did not give authorization yet. awaiting for Doctor Lo to follow patient tomorrow. DVT prophylaxis on Xarelto Code Status Full Code. Discussed Condition With Patient and his Mother and Father in the room all questions answered to the best of my abilities Discharge Planning Awaiting final by Mud Jack Nozzleman to discharge. Hermann Ribeiro MD November 30, 2016 08:18
[2016-11-30] MEDS: SODIUM CHLORIDE 0.9% FLUSH 10 ML FLUSH IV FLUSH SCH ×3 (09:00→20:17)
[2016-11-30] MEDS: NICOTINE 14 MG/24 HR PATCH T-DERMAL SCH (09:07)
[2016-11-30] MEDS: DOCUSATE SODIUM 100 MG CAP PO SCH ×2 (09:07→20:16)
[2016-11-30] MEDS: RIVAROXABAN 15 MG TAB PO SCH ×2 (09:08→20:17)
[2016-11-30] MEDS: METOPROLOL TARTRATE 50 MG TAB PO SCH ×2 (09:09→20:17)
[2016-11-30] MEDS: REMOVE OLD PATCH T-DERMAL SCH (09:12)
[2016-11-30] MEDS ORDERED: Vancomycin Consult Pharmacy 1 EA OTHER SCH (13:30)
[2016-11-30] MEDS ORDERED: VANCOMYCIN INJ 1,250 MG in SODIUM CHLOR 0.9% 250 ML INJ 250 ML IV ONE (15:00)
[2016-11-30] MEDS: VANCOMYCIN INJ 1,250 MG in SODIUM CHLOR 0.9% 250 ML INJ 250 ML IV SCH (17:26)
[2016-12-01] VITALS: BP 155/99; PULSE 59; RESP 20; TEMP 98; O2SAT 96
[2016-12-01] MEDS: SODIUM CHLOR 0.45% 1000 ML INJ 1,000 ML IV SCH ×4 (01:28→21:53)
[2016-12-01] MEDS: PIPERACIL-TAZO 3.375 GM PREMIX 50 ML IV SCH ×4 (01:28→20:06)
[2016-12-01 04:00] VITALS: BP 133/93; PULSE 57; RESP 20; TEMP 97.7; O2SAT 97
[2016-12-01] MEDS: PROPAFENONE HCL 150 MG TAB PO SCH ×3 (05:45→21:52)
[2016-12-01 06:05] LABS: HEMATOCRIT 26.6 % (39.0-51.0); MEAN CELL VOLUME 89.7 FL (80.0-100.0); MEAN CORPUSCULAR HEMOGLOBIN 29.1 PG (27.0-34.0); MEAN CORPUSCULAR HGB CONC 32.5 % (32.0-36.0); PLATELET COUNT 265 TH/MM3 (150-450); RED BLOOD COUNT 2.96 MIL/MM3 (4.50-5.90); REVIEW FLAG FINAL; WHITE BLOOD COUNT 7.7 TH/MM3 (4.0-11.0)
[2016-12-01 06:27] LABS: BICARBONATE 28.9 MEQ/L (21.0-32.0); POTASSIUM 4.1 MEQ/L (3.5-5.1)
[2016-12-01 08:00] VITALS: BP 177/97; PULSE 56; RESP 20; TEMP 96.5; O2SAT 94
--- NOTE | 2016-12-01 08:25 | HHI.PR ---
Subjective Remarks This is a pleasant 46 y/o Male who was admitted on October 31 and Discharged on November 06 with Diagnosis of Acute arterial Occlusion of the Right Leg, Well known to me I was Attending physician on last admission and discharged him, he has Atrial Fibrillation, Hypertension, with Thrombosis of the Right lower extremity was started on Heparin drip and Performed Embolectomy and Fasciotomies 10/31/16. Notes from last admission: This is a pleasant 46 y/o male with CAD, Severe Tobacco dependence and Alcohol abuse, as per patient he continue Smoking 1 and a half packs of cigarettes daily, recent admission due to Atypical chest pain and Shortness of breath in April last year with diagnosis of STEMI he had recent Cardiac Catheterization by Doctor Pena with no Stents, as we know he has Hypertension on this opportunity came due to Progressive pain and numbness in the right lower extremity below the knee, not able to wiggle his toes on the right foot. Pain and burning sensation. On the calf it is a cramp. I came early to see the patient but he was in was transferred to Intensive Care unit, then transferred to Hospitalist team, performed an Aorta with Runoff Showed complete Arterial Occlusion involving the distal Right SFA at the level of the adductor canal, Focal moderate Stenosis involving the left popliteal artery. had Atrial Fibrillation on presentation from Emergency medicine, With Diagnosis of Arterial Embolism and Thrombosis of the lower extremity, started on Heparin drip and performed Embolectomy and Fasciotomies, 10/31/16 by Doctor Ward Blanchard. Last Hemoglobin 10.5 on discharge, had Vacuum placement and discharged home on Xarelto, he was in sinus rhythm on Discharge home on [facility]. 11/19: Readmission Today I was called by Doctor Blanchard's Nurse Miss Mosley on Follow up today seen with Cellulitis of the right leg asked for admission place him Nothing by mouth tonight and he will have I and D tomorrow, start IV antibiotics, Vancomycin and Zosyn, Wound care follow specialist recommendations. 11/20: Stable seen in the room, will have I and D later today. 11/21: Status post Right Lower extremity I and D and Placement of Wound Vac. by Doctor Ward Blanchard. 11/22: Seen in the morning, stable, complaint of left Hallux pain and ankle pain , no clear diagnosis for Gout, asked for Uric Acid 3.4 discussed with Vascular Missile Tracking Technician. 11/23: Patient in his bedroom, no new complaint, mild improvement with Prednisone dose given yesterday and Low uric acid level may give NSAIDs has good renal function, No nausea, vomit or diarrhea, continue with Vacuum line leak. blood culture negative in four days, no BSI 11/28: Seen in his bedroom and discussed at this time with Doctor Blanchard he does not believer in true reaction to Vancomycin he will receive Vancomycin and Benadryl and follow for probable reaction and discharge to Rehab facility 11/29: Stable no new issues, did not have any reaction to his Vancomycin yesterday, improving renal function. 11/30: Seen in his bedroom no complaint, he was discharged yesterday, no nausea, vomit or diarrhea, on Vancomycin and Zosyn Discussed yesterday afternoon with Supervisor Receiving And Processing she states the patient has been accepted by Rehab facility but not given authorization by his Insurance, explained that to the patient in the room and to his mother and Father, he states he wants to speak with his Primary Vascular Surgeon Doctor Blanchard and he wants to stay in house and be discharged directly to his home next Thursday. will wait for follow up in the morning by Vascular specialist. 12/01: Awaiting final by regional environmental manager and Vascular surgery for discharge, discussed in his bedroom in the presence of his Mother Wound care nurse, and KAT Downs Brigida from Cardiovascular Surgery Office , she states the patient will have Vancomycin until tomorrow and will be discharged on by mouth Levaquin for five more days and continue wound care follow up with Doctor Blanchard's Office for 12/10/16. No nausea, vomit or diarrhea. Objective Vital Signs Date Time Temp Pulse Resp B/P Pulse Ox O2 Delivery O2 Flow Rate FiO2 12/01/16 04:00 97.7 57 20 133/93 97 12/01/16 04:00 Room Air 12/01/16 00:00 Room Air 12/01/16 00:00 98.0 59 20 155/99 96 11/30/16 20:35 Room Air 11/30/16 20:00 60 11/30/16 20:00 98.4 62 20 164/99 97 11/30/16 16:00 97.3 59 20 170/81 96 11/30/16 12:00 97.4 55 20 170/97 96 I/O 5/11/30/16 11/30/16 12/01/16 12/01/16 12/01/16 06:59 14:59 22:59 06:59 14:59 22:59 Intake Total 874 ml 1084 ml 905 ml 1114 ml Output Total 450 ml 1450 ml 950 ml 500 ml Balance 424 ml -366 ml -45 ml 614 ml Intake Oral 480 ml 380 ml 220 ml IV Total 874 ml 604 ml 525 ml 894 ml Output Urine Total 450 ml 1450 ml 950 ml 500 ml # Voids 2 # Bowel Movements 0 1 0 0 Result Diagram: 12/01/16 0552 12/01/16 0552 Imaging Last Impressions Chest X-Ray 11/27/16 0000 Signed Impressions: Service Date/Time: November 13:39 - CONCLUSION: Right upper terminate PICC line placement with tip in good position. Mild cardiomegaly. No acute cardiopulmonary process. Saad Donohue MD Procedures Status post I and D and Vacuum placed. Other Results Laboratory Tests Test 11/27/16 11/28/16 11/29/16 12/01/16 19:27 06:15 05:50 05:52 Magnesium Level 2.2 MG/DL Troponin I 0.02 NG/ML Neutrophils (%) (Auto) 53.4 % Lymphocytes (%) (Auto) 26.2 % Monocytes (%) (Auto) 11.1 % Eosinophils (%) (Auto) 8.5 % Basophils (%) (Auto) 0.8 % Neutrophils # (Auto) 3.3 TH/MM3 Lymphocytes # (Auto) 1.6 TH/MM3 Monocytes # (Auto) 0.7 TH/MM3 Eosinophils # (Auto) 0.5 TH/MM3 Basophils # (Auto) 0.0 TH/MM3 CBC Comment DIFF FINAL Differential Comment White Blood Count 7.7 TH/MM3 Red Blood Count 2.96 MIL/MM3 Hemoglobin 8.6 GM/DL Hematocrit 26.6 % Mean Corpuscular Volume 89.7 FL Mean Corpuscular Hemoglobin 29.1 PG Mean Corpuscular Hemoglobin 32.5 % Concent Red Cell Distribution Width 18.0 % Platelet Count 265 TH/MM3 Mean Platelet Volume 9.5 FL Sodium Level 142 MEQ/L Potassium Level 4.1 MEQ/L Chloride Level 107 MEQ/L Carbon Dioxide Level 28.9 MEQ/L Anion Gap 6 MEQ/L Blood Urea Nitrogen 14 MG/DL Creatinine 1.42 MG/DL Estimat Glomerular Filtration 53 ML/MIN Rate Random Glucose 75 MG/DL Calcium Level 8.9 MG/DL Objective Remarks GENERAL: Alert and oriented, no distress. SKIN: Focused skin assessment warm/dry. The skin is cool and pale below the knee. HEAD: Atraumatic. Normocephalic. EYES: Pupils equal and round. No scleral icterus. No injection or drainage. ENT: No nasal bleeding or discharge. Mucous membranes pink and moist. NECK: Trachea midline. No JVD. CARDIOVASCULAR: Regular rate and rhythm. No murmur appreciated. RESPIRATORY: No accessory muscle use. Clear to auscultation. Breath sounds equal bilaterally. GASTROINTESTINAL: Abdomen soft, non-tender, nondistended. Hepatic and splenic margins not palpable. MUSCULOSKELETAL: Right leg with open wound with excellent granulation no infection NEUROLOGICAL: Awake and alert. No focal deficits. PSYCHIATRIC: Appropriate mood and affect; insight and judgment normal. Medications and IVs Current Medications Medications (Trade) Dose Ordered Sig/Santos Route Start Time Stop Time Status Last Admin (Lopressor) 50 mg BID PO 11/19/16 21:00 11/30/16 20:17 (Rythmol) 150 mg Q8HR PO 11/19/16 14:00 12/01/16 05:45 (Pill Splitter) 1 ea UNSCH PRN OTHER 11/19/16 13:45 (NS Flush) 2 ml UNSCH PRN IV FLUSH 11/19/16 13:45 (NS Flush) 2 ml BID IV FLUSH 11/19/16 21:00 11/29/16 09:00 (Tylenol) 650 mg Q4H PRN PO 11/19/16 13:45 (Zofran Inj) 4 mg Q6H PRN IVP 11/19/16 13:45 (Dulcolax Supp) 10 mg DAILY PRN RECTAL 11/19/16 13:45 (Colace) 100 mg Q12HR PO 11/19/16 14:15 11/30/16 20:16 (Narcan Inj) 0.4 mg UNSCH PRN IV 11/19/16 13:45 (Habitrol 14 Mg Patch.24 Hr) 1 patch DAILY T-DERMAL 11/20/16 10:15 11/30/16 09:07 Miscellaneous Information 1 1 DAILY T-DERMAL 11/21/16 09:00 11/30/16 09:12 (Zosyn 3.375 Gm Premix) 50 ml @ 100 mls/hr Q6H IV 11/24/16 02:00 12/01/16 01:28 (Roxicodone) 10 mg Q4H PRN PO 11/24/16 16:00 12/01/16 05:47 (Xarelto) 15 mg BID PO 11/24/16 21:00 11/30/16 20:17 (Morphine Inj) 5 mg UNSCH PRN IV PUSH 11/26/16 09:45 11/28/16 10:56 (NS Flush) See Protocol DAILY IV FLUSH 11/28/16 09:00 11/28/16 08:17 (NS Flush) See Protocol UNSCH PRN IV FLUSH 11/27/16 14:15 (Heparin Central Flush) See Protocol DAILY IV FLUSH 11/28/16 09:00 11/30/16 09:09 (Heparin Central Flush) See Protocol UNSCH PRN IV FLUSH 11/27/16 14:15 12/01/16 05:47 Sodium Chloride UNSCH PRN IV FLUSH 11/27/16 14:15 11/29/16 05:42 Sodium Chloride 1,000 ml @ 125 mls/hr Q8H IV 11/28/16 17:00 12/01/16 01:28 Pharmacy Profile Note 0 ml @ 0 mls/hr UNSCH OTHER 11/30/16 13:30 (Vancomycin Inj/ NS 250 ml Inj) 262.5 ml @ 250 mls/hr Q18H IV 11/30/16 15:00 11/30/16 17:26 Miscellaneous Information SPECIFIC LAB TO BE DRAWN:VANCOMYCIN TROUGH DATE TO... ONCE ONCE .XX 12/02/16 02:45 12/02/16 02:46 A/P Assessment and Plan 1. Acute Arterial Embolism and Thrombosis of the Right lower extremity Aorta with Runoff Showed complete Arterial Occlusion involving the distal Right SFA at the level of the adductor canal, Focal moderate Stenosis involving the left popliteal artery. Status post Embolectomy and Fasciotomies 10/31/[address] Ward Blanchard On Xarealto. status post Vacuum placement. Readmission due to cellulitis and abscess status post I and D, and Vacuum placement a per Vascular neurological surgery teacher will continue Vancomycin until tomorrow, discharge on Levaquin by mouth for five more days and follow in his office on next Thursday12/10/16 continue Wound Care. 2. Atrial Fibrillation/Arterial Occlusive disease continue Beta Blockers, initially on Heparin then started on Xarelto Echocardiogram 05/20/16 EF 6065 percent severe LVH, no RWMA, LAE moderately dilated, tricuspid valve trace regurgitation, mitral valve with trace regurgitation. PA peak press 45 mmHg 05/18/16-cardiac catheterization EF 60%, diastolic dysfunction, normal coronary arteries, RCA dominant-mid and distal 40% plaque, left circ-OM1 80% lesion noted Continue Propafenone to maintain NSR. 3. Severe Tobacco dependence strongly recommended to stop smoking, may be associated with his actual pathology, as per patient not smoking for the last three weeks asked for Nicotine patch placed. 4. Alcohol abuse strongly recommended to stop this behavior, continue drinking wine but one glass socially. 5. Hypertension Controlled. 6. Acute on chronic renal injury improving will continue present care and follow by Vascular Surgery Next 12/03/16 7. Anemia on acute blood loss, he has a vacuum in place, continue Iron by mouth DVT prophylaxis on Xarelto Code Status Full Code. Discussed with Doctor Bowen's BEND UP Miss Allred appreciated. Discussed Condition With Patient and his Mother in the room all questions answered to the best of my abilities Discharge Planning Expected by tomorrow. Hermann Ribeiro MD December 01, 2016 08:25
[2016-12-01] MEDS: DOCUSATE SODIUM 100 MG CAP PO SCH ×2 (08:36→20:05)
[2016-12-01] MEDS: RIVAROXABAN 15 MG TAB PO SCH ×2 (08:36→20:05)
[2016-12-01] MEDS: NICOTINE 14 MG/24 HR PATCH T-DERMAL SCH (08:36)
[2016-12-01] MEDS: METOPROLOL TARTRATE 50 MG TAB PO SCH ×2 (08:36→20:05)
[2016-12-01] MEDS: REMOVE OLD PATCH T-DERMAL SCH (08:37)
[2016-12-01] MEDS: VANCOMYCIN INJ 1,250 MG in SODIUM CHLOR 0.9% 250 ML INJ 250 ML IV SCH (08:37)
[2016-12-01] MEDS: SODIUM CHLORIDE 0.9% FLUSH 10 ML FLUSH IV FLUSH SCH ×3 (08:37→20:06)
[2016-12-01 08:52] VITALS: PULSE 56
[2016-12-01] MEDS: MORPHINE SULFATE 8 MG/ML INJ IV PUSH PRN (12:38)
--- NOTE | 2016-12-01 14:19 | PD.VS.PN ---
Subjective Subjective/Hospital Course Patient without complaints Requesting to go home with OP PT and wound care management Pain controlled (Brigida Armijo) Objective Vitals/I&O Date Time Temp Pulse Resp B/P Pulse Ox O2 Delivery O2 Flow Rate FiO2 12/01/16 08:52 56 12/01/16 08:52 Room Air 12/01/16 08:00 96.5 56 20 177/97 94 12/01/16 04:00 97.7 57 20 133/93 97 12/01/16 04:00 Room Air 12/01/16 00:00 Room Air 12/01/16 00:00 98.0 59 20 155/99 96 11/30/16 20:35 Room Air 11/30/16 20:00 60 11/30/16 20:00 98.4 62 20 164/99 97 11/30/16 16:00 97.3 59 20 170/81 96 12/01/16 12/01/16 12/01/16 07:00 15:00 23:00 Intake Total 1114 ml Output Total 500 ml Balance 614 ml Physical Exam GENERAL: A&OX3, NAD, GCS15 SKIN: Warm and dry. R leg fasciotomy sites to medial and lateral aspect of leg improving in size. No R/D/S/O noted Bilat palpable DP/PT noted Bilat feet warm to touch with motor intact (Brigida Armijo) Laboratory Laboratory Tests Test 12/01/16 05:52 White Blood Count 7.7 Red Blood Count 2.96 Hemoglobin 8.6 Hematocrit 26.6 Mean Corpuscular Volume 89.7 Mean Corpuscular Hemoglobin 29.1 Mean Corpuscular Hemoglobin 32.5 Concent Red Cell Distribution Width 18.0 Platelet Count 265 Mean Platelet Volume 9.5 Sodium Level 142 Potassium Level 4.1 Chloride Level 107 Carbon Dioxide Level 28.9 Anion Gap 6 Blood Urea Nitrogen 14 Creatinine 1.42 Estimat Glomerular Filtration 53 Rate Random Glucose 75 Calcium Level 8.9 (Brigida Armijo) Assessment and Plan Assessment: (1) H/O fasciotomy Status: Acute Plan Plan Pt to be d/c tomorrow after last dose of Vancomycin Picc line to be removed tomorrow am Pt refusing SNF placement, requesting OP therapy Brigida STEPHENS [facility] [phone] (Brigida Armijo) Plan I agree with above plan. Will have had 2 weeks of IV vancomycin for complicated fasciotomy wound. Improving with physical therapy. Has good social support at home. Ward Blanchard DO, FACS Drywaller of Vascular Surgery /[place] (Ward Blanchard DO) Brigida Armijo December 01, 2016 14:18 Ward Blanchard DO December 01, 2016 16:06
[2016-12-01 16:00] VITALS: BP 141/77; PULSE 64; RESP 20; TEMP 97.8; O2SAT 97
[2016-12-01 20:00] VITALS: BP 156/88; PULSE 60; PULSE 62; RESP 18; TEMP 97.8; O2SAT 99
[2016-12-02] VITALS: BP 125/72; PULSE 58; RESP 16; TEMP 97.2; O2SAT 98
[2016-12-02] MEDS: PIPERACIL-TAZO 3.375 GM PREMIX 50 ML IV SCH ×2 (02:00→09:39)
[2016-12-02] MEDS ORDERED: PHARMACY ORDERED LAB ONE (02:45)
[2016-12-02 04:00] VITALS: BP 148/87; PULSE 62; RESP 20; TEMP 97.3; O2SAT 97
[2016-12-02] MEDS: VANCOMYCIN INJ 1,250 MG in SODIUM CHLOR 0.9% 250 ML INJ 250 ML IV SCH (04:06)
[2016-12-02] MEDS: PROPAFENONE HCL 150 MG TAB PO SCH (06:35)
[2016-12-02 08:00] VITALS: BP 136/78; PULSE 62; RESP 18; TEMP 98; O2SAT 99
--- NOTE | 2016-12-02 09:19 | HHI.FF ---
Face to Face Verification Diagnosis: (1) Arterial embolism and thrombosis of lower extremity (2) H/O fasciotomy Physical Therapy Order: Evaluate and Treat, Improve ambulation, Strength and gait training Home Health Nursing Order: Signs/symptoms of disease process Wound care and dressing changes I have seen patient Ramiro Valencia on 12/02/16. My clinical findings support the need for the requested home health care services because: Deconditioned w/ increased weakness Limited ability to care for self I certify that my clinical findings support that this patient is homebound because: Unsafe to leave home unassisted Hermann Ribeiro MD December 02, 2016 09:19
[2016-12-02] MEDS ORDERED: XARE20TA PO (09:26)
[2016-12-02] MEDS ORDERED: LEVA750T PO (09:26)
[2016-12-02] MEDS ORDERED: OXYC-395 PO (09:28)
--- NOTE | 2016-12-02 09:29 | HHI.PR ---
Subjective Remarks This is a pleasant 46 y/o Male who was admitted on October 31 and Discharged on November 06 with Diagnosis of Acute arterial Occlusion of the Right Leg, Well known to me I was Attending physician on last admission and discharged him, he has Atrial Fibrillation, Hypertension, with Thrombosis of the Right lower extremity was started on Heparin drip and Performed Embolectomy and Fasciotomies 10/31/16. Notes from last admission: This is a pleasant 46 y/o male with CAD, Severe Tobacco dependence and Alcohol abuse, as per patient he continue Smoking 1 and a half packs of cigarettes daily, recent admission due to Atypical chest pain and Shortness of breath in April last year with diagnosis of STEMI he had recent Cardiac Catheterization by Doctor Pena with no Stents, as we know he has Hypertension on this opportunity came due to Progressive pain and numbness in the right lower extremity below the knee, not able to wiggle his toes on the right foot. Pain and burning sensation. On the calf it is a cramp. I came early to see the patient but he was in was transferred to Intensive Care unit, then transferred to Hospitalist team, performed an Aorta with Runoff Showed complete Arterial Occlusion involving the distal Right SFA at the level of the adductor canal, Focal moderate Stenosis involving the left popliteal artery. had Atrial Fibrillation on presentation from Emergency medicine, With Diagnosis of Arterial Embolism and Thrombosis of the lower extremity, started on Heparin drip and performed Embolectomy and Fasciotomies, 10/31/16 by Doctor Ward Blanchard. Last Hemoglobin 10.5 on discharge, had Vacuum placement and discharged home on Xarelto, he was in sinus rhythm on Discharge home on [facility]. 11/19: Readmission Today I was called by Doctor Blanchard's Nurse Miss Mosley on Follow up today seen with Cellulitis of the right leg asked for admission place him Nothing by mouth tonight and he will have I and D tomorrow, start IV antibiotics, Vancomycin and Zosyn, Wound care follow specialist recommendations. 11/20: Stable seen in the room, will have I and D later today. 11/21: Status post Right Lower extremity I and D and Placement of Wound Vac. by Doctor Ward Blanchard. 11/22: Seen in the morning, stable, complaint of left Hallux pain and ankle pain , no clear diagnosis for Gout, asked for Uric Acid 3.4 discussed with Vascular Senior Quality Control Inspector. 11/23: Patient in his bedroom, no new complaint, mild improvement with Prednisone dose given yesterday and Low uric acid level may give NSAIDs has good renal function, No nausea, vomit or diarrhea, continue with Vacuum line leak. blood culture negative in four days, no BSI 11/28: Seen in his bedroom and discussed at this time with Doctor Blanchard he does not believer in true reaction to Vancomycin he will receive Vancomycin and Benadryl and follow for probable reaction and discharge to Rehab facility 11/29: Stable no new issues, did not have any reaction to his Vancomycin yesterday, improving renal function. 11/30: Seen in his bedroom no complaint, he was discharged yesterday, no nausea, vomit or diarrhea, on Vancomycin and Zosyn Discussed yesterday afternoon with Operator Electronic Warfare she states the patient has been accepted by Rehab facility but not given authorization by his Insurance, explained that to the patient in the room and to his mother and Father, he states he wants to speak with his Primary Vascular Surgeon Doctor Blanchard and he wants to stay in house and be discharged directly to his home next Thursday. will wait for follow up in the morning by Vascular specialist. 12/01: Awaiting final by seed sales manager and Vascular surgery for discharge, discussed in his bedroom in the presence of his Mother Wound care nurse, and MANAGER FINE DINING Brigida from Cardiovascular Surgery Office , she states the patient will have Vancomycin until tomorrow and will be discharged on by mouth Levaquin for five more days and continue wound care follow up with Doctor Blanchard's Office for 12/10/16. No nausea, vomit or diarrhea. 12/02: Stable in his bedroom, discussed with nurse Miss Cheek and with Doctor Blanchard's MANAGER FINE DINING Miss Allred okay to discharge home now on [facility] for PT and he will go for Wound care as outpatient, no nausea, vomit or diarrhea. Objective Vital Signs Date Time Temp Pulse Resp B/P Pulse Ox O2 Delivery O2 Flow Rate FiO2 12/02/16 04:00 97.3 62 20 148/87 97 12/02/16 00:00 97.2 58 16 125/72 98 12/02/16 00:00 Room Air 12/01/16 20:00 62 12/01/16 20:00 97.8 60 18 156/88 99 12/01/16 20:00 Room Air 12/01/16 16:00 97.8 64 20 141/77 97 I/O 12/01/16 12/01/16 12/01/16 12/02/16 12/02/16 12/02/16 07:00 15:00 23:00 07:00 15:00 23:00 Intake Total 1114 ml 720 ml 2378 ml 1211 ml Output Total 500 ml 1200 ml 950 ml 675 ml Balance 614 ml -480 ml 1428 ml 536 ml Intake Oral 220 ml 720 ml 240 ml 0 ml IV Total 894 ml 2138 ml 1211 ml Output Urine Total 500 ml 1200 ml 950 ml 675 ml # Bowel Movements 0 1 0 0 Result Diagram: 12/01/16 0552 12/01/16 0552 Imaging Last Impressions Chest X-Ray 11/27/16 0000 Signed Impressions: Service Date/Time: November 13:39 - CONCLUSION: Right upper terminate PICC line placement with tip in good position. Mild cardiomegaly. No acute cardiopulmonary process. Saad Donohue MD Procedures Status post I and D and Vacuum placed. Other Results Laboratory Tests Test 11/28/16 11/29/16 12/01/16 12/02/16 06:15 05:50 05:52 03:55 Troponin I 0.02 NG/ML Neutrophils (%) (Auto) 53.4 % Lymphocytes (%) (Auto) 26.2 % Monocytes (%) (Auto) 11.1 % Eosinophils (%) (Auto) 8.5 % Basophils (%) (Auto) 0.8 % Neutrophils # (Auto) 3.3 TH/MM3 Lymphocytes # (Auto) 1.6 TH/MM3 Monocytes # (Auto) 0.7 TH/MM3 Eosinophils # (Auto) 0.5 TH/MM3 Basophils # (Auto) 0.0 TH/MM3 CBC Comment DIFF FINAL Differential Comment White Blood Count 7.7 TH/MM3 Red Blood Count 2.96 MIL/MM3 Hemoglobin 8.6 GM/DL Hematocrit 26.6 % Mean Corpuscular Volume 89.7 FL Mean Corpuscular Hemoglobin 29.1 PG Mean Corpuscular Hemoglobin 32.5 % Concent Red Cell Distribution Width 18.0 % Platelet Count 265 TH/MM3 Mean Platelet Volume 9.5 FL Sodium Level 142 MEQ/L Potassium Level 4.1 MEQ/L Chloride Level 107 MEQ/L Carbon Dioxide Level 28.9 MEQ/L Anion Gap 6 MEQ/L Blood Urea Nitrogen 14 MG/DL Creatinine 1.42 MG/DL Estimat Glomerular Filtration 53 ML/MIN Rate Random Glucose 75 MG/DL Calcium Level 8.9 MG/DL Vancomycin Level Trough 9.3 MCG/ML Objective Remarks GENERAL: Alert and oriented, no distress. SKIN: Focused skin assessment warm/dry. The skin is cool and pale below the knee. HEAD: Atraumatic. Normocephalic. EYES: Pupils equal and round. No scleral icterus. No injection or drainage. ENT: No nasal bleeding or discharge. Mucous membranes pink and moist. NECK: Trachea midline. No JVD. CARDIOVASCULAR: Regular rate and rhythm. No murmur appreciated. RESPIRATORY: No accessory muscle use. Clear to auscultation. Breath sounds equal bilaterally. GASTROINTESTINAL: Abdomen soft, non-tender, nondistended. Hepatic and splenic margins not palpable. MUSCULOSKELETAL: Right leg with open wound with excellent granulation no infection NEUROLOGICAL: Awake and alert. No focal deficits. PSYCHIATRIC: Appropriate mood and affect; insight and judgment normal. Medications and IVs Current Medications Medications (Trade) Dose Ordered Sig/Santos Route Start Time Stop Time Status Last Admin (Lopressor) 50 mg BID PO 11/19/16 21:00 12/01/16 20:05 (Rythmol) 150 mg Q8HR PO 11/19/16 14:00 12/02/16 06:35 (Pill Splitter) 1 ea UNSCH PRN OTHER 11/19/16 13:45 (NS Flush) 2 ml UNSCH PRN IV FLUSH 11/19/16 13:45 (NS Flush) 2 ml BID IV FLUSH 11/19/16 21:00 12/01/16 08:37 (Tylenol) 650 mg Q4H PRN PO 11/19/16 13:45 (Zofran Inj) 4 mg Q6H PRN IVP 11/19/16 13:45 12/02/16 04:06 (Dulcolax Supp) 10 mg DAILY PRN RECTAL 11/19/16 13:45 (Colace) 100 mg Q12HR PO 11/19/16 14:15 12/01/16 20:05 (Narcan Inj) 0.4 mg UNSCH PRN IV 11/19/16 13:45 (Habitrol 14 Mg Patch.24 Hr) 1 patch DAILY T-DERMAL 11/20/16 10:15 12/01/16 08:36 Miscellaneous Information 1 1 DAILY T-DERMAL 11/21/16 09:00 12/01/16 08:37 (Zosyn 3.375 Gm Premix) 50 ml @ 100 mls/hr Q6H IV 11/24/16 02:00 12/02/16 02:00 (Roxicodone) 10 mg Q4H PRN PO 11/24/16 16:00 12/02/16 04:12 (Xarelto) 15 mg BID PO 11/24/16 21:00 12/01/16 20:05 (Morphine Inj) 5 mg UNSCH PRN IV PUSH 11/26/16 09:45 12/01/16 12:38 (NS Flush) See Protocol DAILY IV FLUSH 11/28/16 09:00 12/01/16 08:37 (NS Flush) See Protocol UNSCH PRN IV FLUSH 11/27/16 14:15 (Heparin Central Flush) See Protocol DAILY IV FLUSH 11/28/16 09:00 12/01/16 08:36 (Heparin Central Flush) See Protocol UNSCH PRN IV FLUSH 11/27/16 14:15 12/01/16 05:47 Sodium Chloride UNSCH PRN IV FLUSH 11/27/16 14:15 11/29/16 05:42 Sodium Chloride 1,000 ml @ 125 mls/hr Q8H IV 11/28/16 17:00 12/01/16 21:53 Pharmacy Profile Note 0 ml @ 0 mls/hr UNSCH OTHER 11/30/16 13:30 (Vancomycin Inj/ NS 250 ml Inj) 262.5 ml @ 250 mls/hr Q18H IV 11/30/16 15:00 12/02/16 04:06 A/P Assessment and Plan 1. Acute Arterial Embolism and Thrombosis of the Right lower extremity Aorta with Runoff Showed complete Arterial Occlusion involving the distal Right SFA at the level of the adductor canal, Focal moderate Stenosis involving the left popliteal artery. Status post Embolectomy and Fasciotomies 10/31/[address] Ward Blanchard On Xarealto. status post Vacuum placement. Readmission due to cellulitis and abscess status post I and D, and Vacuum placement a per Vascular surgery attendant will continue Vancomycin until tomorrow, discharge on Levaquin by mouth for five more days and follow in his office on next Thursday12/10/16 continue Wound Care. 2. Atrial Fibrillation/Arterial Occlusive disease continue Beta Blockers, initially on Heparin then started on Xarelto Echocardiogram 05/20/16 EF 6065 percent severe LVH, no RWMA, LAE moderately dilated, tricuspid valve trace regurgitation, mitral valve with trace regurgitation. PA peak press 45 mmHg 05/18/16-cardiac catheterization EF 60%, diastolic dysfunction, normal coronary arteries, RCA dominant-mid and distal 40% plaque, left circ-OM1 80% lesion noted Continue Propafenone to maintain NSR. 3. Severe Tobacco dependence strongly recommended to stop smoking, may be associated with his actual pathology, as per patient not smoking for the last three weeks asked for Nicotine patch placed. 4. Alcohol abuse strongly recommended to stop this behavior, continue drinking wine but one glass socially. 5. Hypertension Controlled. 6. Acute on chronic renal injury improving will continue present care and follow by Vascular Surgery Next 12/03/16 7. Anemia on acute blood loss, he has a vacuum in place, continue Iron by mouth DVT prophylaxis on Xarelto Code Status Full Code. Discussed with Doctor Bowen's MANAGER FINE DINING Miss Allred appreciated. Discussed Condition With Patient and nurse, in the room all questions answered to the best of my abilities Discharge Planning Discharge home now Hermann Ribeior MD December 02, 2016 09:29
[2016-12-02] MEDS: METOPROLOL TARTRATE 50 MG TAB PO SCH (09:38)
[2016-12-02] MEDS: DOCUSATE SODIUM 100 MG CAP PO SCH (09:38)
[2016-12-02] MEDS: NICOTINE 14 MG/24 HR PATCH T-DERMAL SCH (09:38)
[2016-12-02] MEDS: SODIUM CHLORIDE 0.9% FLUSH 10 ML FLUSH IV FLUSH SCH ×2 (09:39)
[2016-12-02] MEDS: SODIUM CHLOR 0.45% 1000 ML INJ 1,000 ML IV SCH (09:39)
[2016-12-02] MEDS: REMOVE OLD PATCH T-DERMAL SCH (09:45)
--- NOTE | 2016-12-02 09:52 | HHI.FF ---
Face to Face Verification Diagnosis: (1) Arterial embolism and thrombosis of lower extremity (2) H/O fasciotomy Physical Therapy Order: Evaluate and Treat, Improve ambulation, Strength and gait training I have seen patient Ramiro Valencia on 12/02/16. My clinical findings support the need for the requested home health care services because: Ltd mobility - disease progression I certify that my clinical findings support that this patient is homebound because: Unsafe to leave home unassisted Hermann Ribeiro MD December 02, 2016 09:52
[2016-12-02] MEDS: RIVAROXABAN 15 MG TAB PO SCH (10:18)
--- NOTE | 2016-12-02 11:33 | PD.VS.PN ---
Subjective Subjective/Hospital Course Patient without complaints Pain controlled Pt requesting referral to Dr. Garcia (wound care center) for out patient therapy Objective Vitals/I&O Date Time Temp Pulse Resp B/P Pulse Ox O2 Delivery O2 Flow Rate FiO2 12/02/16 04:00 97.3 62 20 148/87 97 12/02/16 00:00 97.2 58 16 125/72 98 12/02/16 00:00 Room Air 12/01/16 20:00 62 12/01/16 20:00 97.8 60 18 156/88 99 12/01/16 20:00 Room Air 12/01/16 16:00 97.8 64 20 141/77 97 Physical Exam A&OX3 NAD Wound vac intact to RLE Laboratory Laboratory Tests Test 12/02/16 03:55 Vancomycin Level Trough 9.3 Assessment and Plan Assessment: (1) H/O fasciotomy Status: Acute Plan Plan Will f/u with patient in our OPC Appointment date and time was given to patient and mother Pt referred to Dr. Garcia for OP wound care therapy Discharge Planning today Brigida Armijo December 02, 2016 11:33
== END 2016-12-02 11:35 | disposition home health service (06) | DRG 863 ==
LOC: N04A 13:07 → OBSVTOIN 13:07
PROVIDERS: ADMIT Internal Medicine; ATTEND Internal Medicine
PROC: 2W1LX6Z Compression of Right Lower Extremity using Pressure Dressing (ICD-10-PCS; 2016-11-20)
PROC: 3E10X8Z Irrigation of Skin and Mucous Membranes using Irrigating Substance (ICD-10-PCS; principal; 2016-11-20 14:11)
DX: T81.4XXA Infection following a procedure, initial encounter (principal); N17.9 Acute kidney failure, unspecified; D62 Acute posthemorrhagic anemia; I48.0 Paroxysmal atrial fibrillation; L02.415 Cutaneous abscess of right lower limb; L03.115 Cellulitis of right lower limb; I49.1 Atrial premature depolarization; I10 Essential (primary) hypertension; I77.1 Stricture of artery; I25.10 Atherosclerotic heart disease of native coronary artery without angina pectoris; M10.9 Gout, unspecified; I12.9 Hypertensive chronic kidney disease with stage 1 through stage 4 chronic kidney disease, or unspecified chronic kidney disease; N18.9 Chronic kidney disease, unspecified; I25.2 Old myocardial infarction; F10.10 Alcohol abuse, uncomplicated; F17.210 Nicotine dependence, cigarettes, uncomplicated; Z79.01 Long term (current) use of anticoagulants
CPT/HCPCS: 36569; 71010; 76937; 80048; 80053; 80202; 82565; 83735; 84484; 84550; 85025; 85027; 85610; 85730; 87040; 93005; J1170; J1200; J1580; J1642; J1644; J2250; J2270; J2370; J2405; J2543; J3010; J3370; J7030; J7040; J7050; J7120; J7512

== ENCOUNTER 2017-03-24 06:44 | Day surgery (SDC) | payer BC ==
[2017-03-24] VITALS (7 sets, daily range): BP systolic 106–151; BP diastolic 68–97; PULSE 70–88; RESP 16–18; TEMP 97.2–98.3; O2SAT 95–96
[~2017-03-24] VITALS: Ht 185.4 cm; Wt 105.0 kg
[~2017-03-24 06:44] MED LIST changes: +DOCU1CAP39 PO; +GABA300C5 PO; +INDO50CA PO; +LEVA750T PO; -OXYC-392 PO; +OXYC-395 PO; -XARE15TA PO
[2017-03-24] MEDS ORDERED: HEPARIN-NS/PF INJ 2,000 ML ONE (07:14)
[2017-03-24] MEDS ORDERED: SODIUM CHLORID 0.9% 500 ML IV PRN (07:15)
[2017-03-24] MEDS ORDERED: LORazepam 1 MG TAB SL SCH (07:15)
[2017-03-24] MEDS ORDERED: METOPROLOL TARTRATE 25 MG TAB PO PRN (07:15)
[2017-03-24] MEDS ORDERED: POVIDONE IODINE 5% (ANTISEPSIS KIT) 4 APPLICATIONS EACH NARE PRN (07:15)
[2017-03-24] MEDS: SODIUM CHLORID 0.9% 500 ML INJ 500 ML IV SCH ×2 (07:15→23:55)
[2017-03-24] MEDS ORDERED: INSULIN HUMAN REGULAR 1,000 UNITS/10 ML VIAL SQ PRN (07:15)
[2017-03-24] MEDS ORDERED: CHLORHEXIDINE GLUCONATE 2 % 1 PACK (2 CLOTHS) TOPICAL PRN (07:15)
[2017-03-24] MEDS ORDERED: LACTATED RINGER'S 1000 ML IV PRN (07:15)
[2017-03-24] MEDS ORDERED: LISI-519 PO (07:24)
[2017-03-24] MEDS ORDERED: AMLO5TAB2 PO (07:24)
[2017-03-24] MEDS ORDERED: LISI10TA3 PO (07:24)
[2017-03-24 07:33] LABS: BASOPHIL % 0.4 % (0.0-2.0); EOSINOPHIL # 0.1 TH/MM3 (0-0.4); EOSINOPHIL % 1.8 % (0.0-4.0); HEMATOCRIT 43.9 % (39.0-51.0); HEMO FLAGS DIFF FINAL; LYMPH % 32.8 % (9.0-44.0); LYMPHOCYTE # 2.4 TH/MM3 (1.0-4.8); MEAN CELL VOLUME 86.3 FL (80.0-100.0); MEAN CORPUSCULAR HEMOGLOBIN 29.6 PG (27.0-34.0); MEAN CORPUSCULAR HGB CONC 34.3 % (32.0-36.0); MONO % 10.9 % (0.0-8.0); NEUT % 54.1 % (16.0-70.0); PLATELET COUNT 163 TH/MM3 (150-450); RED BLOOD COUNT 5.09 MIL/MM3 (4.50-5.90); RED CELL DISTRIBUTION WIDTH 19.9 % (11.6-17.2); WHITE BLOOD COUNT 7.4 TH/MM3 (4.0-11.0)
[2017-03-24 07:43] LABS: APTT (PATIENT) 25.5 SEC (24.3-30.1); PROTHROMBIN TIME - PATIENT 10.7 SEC (9.8-11.6)
[2017-03-24 07:49] LABS: BICARBONATE 28.4 MEQ/L (21.0-32.0); POTASSIUM 4.3 MEQ/L (3.5-5.1)
[2017-03-24] MEDS ORDERED: HEPARIN-D5W 25,000 U/250 ML 250 ML ONE (09:56)
[2017-03-24] MEDS ORDERED: ISOPROTERENOL HCL 1 MG/5 ML AMP ONE (09:56)
[2017-03-24] MEDS ORDERED: fentaNYL CITRATE 250 MCG/5 ML AMP ONE (09:57)
[2017-03-24] MEDS ORDERED: PROTAMINE SULFATE 50 MG/5 ML VIAL ONE (09:57)
[2017-03-24] MEDS ORDERED: HEPARIN SODIUM - IV 10,000 UNITS/10 ML VIAL ONE (09:57)
[2017-03-24] MEDS ORDERED: LEVOFLOXACIN 500 MG PREMIX INJ 100 ML IV ONE (10:04)
[2017-03-24] MEDS ORDERED: FUROSEMIDE 40 MG/4 ML VIAL ONE (12:32)
--- NOTE | 2017-03-24 12:49 | CATHPROC ---
ZEFR HIS Report Study Information Study Number Admission Scheduled Start Study Start [id number] Mar 24 2017 6:44AM 03/24/2017 Mar 24 2017 8:14AM [facility] Electrophysiology Study Admit Source Facility Department Other [facility] - [facility] Physician and Clinical Staff Initial Matteo Singh Second Cutter Liana Childress,FASHION ADVISER Other Ailyn Solomon RN Other Anesthesia, COTTONSEED MEAT PRESSER Recorder Gemma Gagnon,BSRN Scrub Chana Greene,FAM TECH2 Procedures Performed Procedure Location (Site) Vessel Name Ablation Procedure ICE CATHETER INSERT RA Atruim Equipment Time Bindery Chief Description Size Mfg Part Number Used/Scraped NEEDLE, TRANSSEPTAL NRG 98 10:14 [facility] [id number] Used C1 [employer]/ EP 10:14 KIT, TRANSDUCER / AFIB [id number] Used PACER [id number] CATHETER, TACTICATH ABLAT BUNDLE 11:10 [facility] [place] Used 65 BUNDLE *[id number]- BUNDLE [id number] CATHETER, FR7 OPTIMA SPIRAL 10:14 [facility] [place] FR7 *[id number] Used BUNDLE BUNDLE [id number] 10:14 [facility] [place] CATHETER, JSN, QUAD BUNDLE FR 5 *[id number]- Used BUNDLE [id number] 10:14 [facility] [place] CATHETER, JSN, QUAD BUNDLE FR 5 *[id number]- Used BUNDLE [id number] SET, COOL POINT TUBING 10:14 [facility] [place] *[id number]- Used BUNDLE BUNDLE SHEATH, FR8.5 STEERABLE SM 10:14 [facility] [place] 71CM [id number] Used 71CM BUNDLE COVER, TRANSDUCER CABLE 10:14 [employer] App[employer] [id number] Used ACUNAV 10:14 CORDIS/PACER SHEATH, FR10 LEONID 11CM FR 10 [id number] Used 10:14 CORDIS/PACER SHEATH, FR9 LEONID 11CM FR 9 [id number] Used [id number] 10:14 [employer] PACK, CCL CUSTOM * Used *[id number] 10:14 MEDLINE PACER MAYERS, LIMB * 2650 *[id number] Used [id number] 10:14 [employer] MEDICAL SHEATH, FR4.5 PRELUDE 11CM FR 4.5 Used [id number] 10:14 NAMIC TUBING, HIGH PRESSURE 48" 48" Used *[id number] 10:14 NAMIC TUBING, HIGH PRESSURE 48" 48" Used *[id number] 10:14 [place] [employer] BLANKET,WARM AIR CCL * Used *[id number] 10:14 [facility] [place] MEDICAL ELECTRODE KIT, JENNA X SURFACE * [id number] Used [id number] 10:14 [facility] [place] MEDICAL SHEATH, EPS, FR6 FAST CATH FR 6 Used *[id number] 10:14 [facility] [place] MEDICAL SHEATH, EPS, FR7 FAST CATH FR 7 [id number] Used [id number] 10:14 [facility] [place] MEDICAL SHEATH, EPS, FR8 FAST CATH FR 8 Used *[id number] CATHETER, ACUNAV FR10 ICE [id number] 10:56 DEVON FR 10 Used (DEVON) *[id number] [facility] PAD, ELECTROSURGICAL 10:14 * [id number] *[id number] Used SURGICAL GROUNDING (BLUE) History: Current Medications Medication Dosage/Unit Route Frequency Last Date/Time Taken LISINOPRIL LOPRESSOR History: Allergies Allergy Reaction vancomycin History: Risk Factors Hypertension Dyslipidemia Previous Heart Failure Yes Yes Yes Peripheral Artery Disease History: Symptoms/Diagnosis Selection Items Palpitations SOB History: Other Disease Selection Items HTN Labs Hgb (g/dl) Hct (%) RBC (MIL/MM3) WBC (l/cumm) Platelets (thousands) 11.60-17.00 35.00-51.00 4.00-5.90 4.00-11.00 150.00-450.00 15.1 43.9 5 7.4 163 Glucose (mg/dl) BUN (mg/dl) Creatinine (mg/dl) BUN:Creatinine (1:x) 74.00-106.00 7.00-18.00 0.50-1.30 10.00-20.00 95 15 1.0 15 Na (meq/l) K (meq/l) Cl (meq/l) CO2 (mmol/L) Ca (mg/dl) 136.00-145.00 3.50-5.10 98.00-107.00 21.00-32.00 8.50-10.10 140 4.3 107 28.4 8.6 INR (PTT:PT) 0.90-1.10 1 Medication Medication Total Dose (Bolus/Oral) Medication Total Dosage/Unit 1% XYLOCAINE 40 mL HEPARIN 95513 units PROTAMINE 40 mg Medications (Bolus/Oral) Medication Time Given Dosage/Unit Administered By Reason 1% XYLOCAINE 03/24/2017 10:48:33 AM 20 mL Matteo Canales For pain 20 mL 1% XYLOCAINE given in lab by Matteo Canales in Left Groin via Subcutaneous. Ordered by Armaan Canales. Reason: For pain. 1% XYLOCAINE 03/24/2017 10:53:02 AM 20 mL Matteo Canales For pain 20 mL 1% XYLOCAINE given in lab by Matteo Canales in Right Groin via Subcutaneous. Ordered by Portia Canales. Reason: For pain. HEPARIN 03/24/2017 11:03:00 AM 03961 units Anesthesia, COTTONSEED MEAT PRESSER As per physicians verbal order 25577 units HEPARIN given in lab by Anesthesia, COTTONSEED MEAT PRESSER in Right Antecubital via Peripheral IV. Ordered by Matteo Canales. Reason: As per physicians verbal order. HEPARIN 03/24/2017 11:12:22 AM 3000 units Anesthesia, COTTONSEED MEAT PRESSER As per physicians verbal order 3000 units HEPARIN given in lab by Anesthesia, COTTONSEED MEAT PRESSER in Right Antecubital via Peripheral IV. Ordered Matteo Mcelroy. Reason: As per physicians verbal order. HEPARIN 03/24/2017 11:25:46 AM 3000 units Anesthesia, COTTONSEED MEAT PRESSER As per physicians verbal order 3000 units HEPARIN given in lab by Anesthesia, COTTONSEED MEAT PRESSER in Right Antecubital via Peripheral IV. Ordered Matteo Mcelroy. Reason: As per physicians verbal order. HEPARIN 03/24/2017 11:40:26 AM 2000 units Anesthesia, COTTONSEED MEAT PRESSER As per physicians verbal order 2000 units HEPARIN given in lab by Anesthesia, COTTONSEED MEAT PRESSER in Right Antecubital via Peripheral IV. Ordered Matteo Mcelroy. Reason: As per physicians verbal order. PROTAMINE 03/24/2017 12:30:00 PM 40 mg Anesthesia, COTTONSEED MEAT PRESSER As per physicians ve rbal order 40 mg PROTAMINE given in lab by Anesthesia, COTTONSEED MEAT PRESSER in Right Antecubital via Peripheral IV. Ordered by Matteo Bethea. Reason: As per physicians verbal order. Medication (Drip) Medication Time Given Dosage/Unit Concentration/Unit Diluent (ml) Solution HEPARIN DRIP 03/24/2017 11:12:42 AM 1000 units/hr 60452 units 250 D5W 1000 units/hr HEPARIN DRIP given in lab by Anesthesia, COTTONSEED MEAT PRESSER in Right Antecubital via Peripheral IV. P ump/Drip Flow = 10 ml/hr [place] [address] units in 250 ml. Ordered by Matteo Canales. Reason: As per physicians verbal or leroy. ISUPREL 03/24/2017 12:17:15 PM 20 mcg/min 1 mg 250 NaCl .9 20 mcg/min ISUPREL given in lab by Anesthesia, COTTONSEED MEAT PRESSER via Peripheral IV. Pump/Drip Flow = 300 ml/hr usi ng NaCl .9 with a concentration of 1 mg in 250 ml. Ordered by Matteo Canales. Reason: As per physicians verbal order. IV Solutions 03/24/2017 10:00:22 AM 0 mL (IV) NaCl .9 IV Solutions given in lab by Gemma Gagnon BSRN in Left Antecubital via Peripheral IV. Pump/Drip Flow = 50 ml/hr using NaCl .9. Ordered by Matteo Canales. Reason: As per physicians verbal order. IV Solutions 03/24/2017 10:00:48 AM 0 mL (IV) NaCl .9 IV Solutions given in lab by Gemma Gagnon BSRN in Right Antecubital via Peripheral IV. Pump/Drip Flow = 50 ml/hr using NaCl .9. Ordered by Matteo Canales. LEVAQUIN 03/24/2017 10:26:00 AM 100 mL/hr 500 100 NaCl .9 100 mL/hr LEVAQUIN given in lab by Anesthesia, COTTONSEED MEAT PRESSER in Right Antecubital via Peripheral IV. Pump/Drip Flow = 0 ml/hr using NaCl .9 with a concentration of 500 in 100 ml. Ordered by Matteo Canales. Reason: As per physicians verbal order. Initial Case Assessment Cardiovascular HR NIBP Chest Pain 58 167/95 0 Edema Present Skin color Skin None Normal Warm Dry Circulatory - Right Pulses Dorsalis Pedis 3 Scale (0,1,2,3,4,d) Circulatory - Left Pulses Dorsalis Pedis 3 Scale (0,1,2,3,4,d) Neurological State Oriented to time-place- Alert Moves all extremities person Respiration - General Respiration Rate SpO2 (%) (B/min) 20 98 Final Case Assessment Cardiovascular HR NIBP 86 109/62 Edema Present Skin color Skin None Normal Warm Dry Neurological State Oriented to time-place- Alert Moves all extremities person Respiration - General Respiration Rate SpO2 (%) (B/min) 18 98 Chronological Log Time Study Chronological Log 9:48:51 Patient arrived via Bed. 9:48:54 Patient Name, D.O.B, / Armband Verified By R.N. 9:48:56 Consent signed by the physician and the patient and verified by the [facility] staff. 9:49:01 Pre-op and post- op instructions given; patient acknowledges understanding of instructions. 9:59:11 Verbal Stimulation=2 Physical Stimulation=2 Airway=2 Respiration=2 TOTAL=10. (0=absent, 1=l imited, 2=present) 9:59:30 Anesthesia at bedside. Assumes care of patient. Jason COTTONSEED MEAT PRESSER 9:59:39 Presedation assessment performed by [facility] RN. 9:59:42 Patient has been NPO for More than 6Hrs. 9:59:44 Skin Breakdown- none 9:59:54 Patient Warmer Placed on the Table. 9:59:56 Disposable Defibrillator Pads Placed On Patient. 9:59:59 Mamta Prominences Protected 10:00:05 A # 20 IV was noted in the Antecubital (left). Grade = ~GRADE~ 10:00:13 A # 20 IV was noted in the Antecubital (right). Grade = ~GRADE~ IV Solutions given in lab by Gemma Gagnon BSRN in Left Antecubital via Peripheral IV. Pump /Drip Flow = 50 ml/hr 10:00:22 using NaCl .9. Ordered by Matteo Canales. Reason: As per physicians verbal order. IV Solutions given in lab by Gemma Gagnon BSRN in Right Antecubital via Peripheral IV. Pum p/Drip Flow = 50 ml/hr 10:00:48 using NaCl .9. Ordered by Matteo Canales. 10:01:05 History and physical on the chart or being dictated. Assessment: Initial Case, HR=58 BPM, MOSZ=342/95 mmhg, Chest Pain=0, Edema=None, Color=Normal, Skin = Warm, Dry Right Pulses: Akira Ped=3 10:01:07 Left Pulses: Akira Ped=3 Neurological: State=Alert, Ox3, HAMMER Respiration: Resp=20 B/min, SpO2=98 % 10:01:53 Table restraints applied according to hospital policy 10:01:55 Right groin prepped with 2% chlorhexidine, and with a 3 min. waiting time. 10:01:59 Left groin prepped with 2% chlorhexidine, and with a 3 min. waiting time. 10:11:52 Reference ECG taken 10:20:00 Anesthesia present for intubation. Indwelling uretheral catheter inserted with clear yellow urine. 100 mL/hr LEVAQUIN given in lab by Anesthesia, COTTONSEED MEAT PRESSER in Right Antecubital via Peripheral IV. Pum p/Drip Flow = 0 10:26:00 ml/hr using NaCl .9 with a concentration of 500 in 100 ml. Ordered by Matteo Canales. Reason : As per physicians verbal order. 10:40:42 Pressure channel 1 zeroed. 10:42:11 MD arrived. 10:42:25 Immediate Presedation assesment performed by physician. Time Out. Correct patient, procedure, procedure equipment, site and side verified with physicia n present. Time 10:44:10 concurred by MD, individual staff and COTTONSEED MEAT PRESSER. Time Out #2 - Consents verified, patient in correct position, all results are labled and displa yed, safety precautions 10:44:12 taken, antibiotics administered. Time out concurred by MD, individual staff and COTTONSEED MEAT PRESSER in procedu re 10:44:15 Case Start 10:45:29 DUSTIN in progress at bedside by Dr. Canales 10:47:26 DUSTIN completed. 20 mL 1% XYLOCAINE given in lab by Matteo Canales in Left Groin via Subcutaneous. Ordered by Matteo Rockwell. 10:48:33 Reason: For pain. 10:48:53 Vascular access was obtained in the Fem Vein (left). 10:49:01 Vascular access was obtained in the Fem Vein (left). 10:49:01 Vascular access was obtained in the Fem Vein (left). 10:49:02 Vascular access was obtained in the Fem Art (left). 10:49:26 A SHEATH, EPS, FR6 FAST CATH FR 6 was advanced into the Fem Vein (left) using the Percutane ous technique. 10:49:39 A SHEATH, EPS, FR7 FAST CATH FR 7 was advanced into the Fem Vein (left) using the Percutane ous technique. 10:49:52 A SHEATH, FR10 LEONID 11CM FR 10 was advanced into the Fem Vein (left) using the Percutaneo us technique. 10:50:07 A SHEATH, FR4.5 PRELUDE 11CM FR 4.5 was advanced into the Fem Art (left) using the Percutan eous technique. 20 mL 1% XYLOCAINE given in lab by Matteo Canales in Right Groin via Subcutaneous. Ordered by Matteo Cervantes. 10:53:02 Reason: For pain. 10:53:14 Vascular access was obtained in the Fem Vein (right). 10:53:55 A SHEATH, EPS, FR8 FAST CATH FR 8 was advanced into the Fem Vein (right) using the Percutan eous technique. A CATHETER, JSN, QUAD BUNDLE FR 5 was advanced vis Fem Vein (left) and placed in the CS. Placem ent was visually 10:54:07 confirmed under fluoroscopy. A CATHETER, JSN, QUAD BUNDLE FR 5 was advanced vis Fem Vein (left) and placed in the HIS. Place ment was 10:54:33 visually confirmed under fluoroscopy. 10:55:39 CATHETER, ACUNAV FR10 ICE (XGraph) FR 10 Was Postioned. A SHEATH, FR8.5 STEERABLE SM 71CM BUNDLE 71CM was exchanged in the Fem Vein (right). This was n ecessary in 11:01:16 order for catheter support. 11:01:41 [place] needle inserted into steerable sheath. 45983 units HEPARIN given in lab by Anesthesia, COTTONSEED MEAT PRESSER in Right Antecubital via Peripheral IV. Or dered by Parker, 11:03:00 Matteo. Reason: As per physicians verbal order. 11:05:00 Transseptal. 11:06:07 Activated Clotting Time Drawn 11:06:55 [place] needle removed. A CATHETER, FR7 OPTIMA SPIRAL BUNDLE FR7 was advanced vis Fem Vein (right) and placed in the LA . Placement 11:07:14 was visually confirmed under fluoroscopy. 11:07:42 Mapping in progress. 11:12:03 ACT (Normal Range 90-180) = 296 3000 units HEPARIN given in lab by Anesthesia, COTTONSEED MEAT PRESSER in Right Antecubital via Peripheral IV. Ord ered by Matteo Canales. 11:12:22 Reason: As per physicians verbal order. 1000 units/hr HEPARIN DRIP given in lab by Anesthesia, COTTONSEED MEAT PRESSER in Right Antecubital via Peripheral IV. Pump/Drip Flow = 11:12:42 10 ml/hr [place] [address] units in 250 ml. Ordered by Matteo Canales. Reason: As per physicians verbal order. 11:15:09 Mapping catheter removed. A CATHETER, TACTICATH ABLAT 65 BUNDLE was advanced vis Fem Vein (right) and placed in the LA. P lacement was 11:15:36 visually confirmed under fluoroscopy. 11:18:45 Activated Clotting Time Drawn 11:24:00 Ablation in progress. 11:25:38 ACT (Normal Range 90-180) = 321 3000 units HEPARIN given in lab by Anesthesia, COTTONSEED MEAT PRESSER in Right Antecubital via Peripheral IV. Ord ered by Matteo Canales. 11:25:46 Reason: As per physicians verbal order. 11:30:00 Activated Clotting Time Drawn 11:40:18 ACT (Normal Range 90-180) = 325 2000 units HEPARIN given in lab by Anesthesia, COTTONSEED MEAT PRESSER in Right Antecubital via Peripheral IV. Ord ered by Matteo Canales. 11:40:26 Reason: As per physicians verbal order. 11:50:32 Activated Clotting Time Drawn 11:55:18 ACT (Normal Range 90-180) = 361 12:10:56 Ablation complete. Catheter was removed A CATHETER, FR7 OPTIMA SPIRAL BUNDLE FR7 was advanced vis Fem Vein (right) and placed in the LA . Placement 12:11:29 was visually confirmed under fluoroscopy. 20 mcg/min ISUPREL given in lab by Anesthesia, COTTONSEED MEAT PRESSER via Peripheral IV. Pump/Drip Flow = 300 ml/ hr using NaCl .9 12:17:15 with a concentration of 1 mg in 250 ml. Ordered by Matteo Canales. Reason: As per physicians mariposa bal order. 12:28:02 Isuprel off 12:29:29 Mapping catheter removed. A SHEATH, FR9 LEONID 11CM FR 9 was exchanged in the Fem Vein (right). This was necessary in ord er to minimize 12:29:48 site leakage. 40 mg PROTAMINE given in lab by Anesthesia, COTTONSEED MEAT PRESSER in Right Antecubital via Peripheral IV. Order ed by Matteo Canales. 12:30:00 Reason: As per physicians verbal order. 12:30:53 Catheter(s) removed without difficulty 12:31:01 Sheath(s) left in place, sutured, 0.9ns kvo connected and will be removed in Holding Area. 12:32:43 Sterile dressing applied to site 12:32:47 No case complications noted. 12:33:04 Cine recording checked. 12:33:09 Holding Area notified of successful intervention. 12:33:12 Bedside Report will be given. 12:33:20 PACU called. Spoke to Humberto. 12:33:23 Defibrillator and ground pads removed. Skin intact. 12:34:48 Ablation procedure performed: AFIB. 12:34:59 EP Procedure was performed. Assessment: Final Case, HR=86 BPM, RUNW=763/62 mmhg, Edema=None, Color=Normal, Skin = Warm, Dr y 12:35:38 Neurological: State=Alert, Ox3, HAMMER Respiration: Resp=18 B/min, SpO2=98 % 12:47:17 Activated Clotting Time Drawn 12:48:47 ACT (Normal Range 90-180) = 161 12:49:04 Patient moved to stretcher. Transported to PACU in stable condition. End Study - Contrast Media Used In Study Contrast Total Opened (mL) Total Used (mL) Total Wasted (mL) Unspecified 0 0 0 End Study - Maximum Contrast Load Max Contrast Load (mL) 525.0 End Study - Radiation Exposure Fluoro Time (minutes) 1.3 End Study - Patient Disposition Complications Transferred To Interventional Outcome No Telemetry Bed successful
[2017-03-24] MEDS ORDERED: DO NOT ADM ANY ANTICOAGULANT DRUGS PRN (13:07)
[2017-03-24] MEDS ORDERED: *RESP: ALBUTEROL 2.5 MG/3 ML NEB (PRN) PERIprocedural Use ONLY NEB ONE (13:10)
[2017-03-24] MEDS: *ONDANSETRON 4 MG VIAL PERIprocedural Use ONLY ONE (13:11)
--- NOTE | 2017-03-24 13:11 | PD.CARD ---
Atrial Fibrillation Ablation PROCEDURES PERFORMED: 1. Electrophysiology study on Isuprel infusion 2. CS cannulation 3. 3-D mapping 4. Transseptal approach 5. Right and left heart catheterization 6. Intracardiac echo 7. Radiofrequency ablation of atrial fibrillation 8. Pulmonary vein isolation 9. Posterior wall ablation 10. Mitral line creation 11. Anterior and posterior ablation 12 Repeat electrophysiology on isuprel infusion. INDICATIONS FOR THE PROCEDURE Mr. Valencia is a 46-year-old male with recurrent episodes of atrial fibrillation, symptomatic, on anticoagulation, referred for electrophysiology study and ablation.. The risks, the nature and the benefits of the procedure were clearly stated to him. The risks include pneumothorax, cardiac perforation, stroke, need for open heart surgery and even . The patient understood and agreed to proceed. DESCRIPTION OF THE PROCEDURE IN DETAIL As written informed consent was obtained prior to esophageal echocardiogram, the patient was kept on the table where he was prepped and draped in the usual sterile fashion. Conscious sedation was initiated and maintained throughout the procedure by the anesthesiologist. Once sedation was verified, the right and left inguinal areas were anesthetized with 2% Xylocaine. Using modified Seldinger technique, the left femoral vein was cannulated on three occasions, three guidewires were advanced. Over the wire a 6, 7 and a 10-Afghan Hemaquet were advanced. Then the left femoral artery was cannulated on one occasion, one guidewire was advanced. Over the wire a 4-Afghan Hemaquet was advanced. Then the right femoral vein was cannulated on one occasion, one guidewire was advanced. Over the wire a 8-Afghan Hemaquet was advanced. Then under fluoroscopic guidance through the 6 and 7-Afghan Hemaquet, two 5-Afghan Lizandro curved quadripolar electrophysiology catheters were advanced and placed around the His as well as coronary sinus. Basic interval was measured. The patient was in sinus rhythm. Through the 10-Afghan Hemaquet, a Cordis Devine AcuNav intracardiac echo catheter was advanced and placed at the right atrium. Multiple view was obtained. There was no pericardial effusion, pulmonary vein was seen, atrial septal was visualized. Then the 8-Afghan Hemaquet in the right femoral vein was exchanged for Agilis transseptal sheath that was placed all the way to the superior vena cava. Through the sheath a Anupam needle was advanced, then the sheath, the dilator and the needle were progressed until foci engaged. Once engaged, the needle was advanced. RF was delivered for 2 seconds. I was able to cross into the left atrium. Once the needle crossed, the dilator was advanced. Once the dilator crossed, the sheath was advanced. Once the sheath crossed, the dilator and the needle were removed. At this point I did flood the system and fluid movement was seen in the left atrium the indicates the sheath is in good position. The patient already received 10,000 units of heparin. The goal is to keep an ACT around 350 during ablation. Then through the sheath a [facility]. Efrem 20 pulse circumferential catheter was advanced. Using [employer] endocardial solution mapping system, a two-dimensional configuration of the left atrium was obtained. Points were taken at the left superior and inferior veins, right superior and inferior veins, mitral valve, and appendages. Then through the sheath a [facility]. Efrem TactiCath 65cm 3.5mm irrigated tipped mapping and radiofrequency ablation catheter was advanced. Esophageal probe was placed temperature monitoring during ablation. When it increased to 0.5 degrees Celsius above baseline, I moved to a different area of the atrium. First I did isolate the left superior and inferior vein. I did make a big chalkyitsik around the veins. Posterior was ablated. A mitral line was created mitral line was created. Then the right superior and inferior veins were isolated. I did remap the atrium. There is no significant signal intro the veins. Pacing from the vein showed no conduction to the atrium. Isuprel infusion was initiated at 20 mcg for 15 minutes. No tachyarrhythmia was induced, post Isuprel no tachyarrhythmia was induced. At that point the procedure was complete. All catheters were removed, atrial septal sheath was exchanged for 9-Afghan Hemaquet , intracardiac echo showed no pericardial effusion. There is still good flow in the pulmonary vein. The patient is going to be transferred to the recovery room. No incident report. The patient tolerated the procedure. Blood loss was minimal. FINDINGS 1. Electrocardiogram: At baseline the patient was in sinus rhythm, post procedure the patient was in sinus rhythm. 2. Basic interval: Base cycle length was around 780. AH at 120 and HV at 65 milliseconds. 3. Tachyarrhythmia: Atrial fibrillation was mapped and ablated. The ablation was successful. CONCLUSION Successful electrophysiology study, mapping, radiofrequency ablation of atrial fibrillation, pulmonary vein isolation, posterior ablation, mitral line creation,repeat electrophysiology on isuprel infusion. COMMENTS AND RECOMMENDATIONS The patient is going to be transferred to the telemetry unit. Will be observed and when stable can be discharged home. Matteo Canales MD Mar 24, 2017 13:11
[2017-03-24] MEDS ORDERED: ONDANSETRON HCL 4 MG/2 ML VIAL IV PRN (13:15)
[2017-03-24] MEDS ORDERED: LORazepam 2 MG/ML VIAL IV PRN (13:15)
[2017-03-24] MEDS ORDERED: LIDOCAINE HCL 1% 50 ML VIAL INFIL PRN (13:15)
[2017-03-24] MEDS ORDERED: METOCLOPRAMIDE HCL 10 MG/2 ML VIAL IV PRN (13:15)
[2017-03-24] MEDS ORDERED: oxyCODONE/ACETAMINOPHEN 5 MG/325 MG TAB PO PRN (13:15)
[2017-03-24] MEDS ORDERED: SODIUM CHLOR 0.9% 250 ML INJ 250 ML IV PRN (13:15)
[2017-03-24] MEDS ORDERED: ATROPINE SULFATE 1 MG/ML VIAL IV PRN (13:15)
[2017-03-24] MEDS: *morphine SULFATE 8 MG/ML PERIprocedure ONLY ONE (13:23)
[2017-03-24] MEDS: *PROMETHAZINE 25 MG/ML VIAL PERIprocedural use ONLY ONE (13:47)
--- NOTE | 2017-03-24 14:17 | EKG ---
Date Performed: 03/24/2017 Time Performed: 07:29:16 PTAGE: 46 years EKG: Possible ectopic atrial rhythm. rSr'(V1) - probable normal variant Inferior infarct - age u ndetermined Abnormal ECG PREVIOUS TRACING : 11/28/2016 06.08 Rate has increased with normalization of ST-T changes. DOCTOR: Arian Meade Interpretating Date/Time 03/24/2017 14:15:41
[2017-03-24] MEDS ORDERED: BACITRACIN OINT 0.9 GM PKT TOP ONE (17:00)
[2017-03-24] MEDS: RIVAROXABAN 20 MG TAB PO SCH (17:18)
[2017-03-24] MEDS: oxyCODONE/ACETAMINOPHEN 5 MG/325 MG TAB PO PRN ×2 (17:19→22:39)
[2017-03-24] MEDS ORDERED: GABAPENTIN 300 MG CAP PO SCH (18:00)
[2017-03-24] MEDS: METOPROLOL TARTRATE 50 MG TAB PO SCH (20:53)
[2017-03-24] MEDS ORDERED: GABAPENTIN 300 MG CAP PO ONE (21:15)
[2017-03-25] VITALS (12 sets, daily range): BP systolic 129–151; BP diastolic 78–91; PULSE 65–79; RESP 16–20; TEMP 97.2–97.3; O2SAT 96–98
[2017-03-25 06:55] LABS: APTT (PATIENT) 29.3 SEC (24.3-30.1); INTERNATIONAL NORMALIZED RATIO 1.1 RATIO
[2017-03-25] MEDS: RIVAROXABAN 20 MG TAB PO SCH (08:31)
[2017-03-25] MEDS: METOPROLOL TARTRATE 50 MG TAB PO SCH (08:32)
[2017-03-25] MEDS: oxyCODONE/ACETAMINOPHEN 5 MG/325 MG TAB PO PRN (08:32)
[2017-03-25] MEDS ORDERED: amLODIPine BESYLATE 5 MG TAB PO SCH (09:00)
[2017-03-25] MEDS ORDERED: LISINOPRIL 10 MG TAB PO SCH (09:00)
[2017-03-25] MEDS ORDERED: GABAPENTIN 300 MG CAP PO SCH (09:00)
--- NOTE | 2017-03-25 09:43 | HHI.PR ---
Subjective Remarks Feeling better Objective Vital Signs Date Time Temp Pulse Resp B/P (MAP) Pulse Ox O2 Delivery O2 Flow Rate FiO2 03/25/17 08:02 68 03/25/17 07:56 97.3 69 18 151/91 (111) 98 03/25/17 07:45 76 03/25/17 06:00 66 03/25/17 05:00 68 03/25/17 04:00 68 03/25/17 03:02 65 03/25/17 03:00 97.2 66 16 129/78 (95) 96 03/25/17 02:00 66 03/25/17 01:00 68 03/25/17 00:00 70 03/24/17 23:00 71 03/24/17 23:00 97.4 76 16 106/68 (81) 95 03/24/17 22:00 78 03/24/17 21:00 80 03/24/17 20:00 84 03/24/17 19:00 97.5 83 18 125/74 (91) 95 03/24/17 19:00 88 03/24/17 18:30 18 03/24/17 16:00 97.2 77 16 151/93 (112) 03/24/17 14:30 98.2 71 16 128/85 (99) 94 Nasal Cannula 3 03/24/17 14:00 72 16 127/84 (98) 94 Nasal Cannula 3 03/24/17 13:45 73 17 129/86 (100) 95 Nasal Cannula 3 03/24/17 13:30 71 15 137/88 (104) 98 Nasal Cannula 3 03/24/17 13:15 75 15 135/85 (102) 97 Nasal Cannula 3 03/24/17 13:03 97.7 73 15 141/91 (108) 95 Nasal Cannula 3 I/O 03/24/17 03/24/17 03/24/17 03/25/17 03/25/17 03/25/17 06:59 14:59 22:59 06:59 14:59 22:59 Intake Total 390 ml 480 ml Output Total 2450 ml 350 ml Balance -2060 ml 130 ml Intake Oral 240 ml 480 ml IV Total 150 ml Output Urine Total 2450 ml 350 ml Result Diagram: 03/24/17 0710 03/24/17 0710 Imaging Alert, fully oriented Lungs: ventilated Heart: S1, S2 regular Abdomen: soft, no mass Ext: no edema Current Medications Medications (Trade) Dose Ordered Sig/Santos Route Start Time Stop Time Status Last Admin Lactated Ringer's 1,000 ml @ 30 mls/hr Q24H PRN IV 03/24/17 07:15 03/27/17 07:14 Sodium Chloride 500 ml @ 30 mls/hr [id number] PRN IV 03/24/17 07:15 03/27/17 07:14 (Lopressor) 25 mg REGISTERED NURSE NURSERY PRN PO 03/24/17 07:15 03/27/17 07:14 (Betadine 5% Antisepsis Kit) 1 applic REGISTERED N[facility]UR[facility] PRN EACH NARE 03/24/17 07:15 03/27/17 07:14 (Chlorhexidine 2% Cloth) 3 pack REGISTERED N[facility] NUR[facility] PRN TOPICAL 03/24/17 07:15 03/27/17 07:14 (NovoLIN R INJ) See Protocol Table ... REGISTERED NURSE NURSERY PRN SQ 03/24/17 07:15 03/27/17 07:14 Sodium Chloride 500 ml @ 30 mls/hr [id number] IV 03/24/17 07:15 (Ativan) 1 mg REGISTERED NURSE NURSERY SL 03/24/17 07:15 03/27/17 07:14 (Percocet 5-325 Mg) 1 tab Q4H PRN PO 03/24/17 13:15 (Percocet 5-325 Mg) 2 tab Q4H PRN PO 03/24/17 13:15 03/25/17 08:32 (Ativan Inj) 0.5 mg UNSCH PRN IV 03/24/17 13:15 03/25/17 13:14 (Atropine Inj) 0.5 mg UNSCH PRN IV 03/24/17 13:15 Sodium Chloride 250 ml @ 500 mls/hr ONCE PRN IV 03/24/17 13:15 03/25/17 13:14 (Reglan Inj) 10 mg Q4H PRN IV 03/24/17 13:15 (Zofran Inj) 4 mg Q4H PRN IV 03/24/17 13:15 (Xylocaine 1% Inj (50 ml)) 10 ml UNSCH PRN INFIL 03/24/17 13:15 03/25/17 13:14 (Norvasc) 5 mg DAILY PO 03/25/17 09:00 03/25/17 08:31 (Prinivil) 10 mg DAILY PO 03/25/17 09:00 03/25/17 08:31 (Lopressor) 50 mg BID PO 03/24/17 21:00 03/25/17 08:32 (Xarelto) 20 mg DAILY PO 03/24/17 18:00 03/25/17 08:31 Miscellaneous Information ALL NURSING DEPARTMD... UNSCH PRN .XX 03/24/17 13:07 03/25/17 13:06 (Neurontin) 900 mg TID PO 03/25/17 09:00 03/25/17 08:32 Assessment and Plan Problem List: (1) Paroxysmal atrial fibrillation ICD Codes: I48.0 - Paroxysmal atrial fibrillation Status: Acute Plan: SP ablation. Doing well Can be DH Follow up as previously scheduled (2) Hypertension ICD Codes: I10 - Essential (primary) hypertension Status: Acute Plan: SBP 129 at 0300 Not taken his med yet Matteo Canales MD Mar 25, 2017 09:43
--- NOTE | 2017-03-25 17:31 | EKG ---
Date Performed: 03/24/2017 Time Performed: 13:24:55 PTAGE: 46 years EKG: Sinus rhythm WITH FIRST DEGREE AV BLOCK Compared to prior tracing no significant change ABNORMAL ECG PREVIOUS TRACING : 03/24/2017 07.29 DOCTOR: Doug Dimas Interpretating Date/Time 03/25/2017 17:30:49
--- NOTE | 2017-03-25 17:31 | EKG ---
Date Performed: 03/25/2017 Time Performed: 06:53:28 PTAGE: 46 years EKG: Possible ectopic atrial rhythm with first degree AV block Compared to prior tracing no sign ificant change Abnormal ECG PREVIOUS TRACING : 03/24/2017 13.24 DOCTOR: Doug Dimas Interpretating Date/Time 03/25/2017 17:31:17
== END 2017-03-25 11:38 | disposition home or self-care (01) ==
LOC: HDIC 06:44 → HDOC 06:44 → HCIN 15:49 → HDOC 03-25 11:38
PROVIDERS: ATTEND Internal Medicine Interventional Cardiology
DX: I48.0 Paroxysmal atrial fibrillation (principal); I10 Essential (primary) hypertension; E78.5 Hyperlipidemia, unspecified; I73.9 Peripheral vascular disease, unspecified; I25.10 Atherosclerotic heart disease of native coronary artery without angina pectoris; F17.210 Nicotine dependence, cigarettes, uncomplicated; Z86.718 Personal history of other venous thrombosis and embolism; Z79.01 Long term (current) use of anticoagulants; Z79.899 Other long term (current) drug therapy
CPT/HCPCS: 00537; 80048; 85002; 85025; 85610; 85730; 86850; 86900; 86901; 93005; 93613; 93623; 93656; 93662; 94664; C1730; C1731; C1732; C1759; C1766; C2630; J1644; J1940; J1956; J2270; J2405; J2550; J2720; J3010; J7613